=== PATIENT | female | born 1935 | race Caucasian/White ===

== ENCOUNTER 2017-02-17 06:25 | Inpatient (IN) | payer OTHER ==
[2017-01-17 11:38] VITALS: BMI 36.0
--- NOTE | 2017-01-17 12:15 | PAT Medication Instructions ---
Service Date Jan 17, 2017. Current Home Medication List Acetaminophen (Tylenol), 1,000 MG PO Q6 PRN for Pain Amlodipine (Norvasc), 20 MG PO QPM Calcium Carbonate-Vitamin D (Calcium + D), 1 TAB PO BID Citalopram (Citalopram Hydrobromide), 20 MG PO QAM Clonazepam (Klonopin), 1 MG PO HS PRN for Sleep Denosumab (Prolia), 1 DOSE INJ Q6MO Loperamide Hcl (Imodium), 2 MG PO UD PRN for Diarrhea Meclizine HCl (Meclizine HCl), 1 TAB PO TID PRN for DIZZINESS Ocuvite Preservision (Ocuvite Preservision), 1 TAB PO BID Omeprazole (Prilosec), 20 MG PO QAM Psyllium (Metamucil), 1 PO HS Triamterene/Hctz (Dyazide 37.5MG/25MG), 1 TAB PO QAM Medication Instructions For Your Scheduled Surgery Denosumab (Prolia), 1 DOSE INJ Q6MO (continue as directed) - Hold the following medications the morning of surgery: Calcium Carbonate-Vitamin D (Calcium + D), 1 TAB PO BID Loperamide Hcl (Imodium), 2 MG PO UD PRN for Diarrhea Ocuvite Preservision (Ocuvite Preservision), 1 TAB PO BID Triamterene/Hctz (Dyazide 37.5MG/25MG), 1 TAB PO QAM - Take the following medications the morning of surgery with a sip of water: Omeprazole (Prilosec), 20 MG PO QAM Meclizine HCl (Meclizine HCl), 1 TAB PO TID PRN for DIZZINESS (if needed) Citalopram (Citalopram Hydrobromide), 20 MG PO QAM Acetaminophen (Tylenol), 1,000 MG PO Q6 PRN for Pain (okay to take up to 4 hours prior to surgery if needed) - Take the following medications as scheduled the night before surgery: Psyllium (Metamucil), 1 PO HS Ocuvite Preservision (Ocuvite Preservision), 1 TAB PO BID Meclizine HCl (Meclizine HCl), 1 TAB PO TID PRN for DIZZINESS (if needed) Loperamide Hcl (Imodium), 2 MG PO UD PRN for Diarrhea (if needed) Clonazepam (Klonopin), 1 MG PO HS PRN for Sleep (if needed) Amlodipine (Norvasc), 20 MG PO QPM Calcium Carbonate-Vitamin D (Calcium + D), 1 TAB PO BID Acetaminophen (Tylenol), 1,000 MG PO Q6 PRN for Pain (if needed) If you have any questions please call us at [phone] or [phone] or [phone]
[2017-01-17 13:05] LABS: BASO % 0.4 %; BASO ABS # 0.04 K/uL (0-0.2); COMPLETE YES; EOS % 1.8 %; HEMATOCRIT 43.8 % (37-47); IG% 0.2 %; LYMPH % 18.5 %; LYMPH ABS # 1.67 K/uL (1.2-3.4); MEAN CELL VOLUME 94.6 fL (80-100); MEAN CORPUSCULAR HEMOGLOBIN 30.7 pg (25-34); MEAN CORPUSCULAR HGB CONC 32.4 g/dl (32-36); MEAN PLATELET VOLUME 12.5 fL (7.4-10.4); MONO % 8.7 %; NEUT % 70.4 %; PLATELET COUNT 170 K/uL (130-400); RED BLOOD COUNT 4.63 M/uL (4.2-5.4); WHITE BLOOD COUNT 9.03 K/uL (4.8-10.8)
[2017-01-17 13:15] LABS: INR 1.1 (0.9-1.1); PARTIAL THROMBOPLASTIN RATIO 1.2; PROTHROMBIN TIME (PATIENT) 11.3 SECONDS (9.0-12.0)
[2017-01-17 13:18] LABS: CREATININE 0.95 mg/dl (0.60-1.20); POTASSIUM 4.2 mmol/L (3.5-5.1)
--- NOTE | 2017-02-13 07:10 | HISTORY & PHYSICAL EXAMINATION ---
DATE OF ADMISSION: 02/17/2017 CHIEF COMPLAINT: Left knee pain. 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 She has got a long history of left knee pain and discomfort dating back to over 10 years ago. She was managed by Dr. White, a local orthopedist. She has been through injections, which provided some temporary relief, but became less successful over time. Pain is mostly on the medial side of her knee. It is increased with weightbearing. She has nighttime discomfort. She would like to have her left knee replaced. The patient also has an underlying history of some chronic kidney disease due to chemotherapy from breast cancer, cannot really take NSAIDs as a result. PAST MEDICAL HISTORY: 1. Hypertension. 2. History of breast cancer status post surgery and chemotherapy. 3. Chronic renal insufficiency. PREVIOUS SURGERIES: Include: 1. Meningioma resection at [facility]. 2. Mastectomy. 3. Cholecystectomy. 4. Hysterectomy. 5. Cataract surgery. ALLERGIES: DILANTIN, AUGMENTIN AND FLU SHOT. CURRENT MEDICATIONS: Include: 1. Citalopram 20 mg. 2. Triamterene/hydrochlorothiazide 5/25 once a day. 3. Omeprazole 20 mg. 4. Norvasc 20 mg. 5. Clonazepam 1 mg a day. 6. Meclizine p.r.n. 7. Metamucil. 8. PreserVision. 9. Calcium. 10. Tylenol. 11. Prolia injection. 12. Imodium. SOCIAL HISTORY: A 81-year-old female. She comes in with a friend and lives at [facility]. She is . She lives alone. She does not drink. FAMILY HISTORY: Significant for heart disease and breast cancer. REVIEW OF SYSTEMS: Significant for breast cancer and chronic renal insufficiency secondary to chemotherapy. She denies any chest pain. No shortness of breath. No history of DVT or PE. PHYSICAL EXAMINATION: GENERAL: Reveals a pleasant elderly female, who looks to be in pretty good health. HEENT: Benign. NECK: Supple. No lymphadenopathy. LUNGS: Clear to auscultation. HEART: Regular rate and rhythm. ABDOMEN: Soft, nontender and nondistended. EXTREMITIES: Grossly neurovascularly intact except as follows: Examination of the left knee reveals the patient ambulates with varus alignment to her knee. She does limp on the left side. She has got a little bit of a waddling gait. Range of motion is 5 degrees short of full extension and 120 degrees of flexion. No instability. No pain with hip motion. X-RAYS: X-rays of the left knee were reviewed which show advanced left knee DJD. She has got near complete loss of her medial joint space. A little bit of tibiofemoral subluxation. She has subchondral sclerosis. 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 Also, has a history of breast cancer and chronic renal insufficiency and cannot take NSAIDs as a result. PLAN: The patient wanted to proceed with knee replacement. We will plan on taking her to the operating room and do a left total knee arthroplasty. The risks and benefits of this procedure were explained to the patient including, but not limited to DVT, PE, , infection, neurological injury, vascular injury, bleeding problems, pain, limited range of motion, stiffness, failure to relieve symptoms, incomplete relief of symptoms, need for further surgery in the future, fracture, leg length inequality, nerve palsy, etc. The patient understands and desires to proceed. Informed consent was obtained. The patient is planning on going to [facility] afterwards, as she lives there. We will have to be careful with NSAIDs use after surgery. Her creatinine is fairly normal, so we may be able to give her some Toradol.
[2017-02-17] VITALS (10 sets, daily range): BP systolic 107–162; BP diastolic 66–99; PULSE 67–93; TEMP 36.3–37; O2SAT 93–99; Ht 160 cm; Wt 94.2 kg
[~2017-02-17] VITALS: Ht 160 cm; Wt 94.2 kg
[~2017-02-17 06:25] MED LIST: ACET-1256 PO; ACETAMINOPHEN 500 MG TAB PO SCH; AMLO-114 PO; BUPIVACAINE LIPOSOME 266 MG, BUPIVACAINE/EPINEPHRINE INJ 50 ML, SODIUM CHLORIDE 0.9% PF... INFIL SCH; CALC600T9 PO; CEFAZOLIN 2000MG IV PUSH 10 ML IV SCH; CLON1TAB3 PO; CLX20 PO; DNSIS60 INJ; FAMOTIDINE 20 MG TAB PO SCH; GABAPENTIN 300 MG CAP PO SCH; IMD/2 PO; LACTATED RINGER'S 1000ML 1,000 ML IV SCH; LACTATED RINGER'S 1000ML 500 ML IV ONE; LACTATED RINGER'S 1000ML IV SCH; MECL1TAB40 PO; METOCLOPRAMIDE HCL 10 MG TAB PO SCH; MULT-190 PO; PRLSR20 PO; PSYL1.7W PO; SCOPOLAMINE 1.5 MG TDSY TD SCH; TRANEXAMIC ACID INJ 1,000 MG in SYRINGE 0 ML IV SCH; TRIA37.5 PO
[2017-02-17] MEDS ORDERED: BUPIVACAINE 0.5 % 5 MG/1 ML PF 10ML VIAL ONE (06:32)
[2017-02-17] MEDS ORDERED: ROPIVACAINE 0.5% 5 MG/ML 30 ML VIAL ONE (06:32)
--- NOTE | 2017-02-17 06:55 | History & Physical Bridge Note ---
H&P Re-Evaluation Bridge Note: I have examined the patient, reviewed the History & Physical and in the interval since the performance of the History & Physical I have noted the following changes of clinical significance: No changes noted
[2017-02-17] MEDS ORDERED: MIDAZOLAM HCL 1 MG/ML 2ML VIAL ONE (08:01)
[2017-02-17] MEDS ORDERED: FENTANYL CITRATE INJ 50 MCG/1 ML 2 ML VIAL ONE (08:01)
[2017-02-17] MEDS ORDERED: HYDROmorphone INJ 2 MG/ML SYR/VIAL IV PRN (08:15)
[2017-02-17] MEDS ORDERED: EpHEDrine SULFATE INJ 50 MG/ML AMP IV PRN (08:15)
[2017-02-17] MEDS ORDERED: ATROPINE SULFATE 0.1 MG/ML 5ML SYR IV PRN (08:15)
[2017-02-17] MEDS ORDERED: PHENYLEPHRINE 100MCG/ML 5ML SYR IV PRN (08:15)
[2017-02-17] MEDS ORDERED: ONDANSETRON INJ 2 MG/ML 2 ML VIAL IV PRN ×2 (08:15→11:00)
[2017-02-17] MEDS ORDERED: BUPIVACAINE/EPINEPHRINE 0.25% 1:200,000 30 ML VIAL ONE (08:57)
[2017-02-17] MEDS ORDERED: SODIUM CHLORIDE 0.9% PF 50 ML VIAL ONE (08:58)
[2017-02-17] MEDS ORDERED: VANCOMYCIN HCL 1000MG/20ML VIAL ONE (08:58)
[2017-02-17] MEDS ORDERED: BACITRACIN 50000 UNIT VIAL ONE (08:58)
[2017-02-17] MEDS ORDERED: BUPIVACAINE LIPOSOME 1/3% 266 MG/20 ML VIAL INFIL ONE (08:58)
[2017-02-17] MEDS ORDERED: PROPOFOL IV EMULSION 10 MG/ML 20 ML VIAL IV ONE (09:42)
--- NOTE | 2017-02-17 10:56 | [facility] Post Operative Brief Note ---
Immediate Operative Summary Operative Date Feb 17, 2017. Pre-Operative Diagnosis Advanced Left Knee Degenerative Joint Disease Post-Operative Diagnosis Advanced Left Knee Degenerative Joint Disease Procedure(s) Performed Left Total Knee Arthroplasty Surgeon Dr. Best Midwife Surgeon(s) TONIE aHddad Estimated Blood Loss 50 ml Findings Left Knee DJD Fluids (cc crystalloids) 1600 cc Specimens A. Left Knee Bone and Tissue Drains None Anesthesia Spinal Complication(s) None Disposition Recovery Room / PACU
[2017-02-17] MEDS ORDERED: ZOLPIDEM TARTRATE 5 MG TAB PO PRN (11:00)
[2017-02-17] MEDS ORDERED: ALUMINUM/MAGNESIUM/SIMETH (MAALOX MAX) 30 ML UDC PO PRN (11:00)
[2017-02-17] MEDS ORDERED: LOPERAMIDE HCL 2 MG CAP PO PRN (11:00)
[2017-02-17] MEDS ORDERED: BISACODYL 10 MG SUPP PR PRN (11:00)
[2017-02-17] MEDS ORDERED: DENOSUMAB INJ SCH (11:00)
[2017-02-17] MEDS ORDERED: CLONAZEPAM 1 MG TAB PO PRN (11:00)
[2017-02-17] MEDS ORDERED: MECLIZINE HCL 12.5 MG TAB PO PRN (11:00)
[2017-02-17] MEDS ORDERED: MAGNESIUM HYDROXIDE SUSP 30 ML UDC PO PRN (11:00)
[2017-02-17] MEDS ORDERED: SILVER SULFADIAZINE 1% CR 50 GM JAR EXT PRN (11:00)
[2017-02-17] MEDS ORDERED: METOCLOPRAMIDE HCL INJ 5 MG/ML 2 ML VIAL IV PRN (11:00)
--- NOTE | 2017-02-17 11:31 | OPERATIVE REPORT ---
DATE OF OPERATION: 02/17/2017 SURGEON: Dr. Favio Best. BLISTER PACKAGING MACHINE OPERATOR: TONIE Amaya PREOPERATIVE DIAGNOSIS: Left knee degenerative joint disease. POSTOPERATIVE DIAGNOSIS: Same. PROCEDURE PERFORMED: Left cemented posterior stabilized total knee arthroplasty. COMPLICATIONS: None. ESTIMATED BLOOD LOSS: 50 mL. FLUID REPLACEMENT: 1600 mL crystalloid fluid replacement. ANESTHESIA: Spinal with adductor canal block. DRAINS: None. SPECIMENS: Left knee sent for pathology. TOURNIQUET TIME: 57 minutes at 300 mmHg. 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 She has been through extensive conservative treatment over the past 10 years. This has become less successful. She would now like to proceed with total knee arthroplasty. OPERATIVE FINDINGS: Operative findings revealed advanced left knee DJD. She had grade 4 [id number] disease of the medial compartment as well as the patellofemoral compartment. The lateral compartment was fairly spared. She had a varus deformity to her knee. She had a moderate sized knee effusion. OPERATIVE IMPLANTS: Operative implants consisted of: 1. Biomet Vanguard size 62.5 left posterior stabilized femoral component. 2. Biomet size 67 tibial tray. 3. A 10-mm posterior stabilized polyethylene insert. 4. A 31 x 8 all poly patella. OPERATIVE PROCEDURE: The patient was taken to the operating room, identified and placed on the operating table in the supine position. All contact areas were appropriately padded. IV antibiotics were provided by anesthesia team. A spinal anesthetic and adductor canal block had been provided in the holding area. Alegria catheter was placed in sterile fashion. The left thigh tourniquet was then placed and left lower extremity was then prepped and draped in the usual sterile fashion. The left leg was elevated and exsanguinated with Esmarch and tourniquet was placed at 300 mmHg. An anterior approach to the left knee was then performed through a longitudinal incision centered over the patella. Sharp dissection was carried through the subcutaneous tissues down to the level of the extensor mechanism. A medial parapatellar arthrotomy incision was made. Some subperiosteal dissection was carried out medially. The fat pad was resected from beneath the patellar tendon. The lateral patellofemoral ligament was released. The patella was everted and knee was flexed. The osteophytes were taken off the distal femur. The ACL and PCL were then released from the distal femur and the tibia subluxated anteriorly. The external tibial alignment jig was then placed in the anterior face of the tibia and adjusted 14 mm medially. Proximal tibial cut was made to remove about 2 mm of bone from the medial side. Her bone was pretty osteoporotic below this. The tibia was sized to a size 67. We tried to maximize coverage due to osteoporosis. Attention was then drawn to the femur. The distal femur was entered with a sharp drill. Intramedullary canal was suctioned. A left 5-degree valgus cutting guide was placed. The distal femoral cutting block was pinned in place. Distal femoral cut was made to take an additional 3 mm of bone off the distal femur. The femur was then sized to a size 62.5. We did downsize this almost the entire size due to the narrow medial/lateral dimensions of the femur. The AP cutting block was pinned parallel to the epicondylar axis, which was 4 degrees of external rotation. The anterior cut, anterior chamfer, posterior cut, and posterior chamfer cuts were made. Box cutting guide was placed and adjusted slightly lateral and the box cut was made. The knee was flexed. The remnants of the medial and lateral menisci were excised. The osteophytes were taken off the posterior aspect of the femur. Trial femoral component was placed. Tibial tray was pinned in maximum external rotation and drill and stem punch were used to create defect in the proximal tibia for the tibial tray. The knee was then trialed and a 10-mm insert fit most appropriately. It was a little bit lax, a little bit more in flexion and extension, but I elected to accept this as I did not want to make her too tight. Attention was then drawn to the patella. The patella was cleaned of all soft tissues. Patella thickness measured 19 mm in thickness and it was cut down to 12. It was sized to a size 31 patella. The lug holes were drilled for the 31 patella. Lateral osteophyte was removed. Patella button was placed. The knee was taken through range of motion and the patella tracked nicely with no thumbs test. Attention was then drawn toward placement of the permanent components. All trial components were removed. Bone plug was placed in the distal femur to limit blood loss. A double batch of Palacos G cement was mixed. A left size 62.5 posterior stabilized femoral component, size 67 tibial tray, a 10-mm posterior stabilized polyethylene insert, and a 31 x 8 all poly patella then cemented in place. Knee was brought out into full extension until cement hardened. A final cement check was then performed. Pericapsular tissues were injected with a total of 100 mL of a combination of 20 mL of Exparel, 30 mL of normal saline, and 50 mL of 0.25% Marcaine with epinephrine. The patient did receive 1 gram of tranexamic acid. The tourniquet was then let down for final tourniquet time of 57 minutes. Hemostasis was assured with use of electrocautery. The wound was once again irrigated. The extensor mechanism was then closed with a combination of #1 PDS suture and #1 Vicryl suture in a [id number] fashion. Extensor mechanism was checked and found to be intact. The subcutaneous tissues were then closed with 2-0 Dexon suture in a buried interrupted fashion. Skin was closed skin sarah. Leg was then cleaned and dried and a sterile dressing of Xeroform, 4 x 4, sterile cast padding and Aiden bandage were applied. The patient then transferred to the recovery room in stable condition. The patient tolerated the procedure well with no complications. All needle and sponge counts were correct at the end of the operation. I attest to the content of the Intraoperative Record and any orders documented therein. Any exception s are noted below.
--- NOTE | 2017-02-17 11:41 | DIAGNOSTIC IMAGING REPORT ---
L KNEE 1 OR 2 VIEWS ROUTINE HISTORY: 81 years-old Female AP/LATERAL IN PACU LEFT KNEE status post left knee total joint arthroplasty. Degenerative joint disease. COMPARISON: Left knee radiographs 12/15/2016 TECHNIQUE: 2 views of the left knee FINDINGS: Postoperative changes are present compatible with recent left knee total joint arthroplasty and patella resurfacing. Midline skin sarah are seen anteriorly. Surgical drain is in place. Expected soft tissue swelling and deep tissue air about the knee is noted. No periprosthetic fracture or retained foreign body. Alignment is satisfactory. IMPRESSION: Status post left knee total joint arthroplasty and patellar resurfacing without complication. The above report was generated using voice recognition software. It may contain grammatical, syntax or spelling errors. Electronically signed by: Efren Gómez M.D. 02/17/2017 11:40 AM Dictated Date/Time: 02/17/2017 11:39 AM
--- NOTE | 2017-02-17 12:15 | Anesthesiology Progress Note ---
Anesthesia Post Op Note Date & Time Feb 17, 2017 at 12:15 Vital Signs Pain Intensity: 0 Vital Signs Past 12 Hours Date Time Temp Pulse Resp B/P (MAP) Pulse Ox O2 Delivery O2 Flow Rate FiO2 02/17/17 11:40 36.6 71 16 108/57 98 Nasal Cannula 2 02/17/17 11:30 36.6 68 16 106/58 98 Nasal Cannula 2 02/17/17 11:20 68 16 114/42 98 Nasal Cannula 2 02/17/17 11:10 78 16 125/61 100 Nasal Cannula 2 02/17/17 11:02 36.9 81 16 130/60 99 Oxymask 10 02/17/17 07:01 95 Room Air 02/17/17 06:59 36.5 76 18 136/99 Notes Mental Status: alert / awake / arousable, participated in evaluation Pt Amnestic to Procedure: Yes Nausea / Vomiting: adequately controlled Pain: adequately controlled Airway Patency, RR, SpO2: stable & adequate BP & HR: stable & adequate Hydration State: stable & adequate Anesthetic Complications: no major complications apparent
[2017-02-17] MEDS: D5W AND 1/2NSS + 20MEQ KCL 1,000 ML IV SCH ×2 (13:01→22:57)
[2017-02-17] MEDS: TRAMADOL HCL 50 MG TAB PO PRN (13:07)
--- NOTE | 2017-02-17 15:46 | PROGRESS NOTE ---
DATE: 02/17/2017 SUBJECTIVE: A 81-year-old female postop from a left knee replacement. She is doing pretty well. Just starting to feel some pain in her leg. Denies any chest pain or shortness of breath. Not feeling dizzy or lightheaded. OBJECTIVE: VITAL SIGNS: Temperature 36.3. Vital signs stable. GENERAL: Physical examination reveals a pleasant elderly female. She is sitting up in bed and looks comfortable. She is talking to the family. LUNGS: Clear to auscultation. HEART: Regular rate and rhythm. ABDOMEN: Soft, nontender, and nondistended. EXTREMITIES: Grossly neurovascularly intact except as follows: Examination of the left lower extremity reveals the dressing to be clean, dry and intact. Leg is well aligned. She can dorsiflex and plantarflex her foot appropriately. She is neurologically intact. X-RAYS: X-rays of the left knee from recovery room were reviewed. It shows a left cemented posterior stabilized total knee arthroplasty. Components looked to be in good position. No signs of obvious problem. It is a fairly rotated film. ASSESSMENT: A 81-year-old female postop from a left knee replacement, doing pretty well. Pain is controlled. She is neurologically intact. PLAN: 1. DVT prophylaxis including thigh-high TEDs, SCDs, and aspirin twice a day. 2. PT/OT. Weightbear as tolerated. Left total knee protocol. 3. Pain control. Doing well with the current pain regimen. 4. IV antibiotics x24 hours. 5. Disposition: Plan to discharge to [facility]. She will either go back to her apartment or to the senior living facility depending on how she does with the therapy. Most likely, she will need a senior living visit.
[2017-02-17] MEDS: CHECK SCOPOLAMINE PATCH PLACEMENT SCH ×2 (15:49→23:39)
[2017-02-17] MEDS: HYDROmorphone INJ 0.5 MG/0.5 ML SYR IV PRN (15:53)
[2017-02-17] MEDS ORDERED: TRANEXAMIC ACID INJ 1,000 MG in SODIUM CHLORIDE 0.9% 100ML 100 ML IV SCH (16:00)
[2017-02-17] MEDS ORDERED: TRANEXAMIC ACID INJ 1,000 MG in SYRINGE 0 ML IV SCH (16:00)
[2017-02-17] MEDS: FERROUS GLUCONATE 324 MG TAB PO SCH ×2 (17:45→17:46)
[2017-02-17] MEDS: CEFAZOLIN IV 2,000 MG in SYRINGE 0 ML IV SCH (17:45)
[2017-02-17] MEDS: KETOROLAC TROMETHAMINE 15 MG/ML VIAL IV. SCH ×2 (17:45→23:39)
[2017-02-17] MEDS: PSYLLIUM 58.6% PWD PACK S\\F PO SCH (21:27)
[2017-02-17] MEDS: CEROVITE ADV FORMULA TAB PO SCH (21:28)
[2017-02-17] MEDS: SENNA 8.6 MG TAB PO SCH (21:28)
[2017-02-17] MEDS: CALCIUM 600MG + VIT D 400 IU TAB PO SCH (21:29)
[2017-02-17] MEDS: DOCUSATE SODIUM 100 MG CAP PO SCH (21:29)
[2017-02-17] MEDS: ASPIRIN 325 MG ECTAB PO SCH (21:29)
[2017-02-17] MEDS: ACETAMINOPHEN 500 MG TAB PO SCH (21:30)
[2017-02-18] MEDS: CEFAZOLIN IV 2,000 MG in SYRINGE 0 ML IV SCH (01:31)
[2017-02-18] MEDS: HYDROmorphone INJ 0.5 MG/0.5 ML SYR IV PRN (01:38)
[2017-02-18 03:51] VITALS: BP 129/70; PULSE 82; TEMP 36.9; O2SAT 97
[2017-02-18] MEDS: KETOROLAC TROMETHAMINE 15 MG/ML VIAL IV. SCH ×3 (06:03→18:25)
[2017-02-18] MEDS: ACETAMINOPHEN 500 MG TAB PO SCH ×3 (06:03→22:10)
[2017-02-18 07:33] VITALS: BP 107/62; PULSE 83; TEMP 36.4; O2SAT 92
[2017-02-18 08:16] LABS: HEMATOCRIT 36.8 % (37-47); MEAN CELL VOLUME 95.3 fL (80-100); MEAN CORPUSCULAR HEMOGLOBIN 31.1 pg (25-34); MEAN CORPUSCULAR HGB CONC 32.6 g/dl (32-36); MEAN PLATELET VOLUME 12.3 fL (7.4-10.4); RED BLOOD COUNT 3.86 M/uL (4.2-5.4); WHITE BLOOD COUNT 12.66 K/uL (4.8-10.8)
[2017-02-18] MEDS: D5W AND 1/2NSS + 20MEQ KCL 1,000 ML IV SCH (08:16)
[2017-02-18 08:17] LABS: BUN/CREATININE RATIO 17.7 (10-20); CALCIUM 7.9 mg/dl (8.5-10.1); CREATININE 1.15 mg/dl (0.60-1.20); POTASSIUM 4.7 mmol/L (3.5-5.1)
[2017-02-18 08:24] LABS: PLATELET COUNT 124 K/uL (130-400); PLT ESTIMATE DECREASED
[2017-02-18] MEDS: CALCIUM 600MG + VIT D 400 IU TAB PO SCH ×2 (08:28→20:33)
[2017-02-18] MEDS: CHECK SCOPOLAMINE PATCH PLACEMENT SCH ×2 (08:28→16:00)
[2017-02-18] MEDS: FERROUS GLUCONATE 324 MG TAB PO SCH ×3 (08:28→18:25)
[2017-02-18] MEDS: MULTIVITAMIN TAB PO SCH (08:29)
[2017-02-18] MEDS: DOCUSATE SODIUM 100 MG CAP PO SCH ×2 (08:29→20:34)
[2017-02-18] MEDS: ASPIRIN 325 MG ECTAB PO SCH ×2 (08:29→20:34)
[2017-02-18] MEDS: CEROVITE ADV FORMULA TAB PO SCH ×2 (08:30→20:35)
[2017-02-18] MEDS: CITALOPRAM 20 MG TAB PO SCH (08:30)
[2017-02-18] MEDS: TRIAMTERENE/HCTZ 37.5/25MG CAP PO SCH (08:30)
[2017-02-18] MEDS: PANTOprazole SOD 40 MG TAB PO SCH (08:30)
--- NOTE | 2017-02-18 08:41 | PROGRESS NOTE ---
DATE: 02/18/2017 SUBJECTIVE: A 81-year-old female postop day 1 from a left knee replacement. She is doing pretty well. Had a pretty good night. Pain is controlled. No chest pain or shortness of breath. Not feeling dizzy or lightheaded. OBJECTIVE: VITAL SIGNS: Temperature 36.4. Vital signs stable. PHYSICAL EXAMINATION: GENERAL: Reveals a healthy, pleasant elderly female. I had to wake her when I went into the room this morning. She is awake, alert and oriented. EXTREMITIES: Examination of the left leg reveals the leg to be well aligned. She can dorsiflex and plantarflex her foot appropriately. She is neurologically intact. LABORATORY DATA: Labs are pending. ASSESSMENT: A 81-year-old white female postop day 1 from a left knee replacement, doing pretty well. Pain is controlled. She is neurologically intact. PLAN: 1. DVT prophylaxis including thigh-high TEDs, SCDs, and aspirin twice a day. 2. PT/OT. Weight bear as tolerated. Left total knee protocol. 3. Pain control, doing well with current pain regimen. We will try and limit narcotics to avoid confusion issues. 4. Disposition: She is hoping to be discharged to [facility]. She will likely need a fpc facility stay at [facility]. This probably will not happen until Monday most likely.
[2017-02-18] MEDS ORDERED: ULT50X PO (08:42)
[2017-02-18] MEDS ORDERED: ACET-24 PO (08:42)
[2017-02-18] MEDS ORDERED: ASPEC325 PO (08:42)
--- NOTE | 2017-02-18 08:44 | Discharge Instructions ---
Discharge Instructions Date of Service Feb 18, 2017. Admission Reason for Admission: Left Knee Degenerative Joint Disease Discharge Discharge Diagnosis / Problem: Left Knee Replacement Discharge Goals Goal(s): Decrease discomfort, Improve function, Increase independence, Improve disease control, Therapeutic intervention Activity Recommendations Activity Level: Assistance Required Therapies: Physical Therapy, Occupational Therapy Weightbearing Status: Left weightbearing . Additional Information Patient informed of condition: Yes Advance Directives: Yes DNR: No Level of Care: Skilled Communicable Disease: No Prognosis: Improving Instructions / Follow-Up Instructions / Follow-Up ACTIVITY RECOMMENDATIONS: Physical Therapy: * You will go to physical therapy three times each week for four to six weeks after your surgery in order to regain your knee range of motion and to retrain your knee to work properly. * It is just as important to make sure you are getting your knee perfectly straight as it is to regain your knee bend. * Taking a pain pill an hour before therapy can help you have a more productive and comfortable therapy session. Home Exercise: * You were shown a series of exercises (heel props, heel slides, etc.) in the hospital. Do these exercises three to four times each day including the exercises you were shown in physical therapy. Walking: * Get up and walk several times each day. For the first four weeks, try not to stand or walk for more than one hour at a time. If you do stand or walk for more than one hour, you will not hurt anything, but your knee and leg will likely swell. * As you feel comfortable, you may change from the walker or crutches to a cane and then to independent walking. MEDICATIONS: New Medicine: * You will likely be taking one or more of these medications: 1. Tramadol - A quick and shorter-acting pain medication. Take one to two tablets every four to six hours to lessen your pain. 2. Aspirin - Thins your blood to lessen the chance of forming a blood clot. * The most common side effects of pain medicine and iron are nausea and constipation. If nausea or constipation is too much of a problem or if you have any questions about your new medicines or doses, call [facility] at . We will try to help you manage these issues. VERY IMPORTANT TO READ AND REVIEW" Pain: * The immediate post-operative period after knee replacement surgery is often quite painful. * You are given a prescription for pain medicine. You should take it, as directed, when you need it, especially before physical therapy and before going to bed. Pain that interferes with sleep is very common and can last several months. * You will likely need pain medicine for the first four to six weeks. It will not stop all of the pain. The pain will lessen and as you feel better, you may change to milder pain medicine such as Tylenol. * The most common side effects of pain medicine are nausea and constipation, so don't take more than you need. SPECIAL CARE INSTRUCTIONS: TEDs/Elastic Stockings: * The white elastic stockings help limit swelling and prevent blood clots from forming in your legs. The more you wear them, the more they work. * Wear them for six weeks after knee replacement surgery and four weeks after partial knee replacement. Prevention of Infection: * Take antibiotics one hour before any dental cleaning, dental work, urological procedure, gastrointestinal procedure or any invasive surgery in order to prevent your new joint from getting infected. * You may get the antibiotics from the doctor performing the procedure or you may call our office at before and we will call in a prescription to the pharmacy of your choice. Things to Watch For: * Drainage from the incision site that occurs more than one week after your surgery. * Severely increased knee/leg pain or swelling. * Increased redness at the incision site. * Fever above 102 degrees Fahrenheit. * Unusual chest pain or shortness of breath. * Unusual pain or burning with urination. Call [facility] at with any of the above problems or if you have any questions about your medicines or recovery. FOLLOW UP VISIT: Make an appointment to see your doctor for approximately two weeks after surgery for a progress check and staple removal by calling the office at . Current Hospital Diet Patient's current hospital diet: Regular Diet Discharge Diet Recommended Diet: Regular Diet Procedures Procedures Performed: Left Total Knee Arthroplasty Pending Studies Studies pending at discharge: no Medical Emergencies . Who to Call and When: Medical Emergencies: If at any time you feel your situation is an emergency, please call [phone] immediately. . Non-Emergent Contact Non-Emergency issues call your: Surgeon . . "Provider Documentation" section prepared by Favio Best. . Core Measure Problem Core Measures: None
[2017-02-18] MEDS ORDERED: PANTOprazole SOD 40 MG TAB PO SCH (09:00)
[2017-02-18 10:52] VITALS: BP 114/68; PULSE 72; O2SAT 93
[2017-02-18] MEDS: TRAMADOL HCL 50 MG TAB PO PRN ×2 (11:32→17:19)
[2017-02-18 14:50] VITALS: BP 103/65; PULSE 85; O2SAT 91
[2017-02-18 15:34] VITALS: BP 123/69; PULSE 79; TEMP 36.5; O2SAT 93
[2017-02-18] MEDS: PSYLLIUM 58.6% PWD PACK S\\F PO SCH (20:34)
[2017-02-18] MEDS: SENNA 8.6 MG TAB PO SCH (20:35)
[2017-02-18 23:32] VITALS: BP 118/69; PULSE 83; TEMP 36.9; O2SAT 91
[2017-02-19] MEDS: CHECK SCOPOLAMINE PATCH PLACEMENT SCH ×3 (00:03→16:00)
[2017-02-19] MEDS: KETOROLAC TROMETHAMINE 15 MG/ML VIAL IV. SCH ×3 (00:04→11:40)
[2017-02-19] MEDS: TRAMADOL HCL 50 MG TAB PO PRN (02:01)
[2017-02-19] MEDS: ACETAMINOPHEN 500 MG TAB PO SCH ×3 (06:11→21:31)
[2017-02-19 06:59] VITALS: BP 101/65; PULSE 79; TEMP 36.8; O2SAT 91
[2017-02-19] MEDS: FERROUS GLUCONATE 324 MG TAB PO SCH ×3 (07:49→17:58)
[2017-02-19] MEDS: CITALOPRAM 20 MG TAB PO SCH (07:49)
[2017-02-19] MEDS: CALCIUM 600MG + VIT D 400 IU TAB PO SCH ×2 (07:49→21:28)
[2017-02-19] MEDS: DOCUSATE SODIUM 100 MG CAP PO SCH ×2 (07:49→21:29)
[2017-02-19] MEDS: ASPIRIN 325 MG ECTAB PO SCH ×2 (07:50→21:28)
[2017-02-19] MEDS: MULTIVITAMIN TAB PO SCH (07:50)
[2017-02-19] MEDS: TRIAMTERENE/HCTZ 37.5/25MG CAP PO SCH (07:50)
[2017-02-19] MEDS: CEROVITE ADV FORMULA TAB PO SCH ×2 (07:50→21:28)
[2017-02-19] MEDS: PANTOprazole SOD 40 MG TAB PO SCH (07:51)
[2017-02-19 09:05] VITALS: BP 103/66; PULSE 81; O2SAT 92
--- NOTE | 2017-02-19 10:00 | PROGRESS NOTE ---
DATE: 02/19/2017 DATE: 02/19/2017 SUBJECTIVE: A 81-year-old white female postop day 2 from a left knee replacement. She is doing pretty well. No pain at all when she is resting in bed. Denies any chest pain or shortness of breath. Not feeling dizzy or lightheaded. OBJECTIVE: VITAL SIGNS: Temperature 36.8. Vital signs stable. GENERAL: Reveals a healthy pleasant elderly female. She is sitting up in bed eating breakfast when I visited her this morning. She looks pretty comfortable. EXTREMITIES: Examination of the left leg reveals it to be well aligned. Dressing is clean, dry and intact. She can dorsiflex and plantarflex her foot appropriately. She is neurologically intact. ASSESSMENT: A 81-year-old female postop day 2 from a left knee replacement, doing pretty well. Pain is controlled. She is neurologically intact. PLAN: 1. DVT prophylaxis including thigh high TEDs, SCDs, and aspirin twice a day. 2. PT, OT. Weight bear as tolerated. Left total knee protocol. 3. Pain control. Doing pretty well with current pain regimen. 4. Disposition. She is planning to be discharged back to [facility]. She will go into the halfway facility. They do not have a bed available. She will need insurance authorization and likely discharge on Monday.
[2017-02-19 15:20] VITALS: BP 95/56; PULSE 74; TEMP 36.4; O2SAT 93
[2017-02-19] MEDS: SENNA 8.6 MG TAB PO SCH (21:28)
[2017-02-19] MEDS: PSYLLIUM 58.6% PWD PACK S\\F PO SCH (21:29)
[2017-02-19 23:16] VITALS: BP 131/68; PULSE 87; TEMP 37.1; O2SAT 92
[2017-02-20] MEDS: ACETAMINOPHEN 500 MG TAB PO SCH (06:01)
--- NOTE | 2017-02-20 07:22 | PROGRESS NOTE ---
DATE: 02/20/2017 SUBJECTIVE: A 81-year-old female postop day #3 from a left knee replacement. She is doing pretty well. We are mostly just waiting for placement. She is complaining more of just bilateral foot pain than anything. No chest pain or shortness of breath. Not feeling dizzy or lightheaded. OBJECTIVE: VITAL SIGNS: Temperature 37.1. Vital signs stable. GENERAL: Physical examination reveals a pleasant elderly female. She is lying in bed and looks quite comfortable. EXTREMITIES: Examination of the left leg reveals the dressing to be clean, dry and intact. Some mild left leg swelling. There are no visible foot problems. Stockings are in place and likely causing some slight compression. She is neurologically intact. ASSESSMENT: A 81-year-old female postop day #3 from a left knee replacement doing pretty well. Pain is reasonably well controlled. We are just waiting for placement. PLAN: 1. DVT prophylaxis including thigh-high TEDs, SCDs, and aspirin twice a day. 2. PT and OT. Weightbear as tolerated. Left total knee protocol. 3. Pain control. Doing pretty well with current pain regimen. 4. Disposition: We are hoping to discharge her to [facility] nursing facility today. Awaiting approval and bed availability.
--- NOTE | 2017-02-20 08:01 | Anesthesiology Progress Note ---
Anesthesia Post Op Note Date & Time Feb 20, 2017 at 08:01 Vital Signs Vital Signs Past 12 Hours Date Time Temp Pulse Resp B/P (MAP) Pulse Ox O2 Delivery O2 Flow Rate FiO2 02/19/17 23:45 Room Air 02/19/17 23:16 37.1 87 18 131/68 (89) 92 Room Air Notes Mental Status: alert / awake / arousable, participated in evaluation Pt Amnestic to Procedure: Yes Nausea / Vomiting: adequately controlled Pain: adequately controlled Airway Patency, RR, SpO2: stable & adequate BP & HR: stable & adequate Hydration State: stable & adequate Neuraxial Anesthesia: was administered, sensory block resolved Anesthetic Complications: no major complications apparent
[2017-02-20 08:08] VITALS: BP 140/78; PULSE 70; TEMP 37; O2SAT 94
[2017-02-20] MEDS: FERROUS GLUCONATE 324 MG TAB PO SCH ×2 (08:13→12:10)
[2017-02-20] MEDS: PANTOprazole SOD 40 MG TAB PO SCH (08:13)
[2017-02-20] MEDS: TRAMADOL HCL 50 MG TAB PO PRN ×2 (08:13→12:59)
[2017-02-20] MEDS: CALCIUM 600MG + VIT D 400 IU TAB PO SCH (08:13)
[2017-02-20] MEDS: CEROVITE ADV FORMULA TAB PO SCH (08:14)
[2017-02-20] MEDS: MULTIVITAMIN TAB PO SCH (08:14)
[2017-02-20] MEDS: CITALOPRAM 20 MG TAB PO SCH (08:14)
[2017-02-20] MEDS: TRIAMTERENE/HCTZ 37.5/25MG CAP PO SCH (08:14)
[2017-02-20] MEDS: ASPIRIN 325 MG ECTAB PO SCH (08:15)
[2017-02-20] MEDS: DOCUSATE SODIUM 100 MG CAP PO SCH (08:15)
[2017-02-20 08:50] VITALS: O2SAT 94
[2017-02-20 11:42] VITALS: BP 124/68; PULSE 72; TEMP 36.8; O2SAT 93
[2017-02-20 12:54] VITALS: BP 124/68; PULSE 72; TEMP 36.8; O2SAT 93
== END 2017-02-20 13:53 | DRG 470 ==
LOC: C.ACU 06:25 → C.3E 06:40 → ENRESERV 11:26
PROVIDERS: ADMIT Orthopaedic Surgery Sports Medicine; ATTEND Orthopaedic Surgery Sports Medicine
PROC: 0SRD0J9 Replacement of Left Knee Joint with Synthetic Substitute, Cemented, Open Approach (ICD-10-PCS; principal; 2017-02-17 09:00)
DX: M17.12 Unilateral primary osteoarthritis, left knee (principal); I12.9 Hypertensive chronic kidney disease with stage 1 through stage 4 chronic kidney disease, or unspecified chronic kidney disease; N18.9 Chronic kidney disease, unspecified; Z79.899 Other long term (current) drug therapy; Z85.3 Personal history of malignant neoplasm of breast; T45.1X5A Adverse effect of antineoplastic and immunosuppressive drugs, initial encounter

== ENCOUNTER 2017-03-20 11:57 | Emergency (ER) | payer OTHER ==
[~2017-03-20] VITALS: Ht 160 cm; Wt 93.1 kg
[~2017-03-20 11:57] MED LIST changes: -ACET-1256 PO; +ACET-24 PO; -ACETAMINOPHEN 500 MG TAB PO SCH; -AMLO-114 PO; +ASPEC325 PO; -BUPIVACAINE LIPOSOME 266 MG, BUPIVACAINE/EPINEPHRINE INJ 50 ML, SODIUM CHLORIDE 0.9% PF... INFIL SCH; -CEFAZOLIN 2000MG IV PUSH 10 ML IV SCH; -FAMOTIDINE 20 MG TAB PO SCH; -GABAPENTIN 300 MG CAP PO SCH; -LACTATED RINGER'S 1000ML 1,000 ML IV SCH; -LACTATED RINGER'S 1000ML 500 ML IV ONE; -LACTATED RINGER'S 1000ML IV SCH; -METOCLOPRAMIDE HCL 10 MG TAB PO SCH; -SCOPOLAMINE 1.5 MG TDSY TD SCH; -TRANEXAMIC ACID INJ 1,000 MG in SYRINGE 0 ML IV SCH; +ULT50X PO
[2017-03-20 12:02] VITALS: TEMP 36.7; Ht 160 cm; Wt 93.1 kg
--- NOTE | 2017-03-20 12:22 | EMERGENCY ROOM VISIT NOTE ---
History Report prepared by Ayana: [place] Under the Supervision of: Dr. Maurice Root D.O. First contact with patient: 12:14 Chief Complaint: SHORTNESS OF BREATH Stated Complaint: SHORTNESS OF BREATH Nursing Triage Summary: left total knee [address] Best and has been fatigued and short of breath. saw PCP and had d- dimmer elevated so was sent in for evaluation after having a postive blood clot on ultrasound. needs evaluated for PE History of Present Illness The patient is a 81 year old female who presents to the Emergency Room after being referred here for a blood clot workup with complaints of worsening shortness of breath on exertion over the past 4 weeks. She states that she had a left total knee replacement 4 weeks ago, and ever since then, she has had a lot of weakness and shortness of breath on exertion. She notes that she was seen by a PA-C at her primary care office 3 days ago, and had lab tests. She was then called prior to arrival today by the office because her d-dimer was elevated, and she had an ultrasound done at [facility], and it was discovered that she had a blood clot. The patient denies any chest pain, nausea , vomiting, or new leg swelling. She notes no history of clots in her lungs or legs. Source of History: patient Onset: Past 4 weeks Position: other (global - shortness of breath) Symptom Intensity: on exertion Quality: other (ever since knee replacement surgery) Timing: worsening Associated Symptoms: + weakness, No chest pain, No nausea, No vomiting Note: Associated symptoms: Elevated d-dimer, clot found on US. Denies new leg swelling. Review of Systems See HPI for pertinent positives & negatives. A total of 10 systems reviewed and were otherwise negative. Past Medical & Surgical Medical Problems: (1) Hypertension (2) Kidney disease (3) Left Knee DJD (4) Pneumonia Family History Cancer Gallbladder disease Heart disease Hypertension Social History Smoking Status: Never Smoker Alcohol Use: none Drug Use: none Housing Status: lives alone Occupation Status: retired Current/Historical Medications Scheduled Aspirin (Aspirin), 325 MG PO BID Calcium Carbonate-Vitamin D (Calcium + D), 1 TAB PO BID Cephalexin Monohydrate (Keflex), 500 MG PO QID Citalopram (Citalopram Hydrobromide), 20 MG PO QAM Denosumab (Prolia), 1 DOSE INJ Q6MO Ocuvite Preservision (Ocuvite Preservision), 1 TAB PO BID Omeprazole (Prilosec), 20 MG PO QAM Psyllium (Metamucil), 1 PO HS Triamterene/Hctz (Dyazide 37.5MG/25MG), 1 TAB PO QAM Scheduled PRN Clonazepam (Klonopin), 1 MG PO HS PRN for Sleep Loperamide Hcl (Imodium), 2 MG PO UD PRN for Diarrhea Tramadol HCl (Tramadol HCl), 50-100 MG PO Q6 PRN for Pain Allergies Coded Allergies: Flu Virus Vaccine (Verified Allergy, Severe, RESPIRATORY DISTRESS, ) Phenytoin (Verified Allergy, Intermediate, RASH, 03/20/17) Amoxicillin (Verified Allergy, Unknown, RASH, 03/20/17) Clavulanic Acid (Verified Allergy, Unknown, RASH, 03/20/17) Dexamethasone (Verified Adverse Reaction, Intermediate, SEVERE ANXIETY ( TAKES PREDNISONE), 03/20/17) Physical Exam Vital Signs Date Time Temp Pulse Resp B/P (MAP) Pulse Ox O2 Delivery O2 Flow Rate FiO2 03/20/17 14:44 76 15 141/78 95 03/20/17 14:31 95 Room Air 03/20/17 14:31 95 Room Air 03/20/17 14:30 76 15 141/78 95 Room Air 03/20/17 13:31 80 20 142/72 98 Room Air 03/20/17 12:40 81 03/20/17 12:06 96 Room Air 03/20/17 12:02 36.7 85 22 135/76 96 Room Air Physical Exam GENERAL: Patient is awake, alert, and in no acute distress. Patient is resting comfortably and showing no signs of anxiety EYES: The conjunctivae are clear. The pupils are round and reactive. EARS, NOSE, MOUTH AND THROAT: The nose is without any evidence of any deformity. Mucous membranes are moist tongue is midline NECK: The neck is nontender and supple. RESPIRATORY: Lung sounds were diminished throughout. There were fine rales at both bases. No tachypnea or conversational dyspnea appreciated. CARDIOVASCULAR: Regular rate and rhythm noted there no murmurs rubs or gallops normal S1 normal S2 GASTROINTESTINAL: The abdomen is soft. Bowel sounds are present in all quadrants. Abdomen is nontender MUSCULOSKELETAL/EXTREMITIES: There is no evidence of gross deformity full range of motion is noted in the hips and shoulders SKIN: There is pedal edema bilaterally, left greater than right. Mild erythema of the left lower extremity is noted. He begins at the surgical site and goes distally. There is no induration or abscess noted. There is no wound dehiscence noted. NEUROLOGIC: Patient is awake alert and oriented x3. 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 Caesar Kenyon MD CT ANGIOGRAM OF THE CHEST CLINICAL HISTORY: Shortness of breath COMPARISON STUDY: June 02, 2014 TECHNIQUE: Following the IV administration of 75 mL of Optiray-320, CT angiogram of the thorax was performed from the thoracic inlet to the lung bases utilizing the pulmonary embolus protocol. Images are reviewed in the axial, sagittal, and coronal planes. IV contrast was administered without complication. MIP imaging was performed. A dose lowering technique was utilized adhering to the principles of ALARA. CT DOSE: 408.43 mGycm FINDINGS: There is a small hiatal hernia. The gallbladder is surgically absent. The right breast is surgically absent. No pathologically enlarged axillary mediastinal or hilar lymph nodes were visualized. There was no evidence of thoracic aortic dilatation. There were no pulmonary artery filling defects to indicate acute pulmonary embolism. No pleural effusions are visualized. There are mild dependent atelectatic changes. There is no focal pulmonary consolidation. There are mild chronic interstitial changes. There is an old thoracic compression deformity. IMPRESSION: 1. No CT evidence of acute pulmonary embolism 2. Mild emphysema. No evidence of focal pulmonary consolidation. Electronically signed by: Roverto Cornejo M.D. 03/20/2017 1:44 PM Dictated Date/Time: 03/20/2017 1:32 PM Laboratory Results 03/20/17 14:12 Red Blood Count 4.19, Mean Corpuscular Volume 95.9, Mean Corpuscular Hemoglobin 31.3, Mean Corpuscular Hemoglobin Concent 32.6, Mean Platelet Volume 11.9, Neutrophils (%) (Auto) 69.3, Lymphocytes (%) (Auto) 19.3, Monocytes (%) (Auto) 9.0, Eosinophils (%) (Auto) 1.7, Basophils (%) (Auto) 0.5, Neutrophils # (Auto) 5.76, Lymphocytes # (Auto) 1.60, Monocytes # (Auto) 0.75, Eosinophils # (Auto) 0.14, Basophils # (Auto) 0.04 03/20/17 12:35 Test 03/20/17 12:35 03/20/17 12:42 03/20/17 14:12 Est Creatinine Clear Calc Drug Dose 47.5 ml/min Estimated GFR () 59.2 Estimated GFR (Non- 51.1 BUN/Creatinine Ratio 21.1 (10-20) Calcium Level 9.6 mg/dl (8.5-10.1) Total Bilirubin 0.5 mg/dl (0.2-1) Aspartate Amino Transf (AST/SGOT) U/L (15-37) Alanine Aminotransferase (ALT/SGPT) 16 U/L (12-78) Alkaline Phosphatase 62 U/L (45-117) Troponin I < 0.015 ng/ml (0-0.045) Total Protein 7.4 gm/dl (6.4-8.2) Albumin 4.0 gm/dl (3.4-5.0) Globulin 3.4 gm/dl (2.5-4.0) Albumin/Globulin Ratio 1.2 (0.9-2) Bedside Hemoglobin 13.3 g/dl (12.0-16.0) Bedside Hematocrit 39 % (37-47) Bedside Sodium 140 mEq/L (135-144) Bedside Potassium 4.2 mEq/L (3.3-5.0) Bedside Chloride 104 mEq/L (101-112) Bedside Total CO2 28 mEq/l (24-31) Anion Gap 14.0 mmol/L (16-25) Bedside Blood Urea Nitrogen 23 mg/dl (7-18) Bedside Creatinine 1.1 mg/dl (0.6-1.3) Bedside Glucose (other) 98 mg/dl (70-99) Bedside Ionized Calcium (Ce) 1.19 mmol/l (1.12-1.32) White Blood Count 8.31 K/uL (4.8-10.8) Red Blood Count 4.19 M/uL (4.2-5.4) Hemoglobin 13.1 g/dL (12.0-16.0) Hematocrit 40.2 % (37-47) Mean Corpuscular Volume 95.9 fL (80-100) Mean Corpuscular Hemoglobin 31.3 pg (25-34) Mean Corpuscular Hemoglobin Concent 32.6 g/dl (32-36) Platelet Count 149 K/uL (130-400) Mean Platelet Volume 11.9 fL (7.4-10.4) Neutrophils (%) (Auto) 69.3 % Lymphocytes (%) (Auto) 19.3 % Monocytes (%) (Auto) 9.0 % Eosinophils (%) (Auto) 1.7 % Basophils (%) (Auto) 0.5 % Neutrophils # (Auto) 5.76 K/uL (1.4-6.5) Lymphocytes # (Auto) 1.60 K/uL (1.2-3.4) Monocytes # (Auto) 0.75 K/uL (0.11-0.59) Eosinophils # (Auto) 0.14 K/uL (0-0.5) Basophils # (Auto) 0.04 K/uL (0-0.2) RDW Standard Deviation 47.6 fL (36.4-46.3) RDW Coefficient of Variation 13.6 % (11.5-14.5) Immature Granulocyte % (Auto) 0.2 % Immature Granulocyte # (Auto) 0.02 K/uL (0.00-0.02) Prothrombin Time 11.2 SECONDS (9.0-12.0) Prothromb Time International Ratio 1.1 (0.9-1.1) Activated Partial Thromboplast Time 25.4 SECONDS (21.0-31.0) Partial Thromboplastin Ratio 1.0 Laboratory results per my review. Medications Administered Medications (Trade) Dose Ordered Sig/Adrianna Route Start Time Stop Time Status Last Admin Dose Admin Cephalexin Monohydrate (Keflex Cap) 500 mg NOW ONCE PO 03/20/17 14:15 03/20/17 14:16 DC 03/20/17 14:32 500 MG ECG Indication: SOB/dyspnea Rate (beats per minute): 76 Rhythm: normal sinus Findings: no ectopy, other (no acute ST segment abnormalities) Change: no significant change (from 01/17/17) ED Course 1217: The patient was evaluated in room A9B. A complete history and physical examination were performed. 1403: I discussed the patient with Dr. Nasir Best [facility] - he says to start the patient on antibiotics and have her have a repeat ultrasound in a week, and sooner if symptoms worsen. She will follow up with Dr. Best in the office. 1415: Ordered Keflex Cap 500 mg PO. 1430: Upon reevaluation, the patient is resting comfortably. I discussed the results and treatment plan with her. She verbalized agreement of the treatment plan. She was discharged home. Medical Decision Differential diagnosis: Etiologies such as infections, reactive airway disease, pneumonia, pneumothorax , COPD, CHF, cardiac ischemia, pulmonary embolism, musculoskeletal, gastrointestinal, as well as others were entertained. Nursing notes reviewed. The patient is a 81-year-old female who presented to the emergency department for an evaluation of lower extremity pain and difficulty breathing. The patient recently had a knee replacement. She does not have any pain with range of motion of the knee but does have some tenderness and erythema over the surgical site. The patient had an ultrasound done as an outpatient which showed a questionable area that could be consistent with a chronic DVT but there was also some question as to whether or not this could represent some acute DVT. The patient was sent to the emergency department by her primary care physician for a CT the chest. The patient does not appear to have cardiac ischemia on EKG and her cardiac biomarkers were negative. CT the chest did not show any signs of pulmonary embolism. I discussed this case with the patient's primary orthopedic physician. At this time he has recommended starting the patient on an antibiotic and a repeat ultrasound in one week. I agree with this plan. I discussed with the patient and she agreed with the plan as well. Certainly the patient does have erythema in her lower extremity but but there is no wound dehiscence or signs of abscess. The patient was encouraged to continue all medications as prescribed and follow-up with her primary orthopedic physician. I also recommended she return to the emergency department immediately if symptoms change worsen or the need arises. Medication Reconcilliation Current Medication List: was personally reviewed by me Blood Pressure Screening Patient's blood pressure: Elevated blood pressure Blood pressure disposition: Elevated BP felt to be situational Consults Time Called: 1400 Consulting Physician: Dr. Nasir [facility] Returned Call: 1403 I discussed the patient with Dr. [facility] - he says to start the patient on antibiotics and have her have a repeat ultrasound in a week, and sooner if symptoms worsen. She will follow up with Dr. Bset in the office. Impression Primary Impression: SOB (shortness of breath) Additional Impressions: Post op infection Edema of lower extremity Scribe Attestation The scribe's documentation has been prepared under my direction and personally reviewed by me in its entirety. I confirm that the note above accurately reflects all work, treatment, procedures, and medical decision making performed by me. Departure Information Dispostion Home / Self-Care Prescriptions Cephalexin Monohydrate (KEFLEX) 500 Mg Cap 500 MG PO QID, #40 CAP Prov: Maurice Root, DO 03/20/17 Referrals Luz Turk D.O. (PCP) Favio Best M.D. Patient Instructions ED Wound Infec After Surgery, My [facility] Additional Instructions Continue all medications as prescribed. Continue your compression stockings and keep your leg elevated as much as possible. I would recommend a repeat ultrasound in one week. I would recommend a repeat ultrasound sooner if symptoms change worsen or if the need arises. Rest and avoid any strenuous activity. Follow-up with your primary orthopedic doctor. Follow-up with your family doctor as well. Problem Qualifiers Additional Impressions: Post op infection Encounter type: initial encounter Qualified Codes: T81.4XXA - Infection following a procedure, initial encounter
[2017-03-20] MEDS ORDERED: OPTIRAY 320 IV PRN (12:30)
[2017-03-20 12:54] LABS: ISTAT CREATININE 1.1 mg/dl (0.6-1.3); ISTAT HEMOGLOBIN 13.3 g/dl (12.0-16.0); ISTAT IONIZED CALCIUM 1.19 mmol/l (1.12-1.32)
[2017-03-20 13:30] LABS: ALB/GLOB RATIO 1.2 (0.9-2); ALKALINE PHOSPHATASE 62 U/L (45-117); ALT/SGPT 16 U/L (12-78); BLOOD UREA NITROGEN 22 mg/dl (7-18); BUN/CREATININE RATIO 21.1 (10-20); CALCIUM 9.6 mg/dl (8.5-10.1); CARBON DIOXIDE 27 mmol/L (21-32); CHLORIDE 103 mmol/L (98-107); CREATININE 1.04 mg/dl (0.60-1.20); GLUCOSE 91 mg/dl (70-99); SODIUM 139 mmol/L (136-145)
--- NOTE | 2017-03-20 13:45 | DIAGNOSTIC IMAGING REPORT ---
CT ANGIOGRAM OF THE CHEST CLINICAL HISTORY: Shortness of breath COMPARISON STUDY: June 02, 2014 TECHNIQUE: Following the IV administration of 75 mL of Optiray-320, CT angiogram of the thorax was performed from the thoracic inlet to the lung bases utilizing the pulmonary embolus protocol. Images are reviewed in the axial, sagittal, and coronal planes. IV contrast was administered without complication. MIP imaging was performed. A dose lowering technique was utilized adhering to the principles of ALARA. CT DOSE: 408.43 mGycm FINDINGS: There is a small hiatal hernia. The gallbladder is surgically absent. The right breast is surgically absent. No pathologically enlarged axillary mediastinal or hilar lymph nodes were visualized. There was no evidence of thoracic aortic dilatation. There were no pulmonary artery filling defects to indicate acute pulmonary embolism. No pleural effusions are visualized. There are mild dependent atelectatic changes. There is no focal pulmonary consolidation. There are mild chronic interstitial changes. There is an old thoracic compression deformity. IMPRESSION: 1. No CT evidence of acute pulmonary embolism 2. Mild emphysema. No evidence of focal pulmonary consolidation. Electronically signed by: Roverto Cornejo M.D. 03/20/2017 1:44 PM Dictated Date/Time: 03/20/2017 1:32 PM
[2017-03-20] MEDS ORDERED: CEPHALEXIN MONOHYDRATE 250 MG CAP PO ONE (14:15)
[2017-03-20 14:19] LABS: BASO % 0.5 %; BASO ABS # 0.04 K/uL (0-0.2); COMPLETE YES; EOS % 1.7 %; HEMATOCRIT 40.2 % (37-47); IG% 0.2 %; LYMPH % 19.3 %; MEAN CELL VOLUME 95.9 fL (80-100); MEAN CORPUSCULAR HEMOGLOBIN 31.3 pg (25-34); MEAN CORPUSCULAR HGB CONC 32.6 g/dl (32-36); MEAN PLATELET VOLUME 11.9 fL (7.4-10.4); NEUT % 69.3 %; PLATELET COUNT 149 K/uL (130-400); RED BLOOD COUNT 4.19 M/uL (4.2-5.4); WHITE BLOOD COUNT 8.31 K/uL (4.8-10.8)
[2017-03-20 14:31] VITALS: O2SAT 95
[2017-03-20] MEDS ORDERED: CEPH500C2 PO (14:33)
[2017-03-20 14:38] LABS: INR 1.1 (0.9-1.1); PROTHROMBIN TIME (PATIENT) 11.2 SECONDS (9.0-12.0)
[2017-03-20 14:44] VITALS: BP 141/78; PULSE 76; O2SAT 95
== END 2017-03-20 14:44 | disposition home or self-care (01) ==
LOC: C.EDB 11:58 → C.EDA 14:44
DX: T81.4XXA Infection following a procedure, initial encounter (principal); X58.XXXA Exposure to other specified factors, initial encounter; R60.9 Edema, unspecified; R06.02 Shortness of breath; I12.9 Hypertensive chronic kidney disease with stage 1 through stage 4 chronic kidney disease, or unspecified chronic kidney disease; N18.9 Chronic kidney disease, unspecified; Z79.82 Long term (current) use of aspirin; Z79.899 Other long term (current) drug therapy; Z88.1 Allergy status to other antibiotic agents; Z88.8 Allergy status to other drugs, medicaments and biological substances; Z80.9 Family history of malignant neoplasm, unspecified; Z83.79 Family history of other diseases of the digestive system; Z82.49 Family history of ischemic heart disease and other diseases of the circulatory system

== ENCOUNTER 2017-06-26 13:45 | Observation (INO) | payer OTHER ==
[~2017-06-26] VITALS: Ht 160 cm; Wt 94.4 kg
[~2017-06-26 13:45] MED LIST changes: -ACET-24 PO; -CALC600T9 PO; +CEPH500C2 PO; -CLON1TAB3 PO; -MECL1TAB40 PO; -PRLSR20 PO; -PSYL1.7W PO; -TRIA37.5 PO
--- NOTE | 2017-06-26 14:09 | EMERGENCY ROOM VISIT NOTE ---
ED Visit Note First contact with patient: 13:52 CHIEF COMPLAINT: Chest pain and irregular heart beat HISTORY OF PRESENTING ILLNESS: This is an 82-year-old female who presents to the emergency department via EMS with complaint of chest pain. Patient states she woke up out of sleep around 2 AM with left-sided chest pressure and also felt that she had an irregular heartbeat at this time. She states that the chest pain was worsened with exertion and she also had some associated shortness of breath and dizziness. She states the pain did not radiate anywhere , she denies any associated symptoms of nausea or vomiting, syncope, diaphoresis. She did not take any medications for the pain, but was trying to rest this morning to see if the pain would go away on its own, and when it didn' t, she called the ambulance. En route, she was given 4 aspirin by EMS and was given 1 spray of nitroglycerin, which took her chest pain completely away at approximately 1:30 PM today. She currently denies any symptoms. She states that she had a similar episode of chest pain and irregular heartbeat approximately 8 years ago and states that she had a heart cath that was normal. She states that her most recent stress test was probably about 3 years ago and was also normal. She does note that she has been feeling more tired and weak over the past month, stating she is usually very active. She states that she did see her PCP regarding this and did not find any explanation for the fatigue. She denies any recent illnesses, fevers or chills, headaches, neck pain, back pain, abdominal pain, cough or hemoptysis, leg pain or swelling, vomiting or diarrhea, urinary symptoms, or unusual rash. Risk factors of hypertension, daily aspirin use, family history. She is not a smoker. She is not diabetic. REVIEW OF SYSTEMS: A complete 10 point review of systems was reviewed with the patient with pertinent positives and negatives as per history of present illness. All else were negative. PAST MEDICAL HISTORY: Reviewed in chart. SOCIAL HISTORY: Lives at home. Denies tobacco, alcohol, or recreational drug use. ALLERGIES: Reviewed in chart. PHYSICAL EXAM: CONSTITUTIONAL: Pleasant and cooperative. No acute distress. Well appearing and well nourished. HEENT: Normocephalic, atraumatic. Pupils equal, round and reactive to light, EOMI. TMs normal. Pharynx normal. NECK: Supple, full active range of motion without discomfort. RESPIRATORY: Clear to auscultation bilaterally with no wheezing, crackles, rhonchi or stridor. Equal expansion bilaterally. CARDIOVASCULAR: Regular rate and rhythm with 3/6 systolic murmur, no rubs or gallops. Normal peripheral perfusion. No edema. GASTROINTESTINAL: Soft, nontender, nondistended. No palpable masses or HSM. Bowel sounds present in all quadrants. MUSCULOSKELETAL: Full range of motion of all joints without discomfort. INTEGUMENTARY: No rash or other significant dermatologic conditions noted. NEUROLOGIC: Alert and oriented X 4 with normal affect. Cranial nerves II-XII grossly intact. No focal neurologic deficits noted. Normal strength and sensation in all four extremities. Normal speech. ED COURSE AND MEDICAL DECISION MAKING: CC: Patient presenting with complaint of chest pain and irregular heart beat DIFFERENTIAL DIAGNOSIS: Includes, but not limited to acute coronary syndrome, cardiac dysrhythmia, pulmonary embolism, aortic dissection, pneumothorax, pericarditis, anxiety, musculoskeletal pain, GERD, costochondritis, pneumonia, among others. INTERPRETATION OF LABS: No leukocytosis, no anemia, no significant electrolyte imbalance, normal renal function, normal liver enzymes and lipase. Coagulation factors within normal limits. Initial POC troponin is negative. Pro-BNP is negative. IMAGING: CHEST 2 VIEWS ROUTINE CLINICAL HISTORY: CHEST PAIN COMPARISON STUDY: Chest CT March 20, 2017. FINDINGS: There are cholecystectomy clips. No pneumothorax or pleural effusion is noted. There is no consolidation. Pulmonary vascularity is normal. Cardiomediastinal silhouette is stable. Appearance of the chest is unchanged. Lateral view demonstrates old wedge deformities of several thoracic vertebra. IMPRESSION: No acute cardiopulmonary findings. EKG: Shows normal sinus rhythm with a rate of 67 bpm, flattened T waves in anterior leads which appears new when compared to previous EKG from 03/20/2017 by my interpretation. MEDICATION RECONCILIATION: I attest that I have personally reviewed the patient 's current medication list. INITIAL VITAL SIGNS REVIEW: I reviewed the patient's initial vital signs and interpret them as follows: T: Afebrile; BP: Normotensive; HR: Within normal limits; RR: Within normal limits; Pulse Ox: Within normal limits on room air. Blood pressure screening: The patient was found to have normal blood pressure on screening and does not require follow-up for repeat blood pressure check. SUMMARY: Patient was evaluated at bedside, history and physical exam performed. Patient is alert and oriented, in no acute distress, resting, and stretcher. Patient currently denies any chest pain or other associated symptoms, stating he has been resolved since receiving nitroglycerin at 1:30 PM. 3/6 systolic murmur heard on exam, patient states she has a history of this. Otherwise heart rate and rhythm are regular. EKG reviewed at bedside, nonspecific T-wave abnormalities in the anterior leads. Orders were placed at bedside for labs, chest x-ray to evaluate for cardiopulmonary abnormalities. Patient discussed with Dr. Byrd, who agrees with my assessment and plan. Labs and imaging reviewed as above, initial troponin is negative. The patient's Heart Score is 6. Given her history and that chest pain was exertional and relieved by nitroglycerin, I believe the patient warrants admission for further evaluation of her chest pain. I spoke with Ni Best PA-C with the hospitalist service, who agrees to evaluate the patient for admission. Patient reassessed multiple times throughout ED stay, she remains well appearing , and denies any return of her chest pain or other symptoms. Patient was updated on all results and plan for admission, she verbalized understanding and was agreeable to this plan. Patient was stable at time of admission. Problem List Medical Problems: (1) Anxiety Status: Chronic (2) CKD (chronic kidney disease), stage III Status: Chronic (3) Depression Status: Chronic (4) Diastolic HF (heart failure) Status: Chronic (5) GERD (gastroesophageal reflux disease) Status: Chronic (6) Hypertension Status: Chronic (7) Lumbar degenerative disc disease Status: Chronic (8) Osteoarthritis Status: Chronic (9) Osteoporosis Status: Chronic Surgical Problems: (1) S/P right mastectomy Status: Chronic Current/Historical Medications Scheduled Aspirin (Aspirin Ec), 81 MG PO DAILY Atorvastatin (Lipitor), 20 MG PO HS Calcium Carbonate-Vitamin D (Calcium + D), 1 TAB PO BID Citalopram (Citalopram Hydrobromide), 20 MG PO QAM Denosumab (Prolia), 1 DOSE INJ Q6MO Ocuvite Preservision (Ocuvite Preservision), 1 TAB PO BID Omeprazole (Prilosec), 20 MG PO QAM Psyllium (Metamucil), 1 PO HS Triamterene/Hctz (Dyazide 37.5MG/25MG), 1 TAB PO QAM Scheduled PRN Acetaminophen (Acetaminophen), 1 TAB PO TID PRN for Pain Clonazepam (Klonopin), 1 MG PO HS PRN for Sleep Loperamide Hcl (Imodium), 0.5 MG PO DAILY PRN for Diarrhea Allergies Coded Allergies: Flu Virus Vaccine (Verified Allergy, Severe, RESPIRATORY DISTRESS, 06/26/17 ) Phenytoin (Verified Allergy, Intermediate, RASH, 06/26/17) Amoxicillin (Verified Allergy, Unknown, RASH, 06/26/17) Clavulanic Acid (Verified Allergy, Unknown, RASH, 06/26/17) Dexamethasone (Verified Adverse Reaction, Intermediate, SEVERE ANXIETY ( TAKES PREDNISONE), 06/26/17) Vital Signs Date Time Temp Pulse Resp B/P (MAP) Pulse Ox O2 Delivery O2 Flow Rate FiO2 06/26/17 14:09 96 Room Air 06/26/17 13:55 36.8 78 18 124/82 98 Room Air 06/26/17 13:55 68 Laboratory Results 06/26/17 14:18 Red Blood Count 4.49, Mean Corpuscular Volume 92.4, Mean Corpuscular Hemoglobin 30.1, Mean Corpuscular Hemoglobin Concent 32.5, Mean Platelet Volume 11.7, Neutrophils (%) (Auto) 58.4, Lymphocytes (%) (Auto) 29.2, Monocytes (%) (Auto) 10.9, Eosinophils (%) (Auto) 0.9, Basophils (%) (Auto) 0.2, Neutrophils # (Auto ) 4.99, Lymphocytes # (Auto) 2.50, Monocytes # (Auto) 0.93, Eosinophils # (Auto ) 0.08, Basophils # (Auto) 0.02 06/26/17 14:18 Test 06/26/17 14:18 06/26/17 14:26 White Blood Count 8.55 K/uL (4.8-10.8) Red Blood Count 4.49 M/uL (4.2-5.4) Hemoglobin 13.5 g/dL (12.0-16.0) Hematocrit 41.5 % (37-47) Mean Corpuscular Volume 92.4 fL (80-100) Mean Corpuscular Hemoglobin 30.1 pg (25-34) Mean Corpuscular Hemoglobin Concent 32.5 g/dl (32-36) Platelet Count 165 K/uL (130-400) Mean Platelet Volume 11.7 fL (7.4-10.4) Neutrophils (%) (Auto) 58.4 % Lymphocytes (%) (Auto) 29.2 % Monocytes (%) (Auto) 10.9 % Eosinophils (%) (Auto) 0.9 % Basophils (%) (Auto) 0.2 % Neutrophils # (Auto) 4.99 K/uL (1.4-6.5) Lymphocytes # (Auto) 2.50 K/uL (1.2-3.4) Monocytes # (Auto) 0.93 K/uL (0.11-0.59) Eosinophils # (Auto) 0.08 K/uL (0-0.5) Basophils # (Auto) 0.02 K/uL (0-0.2) RDW Standard Deviation 49.0 fL (36.4-46.3) RDW Coefficient of Variation 14.4 % (11.5-14.5) Immature Granulocyte % (Auto) 0.4 % Immature Granulocyte # (Auto) 0.03 K/uL (0.00-0.02) Prothrombin Time 10.7 SECONDS (9.0-12.0) Prothromb Time International Ratio 1.0 (0.9-1.1) Activated Partial Thromboplast Time 26.0 SECONDS (21.0-31.0) Partial Thromboplastin Ratio 1.0 Anion Gap 9.0 mmol/L (3-11) Est Creatinine Clear Calc Drug Dose 42.5 ml/min Estimated GFR () 52.0 Estimated GFR (Non- 44.9 BUN/Creatinine Ratio 22.0 (10-20) Calcium Level 9.0 mg/dl (8.5-10.1) Total Bilirubin 0.6 mg/dl (0.2-1) Direct Bilirubin < 0.1 mg/dl (0-0.2) Aspartate Amino Transf (AST/SGOT) 13 U/L (15-37) Alanine Aminotransferase (ALT/SGPT) 19 U/L (12-78) Alkaline Phosphatase 48 U/L (45-117) Pro-B-Type Natriuretic Peptide 370 pg/ml (0-1800) Total Protein 6.9 gm/dl (6.4-8.2) Albumin 3.5 gm/dl (3.4-5.0) Lipase 128 U/L (73-393) Bedside Troponin I < 0.030 ng/ml (0-0.045) Departure Information Impression Primary Impression: Chest pain Dispostion Admitted as an inpatient Condition FAIR Referrals Luz Turk D.O. (PCP) Patient Instructions [facility] Problem Qualifiers Primary Impression: Chest pain Chest pain type: unspecified Qualified Codes: R07.9 - Chest pain, unspecified
--- NOTE | 2017-06-26 14:31 | EMERGENCY ROOM VISIT NOTE ---
ED Visit Note First contact with patient: 13:52 I have seen and examined this patient with Yesenia Lange and generally agree with the treatment plan as discussed. Problem List Medical Problems: (1) Hypertension Status: Chronic (2) Kidney disease Status: Chronic (3) Pneumonia Status: Resolved Current/Historical Medications Scheduled Aspirin (Aspirin), 325 MG PO BID Calcium Carbonate-Vitamin D (Calcium + D), 1 TAB PO BID Cephalexin Monohydrate (Keflex), 500 MG PO QID Citalopram (Citalopram Hydrobromide), 20 MG PO QAM Denosumab (Prolia), 1 DOSE INJ Q6MO Ocuvite Preservision (Ocuvite Preservision), 1 TAB PO BID Omeprazole (Prilosec), 20 MG PO QAM Psyllium (Metamucil), 1 PO HS Triamterene/Hctz (Dyazide 37.5MG/25MG), 1 TAB PO QAM Scheduled PRN Clonazepam (Klonopin), 1 MG PO HS PRN for Sleep Loperamide Hcl (Imodium), 2 MG PO UD PRN for Diarrhea Tramadol HCl (Tramadol HCl), 50-100 MG PO Q6 PRN for Pain Allergies Coded Allergies: Flu Virus Vaccine (Verified Allergy, Severe, RESPIRATORY DISTRESS, ) Phenytoin (Verified Allergy, Intermediate, RASH, 03/20/17) Amoxicillin (Verified Allergy, Unknown, RASH, 03/20/17) Clavulanic Acid (Verified Allergy, Unknown, RASH, 03/20/17) Dexamethasone (Verified Adverse Reaction, Intermediate, SEVERE ANXIETY ( TAKES PREDNISONE), 03/20/17) Vital Signs Date Time Temp Pulse Resp B/P (MAP) Pulse Ox O2 Delivery O2 Flow Rate FiO2 06/26/17 14:09 96 Room Air 06/26/17 13:55 36.8 78 18 124/82 98 Room Air 06/26/17 13:55 68 Laboratory Results Test 06/26/17 14:18 Departure Information Referrals Luz Turk D.O. (PCP) Patient Instructions My [facility]
[2017-06-26 14:39] LABS: BASO % 0.2 %; BASO ABS # 0.02 K/uL (0-0.2); EOS % 0.9 %; EOS ABS # 0.08 K/uL (0-0.5); HEMATOCRIT 41.5 % (37-47); HEMOGLOBIN 13.5 g/dL (12.0-16.0); IG# 0.03 K/uL (0.00-0.02); LYMPH % 29.2 %; MEAN CELL VOLUME 92.4 fL (80-100); MEAN CORPUSCULAR HEMOGLOBIN 30.1 pg (25-34); MEAN CORPUSCULAR HGB CONC 32.5 g/dl (32-36); MEAN PLATELET VOLUME 11.7 fL (7.4-10.4); MONO % 10.9 %; MONO ABS # 0.93 K/uL (0.11-0.59); NEUT % 58.4 %; NEUT ABS # 4.99 K/uL (1.4-6.5); PLATELET COUNT 165 K/uL (130-400); RED CELL DISTRIBUTION WIDTH CV 14.4 % (11.5-14.5); WHITE BLOOD COUNT 8.55 K/uL (4.8-10.8)
--- NOTE | 2017-06-26 14:44 | DIAGNOSTIC IMAGING REPORT ---
CHEST 2 VIEWS ROUTINE CLINICAL HISTORY: CHEST PAIN COMPARISON STUDY: Chest CT March 20, 2017. FINDINGS: There are cholecystectomy clips. No pneumothorax or pleural effusion is noted. There is no consolidation. Pulmonary vascularity is normal. Cardiomediastinal silhouette is stable. Appearance of the chest is unchanged. Lateral view demonstrates old wedge deformities of several thoracic vertebra. IMPRESSION: No acute cardiopulmonary findings. Electronically signed by: Ken Ruiz M.D. 06/26/2017 2:42 PM Dictated Date/Time: 06/26/2017 2:41 PM
[2017-06-26] MEDS ORDERED: ASPI81TA28 PO (14:55)
[2017-06-26] MEDS ORDERED: ACET-1256 PO (14:56)
[2017-06-26] MEDS ORDERED: ATOR-22 PO (14:56)
[2017-06-26 14:58] LABS: ALBUMIN 3.5 gm/dl (3.4-5.0); ALT/SGPT 19 U/L (12-78); AST/SGOT 13 U/L (15-37); BLOOD UREA NITROGEN 25 mg/dl (7-18); CARBON DIOXIDE 26 mmol/L (21-32); CREATININE 1.15 mg/dl (0.60-1.20); GLUCOSE 124 mg/dl (70-99); LIPASE 128 U/L (73-393); POTASSIUM 3.6 mmol/L (3.5-5.1); SODIUM 139 mmol/L (136-145)
[2017-06-26 15:03] LABS: ALKALINE PHOSPHATASE 48 U/L (45-117); TOTAL PROTEIN 6.9 gm/dl (6.4-8.2)
[2017-06-26] MEDS ORDERED: PRLSR20 PO (15:33)
[2017-06-26] MEDS ORDERED: TRIA37.5 PO (15:34)
[2017-06-26] MEDS ORDERED: CLON1TAB3 PO (15:36)
[2017-06-26] MEDS ORDERED: CALC600T9 PO (15:41)
[2017-06-26] MEDS ORDERED: PSYL1.7W PO (15:43)
[2017-06-26] MEDS ORDERED: ACET500T58 PO (15:58)
[2017-06-26] MEDS ORDERED: NITROGLYCERIN 0.4 MG SL PER TAB CHARGE SL PRN (16:00)
[2017-06-26] MEDS ORDERED: ACETAMINOPHEN 500 MG TAB PO PRN (16:00)
[2017-06-26] MEDS ORDERED: CLONAZEPAM 1 MG TAB PO PRN (16:00)
[2017-06-26] MEDS ORDERED: ONDANSETRON INJ 2 MG/ML 2 ML VIAL IV PRN (16:00)
[2017-06-26] MEDS ORDERED: IMD/2 PO (16:03)
--- NOTE | 2017-06-26 16:03 | History and Physical ---
History & Physical Date & Time of Service: Jun 26, 2017 at 16:03 Chief Complaint: Chest Pain/Irregular Heat Rate Primary Care Physician: Peter Lu M.D. History of Present Illness Source: patient, clinic records, hospital records This is an 82-year-old female with past medical history of hypertension, HLD, diastolic CHF, GERD, CKD 3 and other medical problems listed below who presents with chest pain beginning early this morning. Patient was in normal state of health when she went to bed but woke up around 2 AM with left-sided chest pressure. Describes as a 7/10, non-radiating, heavy feeling on the left side of her chest with associated shortness of breath. Also endorses an irregular heartbeat as well as feelings of vertigo (chronic). No lightheadedness, diaphoresis, nausea or vomiting. Pain was worse with any type of exertion and did not resolve on its own. Patient felt fatigued all morning and continued to experience intermittent pain before calling for an ambulance around noon today. In route to ED, patient was given a full dose aspirin as well as nitro spray, which relieved her chest pain completely. Patient last experienced chest pain 1 :30 PM this afternoon. Last experienced chest pain similar to this around 8 years ago, when she reports being life-flighted from [facility] to [facility] where she underwent a cardiac cath. It was negative. Last had a dobutamine stress echo at [facility] in August of 2015, which was negative for inducible ischemia with an EF of 55-59% with grade 1 diastolic dysfunction, mildly concentric LV and mild aortic valve sclerosis. Has positive family history of heart disease. Denies personal history of diabetes. Is not a smoker. Currently denies fever, chills, lightheadedness, near-syncope, visual changes, shortness of breath, abdominal pain, nausea, vomiting, bowel or bladder changes or LE swelling. Past Medical/Surgical History Medical Problems: (1) Anxiety Status: Chronic (2) CKD (chronic kidney disease), stage III Status: Chronic (3) Depression Status: Chronic (4) Diastolic HF (heart failure) Status: Chronic (5) GERD (gastroesophageal reflux disease) Status: Chronic (6) HLD (hyperlipidemia) Status: Chronic (7) Hypertension Status: Chronic (8) Lumbar degenerative disc disease Status: Chronic (9) Osteoarthritis Status: Chronic (10) Osteoporosis Status: Chronic Surgical Problems: (1) S/P right mastectomy Status: Chronic Family History Cancer Gallbladder disease Heart disease Hypertension Social History Smoking Status: Never Smoker Alcohol Use: none Drug Use: none Housing status: lives alone ([facility] independent living ) Occupational Status: retired Allergies Coded Allergies: Flu Virus Vaccine (Verified Allergy, Severe, RESPIRATORY DISTRESS, 06/26/17 ) Phenytoin (Verified Allergy, Intermediate, RASH, 06/26/17) Amoxicillin (Verified Allergy, Unknown, RASH, 06/26/17) Clavulanic Acid (Verified Allergy, Unknown, RASH, 06/26/17) Dexamethasone (Verified Adverse Reaction, Intermediate, SEVERE ANXIETY ( TAKES PREDNISONE), 06/26/17) Home Medications Scheduled Aspirin (Aspirin Ec), 81 MG PO DAILY Atorvastatin (Lipitor), 20 MG PO HS Calcium Carbonate-Vitamin D (Calcium + D), 1 TAB PO BID Citalopram (Citalopram Hydrobromide), 20 MG PO QAM Denosumab (Prolia), 1 DOSE INJ Q6MO Meclizine HCl (Meclizine HCl), 1 TAB PO BID Ocuvite Preservision (Ocuvite Preservision), 1 TAB PO BID Omeprazole (Prilosec), 20 MG PO QAM Psyllium (Metamucil), 1 PO HS Triamterene/Hctz (Dyazide 37.5MG/25MG), 1 TAB PO QAM Scheduled PRN Acetaminophen (Acetaminophen), 1 TAB PO TID PRN for Pain Clonazepam (Klonopin), 1 MG PO HS PRN for Sleep Loperamide Hcl (Imodium), 0.5 MG PO DAILY PRN for Diarrhea Review of Systems Constitutional: + fatigue, No fever, No chills, No sweats, No weight loss, No weakness Eyes: No worsening of vision, No eye pain, No diplopia ENT: No hearing loss, No nasal symptoms, No sore throat Respiratory: No cough, No sputum, No wheezing, No shortness of breath, No dyspnea on exertion, No dyspnea at rest Cardiovascular: No chest pain, No orthopnea, No PND, No edema Abdomen: No pain, No nausea, No vomiting, No diarrhea, No constipation Genitourinary - Female: No dysuria, No urinary frequency Neurologic: No memory loss, No paralysis, No weakness, No numbness/tingling Psychiatric: No depression symptoms, No anhedonism, No anxiety Physical Exam Vital Signs Date Time Temp Pulse Resp B/P (MAP) Pulse Ox O2 Delivery O2 Flow Rate FiO2 06/26/17 14:09 96 Room Air 06/26/17 13:55 36.8 78 18 124/82 98 Room Air 06/26/17 13:55 68 General Appearance: WD/WN, no apparent distress, + pertinent finding (Sitting comfortably, reading ) Head: normocephalic, atraumatic Eyes: normal inspection, PERRL, sclerae normal ENT: normal ENT inspection, hearing grossly normal, pharynx normal (moist mucous membranes ) Neck: supple, thyroid normal, no JVD, trachea midline Respiratory/Chest: chest non-tender, lungs clear, normal breath sounds, no respiratory distress, no accessory muscle use Cardiovascular: regular rate, rhythm, normal peripheral pulses, + systolic murmur Abdomen/GI: non tender, soft, no organomegaly Back: normal inspection Extremities/Musculoskelatal: normal inspection, no calf tenderness, no pedal edema Neurologic/Psych: no motor/sensory deficits, alert, normal mood/affect, oriented x 3 Skin: normal color, warm/dry, no rash Diagnostics Laboratory Results Results Past 24 Hours Test 06/26/17 14:18 06/26/17 14:26 Range/Units White Blood Count 8.55 4.8-10.8 K/uL Red Blood Count 4.49 4.2-5.4 M/uL Hemoglobin 13.5 12.0-16.0 g/dL Hematocrit 41.5 37-47 % Mean Corpuscular Volume 92.4 80-100 fL Mean Corpuscular Hemoglobin 30.1 25-34 pg Mean Corpuscular Hemoglobin Concent 32.5 32-36 g/dl Platelet Count 165 130-400 K/uL Mean Platelet Volume 11.7 7.4-10.4 fL Neutrophils (%) (Auto) 58.4 % Lymphocytes (%) (Auto) 29.2 % Monocytes (%) (Auto) 10.9 % Eosinophils (%) (Auto) 0.9 % Basophils (%) (Auto) 0.2 % Neutrophils # (Auto) 4.99 1.4-6.5 K/uL Lymphocytes # (Auto) 2.50 1.2-3.4 K/uL Monocytes # (Auto) 0.93 0.11-0.59 K/uL Eosinophils # (Auto) 0.08 0-0.5 K/uL Basophils # (Auto) 0.02 0-0.2 K/uL RDW Standard Deviation 49.0 36.4-46.3 fL RDW Coefficient of Variation 14.4 11.5-14.5 % Immature Granulocyte % (Auto) 0.4 % Immature Granulocyte # (Auto) 0.03 0.00-0.02 K/uL Prothrombin Time 10.7 9.0-12.0 SECONDS Prothromb Time International Ratio 1.0 0.9-1.1 Activated Partial Thromboplast Time 26.0 21.0-31.0 SECONDS Partial Thromboplastin Ratio 1.0 Sodium Level 139 136-145 mmol/L Potassium Level 3.6 3.5-5.1 mmol/L Chloride Level 104 98-107 mmol/L Carbon Dioxide Level 26 21-32 mmol/L Anion Gap 9.0 3-11 mmol/L Blood Urea Nitrogen 25 7-18 mg/dl Creatinine 1.15 0.60-1.20 mg/dl Est Creatinine Clear Calc Drug Dose 42.5 ml/min Estimated GFR () 52.0 Estimated GFR (Non- 44.9 BUN/Creatinine Ratio 22.0 10-20 Random Glucose 124 70-99 mg/dl Calcium Level 9.0 8.5-10.1 mg/dl Total Bilirubin 0.6 0.2-1 mg/dl Direct Bilirubin < 0.1 0-0.2 mg/dl Aspartate Amino Transf (AST/SGOT) 13 15-37 U/L Alanine Aminotransferase (ALT/SGPT) 19 12-78 U/L Alkaline Phosphatase 48 45-117 U/L Pro-B-Type Natriuretic Peptide 370 0-1800 pg/ml Total Protein 6.9 6.4-8.2 gm/dl Albumin 3.5 3.4-5.0 gm/dl Lipase 128 73-393 U/L Bedside Troponin I < 0.030 0-0.045 ng/ml Diagnostic Radiology CXR: IMPRESSION: No acute cardiopulmonary findings. Impression Assessment and Plan This is an 82-year-old female with past medical history of hypertension, HLD, diastolic CHF, GERD CKD III and other medical problems listed below who presents with chest pain beginning early this morning. Chest pain: -R/o ACS; risk factors include HTN, DM II, family history -Full dose aspirin, nitro spray given by EMS -Initial troponin negative -EKG-normal sinus rhythm at 67 bpm. No acute ischemic changes -CXR-without acute cardiopulmonary changes -Trend serial cardiac enzymes -Check echo -Repeat EKG in am -Cont baby aspirin, statin, ntg PRN -Consult cardiology -NPO after midnight for possible dobutamine stress test HTN: -Normotensive -Cont home Triamterene/hctz Osteoporosis: -Cont calcium, vit D -Follows with rheum out-patient Mood disorder: -Cont SSRI, Klonopin HS PRN GERD: -Cont PPI DVT Ppx: SQ heparin Code status: DNR, per discussion with patient PCP: Tabitha Dispo: Observation telemetry. Discharge planning ordered for return to [facility] once medically appropriate. Patient seen in collaboration with Dr. Sandoval. Please see addendum. ADDENDUM: This is an 82 year old female with a PMH of HTN, HLD, prediabetes, anxiety - presents with chest pain that woke her up from sleep, substernal with no radiation. She waited and the chest pain subsided, so she went back to sleep. The pain worsened again in the afternoon prior to arrival and she called EMS. She was given SL nitro and she felt better. Currently, denies any symptoms. On exam: RRR, +S1, S2, no murmurs noted Plan: Chest Pain r/o ACS risk factors: hypertension, hyperlipidemia, prediabetes Has had stress test 3 years prior - negative EKG with no significant changes noted; with some nonspecific ST changes in the anterior leads will monitor in tele, trend cardiac enzymes, resting echo cardiology consulted for further input continue Aspirin and Lipitor for now Resuscitation Status VTE Prophylaxis Will order VTE Prophylaxis: Yes
[2017-06-26] MEDS ORDERED: ALUMINUM/MAGNESIUM/SIMETH (MAALOX MAX) 30 ML UDC PO PRN (16:15)
[2017-06-26] MEDS ORDERED: IV FLUIDS COMPLETED PRN (16:30)
[2017-06-26] MEDS ORDERED: MECL1TAB40 PO (18:22)
[2017-06-26 18:45] VITALS: BP 128/68; PULSE 68; TEMP 36.6; O2SAT 94
[2017-06-26 19:55] VITALS: BP 128/68; PULSE 68; TEMP 36.6; O2SAT 94; Ht 160 cm; Wt 94.4 kg
[2017-06-26] MEDS ORDERED: ATORVASTATIN 20 MG TAB PO SCH (21:00)
[2017-06-26] MEDS: CALCIUM 600MG + VIT D 400 IU TAB PO SCH (21:41)
[2017-06-26] MEDS: CEROVITE ADV FORMULA TAB PO SCH (21:42)
[2017-06-26] MEDS: HEPARIN SOD 5000 UNIT/0.5 ML CARP SQ SCH (21:42)
[2017-06-27] VITALS: BP 118/68; PULSE 59; TEMP 36.6; O2SAT 94
[2017-06-27 02:40] LABS: HEMATOCRIT 39.6 % (37-47); HEMOGLOBIN 13.1 g/dL (12.0-16.0); MEAN CELL VOLUME 92.1 fL (80-100); MEAN CORPUSCULAR HEMOGLOBIN 30.5 pg (25-34); MEAN CORPUSCULAR HGB CONC 33.1 g/dl (32-36); MEAN PLATELET VOLUME 11.2 fL (7.4-10.4); PLATELET COUNT 159 K/uL (130-400); RED CELL DISTRIBUTION WIDTH CV 14.7 % (11.5-14.5); RED CELL DISTRIBUTION WIDTH SD 49.7 fL (36.4-46.3)
[2017-06-27 02:48] LABS: PTT PATIENT 27.7 SECONDS (21.0-31.0)
[2017-06-27 02:58] LABS: BLOOD UREA NITROGEN 26 mg/dl (7-18); CALCIUM 8.8 mg/dl (8.5-10.1); CARBON DIOXIDE 25 mmol/L (21-32); CHOLESTEROL 134 mg/dl (0-200); CREATININE 1.15 mg/dl (0.60-1.20); GLUCOSE 85 mg/dl (70-99); POTASSIUM 4.1 mmol/L (3.5-5.1); SODIUM 139 mmol/L (136-145)
[2017-06-27 03:03] LABS: LDL CHOLESTEROL CALCULATED 35 mg/dl
[2017-06-27 04:00] VITALS: BP 153/71; PULSE 88; TEMP 36.6; O2SAT 91
[2017-06-27] MEDS: HEPARIN SOD 5000 UNIT/0.5 ML CARP SQ SCH (06:00)
[2017-06-27 07:38] VITALS: BP 149/78; PULSE 62; TEMP 36.5; O2SAT 95
[2017-06-27] MEDS: CALCIUM 600MG + VIT D 400 IU TAB PO SCH (07:51)
[2017-06-27] MEDS: CEROVITE ADV FORMULA TAB PO SCH (07:51)
[2017-06-27] MEDS ORDERED: DOBUTamine HCL 12.5 MG/ML 20 ML VIAL ONE (08:36)
[2017-06-27] MEDS ORDERED: METOPROLOL TARTRATE 1 MG/ML VIAL ONE ×2 (08:37)
[2017-06-27] MEDS ORDERED: ATROPINE SULFATE 0.1 MG/ML 5ML SYR ONE ×2 (08:37)
[2017-06-27] MEDS ORDERED: ASPIRIN 81 MG ECTAB PO SCH (09:00)
[2017-06-27] MEDS ORDERED: TRIAMTERENE/HCTZ 37.5/25MG CAP PO SCH (09:00)
[2017-06-27] MEDS ORDERED: CITALOPRAM 20 MG TAB PO SCH (09:00)
[2017-06-27] MEDS ORDERED: PANTOprazole SOD 40 MG TAB PO SCH (09:00)
--- NOTE | 2017-06-27 10:11 | DOBUTAMINE ECHO ---
*NOTICE TO RECEIVING [employer] This information is strictly Confidential and protected under [place] law. [place] law prohibits you from making any further disclosure of this information unless further disclosure is expressly permitted by the written consent of the person to whom it pertains or is authorized by law. A general authorization for the release of medical or other information is not sufficient for this purpose. Hospital accepts no responsibility if the information is made available to any other person, INCLUDING THE PATIENT. Interpretation Summary * Name: HOWARD GARZON Study Date: 06/27/2017 08:24 AM BP: 143/69 mmHg * Patient Location: [facility]\S\N276\S\2 HR: 67 * : 1935 (M/d/yyyy) Gender: Female Height: 63 in * Age: 82 yrs Ethnicity: [place] Weight: 208 lb * Ordering Physician: Edward Nicole * Referring Physician: Self, Referred * Performed By: Kelsea Pemberton RCS * * Reason For Study: CHEST PAIN * BSA: 2.0 m2 * -- Conclusions -- * Nonischemic dobutamine stress echocardiogram. * No arrhythmias. * Normal HR and BP response to dobutamine infusion. * At rest, normal LV chamber size with moderate concentric LVH. * Normal LV systolic function, EF 55-60%. * No segmental left ventricular wall motion abnormalities are noted. * Grade I diastolic dysfunction. * Aortic valve sclerosis mild, without significant aortic valvular stenosis. * Small, loculated anterior pericardial effusion with stranding to suggest chronicity. Procedure Details * DOBUTAMINE ECHO, CPT#[id number] * ECHO COLOR FLOW, CPT #[id number] * ECHO DOPPLER, CPT #[id number] Left Ventricle * The left ventricle is normal in size. * There is moderate concentric left ventricular hypertrophy. * Left ventricular systolic function is normal. * No segmental left ventricular wall motion abnormalities are noted. * Ejection Fraction = 55-60%. * Resting wall motion: Normal. Stress wall motion: Appropriate increase in Left ventricular systolic function and decrease in cavity size. No stress induced segmental wall motion abnormalities. Right Ventricle * The right ventricular cavity size is normal (basal dimension <4.2 cm in right ventricular apical 4-chamber view). * The right ventricular systolic function is normal as assessed by tricuspid annular plane systolic excursion (TAPSE) (normal >1.5 cm). Atria * The left atrial size is normal. * Right atrial size is normal. * No ASD detected; PFO is not assessed. Mitral Valve * The mitral valve is normal in structure and function. Tricuspid Valve * The tricuspid valve is normal in structure and function. Aortic Valve * The aortic valve is trileaflet. * Aortic valve sclerosis mild, without significant aortic valvular stenosis. * There is no significant aortic regurgitation. Pulmonic Valve * The pulmonary valve is not well seen, but the Doppler examination is normal without significant regurgitation or stenosis. Great Vessels * The aortic root is normal size. Pericardium * Small pericardial effusion. * A loculated pericardial effusion is noted. * Pericardial fibrinous strands are noted. Stress Parameters * Normal baseline electrocardiogram. * Stress ECG: No ST changes. No arrhythmias. * No arrhythmia were noted with stress. * The stress portion of this study was personally supervised by the undersigned interpreting physician. * Rest heart rate was '67' BPM. * Rest blood pressure was '143/69' * Maximum heart rate achieved was 134 bpm. * Maximum heart rate was 95 % of maximum age-predicted heart rate. * Maximum blood pressure was '169/55' * Maximum Dobutamine infusion rate was '30' mcg/kg/min. * A total of 0.25 mg of intravenous Atropine was used to supplement Dobutamine for heart rate response. * Dobutamine infusion was terminated due to achieving target heart rate * A total of 5.0 mg of IV Metoprolol was administered to reverse Dobutamine-induced tachycardia. Left Ventricular Diastolic Function * Grade I diastolic dysfunction, (abnormal relaxation pattern). MMode 2D Measurements and Calculations IVSd 1.6 cm IVSs 1.6 cm LVIDd 4.6 cm LVIDs 3.5 cm LVPWd 1.4 cm LVPWs 1.6 cm IVS/LVPW 1.1 FS 23.4 % EDV(Teich) 98.0 ml ESV(Teich) 52.0 ml EF(Teich) 46.9 % EDV(cubed) 98.1 ml ESV(cubed) 44.1 ml EF(cubed) 55.1 % % IVS thick 1.7 % % LVPW thick 15.8 % LV mass(C)d 285.1 grams LV mass(C)dI 145.0 grams/m\S\2 LV mass(C)s 222.6 grams LV mass(C)sI 113.2 grams/m\S\2 SV(Teich) 46.0 ml SI(Teich) 23.4 ml/m\S\2 SV(cubed) 54.1 ml SI(cubed) 27.5 ml/m\S\2 Ao root diam 3.0 cm Ao root area 7.1 cm\S\2 LA dimension 3.7 cm LA/Ao 1.2 LVOT diam 2.1 cm LVOT area 3.5 cm\S\2 LVAd ap4 28.7 cm\S\2 LVLd ap4 7.6 cm EDV(MOD-sp4) 87.3 ml EDV(sp4-el) 91.7 ml LVAs ap4 16.8 cm\S\2 LVLs ap4 6.6 cm ESV(MOD-sp4) 36.0 ml ESV(sp4-el) 36.5 ml EF(MOD-sp4) 58.7 % EF(sp4-el) 60.1 % LVAd ap2 20.9 cm\S\2 LVLd ap2 6.5 cm EDV(MOD-sp2) 55.7 ml EDV(sp2-el) 57.1 ml LVAs ap2 14.4 cm\S\2 LVLs ap2 5.7 cm ESV(MOD-sp2) 30.3 ml ESV(sp2-el) 31.0 ml EF(MOD-sp2) 45.6 % EF(sp2-el) 45.7 % LVLd %diff -17.78 % EDV(MOD-bp) 76.0 ml LVLs %diff -15.72 % ESV(MOD-bp) 35.2 ml EF(MOD-bp) 53.6 % SV(MOD-sp4) 51.3 ml SI(MOD-sp4) 26.1 ml/m\S\2 SV(MOD-sp2) 25.4 ml SI(MOD-sp2) 12.9 ml/m\S\2 SV(MOD-bp) 40.7 ml SI(MOD-bp) 20.7 ml/m\S\2 SV(sp4-el) 55.1 ml SI(sp4-el) 28.0 ml/m\S\2 SV(sp2-el) 26.1 ml SI(sp2-el) 13.3 ml/m\S\2 Doppler Measurements and Calculations MV E max barrie 79.3 cm/sec MV A max barrie 120.8 cm/sec MV E/A 0.66 MV P1/2t max barrie 76.8 cm/sec MV P1/2t 82.3 msec MVA(P1/2t) 2.7 cm\S\2 MV dec slope 273.3 cm/sec\S\2 MV dec time 0.20 sec Ao V2 max 147.5 cm/sec Ao max PG 8.7 mmHg PA V2 max 85.4 cm/sec PA max PG 2.9 mmHg
--- NOTE | 2017-06-27 10:21 | CARDIOLOGY CONSULTATION ---
DATE OF CONSULTATION: 06/27/2017 CONSULTATION REQUESTED BY: Saúl Best PA-C. REASON FOR CONSULTATION: Chest pain. HISTORY OF PRESENT ILLNESS: Ms. Montoya is a very pleasant 82-year-old woman who presented to [facility] via EMS on 06/26/2017 with a complaint of chest pain. The patient states that for the last 3 days or so, she has noticed that she is having chest discomfort. She described it as a rather dull substernal pressure sensation/heavy sensation that seemed to wax and wane over several days. She denied any associated symptoms with it. Initially denied any associated shortness of breath, radiation of the discomfort, palpitations, lightheadedness, dizziness or syncope. However, she went to bed in her normal state on the evening 06/25/2017 but then woke up at 2:00 a.m. with the pain more severe than previously. She described it as a 7/10, heaviness sensation and now was associated with shortness of breath. She also checked her pulse and thought it to be irregular, so she called EMS and was brought into the ER. Initial evaluation was unremarkable and she was admitted to telemetry where there were no ischemic EKG changes and negative troponins. She states that she currently has some slight achy sensation in her chest but nowhere near as severe as it was when she came in. Upon further questioning, the patient states that she did have some trauma recently. She states that several days ago she had a vertigo spell and fell over onto the floor. She states that she remembers trying to catch herself with her hands and she was on the floor for some time struggling to try and push herself back upright. Upon further questioning, she also states that the pain does seem to be worse with movement of her upper arms. PAST SURGICAL HISTORY: 1. Cardiac catheterization in 2009 showing nonobstructive coronary artery disease. 2. Mastectomy. 3. Brain tumor resection. 4. Hysterectomy. 5. Cholecystectomy. 6. Upper endoscopies. 7. Colonoscopies. 8. Left total knee replacement. 9. Appendectomy. MEDICAL ILLNESSES: 1. Nonobstructive coronary artery disease. 2. Anxiety. 3. Breast cancer. 4. Irritable bowel. 5. Compression fractures of her spine. 6. Hypertension. FAMILY HISTORY: Noncontributory. SOCIAL HISTORY: Denies any alcohol, tobacco or recreational drug use. She is , lives at [facility]. REVIEW OF SYSTEMS: As per HPI, all other review of systems reviewed and negative at this time. ALLERGIES: 1. FLU VACCINE. 2. PHENYTOIN. 3. AMOXICILLIN. 4. CLAVULANIC ACID. 5. DEXAMETHASONE. MEDICATIONS AN OUTPATIENT: 1. Aspirin 81 mg daily. 2. Atorvastatin 20 mg daily. 3. Maxzide 37.5/25 mg daily. 4. Prolia injections every 6 months. 5. Klonopin p.r.n. 6. Celexa daily. 7. Omeprazole daily. PHYSICAL EXAMINATION: VITAL SIGNS: Temperature 36.5, pulse 62, respiratory rate 12, blood pressure 149/78. GENERAL: Awake, alert, oriented x3, in no acute distress. HEENT: Normocephalic, atraumatic. Pupils equal, round and reactive to light and accommodation. Extraocular muscles intact. Anicteric sclerae. Moist mucous membranes. NECK: No JVD, no bruit. CARDIOVASCULAR: Regular. Positive S4. Normal S1 and S2. No S3. 2/6/ mid to late systolic ejection murmur, greatest at the right sternal border second intercostal space without radiation, no rubs. PULMONARY: Clear to auscultation bilaterally. No rales, rhonchi or wheezing. ABDOMEN: Bowel sounds x4. Soft. No rebound, guarding, tenderness. No organomegaly. EXTREMITIES: No clubbing, cyanosis or edema. +2 pedal pulses bilaterally. SKIN: Warm and dry. TEST RESULTS: A 12-lead EKG performed in the Emergency Department, independently reviewed at this time shows normal sinus rhythm at 67 beats per minute, nonspecific T-wave flattening in the anterior leads which is new compared to previous studies. Dobutamine stress echocardiogram was nonischemic, no arrhythmias, normal heart rate and blood pressure response to dobutamine infusion. At rest, normal LV chamber size and systolic function. No significant valvular pathology. Small loculated anterior pericardial effusion with stranding to suggest chronicity. IMPRESSION: 1. Noncardiac chest pain. 2. Hypertension, controlled. RECOMMENDATIONS: It is my pleasure to see Mrs. Montoya in consultation today. Given the results of the above testing, I do believe the patient is suffering from musculoskeletal chest pain most likely resulting from muscle soreness trying to pick herself up off the ground several days ago. So at this point, I would recommend analgesics with NSAIDs or Tylenol along with a heating pad as needed for discomfort. No further cardiac testing is necessary at this time, no medication changes will be made, and it is okay to discharge the patient to home from a cardiac standpoint. Thank you very much for allowing me to participate in the care of your patient.
[2017-06-27 11:31] VITALS: BP 117/73; PULSE 77; TEMP 36.6; O2SAT 94
--- NOTE | 2017-06-27 11:41 | Discharge Instructions ---
Discharge Instructions Date of Service Jun 27, 2017. Admission Reason for Admission: Chest Pain Discharge Discharge Diagnosis / Problem: CHEST PAIN Discharge Goals Goal(s): Decrease discomfort, Improve function Activity Recommendations Activity Limitations: resume your previous activity . Instructions / Follow-Up Instructions / Follow-Up FOLLOWUP WITH FAMILY DOCTOR ON July AT 2:45PM. Current Hospital Diet Patient's current hospital diet: AHA Diet (Heart Healthy) Discharge Diet Recommended Diet: AHA Diet (Heart Healthy) Pending Studies Studies pending at discharge: no Laboratory Results Lipid Panel Test 06/27/17 02:15 Range/Units Triglycerides Level 190 H 0-150 mg/dl Cholesterol Level 134 0-200 mg/dl HDL Cholesterol 61 mg/dl Cholesterol/HDL Ratio 2.2 LDL Cholesterol, Calculated 35 mg/dl Medical Emergencies . Who to Call and When: Medical Emergencies: If at any time you feel your situation is an emergency, please call 911 immediately. . Non-Emergent Contact Non-Emergency issues call your: Primary Care Provider . . "Provider Documentation" section prepared by Kevon Carbone. .
[2017-06-27 11:49] VITALS: BP 117/73; PULSE 77; TEMP 36.6; O2SAT 94
--- NOTE | 2017-06-27 18:34 | Progress Note ---
Internal Med Progress Note Date of Service: Jun 27, 2017. Provider Documentation: SUBJECTIVE: resting comfortably denies any chest pain or sob today s/p stress test and was unremarkable afebrile ok to go home OBJECTIVE: Vital Signs-as noted below Exam: General-alert and oriented. ENT-Normal hearing Neck-no neck masses Lungs-cta b/l no wheezing no crackles present Heart-S1 and S2 heard regular rate and rhythm no murmurs Abdomen-Soft bowel sounds present non tender no distension Extremities-no edema no erythema Neuro-alert and awake moves extremities Lab data as noted below. ASSESSMENT & PLAN: This is an 82-year-old female with past medical history of hypertension, HLD, diastolic CHF, GERD CKD III and other medical problems listed below who presents with chest pain beginning early this morning. Chest pain: rule out ACS risk factors include HTN, family history serial Ce and ekg unremarkable s/p dobutamine stress echo and was unremarkable cardiology ok for d/c HTN: stable on Triamterene/hctz Osteoporosis: On calcium, vit D Follows with rheum out-patient Mood disorder: stable on SSRI, Klonopin HS PRN Discharged home Vital Signs: Date Time Temp Pulse Resp B/P (MAP) Pulse Ox O2 Delivery O2 Flow Rate FiO2 06/27/17 11:49 36.6 77 18 94 Room Air 06/27/17 11:31 36.6 77 18 117/73 (88) 94 Room Air 06/27/17 08:00 Room Air 06/27/17 07:38 36.5 62 18 149/78 (101) 95 Room Air 06/27/17 04:00 Room Air 06/27/17 04:00 36.6 88 20 153/71 (98) 91 Room Air 06/27/17 00:00 Room Air 06/27/17 00:00 36.6 59 20 118/68 (85) 94 Room Air 06/26/17 20:00 Room Air 06/26/17 19:55 36.6 68 18 128/68 94 Room Air 06/26/17 18:45 36.6 68 18 128/68 (88) 94 Room Air Lab Results: Results Past 24 Hours Test 06/26/17 20:15 06/27/17 02:15 Range/Units Troponin I < 0.015 < 0.015 0-0.045 ng/ml White Blood Count 8.00 4.8-10.8 K/uL Red Blood Count 4.30 4.2-5.4 M/uL Hemoglobin 13.1 12.0-16.0 g/dL Hematocrit 39.6 37-47 % Mean Corpuscular Volume 92.1 80-100 fL Mean Corpuscular Hemoglobin 30.5 25-34 pg Mean Corpuscular Hemoglobin Concent 33.1 32-36 g/dl RDW Standard Deviation 49.7 36.4-46.3 fL RDW Coefficient of Variation 14.7 11.5-14.5 % Platelet Count 159 130-400 K/uL Mean Platelet Volume 11.2 7.4-10.4 fL Activated Partial Thromboplast Time 27.7 21.0-31.0 SECONDS Partial Thromboplastin Ratio 1.1 Sodium Level 139 136-145 mmol/L Potassium Level 4.1 3.5-5.1 mmol/L Chloride Level 104 98-107 mmol/L Carbon Dioxide Level 25 21-32 mmol/L Anion Gap 10.0 3-11 mmol/L Blood Urea Nitrogen 26 7-18 mg/dl Creatinine 1.15 0.60-1.20 mg/dl Est Creatinine Clear Calc Drug Dose 42.5 ml/min Estimated GFR () 52.0 Estimated GFR (Non- 44.9 BUN/Creatinine Ratio 22.9 10-20 Random Glucose 85 70-99 mg/dl Calcium Level 8.8 8.5-10.1 mg/dl Triglycerides Level 190 0-150 mg/dl Cholesterol Level 134 0-200 mg/dl HDL Cholesterol 61 mg/dl LDL Cholesterol, Calculated 35 mg/dl VLDL Cholesterol, Calculated 38 mg/dl Cholesterol/HDL Ratio 2.2
--- NOTE | 2017-06-27 18:36 | Discharge Summary ---
Discharge Summary Date of Service Jun 27, 2017. Discharge Summary Admission Date: Jun 26, 2017 at 15:48 Discharge Date: Jun 27, 2017 Discharge Disposition: Home Principal Diagnosis: CHEST PAIN Secondary Diagnoses/Problems: 1) Anxiety Status: Chronic (2) CKD (chronic kidney disease), stage III Status: Chronic (3) Depression Status: Chronic (4) Diastolic HF (heart failure) Status: Chronic (5) GERD (gastroesophageal reflux disease) Status: Chronic (6) HLD (hyperlipidemia) Status: Chronic (7) Hypertension Status: Chronic (8) Lumbar degenerative disc disease Status: Chronic (9) Osteoarthritis Status: Chronic (10) Osteoporosis Status: Chronic Procedures: CXR: No acute cardiopulmonary findings. STRESS ECHO: Nonischemic dobutamine stress echocardiogram. * No arrhythmias. * Normal HR and BP response to dobutamine infusion. * At rest, normal LV chamber size with moderate concentric LVH. * Normal LV systolic function, EF 55-60%. * No segmental left ventricular wall motion abnormalities are noted. * Grade I diastolic dysfunction. * Aortic valve sclerosis mild, without significant aortic valvular stenosis. * Small, loculated anterior pericardial effusion with stranding to suggest chronicity. Consultations: CARDIOLOGY Medication Reconciliation Continued Medications: Acetaminophen (Acetaminophen) 500 Mg Tab 1 TAB PO TID PRN for Pain for 30 Days, #90 TAB 1 Refill Aspirin (Aspirin Ec) 81 Mg Tab 81 MG PO DAILY Atorvastatin (Lipitor) 20 Mg Tab 20 MG PO HS, TAB Calcium Carbonate-Vitamin D (Calcium + D) 1 Tab Tab 1 TAB PO BID Citalopram (Citalopram Hydrobromide) 20 Mg Tab 20 MG PO QAM Clonazepam (Klonopin) 1 Mg Tab 1 MG PO HS PRN for Sleep, TAB Denosumab (Prolia) 60 Mg/1 Ml Inj 1 DOSE INJ Q6MO Loperamide Hcl (Imodium) 2 Mg Cap 0.5 MG PO DAILY PRN for Diarrhea, CAP Meclizine HCl (Meclizine HCl) 12.5 Mg Tab 1 TAB PO BID for 30 Days, #60 TAB Ocuvite Preservision (Ocuvite Preservision) 1 Tab Tab 1 TAB PO BID, TAB Omeprazole (Prilosec) 20 Mg Capcr 20 MG PO QAM, CAP TAKE 30 MINUTES BEFORE A MEAL. Psyllium (Metamucil) 1 Waf Waf 1 PO HS Triamterene/Hctz (Dyazide 37.5MG/25MG) Cap 1 TAB PO QAM, CAP Admission Information HPI (per Admitting provider): This is an 82-year-old female with past medical history of hypertension, HLD, diastolic CHF, GERD, CKD 3 and other medical problems listed below who presents with chest pain beginning early this morning. Patient was in normal state of health when she went to bed but woke up around 2 AM with left-sided chest pressure. Describes as a 7/10, non-radiating, heavy feeling on the left side of her chest with associated shortness of breath. Also endorses an irregular heartbeat as well as feelings of vertigo (chronic). No lightheadedness, diaphoresis, nausea or vomiting. Pain was worse with any type of exertion and did not resolve on its own. Patient felt fatigued all morning and continued to experience intermittent pain before calling for an ambulance around noon today. In route to ED, patient was given a full dose aspirin as well as nitro spray, which relieved her chest pain completely. Patient last experienced chest pain 1 :30 PM this afternoon. Last experienced chest pain similar to this around 8 years ago, when she reports being life-flighted from [facility] to [facility] where she underwent a cardiac cath. It was negative. Last had a dobutamine stress echo at [facility] in August of 2015, which was negative for inducible ischemia with an EF of 55-59% with grade 1 diastolic dysfunction, mildly concentric LV and mild aortic valve sclerosis. Has positive family history of heart disease. Denies personal history of diabetes. Is not a smoker. Currently denies fever, chills, lightheadedness, near-syncope, visual changes, shortness of breath, abdominal pain, nausea, vomiting, bowel or bladder changes or LE swelling. Physical Exam (per Admitting): General Appearance: WD/WN, no apparent distress, + pertinent finding ( Sitting comfortably, reading ) Head: normocephalic, atraumatic Eyes: normal inspection, PERRL, sclerae normal ENT: normal ENT inspection, hearing grossly normal, pharynx normal (moist mucous membranes ) Neck: supple, thyroid normal, no JVD, trachea midline Respiratory/Chest: chest non-tender, lungs clear, normal breath sounds, no respiratory distress, no accessory muscle use Cardiovascular: regular rate, rhythm, normal peripheral pulses, + systolic murmur Abdomen/GI: non tender, soft, no organomegaly Back: normal inspection Extremities/Musculoskelatal: normal inspection, no calf tenderness, no pedal edema Neurologic/Psych: no motor/sensory deficits, alert, normal mood/affect, oriented x 3 Skin: normal color, warm/dry, no rash Hospital Course This is an 82-year-old female with past medical history of hypertension, HLD, diastolic CHF, GERD CKD III and other medical problems listed below who presents with chest pain beginning early this morning. Chest pain: rule out ACS risk factors include HTN, family history serial Ce and ekg unremarkable s/p dobutamine stress echo and was unremarkable cardiology ok for d/c HTN: stable on Triamterene/hctz Osteoporosis: On calcium, vit D Follows with rheum out-patient Mood disorder: stable on SSRI, Klonopin HS PRN Discharged home Total time spent on discharge = 35MINUTES This includes examination of the patient, discharge planning, medication reconciliation, and communication with other providers. Discharge Instructions Discharge Instructions Date of Service Jun 27, 2017. Admission Reason for Admission: Chest Pain Discharge Discharge Diagnosis / Problem: CHEST PAIN Discharge Goals Goal(s): Decrease discomfort, Improve function Activity Recommendations Activity Limitations: resume your previous activity . Instructions / Follow-Up Instructions / Follow-Up FOLLOWUP WITH FAMILY DOCTOR ON July AT 2:45PM. Current Hospital Diet Patient's current hospital diet: AHA Diet (Heart Healthy) Discharge Diet Recommended Diet: AHA Diet (Heart Healthy) Pending Studies Studies pending at discharge: no Laboratory Results Lipid Panel Test 06/27/17 02:15 Range/Units Triglycerides Level 190 H 0-150 mg/dl Cholesterol Level 134 0-200 mg/dl HDL Cholesterol 61 mg/dl Cholesterol/HDL Ratio 2.2 LDL Cholesterol, Calculated 35 mg/dl Medical Emergencies . Who to Call and When: Medical Emergencies: If at any time you feel your situation is an emergency, please call 911 immediately. . Non-Emergent Contact Non-Emergency issues call your: Primary Care Provider . . "Provider Documentation" section prepared by Kevon Carbone.
== END 2017-06-27 12:26 | disposition home or self-care (01) ==
LOC: EDBD 13:45 → C.EDA 13:46 → C.MED 15:48 → ENRESERV 16:57
PROVIDERS: ADMIT Family Medicine; ATTEND Internal Medicine
DX: R07.9 Chest pain, unspecified (principal); N18.3 Chronic kidney disease, stage 3 (moderate); I13.0 Hypertensive heart and chronic kidney disease with heart failure and stage 1 through stage 4 chronic kidney disease, or unspecified chronic kidney disease; I50.30 Unspecified diastolic (congestive) heart failure; E78.5 Hyperlipidemia, unspecified; M19.90 Unspecified osteoarthritis, unspecified site; F32.9 Major depressive disorder, single episode, unspecified; Z79.82 Long term (current) use of aspirin; Z79.899 Other long term (current) drug therapy; Z90.11 Acquired absence of right breast and nipple; Z88.1 Allergy status to other antibiotic agents; Z88.7 Allergy status to serum and vaccine; Z88.8 Allergy status to other drugs, medicaments and biological substances; Z90.710 Acquired absence of both cervix and uterus; Z90.49 Acquired absence of other specified parts of digestive tract; Z96.652 Presence of left artificial knee joint

== ENCOUNTER 2018-12-14 11:30 | Observation (INO) ==
[2018-12-14] MEDS ORDERED: DIPHTHERIA/TETANUS TOX ADSORBED ULTRAFINED 0.5 ML SYR/VIAL IM ONE (12:32)
[2018-12-14] MEDS ORDERED: CEFAZOLIN 3000MG/72.5 ML BAG IV ONE (12:34)
[2018-12-14] MEDS: fentaNYL citrate 100 MCG/2 ML VIAL IV PRN ×4 (12:50→16:04)
--- NOTE | 2018-12-14 13:19 | XRay Report ---
XR wrist LT 2V CLINICAL HISTORY: Left wrist pain status post trauma COMPARISON: None. DISCUSSION: There are postsurgical changes involving the distal radius. There is a volar metallic kavita te. There is an acute fracture of the distal radius at the proximal aspect of the plate. The distal f ragment is dorsally displaced by slightly greater than one shaft width. There is foreshortening at th e fracture site. There is associated ulnar styloid fracture which is mildly comminuted. IMPRESSION: Acute displaced fractures of the distal radius and ulna. Electronically signed by: Roverto Cornejo M.D. 12/14/2018 1:18 PM
--- NOTE | 2018-12-14 14:32 | Emergency Department Note ---
Entered by Annmarie Christianson acting as a scribe for History of Present Illness General Chief complaint: Wrist Pain Source: patient History of Present Illness Provider complaint: left wrist pain Onset (ago): hour(s) less than 1 Location: upper extremity and left Radiation: non-radiation Pain Consistency: + other (episode) Maximum Pain Intensity: 7 Exacerbated By: + movement Associated symptoms: + denies other symptoms (back pain) and + other (fall); no fever/chills The patient is an 83 year old female who presents to the ED with complaints of an episode of left wrist pain that started less than 1 hour ago. The patient states that she was walking to the bathroom and slipped and fell. The patient states that she broke her fall with her left wrist. The patient describes the pain as non-radiating. The patient states that the pain is exacerbated by movement. The patient denies back pain and fevers. The patient states that she has broken her left wrist in the past and had to get surgery. Home Medications Home Medications Medication Instructions Recorded Confirmed Type albuterol sulfate 2.5 mg INHALATION Q4 PRN 10/24/18 12/14/18 History albuterol sulfate [ProAir HFA] 2 puff INHALATION Q4 PRN 10/24/18 12/14/18 History ascorbic acid (vitamin C) 12 g PO DAILY 10/24/18 12/14/18 History aspirin 81 mg PO DAILY 10/24/18 12/14/18 History atorvastatin 20 mg PO HS 10/24/18 12/14/18 History calcium carbonate-vitamin D3 1 tab PO BID 10/24/18 12/14/18 History [Calcium 500 + D] citalopram 20 mg PO QAM 10/24/18 12/14/18 History clonazepam 1 mg PO HS PRN 10/24/18 12/14/18 History fluticasone furoate [Arnuity 1 inh INHALATION DAILY 10/24/18 12/14/18 History Ellipta] fluticasone furoate-vilanterol 1 inh INHALATION DAILY 10/24/18 12/14/18 History [Breo Ellipta] furosemide 20 mg PO QAM 10/24/18 12/14/18 History ipratropium-albuterol 3 ml INHALATION Q6 PRN 10/24/18 12/14/18 History montelukast 10 mg PO PM 10/24/18 12/14/18 History omeprazole 20 mg PO QAM 10/24/18 12/14/18 History psyllium husk [Reguloid (psyllium 0.4 g PO HS 10/24/18 12/14/18 History husk)] tiotropium bromide [Spiriva 1 puff INHALATION DAILY 10/24/18 12/14/18 History Respimat] vitamins A,C,V-hyan-kcosyc 1 cap PO BID 10/24/18 12/14/18 History [PreserVision AREDS] Allergies Allergy/AdvReac Type Severity Reaction Status Date / Time phenytoin Allergy Intermediate RASH Verified 12/14/18 12:36 amoxicillin Allergy Unknown RASH Verified 12/14/18 12:36 clavulanic acid Allergy Unknown RASH Verified 12/14/18 12:36 dexamethasone AdvReac Intermediate SEVERE Verified 12/14/18 12:36 ANXIETY (TAKES PREDNISONE) Flu Virus Vaccine Allergy Severe RESPIRATORY Uncoded 12/14/18 12:36 DISTRESS Past Med/Surg History Social History Preferred Language: Greenlandic Feels Safe at Home: Yes Smoking Status: Never smoker Review of Systems See HPI for pertinent positives & negatives. and A total of 10 systems reviewed and were otherwise negative Physical Exam Vital Signs Vital Signs - 24 hr 12/14/18 11:36 12/14/18 13:45 Temperature 36.6 C Temperature Source Oral Sepsis Recent Fever Within 48 Hours No Sepsis New/Unexplained Change in Mental Status No Sepsis Action Taken by Nursing No Action Required Pulse Rate 69 Pulse Rate [Radial] 66 Pulse Rhythm Regular Pulse Rhythm [Radial] Regular Pulse Strength Normal Respiratory Rate 18 20 Respiratory Effort / Characteristics Non-Labored Spontaneous Non-Labored Respiratory Depth Normal Normal Respiratory Pattern Regular Regular Blood Pressure [Right Arm] 156/77 H Blood Pressure Mean [Right Arm] 103 Pulse Oximetry 97 94 Oxygen Delivery Method Room Air Room Air CONSTITUTIONAL/VITAL SIGNS: Reviewed / noted above. GENERAL: Non-toxic in appearance. INTEGUMENTARY: Warm, dry, and [place]. HEAD: Normocephalic. EYES: without scleral icterus or trauma. ENT/OROPHARYNX: clear and moist. LYMPHADENOPATHY/NECK: Is supple without lymphadenopathy or meningismus. RESPIRATORY: Lungs clear and equal. CARDIOVASCULAR: Regular rate and rhythm. GI/ABDOMEN: Soft and nontender. No organomegaly or pulsatile mass. No rebound or guarding. Normal bowel sounds. EXTREMITIES: Warm and well perfused. BACK: No CVA tenderness. NEUROLOGICAL: Intact without focal deficits. PSYCHIATRIC: normal affect. MUSCULOSKELETAL: Deformity on left wrist with open wound on fernández aspect of wrist with minimal bleeding. Course 1228: Past medical records reviewed. The patient was evaluated in room B4. A complete history and physical exam was performed. 1428: I discussed the patient's case with Dr. Best- Orthopedic Surgeon. He will evaluate the patient for further management. Consultations Consultation #1: I discussed the patient's case with Dr. Best- Orthopedic Surgeon. He will evaluate the patient for further management. Time: 14:28 Administered Medications Fentanyl Citrate (Fentanyl Citrate) 50 mcg IV Q15M PRN PRN Reason: Pain Stop: 12/28/18 12:32 Last Admin: 12/14/18 14:38 Dose: 50 mcg Documented by: [id number] Admin: 12/14/18 13:40 Dose: 50 mcg Documented by: [id number] Admin: 12/14/18 12:50 Dose: 50 mcg Documented by: [id number] Discontinued Medications Cefazolin Sodium (Ancef 3000mg) 3,000 mg IV ONE ONE Stop: 12/14/18 12:35 Last Admin: 12/14/18 13:40 Dose: 3,000 mg Documented by: [id number] Tetanus/Diphtheria Toxoids Adsorbed (Tenivac) 0.5 ml IM .ONCE ONE Stop: 12/14/18 12:33 Last Admin: 12/14/18 13:35 Dose: 0.5 ml Documented by: [id number] Medical Decision Making Differential Diagnosis Differential diagnoses include but are not limited to: fracture, dislocation, contusion, strain, ligamentous injury, tendon rupture, and septic joint. Medical Records Attestation: I reviewed the patient's medical records. Home Medications Current Medication List: was personally reviewed by me Imaging Data Radiologist's Impression: Radiology results as stated below per my review and the radiologist's interpretation: XR wrist LT 2V CLINICAL HISTORY: Left wrist pain status post trauma COMPARISON: None. DISCUSSION: There are postsurgical changes involving the distal radius. There is a volar metallic plate. There is an acute fracture of the distal radius at the proximal aspect of the plate. The distal fragment is dorsally displaced by sligh tly greater than one shaft width. There is foreshortening at the fracture site. There is associated ulnar styloid fracture which is mildly comminuted. IMPRESSION: Acute displaced fractures of the distal radius and ulna. Electronically signed by: Roverto Cornejo M.D. 12/14/2018 1:18 PM Blood Pressure Blood Pressure Findings: Elevated blood pressure Blood Pressure Disposition: further management by hospitalist ELIZABETH Narrative This is an 83-year-old female who presents to the ED with a chief complaint of left wrist pain after a fall. The patient states that she tripped causing her fall. She denies loss of consciousness or striking her head. She presents with a deformity to the left wrist. There is some wounds to the palmar aspect of the wrist suggestive of an open fracture. X-ray reveals findings consistent with a radius/ulna fracture proximal to the hardware that was in place. I spoke with Dr. Best about the patient. The orthopedic service will see the patient for further evaluation and care. She was given a tetanus shot as well as IV Ancef. She was given IV fentanyl for pain. Impression & Plan Fracture of wrist Discharge Plan Visit Data Chief Complaint: Wrist Pain ED Provider: Steven Calero Discharge Problem: Fracture of wrist Patient Disposition: Being Evaluated by Surgeon Forms Stand Alone Forms: My [facility] Prescriptions Prescriptions: No Action atorvastatin 20 mg tablet 20 mg PO HS RF: 0 citalopram 20 mg tablet 20 mg PO QAM RF: 0 omeprazole 20 mg capsule,delayed release(DR/EC) 20 mg PO QAM RF: 0 furosemide 20 mg Tablet 20 mg PO QAM RF: 0 ascorbic acid (vitamin C) 1,000 mg Tablet 12 g PO DAILY RF: 0 aspirin 81 mg Tablet,Delayed Release (Dr/Ec) 81 mg PO DAILY RF: 0 montelukast 10 mg Tablet 10 mg PO PM RF: 0 PreserVision AREDS [id number] Capsule 1 cap PO BID RF: 0 Spiriva Respimat 2.5 mcg/actuation Mist 1 puff INHALATION DAILY RF: 0 Breo Ellipta 200-25 mcg/dose blister with device 1 inh inhalation DAILY RF: 0 psyllium husk [Reguloid (psyllium husk)] 0.4 gram Capsule 0.4 g PO HS RF: 0 ipratropium-albuterol 0.5 mg-3 mg(2.5 mg base)/3 mL Solution For Nebulization 3 ml INHALATION Q6 PRN (Reason: Shortness Of Breath Or Wheezing) RF: 0 albuterol sulfate 2.5 mg /3 mL (0.083 %) Solution For Nebulization 2.5 mg INHALATION Q4 PRN (Reason: Shortness Of Breath Or Wheezing) RF: 0 clonazepam 1 mg Tablet 1 mg PO HS PRN (Reason: Insomnia) RF: 0 albuterol sulfate [ProAir HFA] 90 mcg/actuation HFA aerosol inhaler 2 puff inhalation Q4 PRN (Reason: Shortness Of Breath Or Wheezing) RF: 0 calcium carbonate-vitamin D3 [Calcium 500 + D] 500 mg(1,250mg) -200 unit Tablet 1 tab PO BID RF: 0 Arnuity Ellipta 100 mcg/actuation Blister With Device 1 inh INHALATION DAILY RF: 0 Referrals Referrals: Kerri Grier [Primary Care Provider] - Discharge Problem: Fracture of wrist Qualifiers: Encounter type: initial encounter Fracture type: open Laterality: left Qualified Code(s): S62.102B - Fracture of unspecified carpal bone, left wrist, initial encounter for open fracture The scribe's documentation has been prepared under my direction and personally reviewed by me in its entirety. I confirm that the note above accurately reflects all work, treatment, procedures, and medical decision making performed by me.
[2018-12-14] MEDS ORDERED: clonazePAM 1 MG TAB PO PRN (15:58)
[2018-12-14] MEDS ORDERED: ALBUTEROL HFA 8 GM INHALER INH PRN (15:58)
[2018-12-14] MEDS ORDERED: ALBUT/IPRATROP 3MG/0.5MG NEB 3 ML VIAL INH PRN (15:58)
[2018-12-14] MEDS ORDERED: ALBUTEROL 0.083% NEBU SOLN 3 ML VIAL INH PRN (15:58)
[2018-12-14] MEDS ORDERED: WATER, STERILE FOR INJ 10 ML VIAL ONE (16:17)
[2018-12-14] MEDS ORDERED: fentaNYL citrate 100 MCG/2 ML VIAL ONE ×2 (16:17→19:22)
[2018-12-14] MEDS ORDERED: MIDAZOLAM HCL 1 MG/ML 2ML VIAL ONE ×2 (16:18→16:55)
--- NOTE | 2018-12-14 16:20 | History & Physical Report ---
Date of Service December 14, 2018 Assessment & Plan (1) Open fracture of left distal radius and ulna: She has no open fractures require surgical debridement, reduction and fixation. This should be done under anesthesia with or without a regional block. Options may include spanning external fixation if we can obtain a stable reduction. More likely, this will require an open reduction internal fixation with removal of previous hardware. We have contacted the OR in vendors to ensure we have adequate equipment. She is n.p.o. since last evening's dinner. We will proceed with surgical's treatment as soon as safely possible. Contact anesthesia for complete evaluation to ensure that she is is ready as possible for this urgent procedure. Appreciate ED care and the initiation of antibiotics and updating of tetanus. 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 The risks to this surgery include but not limited to infection, neurovascular injury, need for repeat or revision procedures, malunion, nonunion, symptomatic hardware, blood clots and complications related to anesthesia. She asked appropriate questions, demonstrated good understanding, elected to proceed with this urgent open reduction and internal fixation versus spanning external fixation with I&D. History of Present Illness Chief Complaint: Left open distal radius and ulna fracture Primary Care Provider: [facility] 83-year-old female with a history of pulmonary fibrosis, congestive heart failure, and breast cancer sustained a fall at her assisted living facility resulting in immediate pain and obvious deformity to her left wrist. She has a history of a previous distal radius fracture requiring open reduction internal fixation in [place] 10 years ago. She has had no issues with that wrist since her uncomplicated healing. She denies any recent injuries. She did note bleeding and a wound on her wrist at home and was transferred to the emergency room here at [facility] [place] by EMS. In the emergency room she was treated appropriately with updated tetanus and IV gram-positive antibiotic coverage. She denies any numbness or tingling. She denies any other sources of pain. She recalls the fall and describes it as mechanical. She denies any recent syncope, shortness of breath, or other constitutional symptoms. She has well-managed chronic medical problems. Allergies Allergy/AdvReac Type Severity Reaction Status Date / Time phenytoin Allergy Intermediate RASH Verified 12/14/18 12:36 amoxicillin Allergy Unknown RASH Verified 12/14/18 12:36 clavulanic acid Allergy Unknown RASH Verified 12/14/18 12:36 dexamethasone AdvReac Intermediate SEVERE Verified 12/14/18 12:36 ANXIETY (TAKES PREDNISONE) Flu Virus Vaccine Allergy Severe RESPIRATORY Uncoded 12/14/18 12:36 DISTRESS Home Medications Home Medications Medication Instructions Recorded Confirmed Type albuterol sulfate 2.5 mg INHALATION Q4 PRN 10/24/18 12/14/18 History albuterol sulfate [ProAir HFA] 2 puff INHALATION Q4 PRN 10/24/18 12/14/18 History ascorbic acid (vitamin C) 12 g PO DAILY 10/24/18 12/14/18 History aspirin 81 mg PO DAILY 10/24/18 12/14/18 History atorvastatin 20 mg PO HS 10/24/18 12/14/18 History calcium carbonate-vitamin D3 1 tab PO BID 10/24/18 12/14/18 History [Calcium 500 + D] citalopram 20 mg PO QAM 10/24/18 12/14/18 History clonazepam 1 mg PO HS PRN 10/24/18 12/14/18 History fluticasone furoate [Arnuity 1 inh INHALATION DAILY 10/24/18 12/14/18 History Ellipta] fluticasone furoate-vilanterol 1 inh INHALATION DAILY 10/24/18 12/14/18 History [Breo Ellipta] furosemide 20 mg PO QAM 10/24/18 12/14/18 History ipratropium-albuterol 3 ml INHALATION Q6 PRN 10/24/18 12/14/18 History montelukast 10 mg PO PM 10/24/18 12/14/18 History omeprazole 20 mg PO QAM 10/24/18 12/14/18 History psyllium husk [Reguloid (psyllium 0.4 g PO HS 10/24/18 12/14/18 History husk)] tiotropium bromide [Spiriva 1 puff INHALATION DAILY 10/24/18 12/14/18 History Respimat] vitamins A,C,R-cfdc-qfaugd 1 cap PO BID 10/24/18 12/14/18 History [PreserVision AREDS] Past Med/Surg History Medical History Open fracture of left distal radius and ulna Hypertension (Chronic) CKD (chronic kidney disease), stage III (Chronic) Lumbar degenerative disc disease (Chronic) Chest pain (Acute) Diastolic HF (heart failure) (Chronic) GERD (gastroesophageal reflux disease) (Chronic) Depression (Chronic) Anxiety (Chronic) Osteoporosis (Chronic) HLD (hyperlipidemia) (Chronic) Vertigo (Chronic) Osteoarthritis (Chronic) Surgical History History of total knee arthroplasty (Chronic) 2017 Dr. Dav Best S/P right mastectomy (Chronic) Family History Other Family history non-contributory Social History Preferred Language: Bengali Current Living Situation: Jail Feels Safe at Home: Yes Smoking Status: Never smoker Review of Systems All systems reviewed & are unremarkable except as noted in HPI & below Physical Exam Physical Exam: She is awake alert and conversant. She is oriented to place and time. She is in no acute distress. She is lying supine in the gurney with arm wrapped with a sling and swath. Eyes: PERRL, conjunctivae normal, anicteric sclerae ENMT: external ear and nose normal, oropharynx normal Neck: normal visual inspection Respiratory: normal respiratory effort; no retractions, no cough and not tachypneic Cardiovascular: Rate/Rhythm: regular rate Vessels: radial pulses present Chest (Breasts): Chest: normal inspection of chest Musculoskeletal: Examination of her left upper extremity demonstrates intact skin with the exception of a 1/2 to 2 cm laceration that is transferred of her distal ulna. There is dark hematoma like blood oozing slowly. There is focal tenderness to palpation at the distal radius and ulna. She is able to actively range her distal and proximal interphalangeal joints of her fingers and thumb. She has sensation intact to light touch in all distal distributions of the hand. She has no tenderness about the elbow arm and proximal humerus. Her clavicle is intact and nontender. The remainder of her secondary survey for muscular skeletal injury is negative Skin: no rashes, warm and dry Wrist demonstrates open wound as per muscular skeletal exam Results & Data Vital Signs (Past 12 Hours) Vital Signs Temp Pulse Pulse Resp BP Pulse Ox 12/14/18 15:30 74 18 174/83 H 94 12/14/18 13:45 66 20 156/77 H 94 09/13/19 11:36 36.6 C 69 18 97 Radiographs of the left distal radius and forearm demonstrates transversely oriented fractures at the proximal aspect of a short distal radius plate and at nearly the same level of the ulna. The fracture is complete and she has bayonet opposition and complete displacement with shortening. There is significant comminution of the ulna and radius.
[2018-12-14] MEDS ORDERED: BUPIVACAINE 0.25% 30 ML VIAL ONE (16:28)
--- NOTE | 2018-12-14 16:49 | Anesthesiology Consultation ---
Date of Service December 14, 2018 Assessment & Plan (1) Encounter for pre-operative examination: Chart Review Chart Review: Acceptable Risk for Surgery and Patient NOT seen in Pre Admission Testing Consults Requested none ASA ASA4 Proposed Anesthesia Anesthesia Type: MAC Regional Regional Laterality: Left Site: Axillary Risk / Benefits Reviewed With: PT / POA / Parent / Guardian, Accepts Plan and Informed Consent Obtained History Surgery Operation Date: 12/14/18 13:50 Proposed Procedures p Left Forearm Fracture Open Reduction Internal Fixation, - Steven Hansen s Hardware Removal - Steven Hansen Height/Weight Height: 5 ft 2 in Weight: 104.4 kg Allergies Allergy/AdvReac Type Severity Reaction Status Date / Time phenytoin Allergy Intermediate RASH Verified 12/14/18 12:36 amoxicillin Allergy Unknown RASH Verified 12/14/18 12:36 clavulanic acid Allergy Unknown RASH Verified 12/14/18 12:36 dexamethasone AdvReac Intermediate SEVERE Verified 12/14/18 12:36 ANXIETY (TAKES PREDNISONE) Flu Virus Vaccine Allergy Severe RESPIRATORY Uncoded 12/14/18 12:36 DISTRESS Medications Home Medications Medication Instructions Recorded Confirmed Last Taken albuterol sulfate 2.5 mg INHALATION Q4 PRN 10/24/18 12/14/18 Unknown albuterol sulfate [ProAir HFA] 2 puff INHALATION Q4 PRN 10/24/18 12/14/18 Unknown ascorbic acid (vitamin C) 12 g PO DAILY 10/24/18 12/14/18 Unknown aspirin 81 mg PO DAILY 10/24/18 12/14/18 Unknown atorvastatin 20 mg PO HS 10/24/18 12/14/18 Unknown calcium carbonate-vitamin D3 1 tab PO BID 10/24/18 12/14/18 Unknown [Calcium 500 + D] citalopram 20 mg PO QAM 10/24/18 12/14/18 Unknown clonazepam 1 mg PO HS PRN 10/24/18 12/14/18 Unknown fluticasone furoate [Arnuity 1 inh INHALATION DAILY 10/24/18 12/14/18 Unknown Ellipta] fluticasone furoate-vilanterol 1 inh INHALATION DAILY 10/24/18 12/14/18 Unknown [Breo Ellipta] furosemide 20 mg PO QAM 10/24/18 12/14/18 Unknown ipratropium-albuterol 3 ml INHALATION Q6 PRN 10/24/18 12/14/18 Unknown montelukast 10 mg PO PM 10/24/18 12/14/18 Unknown omeprazole 20 mg PO QAM 10/24/18 12/14/18 Unknown psyllium husk [Reguloid (psyllium 0.4 g PO HS 10/24/18 12/14/18 Unknown husk)] tiotropium bromide [Spiriva 1 puff INHALATION DAILY 10/24/18 12/14/18 Unknown Respimat] vitamins A,C,D-nfav-qrtcri 1 cap PO BID 10/24/18 12/14/18 Unknown [PreserVision AREDS] Active Medications Generic Name Dose Route Start Last Admin Trade Name Freq PRN Reason Stop Dose Admin Fentanyl Citrate 50 mcg 12/14/18 12:33 12/14/18 16:04 Fentanyl Citrate IV 12/28/18 12:32 50 mcg Q15M PRN Administration Pain NPO Date Last Intake of Fluids: 12/14/18 Time Last Intake of Fluids: 07:00 Date Last Intake of Solids: 12/13/18 Time Last Intake of Solids: 19:00 Past Medical History Medical History Open fracture of left distal radius and ulna Hypertension (Chronic) CKD (chronic kidney disease), stage III (Chronic) Lumbar degenerative disc disease (Chronic) Chest pain (Acute) Diastolic HF (heart failure) (Chronic) GERD (gastroesophageal reflux disease) (Chronic) Depression (Chronic) Anxiety (Chronic) Osteoporosis (Chronic) HLD (hyperlipidemia) (Chronic) Vertigo (Chronic) Osteoarthritis (Chronic) Exercise / Class Metabolic Activity II 4-5 Yardwork/Stairs/Walk up hill Past Family History Family History Other Family history non-contributory Past Surgical History Surgical History History of total knee arthroplasty (Chronic) 2017 Dr. Dav Best S/P right mastectomy (Chronic) Past Anesthesia History No Hx of Anesthesia Complications and No Family Hx of Anesthesia Complications History of PONV No Hx of PONV and No Hx of Motion Sickness Social History Smoking Status: Never smoker Physical Exam Vital Signs Last Vital Signs Temp 37 C 12/14/18 16:23 Pulse 75 09/13/19 16:23 Resp 16 12/14/18 16:23 BP 187/92 H 12/14/18 16:23 Pulse Ox 96 12/14/18 16:23 Constitutional + morbidly obese ENMT Mouth: + dental restorations (permanent upper bridge) Thyromental Distance: > or= 3.5 Finger Breadths Mallampati Class: II Neck normal visual inspection and + thick neck Respiratory normal respiratory effort Auscultation: + diminished lung sounds (bilateral) Cardiovascular Rate/Rhythm: regular rate and regular rhythm Musculoskeletal 2+ peripheral edema Psychiatric Orientation: alert
[2018-12-14] MEDS ORDERED: ONDANSETRON INJ 2 MG/ML 2 ML VIAL IV PRN ×2 (16:59→22:30)
[2018-12-14] MEDS ORDERED: ePHEDrine sulfate 50 MG/ML AMP IV PRN (16:59)
[2018-12-14] MEDS ORDERED: ATROPINE SULFATE 0.1 MG/ML 10ML SYR IV PRN (16:59)
[2018-12-14] MEDS ORDERED: fentaNYL citrate 100 MCG/2 ML VIAL IV PRN (16:59)
[2018-12-14] MEDS ORDERED: CEFAZOLIN 250 MG/ML 1 GM VIAL ONE (17:09)
[2018-12-14] MEDS ORDERED: CEFAZOLIN 2000MG 2,000 MG/15 ML SYR IV ONE (17:21)
[2018-12-14] MEDS ORDERED: KETAMINE HCL INJ 50 MG/ML 10 ML VIAL ONE (17:28)
[2018-12-14] MEDS ORDERED: PROPOFOL IV EMULSION 10 MG/ML 20 ML VIAL IV ONE ×3 (18:11)
[2018-12-14] MEDS ORDERED: ONDANSETRON INJ 2 MG/ML 2 ML VIAL ONE (18:59)
--- NOTE | 2018-12-14 21:00 | Fluoroscopy Report ---
FL forearm LT 2V CLINICAL HISTORY: LT FOREARM COMPARISON STUDY: Left wrist radiographs performed earlier today. FLUOROSCOPY TIME: 63.2 seconds. FLUOROSCOPIC IMAGES: 4. FINDINGS: These images demonstrate plate and screw fixation of the left radial and ulnar fractures. H ardware is intact. There are no unexpected radiopaque foreign bodies. Fracture alignment has markedly improved and appears near anatomic. IMPRESSION: Expected findings following internal fixation of the left radial and ulnar fractures. Electronically signed by: Ken Ruiz M.D. 12/14/2018 8:59 PM
--- NOTE | 2018-12-14 21:32 | Post Operative Brief Note ---
Immediate Post Op Note v1 Date of Surgery December 14, 2018 Pre & Post Diagnosis Operation Date: 12/14/18 13:50 Pre-Op Diagnosis: Open fracture of left distal radius and ulna Post-Op Diagnosis: Open fracture of left distal radius and ulna Procedure Operation Date: 12/14/18 13:50 Actual Procedures p Left Distal Radius and Ulna Fracture Irrigation and Debridement, Open Reduction, Internal Fixation Left Distal/Ulna Fracture, left forearm hardware removal(Left) - Steven Hansen s Hardware Removal - Steven Hansen Surgeon Steven Hansen Incoming Inspector none Estimated Blood Loss 50 Findings See Below (Significant comminution of both bones, particularly of the ulna leading to segmental loss. )
--- NOTE | 2018-12-14 22:07 | Anesthesiology Progress Note ---
Date of Service December 14, 2018 Anesthesia Post Procedure Vital Signs Vital Signs: Temp Pulse Pulse Pulse Pulse Resp BP 12/14/18 22:05 36.2 C L 64 18 12/14/18 21:55 36.2 C L 64 18 12/14/18 21:45 65 18 12/14/18 21:35 65 18 12/14/18 21:27 36.1 C L 66 18 12/14/18 16:23 37 C 75 16 12/14/18 16:11 87 18 174/92 H 12/14/18 15:30 74 18 12/14/18 13:45 66 20 12/14/18 11:36 36.6 C 69 18 BP Pulse Ox 12/14/18 22:05 119/74 97 12/14/18 21:55 119/74 97 12/14/18 21:45 123/69 95 12/14/18 21:35 138/63 100 12/14/18 21:27 129/63 100 12/14/18 16:23 187/92 H 96 12/14/18 16:11 94 12/14/18 15:30 174/83 H 94 12/14/18 13:45 156/77 H 94 12/14/18 11:36 97 Pain Intensity Left Wrist: Pain Intensity: 3 Transfer of Care Handoff Completed per policy Notes Mental Status: alert / awake / arousable Patient Amnestic to Procedure: Yes Nausea / Vomiting: adequately controlled Pain: adequately controlled Airway Patency, RR, SpO2: stable & adequate BP & HR: stable & adequate Hydration State: stable & adequate Anesthetic Complications: no major complications apparent Notes: Block working well in pacu
--- NOTE | 2018-12-14 22:29 | XRay Report ---
XR forearm LT 2V CLINICAL HISTORY: Postoperative evaluation. COMPARISON: Left wrist radiographs performed earlier today. FINDINGS: Overlying cast is noted. Alignment of the left elbow is anatomic. Plate and screw fixation of the distal left radial and ulnar fractures is noted. Fracture alignment is near anatomic. The barbie dware is intact and there are no unexpected radiopaque foreign bodies. IMPRESSION: Expected findings following internal fixation of the distal left radial and ulnar fractur es. Electronically signed by: Ken Ruiz M.D. 12/14/2018 10:28 PM
[2018-12-14] MEDS ORDERED: MAGNESIUM HYDROXIDE SUSP 30 ML UDC PO PRN (22:30)
[2018-12-14] MEDS ORDERED: NALOXONE HCL 0.4 MG/1 ML VIAL/CARP IV PRN ×2 (22:30)
[2018-12-14] MEDS ORDERED: MoRPHine SULFATE 2 MG/ML CARP IV PRN (22:30)
[2018-12-14] MEDS ORDERED: ACETAMINOPHEN 325 MG TAB PO PRN (22:30)
[2018-12-14] MEDS ORDERED: bisacodyL 10 MG SUPP PR PRN (22:30)
[2018-12-14] MEDS ORDERED: OXYCODONE HCL IR 5 MG TAB (IMMEDIATE RELEASE) PO PRN (22:30)
[2018-12-14 23:40] LABS: Basophils # (auto) 0.03 K/uL (0-0.2); Basophils % (auto) 0.2 %; Eosinophils # (auto) 0.06 K/uL (0-0.5); Eosinophils % (auto) 0.4 %; Hematocrit (blood only) 35.1 % (37-47); Hemoglobin 11.3 g/dL (12.0-16.0); Immature Granulocytes # (auto) 0.06 K/uL (0.00-0.02); Immature Granulocytes % (auto) 0.4 %; Lymphocytes # (auto) 1.21 K/uL (1.2-3.4); Lymphocytes % (auto) 8.3 %; Mean Corpuscular Hemoglobin 31.7 pg (25-34); Mean Corpuscular Hgb Conc 32.2 g/dL (32-36); Mean Corpuscular Volume 98.3 fL (80-100); Mean Platelet Volume 11.8 fL (7.4-10.4); Monocytes # (auto) 1.43 K/uL (0.11-0.59); Monocytes % (auto) 9.8 %; Neutrophils # (auto) 11.73 K/uL (1.4-6.5); Neutrophils % (auto) 80.9 %; Platelet Count 156 K/uL (130-400); RDW Coefficient of Variation 14.6 % (11.5-14.5); Red Blood Count 3.57 M/uL (4.2-5.4); White Blood Count 14.52 K/uL (4.8-10.8)
[2018-12-14 23:52] LABS: INR 1.1 (0.9-1.1); Partial Thromboplastin Ratio 0.9; Partial Thromboplastin Time 24.9 Seconds (21.0-31.0); Prothrombin Time 11.6 Seconds (9.0-12.0)
[2018-12-14 23:56] LABS: Albumin Level 3.4 gm/dl (3.4-5.0); BUN Creatinine Ratio 15.7 (10-20); Calcium 8.7 mg/dl (8.5-10.1); Est GFR (African American) 57.7; Est GFR (Non-African American) 49.8
[2018-12-14 23:59] LABS: Albumin Globulin Ratio 1.1 (0.9-2); Bilirubin,Total 0.4 mg/dl (0.2-1); Total Protein 6.4 gm/dl (6.4-8.2)
[2018-12-15] MEDS: OXYCODONE HCL IR 5 MG TAB (IMMEDIATE RELEASE) PO PRN ×2 (00:01→13:41)
--- NOTE | 2018-12-15 00:18 | Operative Report ---
DATE OF OPERATION: 12/14/2018 PREOPERATIVE DIAGNOSIS: Left open distal radius and ulna fractures. POSTOPERATIVE DIAGNOSIS: Left open distal radius and ulna fractures. PROCEDURE: Left distal radius and ulna open fracture irrigation and debridement, removal of hardware, and open reduction and internal fixation of radius and ulna fractures. SURGEON: Steven Hansen M.D. ETHNIC ORIGINS TEACHER: None. SURGICAL FINDINGS: There was a 2-cm laceration on the ulnar side of the wrist, at the level of the fracture with communication down to fractured bone. There was significant comminution on an otherwise transversely oriented radius fracture that was reapproximated under direct visualization and stabilized with a 7-hole 2.4/2.7 VA-LCP distal radius locking plate by [employer]. The ulna had significant comminution, which led to a segmental defect and minimal cortical approximation limited to the most ulnar side of the fracture. Therefore, demineralized bone matrix was placed into the radial sided ulnar defect after stabilization with a 2.7 mm 8-hole plate. ANESTHESIA: Sedation with regional anesthetic block. ESTIMATED BLOOD LOSS: 50 mL. COMPLICATIONS: There were no complications. TOURNIQUET TIME: 2 hours at 250 mmHg. ANTIBIOTICS: 3 g of Ancef infused at the time of her ER evaluation and 2 g of Ancef infused 4 hours after that intraoperatively. SPECIMENS: None. IMPLANTS: Include [employer] 2.4/2.7 VA-LCP 2-C DRP STD distal radius 7-hole plate. Next, 2.4 mm variable angle locking screws of length 14 mm x3 and 20 mm x1. Next, 2.4 mm cortical screws 20 mm length x1, 2.7 mm cortical screws 14 mm x3. The ulnar fixation, we had an 8-hole 2.7 mm thickness plate filled with 2.7 cortical screws measuring 14 mm x5 and 12 mm x 1. All [employer] hardware. INDICATIONS: Fernanda is an 83-year-old female who sustained a fall at [facility], her [facility] resulting in immediate pain and deformity with bleeding in her left wrist. She had a history of a previous distal radius fracture treated with surgery by volar distal radius plate 10 years ago in [place]. She was taken to the ED given the pain and deformity and had both bone distal radius and ulna fracture that was open on the ulnar side, was diagnosed. We were consulted for treatment. On inspection, she had a grade 1 laceration over ulna and therefore required urgent surgical care of this displaced fracture. We discussed the risks and benefits of surgery in detail. We discussed the purpose of the surgery is to debride the open fracture, then stabilize with plates and screws as needed, in order to reduce risk of fracture and improve healing. We also discussed the possibility of external fixation. She asked appropriate questions and demonstrated good understanding and elected to proceed. We discussed the risks including but not limited to infection, neurovascular injury, arthrofibrosis of the wrist, symptomatic hardware, nonunion, malunion, need for repeat procedures, possible need for hardware removal and complications related to blood clots and anesthesia. Informed consent was obtained in the preoperative holding area. She was admitted to us for presurgical care. BRIEF DESCRIPTION: On the evening of admission, she was greeted in the preoperative holding area where the informed consent was reviewed and confirmed by the patient. The surgical site was identified by the patient and signed by myself. She was turned over the anesthesia team who performed a regional anesthetic block consisting of an axillary nerve block with excellent effect. She was taken to the operating room and placed supine on the OR table and sedation was induced. She was then positioned for surgery using a hand table. A nonsterile tourniquet was placed with padding high on the arm and the left upper extremity was then prepped and draped in the usual sterile fashion for open fracture treatment. Surgical time-out was called by the circulating nurse, verified by all present. Antibiotics were infused. The equipment was available and functional. We proceeded by extending the traumatic ulnar-sided wound several centimeters on both sides. Devitalized soft tissue which was minimal was debrided. A thorough irrigation was carried out all the way down to bone. Both fracture bone ends were exposed through the ulnar-sided wound and the fracture was thoroughly debrided and we then irrigated with 1 liter of normal saline. We then attempted a closed reduction using fluoroscopy. However, the fracture was significantly stable due to the level of the fracture in its transverse orientation with significant comminution. We then decided to proceed with open reduction and internal fixation. For this, we used the same volar incision from her previous surgery. Sharp dissection was carried out using blade with Bovie electrocautery for hemostasis. There was significant scar as expected. The flexor tendon sheath was then identified and opened. The radial artery was palpated and preserved radially. We exposed down to the distal radius. There was significant scar from the quadratus from the previous surgery. This was lifted off and swept ulnarly to expose the plate. We then used a screw removal set and determined the appropriate screw head size and then began to remove the hardware. We did have to call for several sets, which led to some delay. However, we were able to get all the screws and plate removed without incident. There was significant bony ongrowth of the titanium distal radius plate, but we caused no additional fracture by removal of this hardware. We then had exposed the bone at the fracture site distally. We exposed the proximal shaft more thoroughly by extending the incision and careful soft tissue dissection. We then used Lobster claw style clamps to perform a direct reduction under direct observation. It was then pinned on the radial side to the ulnar side of the radius for provisional fixation. Positioning of her arm was difficult because she continued to have some tone in her arm. We had to continually reposition. We then placed the plate provisionally on the radius and evaluated under fluoroscopy, which showed appropriate position and length. We chose a 7-hole distal radius plate. We achieved locking and cortical screw fixation on both sides with an adequate pattern. We fixed the plate first to the distal fragment to ensure appropriate position distally on the metaphyseal flare. We then used 1 nonlocking screw distally to suck the plate down to bone and then used 3 other additional locking screws in the distal fragment to secure the plate. We then used a clamp to position the plate to the proximal fragment and fixed the proximal side of the plate using a nonlocking screw. We used 2 additional nonlocking screws followed by a locking screw in the most proximal hole, used the full working length of the plate with abundant fixation in the proximal and distal fragments. We then thoroughly irrigated this wound. We had previously irrigated with at least 1 liter of normal saline after debridement of the fracture site in case the radial side did penetrate the skin on the ulnar side. Once the radius was stabilized, we directed our attention to the ulna. On fluoroscopic exam, there was an obvious segmental defect left from the comminution that previously debrided from the open fracture site. We extended our traumatic wound once again further to expose particularly distally to allow control of this small distal fragment of the ulnar head. We then positioned several plates to optimize a fixation. There was no locking fixation of the appropriate size for this bone available to us and our instruments, but we did proceed to find a 2.4 plate that contoured well and appeared to be rigid enough to provide the stability. We chose an 8-hole plate and we fixed it to the proximal bone first because it was easier to do. We clamped the bone to the plate and then fixed it with single screw, then repositioned and achieved more fixation in the proximal bone. We then reduced the distal fragment to the bone and plate construct, clamped and then fixed with another nonlocking screw this time in the distal fragment, placed additional 2 screws, directed to achieve most purchase with these nonlocking screws in the distal fragment. We then completed our fixation proximally and this achieved stable fixation through wrist flexion and extension in pronation and supination. There was a palpable defect on the radial side of the ulna that was palpable through the working wound. Therefore, we placed demineralized bone matrix in this area consisting of 1 mL of material to augment the healing process and compensate for the bony loss. Prior to the DBX, we did thoroughly irrigate with 1 liter of additional saline. We then irrigated once again the soft tissues to ensure no loose DBX in the soft tissues. We obtained our final visualization using fluoroscopy and then began our closure. We used deep Vicryl to approximate the deep fascial layers over the plate, particularly on the ulnar wound. We then used 3-0 Vicryl in the deep subcutaneous layer followed by interrupted 3-0 nylon sutures to close both the ulnar traumatic wound and the surgical volar radial wound. The skin closed with minimal tension. We then dressed the wound with sterile Xeroform, sterile gauze, sterile ABDs followed by Webril wrap. A standard plaster sugar tong splint was then placed over this abundant padding. The patient tolerated the procedure well. The tourniquet had been deflated at 2 hours and the ulnar open reduction and internal fixation was carried out without tourniquet. Therefore, we did have some blood loss. Extended time for the fixation was expected given the difficulty with positioning, which was necessary given that her lung disease. The block was our best and anesthetic option and it did work well. She was then awoken from sedation in the operating room without complication and was transferred to the PACU for postoperative recovery. Final x-rays will be obtained postoperatively in plaster. DISPOSITION: She will remain on observation tonight for pain control given the degree of surgery, her comorbidities, and blood loss. We expect some pain when the block wears off and we rather take care of that here in-house. If she is comfortable tomorrow, we will be able to discharge her chcf on oral pain medications. She stated that she has a 'do not resuscitate order' in place in her nursing shelter and the paperwork was established. We will carry that on here. We discussed the surgical findings with her family member, who is her son-in-law, by phone. I attest to the content of the Intraoperative Record and any orders documented therein. Any exceptions are noted below. LOKESH
[2018-12-15] MEDS: MONTELUKAST SODIUM 10 MG TABLET PO SCH ×2 (00:27→21:23)
[2018-12-15] MEDS: CALCIUM 600MG + VIT D 400 IU TAB PO SCH ×3 (00:27→21:22)
[2018-12-15] MEDS: ATORVASTATIN 20 MG TAB PO SCH ×2 (00:27→21:23)
[2018-12-15] MEDS: DOCUSATE SODIUM/SENNA 50/8.6MG TAB PO SCH ×2 (00:27→21:23)
[2018-12-15] MEDS ORDERED: CEFAZOLIN 2000MG 2,000 MG/15 ML SYR IV ONE (00:30)
[2018-12-15 06:54] LABS: Basophils # (auto) 0.02 K/uL (0-0.2); Basophils % (auto) 0.2 %; Eosinophils # (auto) 0.05 K/uL (0-0.5); Eosinophils % (auto) 0.4 %; Hematocrit (blood only) 34.4 % (37-47); Hemoglobin 10.9 g/dL (12.0-16.0); Immature Granulocytes # (auto) 0.04 K/uL (0.00-0.02); Immature Granulocytes % (auto) 0.4 %; Lymphocytes # (auto) 0.99 K/uL (1.2-3.4); Lymphocytes % (auto) 8.7 %; Mean Corpuscular Hemoglobin 31.4 pg (25-34); Mean Corpuscular Hgb Conc 31.7 g/dL (32-36); Mean Corpuscular Volume 99.1 fL (80-100); Mean Platelet Volume 11.8 fL (7.4-10.4); Monocytes % (auto) 13.2 %; Neutrophils # (auto) 8.77 K/uL (1.4-6.5); Neutrophils % (auto) 77.1 %; Platelet Count 159 K/uL (130-400); RDW Coefficient of Variation 14.9 % (11.5-14.5); RDW Standard Deviation 53.6 fL (36.4-46.3); Red Blood Count 3.47 M/uL (4.2-5.4); White Blood Count 11.37 K/uL (4.8-10.8)
[2018-12-15] MEDS: TIOTROPIUM BROMIDE 5 PUFF/90 MCG INH INH SCH (08:03)
[2018-12-15] MEDS: CITALOPRAM 20 MG TAB PO SCH (08:04)
[2018-12-15] MEDS: FUROSEMIDE 20 MG TAB PO SCH (08:04)
[2018-12-15] MEDS: PANTOprazole 40 MG TAB PO SCH (08:04)
[2018-12-15] MEDS: ASPIRIN 325 MG ECTAB PO SCH ×2 (08:06→21:23)
[2018-12-15] MEDS ORDERED: ASPIRIN 81 MG ECTAB PO SCH (09:00)
--- NOTE | 2018-12-15 09:24 | Orthopedic Progress Note ---
Date of Service December 15, 2018 Assessment & Plan (1) Fracture of wrist: (2) Open fracture of left distal radius and ulna: Making uncomplicated progress. Minimal pain is encouraging but block may be lingering. Plan to make contact with snf to arrange for transfer to home w oral pain control. Continue splint until followup at 10-14 days. NWBing. Subjective No issues over night with the exception of the advance diet order not being seen in the new system. She did tolerate water overnight and she is ready to eat this morning. Pain well controlled. Reported that she was able to move fingers and some tingling has subsided as the block wears off. OK to go home from her perspective. son-in-law aware. Review of Systems Review of Systems: All systems reviewed & are unremarkable except as noted in HPI & below Constitutional: no fever, no chills, no sweats and no malaise Gastrointestinal: no abdominal pain, no nausea and no vomiting Physical Exam Physical Exam: Appears well, pleasant and conversant. Oriented x3. NAD Respiratory: normal respiratory effort Musculoskeletal: LUE: splint/dressing undisturbed. Repositioned hand for better elevation. +active finger and thumb flex/ex. SILT in all distrib. Well- perfused digits Results & Data Vital Signs (Past 12 Hours) Vital Signs Temp Pulse Pulse Resp BP Pulse Ox 12/15/18 07:12 37.2 C 85 16 114/60 92 12/15/18 04:26 36.8 C 80 18 127/70 95 12/15/18 01:47 36.9 C 85 18 123/68 94 12/15/18 00:50 36.8 C 82 18 138/76 96 12/14/18 23:39 36.9 C 67 18 138/73 96 12/14/18 23:22 36.9 C 72 18 147/83 H 93 12/14/18 22:44 37.0 C 57 L 16 122/72 98 12/14/18 22:15 36.2 C L 67 18 124/62 97 12/14/18 22:05 36.2 C L 64 18 119/74 97 12/14/18 21:55 36.2 C L 64 18 119/74 97 12/14/18 21:45 65 18 123/69 95 12/14/18 21:35 65 18 138/63 100 12/14/18 21:27 36.1 C L 66 18 129/63 100 PG Care Time/CCT Total # of Minutes Spent Total Time Spent with Patient: Total time spent is greater than 50% in coordination of care (as documented) at patient's floor/unit and/or counseling patient: (1) Fracture of wrist Encounter type: initial encounter Fracture type: open Laterality: left Qualified Code(s): S62.102B - Fracture of unspecified carpal bone, left wrist, initial encounter for open fracture
[2018-12-15] MEDS: SENNA 8.6 MG TAB PO SCH (21:23)
[2018-12-16] MEDS ORDERED: MICONAZOLE NITRATE POWDER 43 GM EXT PRN (04:35)
[2018-12-16] MEDS: OXYCODONE HCL IR 5 MG TAB (IMMEDIATE RELEASE) PO PRN (07:31)
[2018-12-16] MEDS: FUROSEMIDE 20 MG TAB PO SCH (07:35)
[2018-12-16] MEDS: TIOTROPIUM BROMIDE 5 PUFF/90 MCG INH INH SCH (07:35)
[2018-12-16] MEDS: ASPIRIN 325 MG ECTAB PO SCH ×2 (07:36→21:09)
[2018-12-16] MEDS: CITALOPRAM 20 MG TAB PO SCH (07:36)
[2018-12-16] MEDS: CALCIUM 600MG + VIT D 400 IU TAB PO SCH ×2 (07:36→20:43)
[2018-12-16] MEDS: PANTOprazole 40 MG TAB PO SCH (07:36)
[2018-12-16] MEDS: MONTELUKAST SODIUM 10 MG TABLET PO SCH (20:43)
[2018-12-16] MEDS: SENNA 8.6 MG TAB PO SCH (20:43)
[2018-12-16] MEDS: ATORVASTATIN 20 MG TAB PO SCH (20:43)
[2018-12-16] MEDS: DOCUSATE SODIUM/SENNA 50/8.6MG TAB PO SCH (20:45)
--- NOTE | 2018-12-16 20:46 | Orthopedic Progress Note ---
Date of Service December 16, 2018 Assessment & Plan (1) Fracture of wrist: (2) Open fracture of left distal radius and ulna: Making uncomplicated progress. Continued as inpatient because she is upgraded in level of care at her longterm. Will eval basic labs because of intermitted confusion reported. Seemed wnl upon my eval this evening. Continue splint until followup at 10-14 days. NWBing. Subjective Seen before nursing report - no complaints. Reports that she has minimal pain. Eating well. Nursing reported that she was often confused after sunset, but oriented subsequently. Patient reports that she has been confused in hospital with prior admissions. Was out of bed and walked in room. Sat up and ate dinner. Sometimes sleepy during the day. Physical Exam Physical Exam: Sleeping upon my arrival but easily arousable to reposition arm to more elevated position. LUE: splint c/d/i. +AROM of all digits and thumb. Well perfused hand. SILT throughout Constitutional: + well hydrated; no acute distress and not ill appearing Results & Data Vital Signs (Past 12 Hours) Vital Signs Temp Pulse Resp BP Pulse Ox Pulse Ox 12/16/18 14:56 37.0 C 81 19 159/88 H 96 12/16/18 10:14 94 PG Care Time/CCT Total # of Minutes Spent Total Time Spent with Patient: Total time spent is greater than 50% in coordination of care (as documented) at patient's floor/unit and/or counseling patient: (1) Fracture of wrist Encounter type: initial encounter Fracture type: open Laterality: left Qualified Code(s): S62.102B - Fracture of unspecified carpal bone, left wrist, initial encounter for open fracture
[2018-12-16 21:47] LABS: Basophils # (auto) 0.02 K/uL (0-0.2); Basophils % (auto) 0.2 %; Eosinophils # (auto) 0.05 K/uL (0-0.5); Eosinophils % (auto) 0.4 %; Hematocrit (blood only) 32.7 % (37-47); Hemoglobin 10.4 g/dL (12.0-16.0); Immature Granulocytes # (auto) 0.05 K/uL (0.00-0.02); Immature Granulocytes % (auto) 0.4 %; Lymphocytes # (auto) 0.92 K/uL (1.2-3.4); Lymphocytes % (auto) 7.3 %; Mean Corpuscular Hemoglobin 31.2 pg (25-34); Mean Corpuscular Hgb Conc 31.8 g/dL (32-36); Mean Corpuscular Volume 98.2 fL (80-100); Mean Platelet Volume 11.4 fL (7.4-10.4); Monocytes # (auto) 1.54 K/uL (0.11-0.59); Monocytes % (auto) 12.3 %; Neutrophils # (auto) 9.96 K/uL (1.4-6.5); Neutrophils % (auto) 79.4 %; Platelet Count 142 K/uL (130-400); RDW Coefficient of Variation 14.5 % (11.5-14.5); RDW Standard Deviation 51.8 fL (36.4-46.3); Red Blood Count 3.33 M/uL (4.2-5.4); White Blood Count 12.54 K/uL (4.8-10.8)
[2018-12-16 22:17] LABS: BUN Creatinine Ratio 17.7 (10-20); Calcium 8.7 mg/dl (8.5-10.1); Creatinine Clr Calc Pharmacy 40.9 ml/min; Est GFR (African American) 46.3; Est GFR (Non-African American) 39.9; Potassium 3.7 mmol/L (3.5-5.1)
[2018-12-17] MEDS: CALCIUM 600MG + VIT D 400 IU TAB PO SCH ×2 (08:31→20:04)
[2018-12-17] MEDS: ASPIRIN 325 MG ECTAB PO SCH ×2 (08:31→20:04)
[2018-12-17] MEDS: PANTOprazole 40 MG TAB PO SCH (08:31)
[2018-12-17] MEDS: FUROSEMIDE 20 MG TAB PO SCH (08:31)
[2018-12-17] MEDS: CITALOPRAM 20 MG TAB PO SCH (08:31)
[2018-12-17] MEDS: TIOTROPIUM BROMIDE 5 PUFF/90 MCG INH INH SCH (08:32)
--- NOTE | 2018-12-17 09:59 | Anesthesiology Progress Note ---
Date of Service December 17, 2018 Anesthesia Post Procedure Vital Signs Vital Signs: Temp Pulse Resp BP BP Pulse Ox Pulse Ox 12/17/18 08:03 36.9 C 125/48 L 12/17/18 07:48 37.7 C H 88 18 92 12/16/18 23:27 36.8 C 80 17 142/70 H 95 12/16/18 14:56 37.0 C 81 19 159/88 H 96 12/16/18 10:14 94 Pain Intensity Left Wrist: Pain Intensity: 0 Notes Mental Status: alert / awake / arousable and participated in evaluation Patient Amnestic to Procedure: Yes Nausea / Vomiting: adequately controlled Pain: adequately controlled Airway Patency, RR, SpO2: stable & adequate BP & HR: stable & adequate Hydration State: stable & adequate Anesthetic Complications: no major complications apparent
--- NOTE | 2018-12-17 10:09 | Orthopedic Progress Note ---
Date of Service December 17, 2018 Assessment & Plan (1) Fracture of wrist: (2) Open fracture of left distal radius and ulna: Continues to make progress and continues inpatient awaiting appropriate disposition. She had a mild elevation of white count however this is down from her admission value. She appears well and feels well today. She requested evaluation of her right foot pain with an x-ray. I think this is reasonable to do. She did not previously complain of foot pain after fall. Continue the plan for discharge when possible. Again she should continue the splint until followup at 10-14 days. NWBing. Subjective Fernanda reports that she had a good night, but she developed right foot pain when she awoke this morning. She was out of bed but had pain with weightbearing. I asked her about her nighttime confusion, and she reported this is happening on previous admissions. She even said that after last admission lingered for 2 days. Today she reports that she feels clear minded and wants to go home when possible In regards to her left wrist she reports minimal discomfort. She does think her fingers are swollen and tight but she understands this part of the process. Review of Systems Constitutional: no fever, no chills and no malaise Physical Exam Physical Exam: She appears well, she is no acute distress. She is pleasant, oriented and conversant today LUE: splint c/d/i. +AROM of all digits and thumb. Moderate edema to digits as expected. Well perfused hand. SILT throughout Results & Data Vital Signs (Past 12 Hours) Vital Signs Temp Pulse Resp BP BP Pulse Ox 12/17/18 08:03 36.9 C 125/48 L 12/17/18 07:48 37.7 C H 88 18 92 12/16/18 23:27 36.8 C 80 17 142/70 H 95 PG Care Time/CCT Total # of Minutes Spent Total Time Spent with Patient: Total time spent is greater than 50% in coordination of care (as documented) at patient's floor/unit and/or counseling patient: (1) Fracture of wrist Encounter type: initial encounter Fracture type: open Laterality: left Qualified Code(s): S62.102B - Fracture of unspecified carpal bone, left wrist, initial encounter for open fracture
--- NOTE | 2018-12-17 10:49 | XRay Report ---
RIGHT FOOT 3 VIEWS HISTORY: new foot and calcaneus pain, fall several days ago COMPARISON: None. FINDINGS: No acute fracture or dislocation. Plantar heel spur is noted. Dorsal soft tissue swelling w ithin the foot. Advanced degenerative changes within the tarsometatarsal joint. No radiopaque foreign bodies. The bones are osteopenic. IMPRESSION: No fracture or dislocation within the right foot. Electronically signed by: Mulugeta Mejia M.D. 12/17/2018 10:48 AM
[2018-12-17] MEDS: ATORVASTATIN 20 MG TAB PO SCH (20:04)
[2018-12-17] MEDS: SENNA 8.6 MG TAB PO SCH (20:04)
[2018-12-17] MEDS: DOCUSATE SODIUM/SENNA 50/8.6MG TAB PO SCH (20:05)
[2018-12-17] MEDS: MONTELUKAST SODIUM 10 MG TABLET PO SCH (20:05)
[2018-12-18] MEDS: ASPIRIN 325 MG ECTAB PO SCH (09:03)
[2018-12-18] MEDS: FUROSEMIDE 20 MG TAB PO SCH (09:03)
[2018-12-18] MEDS: CITALOPRAM 20 MG TAB PO SCH (09:04)
[2018-12-18] MEDS: CALCIUM 600MG + VIT D 400 IU TAB PO SCH (09:04)
[2018-12-18] MEDS: PANTOprazole 40 MG TAB PO SCH (09:04)
[2018-12-18] MEDS: TIOTROPIUM BROMIDE 5 PUFF/90 MCG INH INH SCH (09:04)
--- NOTE | 2018-12-18 10:58 | Orthopedic Progress Note ---
Date of Service December 18, 2018 Assessment & Plan (1) Open fracture of left distal radius and ulna: Continues to make unconjugated progress. Splint is been well maintained. Her pain is under control. Reports of confusion seem to fall out of the recent history. She wants to go home and we are awaiting authorizations for higher level care when deal. She is set for discharge when her placement is available Subjective She reports no significant changes in her pain or how she feels. She denies any recent confusion. She wants to go home. Review of Systems Constitutional: no fever, no chills and no malaise Physical Exam Physical Exam: She appears well. She is pleasant, oriented and conversant again today LUE: splint c/d/i. +AROM of all digits and thumb. Moderate edema to digits as expected. Well perfused hand. SILT throughout Results & Data Vital Signs (Past 12 Hours) Vital Signs Temp Pulse Resp BP Pulse Ox 12/18/18 08:00 36.7 C 76 18 133/83 90 PG Care Time/CCT Total # of Minutes Spent Total Time Spent with Patient: Total time spent is greater than 50% in coordination of care (as documented) at patient's floor/unit and/or counseling patient:
--- NOTE | 2018-12-21 10:56 | Discharge Summary ---
Date of Service December 21, 2018 Admission HPI Per Admitting Provider 83-year-old female with a history of pulmonary fibrosis, congestive heart failure, and breast cancer sustained a fall at her assisted living facility resulting in immediate pain and obvious deformity to her left wrist. She has a history of a previous distal radius fracture requiring open reduction internal fixation in [place] 10 years ago. She has had no issues with that wrist since her uncomplicated healing. She denies any recent injuries. She did note bleeding and a wound on her wrist at home and was transferred to the emergency room here at [facility] by EMS. In the emergency room she was treated appropriately with updated tetanus and IV gram-positive antibiotic coverage. She denies any numbness or tingling. She denies any other sources of pain. She recalls the fall and describes it as mechanical. She denies any recent syncope, shortness of breath, or other constitutional symptoms. She has well-managed chronic medical problems. Admission Exam (Per Admitting) Constitutional Physical Exam: She is awake alert and conversant. She is oriented to place and time. She is in no acute distress. She is lying supine in the gurney with arm wrapped with a sling and swath. Eyes: PERRL, conjunctivae normal, anicteric sclerae ENMT: external ear and nose normal, oropharynx normal Neck: normal visual inspection Respiratory: normal respiratory effort; no retractions, no cough and not tachypneic Cardiovascular: Rate/Rhythm: regular rate Vessels: radial pulses present Chest (Breasts): Chest: normal inspection of chest Musculoskeletal: Examination of her left upper extremity demonstrates intact skin with the exception of a 1/2 to 2 cm laceration that is transferred of her distal ulna. There is dark hematoma like blood oozing slowly. There is focal tenderness to palpation at the distal radius and ulna. She is able to actively range her distal and proximal interphalangeal joints of her fingers and thumb. She has sensation intact to light touch in all distal distributions of the hand. She has no tenderness about the elbow arm and proximal humerus. Her clavicle is intact and nontender. The remainder of her secondary survey for muscular skeletal injury is negative Skin: no rashes, warm and dry Wrist demonstrates open wound as per muscular skeletal exam Discharge Data Consultations 12/14/18 14:34 ED Decision to Admit Stat 12/14/18 15:51 ED Decision to Admit Stat 12/14/18 22:30 Consult Case Management - Discharge Planning Routine Consult Case Management - Discharge Planning Routine Procedures Performed Operation Date: 12/14/18 13:50 Actual Procedures p Left Distal Radius and Ulna Fracture Irrigation and Debridement, Open Reduction, Internal Fixation Left Distal/Ulna Fracture(Left) - Steven Tyrone s left forearm hardware removal - [facility] Course (1) Open fracture of left distal radius and ulna: She underwent open reduction internal fixation after debridement of her left distal radius and ulna fractures. She was admitted postoperatively for pain control and antibiotic prophylaxis due to her open fracture. She made uncomplicated progress. Her pain was well controlled throughout. There was some issues with confusion during her stay however it was discovered this is part of her past medical history. She remained inpatient, awaiting a discharge disposition. Placement in her previous assisted living center had to be upgraded to more fpc, due to her nonweightbearing status to her left upper extremity need for the sling. Once disposition was clarified and acceptance was gained, she was transferred to [facility] without complication. Discharge Instructions Use tylenol for pain regularly at 1000mg every 8 hours, as needed. If tylenol does not solve pain, we have prescribed oxycodone. Use 5mg for pain up to 6/10 and 10mg for greater than 6/10. Keep the splint clean and dry. We will remove the splint when you come into clinic. Flex and extend your left fingers and thumb frequently to mobilize the tissues and reduce swelling. You can material loader lightly with the left hand in the splint. Do not use for transfers or lifting. Follow up at [facility] in 10-14 days. We will call you Monday to arrange with [facility] Call [facility] at [phone] Hansen is directing the care of your left arm. Resume all previous medications per your primary care physician.
== END 2018-12-18 17:21 ==
LOC: ED 11:30 → 3N 16:21 → OR 16:21

== ENCOUNTER 2020-02-07 12:20 | Inpatient (IN) ==
[2020-02-07] MEDS ORDERED: MoRPHine SULFATE 2 MG/ML CARP IV PRN (12:40)
[2020-02-07] MEDS ORDERED: MoRPHine SULFATE 4 MG/ML 1 ML CARP\\VIAL IV PRN (12:40)
[2020-02-07] MEDS ORDERED: ACETAMINOPHEN 1,000 MG/100 ML VIAL IV STA (12:42)
[2020-02-07 14:17] LABS: Basophils # (auto) 0.02 K/uL (0-0.2); Basophils % (auto) 0.2 %; Eosinophils # (auto) 0.12 K/uL (0-0.5); Hematocrit (blood only) 37.5 % (37-47); Hemoglobin 11.5 g/dL (12.0-16.0); Immature Granulocytes # (auto) 0.05 K/uL (0.00-0.02); Immature Granulocytes % (auto) 0.4 %; Lymphocytes # (auto) 1.12 K/uL (1.2-3.4); Lymphocytes % (auto) 9.7 %; Mean Corpuscular Hemoglobin 29.7 pg (25-34); Mean Corpuscular Hgb Conc 30.7 g/dL (32-36); Mean Corpuscular Volume 96.9 fL (80-100); Mean Platelet Volume 11.9 fL (7.4-10.4); Monocytes # (auto) 0.83 K/uL (0.11-0.59); Monocytes % (auto) 7.2 %; Neutrophils # (auto) 9.44 K/uL (1.4-6.5); Neutrophils % (auto) 81.5 %; Platelet Count 178 K/uL (130-400); RDW Coefficient of Variation 14.2 % (11.5-14.5); Red Blood Count 3.87 M/uL (4.2-5.4); White Blood Count 11.58 K/uL (4.8-10.8)
--- NOTE | 2020-02-07 14:21 | XRay Report ---
XR wrist LT min 3V routine CLINICAL HISTORY: pain fall COMPARISON STUDY: Left forearm 12/14/2018. FINDINGS: Soft tissue swelling within the left wrist. Slightly distracted scaphoid waist fracture. Th is demonstrates up to 2 mm of distraction. Remaining carpal bones are intact. Old, healed distal radi us and ulnar fractures. The cortical plate at the distal radius is fractured. However, no underlying bony fracture identified. The radial cortical plate and screws appear intact. IMPRESSION: 1. Acute scaphoid waist fracture. 2. The distal ulnar cortical plate is fractured. However, no underlying acute bony abnormality. 3. Old, healed distal radius and ulnar fractures. ACT 112: Negative or not required by law. Electronically signed by: Mulugeta Mejia M.D. 02/07/2020 2:20 PM
--- NOTE | 2020-02-07 14:26 | XRay Report ---
XR chest 1V portable CLINICAL HISTORY: Trauma COMPARISON STUDY: 02/05/2019 FINDINGS: The heart is borderline enlarged. There is mild chronic interstitial thickening. There is n o intraparenchymal consolidation. No pneumothorax is visualized. There are no significant pleural eff usions. Arthritic changes are present within the right shoulder. There is narrowing of the humeral ac romial distance consistent with chronic rotator cuff tear/degeneration[ IMPRESSION: No active disease in the chest. ACT 112: Negative or not required by law. Electronically signed by: Roverto Cornejo M.D. 02/07/2020 2:24 PM
--- NOTE | 2020-02-07 14:26 | XRay Report ---
XR hip LT 2V w pelvis CLINICAL HISTORY: Left hip pain. Fall. COMPARISON STUDY: None. FINDINGS: Lucency through the greater trochanter which favors overlying soft tissue artifact. A nondi splaced fracture cannot be excluded. No fracture or dislocation within the pelvis or right hip. Soft tissues are unremarkable. IMPRESSION: Lucency within the greater trochanter of the left proximal femur which favors overlying soft tissue artifact. However, follow-up left hip CT recommended to exclude the possibility of a nond isplaced fracture. ACT 112: Negative or not required by law. Electronically signed by: Mulugeta Mejia M.D. 02/07/2020 2:24 PM
[2020-02-07 14:31] LABS: INR 1.1 (0.9-1.1); Partial Thromboplastin Ratio 0.8; Prothrombin Time 11.4 Seconds (9.0-12.0)
[2020-02-07 14:35] LABS: BUN Creatinine Ratio 14.4 (10-20); Creatinine Clr Calc Pharmacy 39.2 ml/min; Est GFR (African American) 47.8; Est GFR (Non-African American) 41.2; Potassium 3.7 mmol/L (3.5-5.1)
[2020-02-07 14:52] LABS: Appearance Urine Clear (Clear); Bilirubin Urine Negative (Negative); Blood Urine Negative (Negative); Color Urine Yellow; Glucose Urine UA Negative (Negative); Ketones Urine Negative (Negative); Leukocyte Esterase Urine Negative (Negative); Nitrite Urine Negative (Negative); Protein Urine Negative (Negative); Specific Gravity Urine 1.013 (1.000-1.030); Urobilinogen Urine Negative (Negative)
[2020-02-07] MEDS ORDERED: ACETAMINOPHEN 1000 MG/100 ML IV IV ONE (15:15)
[2020-02-07] MEDS: SODIUM CHLORIDE 0.9% 500 ML IV SCH ×2 (15:20→23:51)
--- NOTE | 2020-02-07 15:56 | CT Scan Report ---
CT SCAN OF THE BONY PELVIS WITHOUT IV CONTRAST CLINICAL HISTORY: Fall. Left hip pain. COMPARISON STUDY: Pelvic CT dated 10/24/2018. Left hip and pelvic radiographs performed 02/07/2020. TECHNIQUE: CT scan of the bony pelvis is performed from the pelvic inlet to the proximal femora. Afua ges are reviewed in the axial, sagittal, and coronal planes. IV contrast was not administered for thi s examination. A dose lowering technique was utilized adhering to the principles of ALARA. FINDINGS: The skeletal structures are osteopenic. There is a nondisplaced fracture through the greate r trochanter of the left femur, best seen on axial image #165. This corresponds to abnormality seen o n today's radiographs. This does not extend in the femoral neck. No additional fracture is seen invol ving the hips or bony pelvis. There is no evidence of avascular necrosis of the femoral heads. Mild d egenerative joint space narrowing is seen in both hips. The sacroiliac joints are normal. Lumbosacral spondylosis is partially imaged. No lytic or blastic lesion is seen. There is mild hemorrhage identi fied around the fracture. No large hematoma is seen. There is generalized and atrophy symmetric atrop hy of the regional musculature. The bladder is partially decompressed around a Alegria catheter. The ut erus is surgically absent. No adnexal lesion is seen. There are numerous pelvic phleboliths. No intra peritoneal free there are free fluid is seen in the pelvis. There is no pelvic sidewall or inguinal a denopathy. The visualized loops of small bowel and colon are normal in caliber. There is moderate div erticulosis of the sigmoid colon without CT evidence of acute diverticulitis. A fat-containing umbili duane hernia is incidentally noted. IMPRESSION: 1. There is a nondisplaced fracture through the greater trochanter of the left femur as above. 2. No additional fracture is seen. 3. Additional findings as above. ACT 112: Negative or not required by law. Electronically signed by: Yoan Buckley M.D. 02/07/2020 3:55 PM
[2020-02-07] MEDS ORDERED: NORCO 5/325MG HOMEPACK PO ONE (17:49)
--- NOTE | 2020-02-07 18:21 | Electrocardiogram Report ---
Test Reason : Blood Pressure : / mmHG Vent. Rate : 077 BPM Atrial Rate : 077 BPM P-R Int : 154 ms QRS Dur : 086 ms QT Int : 374 ms P-R-T Axes : 063 008 134 degrees QTc Int : 423 ms Normal sinus rhythm Nonspecific ST and T wave abnormality Abnormal ECG When compared with ECG of 05-FEB-2019 10:56, Nonspecific T wave abnormality, worse in Lateral leads QT has shortened Confirmed by Abisai Prajapati ([id number]) on 02/07/2020 6:20:48 PM Referred By: Confirmed By:Carlos Prajapati
--- NOTE | 2020-02-07 19:15 | Emergency Department Note ---
Impression & Plan Greater trochanter fracture, Fracture of scaphoid, CKD (chronic kidney disease), stage III ED Provider Note NAME: HOWARD GARZON AGE: 84 SEX: F ARRIVES VIA: Ambulance INFORMANT: Patient, ED PROVIDER(S): John Ochoa MD CHIEF COMPLAINT: Left hip and wrist pain PLAN: Disposition: Admit MEDICAL DECISION MAKING: The patient is a pleasant 84-year-old woman with a past medical history of hypertension, hyperlipidemia, GERD, diastolic heart failure who presents emerged department after having a fall where she briefly lost her balance falling onto her left side with her left arm outstretched. She complains of left hip pain and left wrist pain. She denies any head strike or loss of consciousness. Prior to today she has been feeling healthy denies fevers, chills, cough, congestion, nausea, vomiting, diarrhea, urinary symptoms. On arrival patient is no acute distress, afebrile stable vital signs. She has mild tenderness along the left lateral aspect of her hip. She is able to range her hip fully but reports significant discomfort on the lateral aspect. There is no overt shortening. Distal PMS intact. Her left wrist does exhibit mild tenderness over the base of the thumb/distal radius. She has range of motion fully intact. Distal PMS intact. EKG without evidence of acute ischemia. CXR negative for acute process. WBC 11.5, nonspecific. H/H 11.5/37.5. Platelets wnl. Chemistry without acidosis. Cr 1.2 approximate to prior. UA without infection. Covid19 negative, perform given patient lives at assisted living facility. Plain films of the left hip are suspicious for greater trochanter fracture which were further clarified on CT of the bony pelvis. Plain films of the left wrist demonstrate a scaphoid fracture as well as fracture of her previously placed ulnar plate but no underlying fracture. I did review the patient's case and imaging with Dr. Robert Burgess who is on-call for Dr. Hansen of [facility] orthopedics (the patient had previous surgery with Dr. Hansen). Dr. Robert Burgess reviewed the images and recommends that her left hip can be weightbearing as tolerated with platform walker for her left arm as her scaphoid fracture makes her left upper extremity to be nonweightbearing. Otherwise can follow-up outpatient in the office for reevaluation but unlikely to require surgery for her left hip. I reviewed the recommendations with the patient and she felt confident that she should be able to manage at [facility] where they are able to provide physical therapy. Our case preparer and liner did contact them and they reported that they do have platform walkers that they will be able to provide to the patient. Arrangements were made to discharge the patient back to her assisted living where she preferred to go, however, upon dressing and preparing to leave the patient attempted to stand and felt immediate pain and fell backwards onto her buttocks despite having assistance from RN. The patient denies any additional injury or pain but now is worried about her ability to function in her assisted living [place] the [place]. Unfortunately we are unable to place the patient in acute rehab at this time and will need to admit the patient for pain control, PT/OT and possible placement into skilled care at [facility] which the patient prefers. Triage Nursing notes reviewed and agree them. Prior medical records reviewed Vital Signs: reviewed and remarkable for no significant abnormalities Differential diagnosis: Fracture, subluxation, dislocation, contusion, ligamentous injury, neurovascular, compartment syndrome, rhabdomyolysis, as well as other pathologies. ER treatment provided: See below. Diagnostics interpreted by me: ECG: NSR, 77 bpm, no ectopy, nonspecific ST and TWA. No overt ST elevation or depression. Cardiac Monitoring: An order for continuous cardiac monitoring was placed and demonstrated NSR, 77 bpm, no ectopy Laboratory studies: See below Imaging studies: XR chest 1V portable CLINICAL HISTORY: Trauma COMPARISON STUDY: 02/05/2019 FINDINGS: The heart is borderline enlarged. There is mild chronic interstitial thickening. There is no intraparenchymal consolidation. No pneumothorax is visualized. There are no significant pleural effusions. Arthritic changes are present within the right shoulder. There is narrowing of the humeral acromial distance consistent with chronic rotator cuff tear/degeneration[ IMPRESSION: No active disease in the chest. XR hip LT 2V w pelvis CLINICAL HISTORY: Left hip pain. Fall. COMPARISON STUDY: None. FINDINGS: Lucency through the greater trochanter which favors overlying soft tissue artifact. A nondisplaced fracture cannot be excluded. No fracture or dislocation within the pelvis or right hip. Soft tissues are unremarkable. IMPRESSION: Lucency within the greater trochanter of the left proximal femur which favors overlying soft tissue artifact. However, follow-up left hip CT recommended to exclude the possibility of a nondisplaced fracture. XR wrist LT min 3V routine CLINICAL HISTORY: pain fall COMPARISON STUDY: Left forearm 12/14/2018. FINDINGS: Soft tissue swelling within the left wrist. Slightly distracted scaphoid waist fracture. This demonstrates up to 2 mm of distraction. Remaining carpal bones are intact. Old, healed distal radius and ulnar fractures. The cortical plate at the distal radius is fractured. However, no underlying bony fracture identified. The radial cortical plate and screws appear intact. IMPRESSION: 1. Acute scaphoid waist fracture. 2. The distal ulnar cortical plate is fractured. However, no underlying acute bony abnormality. 3. Old, healed distal radius and ulnar fractures. CT SCAN OF THE BONY PELVIS WITHOUT IV CONTRAST CLINICAL HISTORY: Fall. Left hip pain. COMPARISON STUDY: Pelvic CT dated 10/24/2018. Left hip and pelvic radiographs pe rformed 02/07/2020. TECHNIQUE: CT scan of the bony pelvis is performed from the pelvic inlet to the proximal femora. Images are reviewed in the axial, sagittal, and coronal planes. IV contrast was not administered for this examination. A dose lowering technique was utilized adhering to the principles of ALARA. FINDINGS: The skeletal structures are osteopenic. There is a nondisplaced fracture through the greater trochanter of the left femur, best seen on axial image #165. This corresponds to abnormality seen on today's radiographs. This does not extend in the femoral neck. No additional fracture is seen involving the hips or bony pelvis. There is no evidence of avascular necrosis of the fe moral heads. Mild degenerative joint space narrowing is seen in both hips. The sacroiliac joints are normal. Lumbosacral spondylosis is partially imaged. No lytic or blastic lesion is seen. There is mild hemorrhage identified around the fracture. No large hematoma is seen. There is generalized and atrophy symmetric atrophy of the regional musculature. The bladder is partially decompressed around a Alegria catheter. The uterus is surgically absent. No adnexal lesion is seen. There are numerous pelvic phleboliths. No intraperitoneal free there are free fluid is seen in the pelvis. There is no pelvic sidewall or inguinal adenopathy. The visualized loops of small bowel and colon are normal in caliber. There is moderate diverticulosis of the sigmoid colon without CT evidence of acute diverticulitis. A fat-containing umbilical hernia is incidentally noted. IMPRESSION: 1. There is a nondisplaced fracture through the greater trochanter of the left femur as above. 2. No additional fracture is seen. 3. Additional findings as above. Repeat Pelvis with L hip XR after fall: No significant change. Consultation(s): Dr. Lacey, Orthopedic surgery, on-call. HPI: The patient is a pleasant 84-year-old woman with a past medical history of hypertension, hyperlipidemia, GERD, diastolic heart failure who presents emerged department after having a fall where she briefly lost her balance falling onto her left side with her left arm outstretched. She complains of left hip pain and left wrist pain. She denies any head strike or loss of consciousness. Prior to today she has been feeling healthy denies fevers, chills, cough, congestion, nausea, vomiting, diarrhea, urinary symptoms. ROS: See above HPI for pertinent positives & negatives. A total of 10 systems reviewed and were otherwise negative. PAST MEDICAL HISTORY:See Below PAST SURGICAL HISTORY:See Below FAMILY HISTORY:See Below SOCIAL HISTORY:See Below HOME MEDICATIONS:See Below ALLERGIES:See Below VITALS:See Below PHYSICAL EXAMINATION: GENERAL: Awake, alert, well-appearing, in no distress HENT: Normocephalic, atraumatic. Oropharynx unremarkable. EYES: Normal conjunctiva. Sclera non-icteric. NECK: Supple. No nuchal rigidity. FROM. No JVD. RESPIRATORY: Clear to auscultation. CARDIAC: Regular rate, normal rhythm. Extremities warm and well perfused. Pulses equal. ABDOMEN: Soft, non-distended. No tenderness to palpation. No rebound or guarding. No masses. RECTAL: Deferred. MUSCULOSKELETAL: Chest examination reveals no tenderness. The back is symmetrical on inspection without obvious abnormality. There is no CVA tenderness to palpation. Pelvis stable. Mild tenderness along the left lateral aspect of her hip. FROM intact but with significant discomfort on the lateral aspect. No overt shortening. Distal PMS intact. Left wrist with mild tenderness over the base of the thumb/distal radius/snuff box. FROM intact. Distal PMS intact. LOWER EXTREMITIES: Calves are equal size bilaterally and non-tender. No edema. No discoloration. NEURO: Normal sensorium. No sensory or motor deficits noted. SKIN: No rash or jaundice noted. ED COURSE: PDMP: Reviewed and no issues John Ochoa MD Past Med/Surg History Medical History Anxiety Bronchiectasis CKD (chronic kidney disease), stage III Depression Diastolic HF (heart failure) GERD (gastroesophageal reflux disease) HLD (hyperlipidemia) Hypertension Lumbar degenerative disc disease Meningioma non cancerous, surgically removed Osteoarthritis Osteoporosis Scarring of lung following radiation Vertigo Surgical History H/O left wrist surgery History of appendectomy History of total knee arthroplasty 2016 Dr. Dav Best S/P right mastectomy S/P LUDA-BSO Family History Other Family history non-contributory Social History Smoking Status: Never smoker Second Hand Exposure: No; Do You Dip or Chew Tobacco: No; Hx Alcohol Use: No Hx Substance Use: No Preferred Language: Estonian Communication Ability: Effective Library Services Coordinator Required: No Beliefs That Will Affect Care: None Current Living Situation: Personal Care Facility Current Living Situation Comment: [facility] Other Information That Helps Us Care for You: No Feels Safe at Home: Yes Safety Concerns: Feels Safe At This Time Assistive Devices: Glasses Allergies Allergies Allergy/AdvReac Type Severity Reaction Status Date / Time phenytoin Allergy Intermediate RASH Verified 02/05/19 12:14 amoxicillin Allergy Unknown RASH Verified 02/05/19 12:14 clavulanic acid Allergy Unknown RASH Verified 02/05/19 12:14 dexamethasone AdvReac Intermediate SEVERE Verified 02/05/19 12:14 ANXIETY (TAKES PREDNISONE) Flu Virus Vaccine Allergy Severe RESPIRATORY Uncoded 02/05/19 12:14 DISTRESS Home Meds Home Medications Medication Instructions Recorded Confirmed Arnuity Ellipta 1 inh INHALATION DAILY 10/24/18 02/07/20 PreserVision AREDS 1 cap PO BID 10/24/18 02/07/20 aspirin 81 mg PO QAM 10/24/18 02/07/20 atorvastatin 20 mg PO HS 10/24/18 02/07/20 citalopram 30 mg PO QAM 10/24/18 02/07/20 clonazepam 1 mg PO HS PRN 10/24/18 02/07/20 montelukast 10 mg PO HS 10/24/18 02/07/20 omeprazole 20 mg PO QAM 10/24/18 02/07/20 psyllium husk [Reguloid (psyllium 0.4 g PO HS 10/24/18 02/07/20 husk)] carboxymethylcellulose sodium 1 drp OPB QID 02/05/19 02/07/20 [Refresh Tears] furosemide 40 mg PO DAILY 02/05/19 02/07/20 tramadol 50 mg PO Q6H PRN 02/05/19 02/07/20 amlodipine 2.5 mg PO DAILY 02/07/20 02/07/20 bisacodyl [Dulcolax (bisacodyl)] 10 mg NE DAILY PRN 02/07/20 02/07/20 calcium carbonate-vitamin D3 1 ea PO DAILY 02/07/20 02/07/20 [Oyster Shell Calcium-Vit D3] docusate sodium 100 mg PO BID 02/07/20 02/07/20 fluticasone furoate-vilanterol 1 inh INHALATION DAILY 02/07/20 02/07/20 [Breo Ellipta] furosemide 40 mg PO DAILY PRN 02/07/20 02/07/20 gabapentin 100 mg PO BID 02/07/20 02/07/20 magnesium hydroxide [Milk of 30 ml PO DAILY PRN 02/07/20 02/07/20 Magnesia] meclizine 25 mg PO Q8H PRN 02/07/20 02/07/20 ondansetron HCl 4 mg PO Q6H PRN 02/07/20 02/07/20 tiotropium bromide [Spiriva 2 puff INHALATION DAILY 02/07/20 02/07/20 Respimat] trazodone 100 mg PO HS 02/07/20 02/07/20 Previous Rx's Medication Instructions Recorded acetaminophen [Mapap 650 mg PO QID PRN #90 tab 12/15/18 (acetaminophen)] hydrocodone-acetaminophen [Amorita] 1 tab PO Q6H PRN #14 tab 02/07/20 Results & Data (ED) Vital Signs Vital Signs - 24 hr 02/07/20 12:31 02/07/20 14:31 02/07/20 14:33 Temperature 36.8 C Temperature Source Oral Pulse Rate 84 Pulse Rate [Right Finger] 80 Respiratory Rate 20 20 Respiratory Effort / Characteristics Non-Labored Respiratory Depth Normal Respiratory Pattern Blood Pressure 152/72 H Blood Pressure [Left Arm] 105/55 L Blood Pressure Mean 98 Blood Pressure Mean [Left Arm] 71 Blood Pressure Position Sitting Blood Pressure Position [Left Arm] Pulse Oximetry 90 90 95 Oxygen Delivery Method Room Air Room Air Nasal Cannula Oxygen Flow Rate 3 Sepsis Recent Fever Within 48 Hours No Sepsis New/Unexplained Change in Mental Status No Sepsis Action Taken by Nursing No Action Required 02/07/20 17:48 02/07/20 19:30 Temperature Temperature Source Pulse Rate Pulse Rate [Right Finger] 73 72 Respiratory Rate 20 20 Respiratory Effort / Characteristics Non-Labored Spontaneous Non-Labored Respiratory Depth Normal Normal Respiratory Pattern Regular Blood Pressure Blood Pressure [Left Arm] 118/52 L 130/72 Blood Pressure Mean Blood Pressure Mean [Left Arm] 74 91 Blood Pressure Position Blood Pressure Position [Left Arm] Lying Pulse Oximetry 97 91 Oxygen Delivery Method Nasal Cannula Room Air Oxygen Flow Rate 2 Sepsis Recent Fever Within 48 Hours Sepsis New/Unexplained Change in Mental Status Sepsis Action Taken by Nursing Laboratory Data Attestation: I reviewed the patient's lab results. Result diagrams: 02/07/20 14:06 02/07/20 14:06 Lab Results 02/07/20 02/07/20 02/07/20 Range/Units 14:06 14:06 14:06 WBC 11.58 H (4.8-10.8) K/uL RBC 3.87 L (4.2-5.4) M/uL Hgb 11.5 L (12.0-16.0) g/dL Hct 37.5 (37-47) % MCV 96.9 (80-100) fL MCH 29.7 (25-34) pg MCHC 30.7 L (32-36) g/dL RDW Std Deviation 50.0 H (36.4-46.3) fL RDW Coeff of Carol 14.2 (11.5-14.5) % Plt Count 178 (130-400) K/uL MPV 11.9 H (7.4-10.4) fL Immature Gran % (Auto) 0.4 % Neut % (Auto) 81.5 % Lymph % (Auto) 9.7 % [place] % (Auto) 7.2 % Eos % (Auto) 1.0 % Baso % (Auto) 0.2 % Neut # (Auto) 9.44 H (1.4-6.5) K/uL Lymph # (Auto) 1.12 L (1.2-3.4) K/uL [place] # (Auto) 0.83 H (0.11-0.59) K/uL Eos # (Auto) 0.12 (0-0.5) K/uL Baso # (Auto) 0.02 (0-0.2) K/uL Immature Gran # (Auto) 0.05 H (0.00-0.02) K/uL PT 11.4 (9.0-12.0) Seconds INR 1.1 (0.9-1.1) APTT 23.0 (21.0-31.0) Seconds PTT Ratio 0.8 Sodium 142 (136-145) mmol/L Potassium 3.7 (3.5-5.1) mmol/L Chloride 103 (98-107) mmol/L Carbon Dioxide 35 H (21-32) mmol/L Anion Gap 4.0 (3-11) BUN 18 (7-18) mg/dl Creatinine 1.22 H (0.6-1.2) mg/dl Est Cr Clr Drug Dosing 39.2 ml/min Est GFR ( Amer) 47.8 Est GFR (Non-Af Amer) 41.2 BUN/Creatinine Ratio 14.4 (10-20) Glucose 141 H (70-99) mg/dl Calcium 9.0 (8.5-10.1) mg/dl 25-OH Vitamin D Total (30-100) ng/ml Urine Color Urine Appearance (Clear) Urine pH (4.5-7.5) Ur Specific [place] (1.000-1.030) Urine Protein (Negative) Urine Glucose (UA) (Negative) Urine Ketones (Negative) Urine Blood (Negative) Urine Nitrite (Negative) Urine Bilirubin (Negative) Urine Urobilinogen (Negative) Ur Leukocyte Esterase (Negative) COVID-19 Eval Order SARS-CoV-2, RNA, NAAT (NEGATIVE) 02/07/20 02/07/20 02/07/20 Range/Units 14:09 14:24 19:44 WBC (4.8-10.8) K/uL RBC (4.2-5.4) M/uL Hgb (12.0-16.0) g/dL Hct (37-47) % MCV (80-100) fL MCH (25-34) pg MCHC (32-36) g/dL RDW Std Deviation (36.4-46.3) fL RDW Coeff of Carol (11.5-14.5) % Plt Count (130-400) K/uL MPV (7.4-10.4) fL Immature Gran % (Auto) % Neut % (Auto) % Lymph % (Auto) % [place] % (Auto) % Eos % (Auto) % Baso % (Auto) % Neut # (Auto) (1.4-6.5) K/uL Lymph # (Auto) (1.2-3.4) K/uL [place] # (Auto) (0.11-0.59) K/uL Eos # (Auto) (0-0.5) K/uL Baso # (Auto) (0-0.2) K/uL Immature Gran # (Auto) (0.00-0.02) K/uL PT (9.0-12.0) Seconds INR (0.9-1.1) APTT (21.0-31.0) Seconds PTT Ratio Sodium (136-145) mmol/L Potassium (3.5-5.1) mmol/L Chloride (98-107) mmol/L Carbon Dioxide (21-32) mmol/L Anion Gap (3-11) BUN (7-18) mg/dl Creatinine (0.6-1.2) mg/dl Est Cr Clr Drug Dosing ml/min Est GFR ( Amer) Est GFR (Non-Af Amer) BUN/Creatinine Ratio (10-20) Glucose (70-99) mg/dl Calcium (8.5-10.1) mg/dl 25-OH Vitamin D Total 18.1 L (30-100) ng/ml Urine Color Yellow Urine Appearance Clear (Clear) Urine pH 5.0 (4.5-7.5) Ur Specific [place] 1.013 (1.000-1.030) Urine Protein Negative (Negative) Urine Glucose (UA) Negative (Negative) Urine Ketones Negative (Negative) Urine Blood Negative (Negative) Urine Nitrite Negative (Negative) Urine Bilirubin Negative (Negative) Urine Urobilinogen Negative (Negative) Ur Leukocyte Esterase Negative (Negative) COVID-19 Eval Order Covid19 IDNow atMVTC SARS-CoV-2, RNA, NAAT (NEGATIVE) 02/07/20 Range/Units 19:44 WBC (4.8-10.8) K/uL RBC (4.2-5.4) M/uL Hgb (12.0-16.0) g/dL Hct (37-47) % MCV (80-100) fL MCH (25-34) pg MCHC (32-36) g/dL RDW Std Deviation (36.4-46.3) fL RDW Coeff of Carol (11.5-14.5) % Plt Count (130-400) K/uL MPV (7.4-10.4) fL Immature Gran % (Auto) % Neut % (Auto) % Lymph % (Auto) % [place] % (Auto) % Eos % (Auto) % Baso % (Auto) % Neut # (Auto) (1.4-6.5) K/uL Lymph # (Auto) (1.2-3.4) K/uL [place] # (Auto) (0.11-0.59) K/uL Eos # (Auto) (0-0.5) K/uL Baso # (Auto) (0-0.2) K/uL Immature Gran # (Auto) (0.00-0.02) K/uL PT (9.0-12.0) Seconds INR (0.9-1.1) APTT (21.0-31.0) Seconds PTT Ratio Sodium (136-145) mmol/L Potassium (3.5-5.1) mmol/L Chloride (98-107) mmol/L Carbon Dioxide (21-32) mmol/L Anion Gap (3-11) BUN (7-18) mg/dl Creatinine (0.6-1.2) mg/dl Est Cr Clr Drug Dosing ml/min Est GFR ( Amer) Est GFR (Non-Af Amer) BUN/Creatinine Ratio (10-20) Glucose (70-99) mg/dl Calcium (8.5-10.1) mg/dl 25-OH Vitamin D Total (30-100) ng/ml Urine Color Urine Appearance (Clear) Urine pH (4.5-7.5) Ur Specific [place] (1.000-1.030) Urine Protein (Negative) Urine Glucose (UA) (Negative) Urine Ketones (Negative) Urine Blood (Negative) Urine Nitrite (Negative) Urine Bilirubin (Negative) Urine Urobilinogen (Negative) Ur Leukocyte Esterase (Negative) COVID-19 Eval Order SARS-CoV-2, RNA, NAAT NEGATIVE (NEGATIVE) Administered Medications Acetaminophen (Acetaminophen 325 Mg Tab) 650 mg PO Q6 DOUGLAS Stop: 03/09/20 00:00 Last Admin: 02/08/20 00:10 Dose: 650 mg Documented by: [id number] Atorvastatin Calcium (Atorvastatin 20 Mg Tab) 20 mg [address] [facility] Stop: 03/08/20 22:28 Last Admin: 02/07/20 23:27 Dose: 20 mg Documented by: [id number] Docusate Sodium (Docusate Sodium 100 Mg Cap) 100 mg PO BID DOUGLAS Stop: 03/08/20 22:28 Last Admin: 02/07/20 23:27 Dose: 100 mg Documented by: [id number] Gabapentin (Gabapentin 100 Mg Cap) 100 mg PO BID DOUGLAS Stop: 03/08/20 22:28 Last Admin: 02/07/20 23:27 Dose: 100 mg Documented by: [id number] Heparin Sodium (Porcine) (Heparin Sod 5,000 Unit/0.5 Ml Vial) 5,000 units SQ Q8 DOUGLAS Stop: 03/08/20 22:28 Last Admin: 02/07/20 23:28 Dose: 5,000 units Documented by: [id number] Montelukast Sodium (Montelukast Sodium 10 Mg Tablet) 10 mg PO HS [facility] Stop: 03/08/20 22:28 Last Admin: 02/07/20 23:29 Dose: 10 mg Documented by: [id number] Oxycodone HCl (Oxycodone Hcl Ir 5 Mg Tab (Immediate Release)) 5 mg PO Q6H PRN PRN Reason: Pain Stop: 02/21/20 22:33 Last Admin: 02/07/20 22:41 Dose: 5 mg Documented by: [id number] Trazodone HCl (Trazodone Hcl 100 Mg Tab) [address] [facility] Stop: 03/08/20 22:28 Last Admin: 02/07/20 23:27 Dose: 100 mg Documented by: [id number] Discontinued Medications Acetaminophen (Acetaminophen 1000 Mg/100 Ml Iv) Confirm Administered Dose 1,000 mg IV .STK-MED ONE Stop: 02/07/20 15:16 Last Admin: 02/07/20 15:21 Dose: Not Given Documented by: [id number] Hydrocodone Bitart/Acetaminophen (Amorita 5/325mg Homepack) 1 homepack PO UD ONE Stop: 02/07/20 17:50 Last Admin: 02/07/20 19:00 Dose: Not Given Documented by: [id number] Sodium Chloride (Nss) 500 mls @ 125 mls/hr IV .Q4H DOUGLAS Stop: 03/08/20 12:44 Last Admin: 02/07/20 23:51 Dose: Not Given Documented by: [id number] Admin: 02/07/20 23:51 Dose: Not Given Documented by: [id number] Infusion: 02/07/20 19:52 Dose: 0 mls/hr Documented by: [id number] Admin: 02/07/20 15:20 Dose: 125 mls/hr Documented by: [id number] Acetaminophen (Ofirmev) 1,000 mg in 100 mls @ 400 mls/hr IV NOW STA Stop: 02/07/20 12:56 Last Infusion: 02/07/20 15:33 Dose: 0 mls/hr Documented by: [id number] Admin: 02/07/20 15:16 Dose: 400 mls/hr Documented by: [id number] Discharge Plan Visit Data Chief Complaint: Fall ED Provider: John Ochoa Discharge Problem: Greater trochanter fracture, Fracture of scaphoid, CKD (chronic kidney disease), stage III Patient Disposition: Admitted As Inpatient Condition: Good Discharge Instructions Interventions: ED Discharge Assessment Last Done: 02/07/20 21:52 Discharge Problem: Greater trochanter fracture Qualifiers: Encounter type: initial encounter Fracture type: closed Fracture alignment: nondisplaced Laterality: left Qualified Code(s): S72.115A - Nondisplaced fracture of greater trochanter of left femur, initial encounter for closed fracture Fracture of scaphoid Qualifiers: Encounter type: initial encounter Scaphoid bone location: unspecified portion of scaphoid Fracture type: closed Fracture alignment: displaced Laterality: left Qualified Code(s): S62.002A - Unspecified fracture of navicular [scaphoid] bone of left wrist, initial encounter for closed fracture
[2020-02-07] MEDS ORDERED: oxyCODONE HCL SOLN 5 MG/5 ML UDC PO PRN (20:18)
--- NOTE | 2020-02-07 21:09 | History & Physical Report ---
Date of Service February 07, 2020 Assessment & Plan (1) Greater trochanter fracture: (2) Fracture of scaphoid: -Admit to MedSurg -Patient presenting from the [facility] at [facility] for evaluation of left hip pain after a mechanical fall -In the ED, found to have nondisplaced left greater trochanter fracture and left scaphoid fracture -Left wrist has been placed in splint -ED spoke with Dr. Lacey who advised that non operative management would be recommended, however patient was unable to stand or ambulate in the ED. -Formal Ortho consult for further recommendations -Pain control with scheduled Tylenol and as needed oxycodone (3) Hypertension: -BP controlled, continue amlodipine (4) Diastolic HF (heart failure): -Appears euvolemic -Continue home dose of diuretics (5) Bronchiectasis: -No signs of acute exacerbation, continue home inhalers (6) DVT prophylaxis: -SQ heparin History of Present Illness Chief Complaint: Fall, left hip and wrist pain Primary Care Provider: Peter Lu MD 84-year-old female with PMH chronic diastolic CHF, CKD stage III, HTN, and other problems listed below who presents to the ED for evaluation of fall and left hip and wrist pain. Patient reports that she was sitting on the patio at the [facility] and she had gotten up to walk inside and lost her balance and fell. Patient reports that she was ambulating without her walker. Denies striking her head. No associated chest pain, lightheadedness, dizziness, syncopal event. Patient reports she otherwise been feeling well recently. Reports that she had routine testing for COVID-19 yesterday and was negative. She denies shortness of breath, lower extremity edema, orthopnea. No abdominal pain, nausea, vomiting, diarrhea. Denies any recent illnesses, fevers, chills. No urinary symptoms. In the ED, patient is found to have nondisplaced left greater trochanter fracture and left scaphoid fracture. ED discussed the case with orthopedics, Dr. Lacey, who advised that this will be nonsurgical treatment and the patient could be discharged home. Patient was unable to stand or ambulate in the ED, therefore she will be admitted for formal orthopedics evaluation and possible snf placement for rehab. Allergies Allergy/AdvReac Type Severity Reaction Status Date / Time phenytoin Allergy Intermediate RASH Verified 02/05/19 12:14 amoxicillin Allergy Unknown RASH Verified 02/05/19 12:14 clavulanic acid Allergy Unknown RASH Verified 02/05/19 12:14 dexamethasone AdvReac Intermediate SEVERE Verified 02/05/19 12:14 ANXIETY (TAKES PREDNISONE) Flu Virus Vaccine Allergy Severe RESPIRATORY Uncoded 02/05/19 12:14 DISTRESS Home Medications Home Medications Medication Instructions Recorded Confirmed Type Arnuity Ellipta 1 inh INHALATION DAILY 10/24/18 02/07/20 History PreserVision AREDS 1 cap PO BID 10/24/18 02/07/20 History aspirin 81 mg PO QAM 10/24/18 02/07/20 History atorvastatin 20 mg PO HS 10/24/18 02/07/20 History citalopram 30 mg PO QAM 10/24/18 02/07/20 History clonazepam 1 mg PO HS PRN 10/24/18 02/07/20 History montelukast 10 mg PO HS 10/24/18 02/07/20 History omeprazole 20 mg PO QAM 10/24/18 02/07/20 History psyllium husk [Reguloid (psyllium 0.4 g PO HS 10/24/18 02/07/20 History husk)] acetaminophen [Mapap 650 mg PO QID PRN #90 tab 12/15/18 02/07/20 Rx (acetaminophen)] carboxymethylcellulose sodium 1 drp OPB QID 02/05/19 02/07/20 History [Refresh Tears] furosemide 40 mg PO DAILY 02/05/19 02/07/20 History tramadol 50 mg PO Q6H PRN 02/05/19 02/07/20 History amlodipine 2.5 mg PO DAILY 02/07/20 02/07/20 History bisacodyl [Dulcolax (bisacodyl)] 10 mg WA DAILY PRN 02/07/20 02/07/20 History calcium carbonate-vitamin D3 1 ea PO DAILY 02/07/20 02/07/20 History [Oyster Shell Calcium-Vit D3] docusate sodium 100 mg PO BID 02/07/20 02/07/20 History fluticasone furoate-vilanterol 1 inh INHALATION DAILY 02/07/20 02/07/20 History [Breo Ellipta] furosemide 40 mg PO DAILY PRN 02/07/20 02/07/20 History gabapentin 100 mg PO BID 02/07/20 02/07/20 History hydrocodone-acetaminophen [Nickerson] 1 tab PO Q6H PRN #14 tab 02/07/20 02/07/20 Rx magnesium hydroxide [Milk of 30 ml PO DAILY PRN 02/07/20 02/07/20 History Magnesia] meclizine 25 mg PO Q8H PRN 02/07/20 02/07/20 History ondansetron HCl 4 mg PO Q6H PRN 02/07/20 02/07/20 History tiotropium bromide [Spiriva 2 puff INHALATION DAILY 02/07/20 02/07/20 History Respimat] trazodone 100 mg PO HS 02/07/20 02/07/20 History Past Med/Surg History Medical History Anxiety Bronchiectasis CKD (chronic kidney disease), stage III Depression Diastolic HF (heart failure) GERD (gastroesophageal reflux disease) HLD (hyperlipidemia) Hypertension Lumbar degenerative disc disease Meningioma non cancerous, surgically removed Osteoarthritis Osteoporosis Scarring of lung following radiation Vertigo Surgical History H/O left wrist surgery History of appendectomy History of total knee arthroplasty 2017 Dr. Dav Best S/P right mastectomy S/P LUDA-BSO Family History Other Family history non-contributory Social History Smoking Status: Never smoker Second Hand Exposure: No; Do You Dip or Chew Tobacco: No; Hx Alcohol Use: No Hx Substance Use: No Preferred Language: Panamanian Communication Ability: Effective Product Craftsman Required: No Beliefs That Will Affect Care: None marital status: / Current Living Situation: Personal Care Facility Current Living Situation Comment: [facility] Other Information That Helps Us Care for You: No Feels Safe at Home: Yes Safety Concerns: Feels Safe At This Time Assistive Devices: Glasses Review of Systems Review of Systems: ROS per HPI, all other systems reviewed and negative Physical Exam Constitutional: WD/WN, vitals as above Eyes: PERRL, conjunctivae normal, anicteric sclerae ENMT: external ear and nose normal, oropharynx normal Respiratory: normal respiratory effort, lungs clear to auscultation Cardiovascular: Rate/Rhythm: regular rate and regular rhythm Vessels: normal peripheral pulses Extremities: + edema (Trace edema BLE) Gastrointestinal (Abdomen): normal bowel sounds, soft, nontender, no hepatosplenomegaly Musculoskeletal: Extremities: no cyanosis and no clubbing Left hip pain with minimal movement of the LLE, left wrist in splint Skin: no rashes, warm and dry Neurologic: PERRL, EOMI, accommodation nl, no face palsy, no dysarthria Psychiatric: A+Ox3, euthymic affect Results & Data Results & Data ([facility]) Vital Signs (Past 12 Hours) Vital Signs Temp Pulse Pulse Resp BP BP Pulse Ox 02/07/20 17:48 73 20 118/52 L 97 02/07/20 14:33 95 02/07/20 14:31 80 20 105/55 L 90 02/07/20 12:31 36.8 C 84 20 152/72 H 90 Laboratory Results Short CBC 02/07/20 Range/Units 14:06 WBC 11.58 H (4.8-10.8) K/uL Hgb 11.5 L (12.0-16.0) g/dL Hct 37.5 (37-47) % Plt Count 178 (130-400) K/uL BMP 02/07/20 14:06 Sodium 142 Potassium 3.7 Chloride 103 Carbon Dioxide 35 H BUN 18 Creatinine 1.22 H Glucose 141 H Calcium 9.0 Urine 02/07/20 Range/Units 14:24 Urine Color Yellow Urine Appearance Clear (Clear) Urine pH 5.0 (4.5-7.5) Ur Specific Bonita 1.013 (1.000-1.030) Urine Protein Negative (Negative) Urine Glucose (UA) Negative (Negative) Diagnostic Findings CXR IMPRESSION: No active disease in the chest. Left Hip/Pelvis XR IMPRESSION: Lucency within the greater trochanter of the left proximal femur which favors overlying soft tissue artifact. However, follow-up left hip CT recommended to exclude the possibility of a nondisplaced fracture. Left wrist XR IMPRESSION: 1. Acute scaphoid waist fracture. 2. The distal ulnar cortical plate is fractured. However, no underlying acute bony abnormality. 3. Old, healed distal radius and ulnar fractures. Pelvis CT IMPRESSION: 1. There is a nondisplaced fracture through the greater trochanter of the left femur as above. 2. No additional fracture is seen. 3. Additional findings as above. Code Status & VTE Plan Code Status Patient is a DNR as per my discussion with her. VTE Prophylaxis Plan VTE Prophylaxis will be ordered: Yes Supervising Physician Co-Signing Physician Notes Pt was seen and examined. Agreed with Estelle TELLEZ exam, assessment and plan. 84-year-old female with PMH chronic diastolic CHF, CKD stage III, HTN, present to the due to fall. Pt said that she tried to walk without her walker and lost her balance and fell. She said that she did not lost consciousness or hit her head. She said that developed pain in her left hip and left wrist. She said that pain in the left hip worsening with walking and movement. Denies any chest pain, palpitation, dizziness and SOB. CT abd/pelvis showed nondisplaced fracture through the greater trochanter of the left femur. Left wrist Xray showed acute scaphoid waist fracture. and distal ulnar cortical plate is fractured. Received morphine in the ER that helps the pain. ER physician discussed the case with orthopedics, Dr. Lacey, who recommended conservative management. Patient was unable to stand or ambulate in the ED, therefore she will be admitted for formal orthopedics evaluation and possible snf. Will consult Ortho. Will continue pain control, PT/OT eval fall precaution. MD Barbara (1) Greater trochanter fracture Encounter type: initial encounter Fracture alignment: nondisplaced Fracture type: closed Laterality: left Qualified Code(s): S72.115A - Nondisplaced fracture of greater trochanter of left femur, initial encounter for closed fracture (2) Fracture of scaphoid Encounter type: initial encounter
[2020-02-07] MEDS: oxyCODONE HCL IR 5 MG TAB (IMMEDIATE RELEASE) PO PRN (22:41)
[2020-02-07] MEDS: GABAPENTIN 100 MG CAP PO SCH (23:27)
[2020-02-07] MEDS: ATORVASTATIN 20 MG TAB PO SCH (23:27)
[2020-02-07] MEDS: traZODone HCL 100 MG TAB PO SCH (23:27)
[2020-02-07] MEDS: DOCUSATE SODIUM 100 MG CAP PO SCH (23:27)
[2020-02-07] MEDS: HEPARIN SOD 5,000 UNIT/0.5 ML VIAL SQ SCH (23:28)
[2020-02-07] MEDS: MONTELUKAST SODIUM 10 MG TABLET PO SCH (23:29)
[2020-02-08] MEDS: ACETAMINOPHEN 325 MG TAB PO SCH ×4 (00:10→17:51)
[2020-02-08] MEDS: HEPARIN SOD 5,000 UNIT/0.5 ML VIAL SQ SCH ×3 (05:52→21:23)
[2020-02-08 06:35] LABS: Hematocrit (blood only) 35.5 % (37-47); Hemoglobin 11.1 g/dL (12.0-16.0); Mean Corpuscular Hemoglobin 30.2 pg (25-34); Mean Corpuscular Hgb Conc 31.3 g/dL (32-36); Mean Corpuscular Volume 96.7 fL (80-100); Mean Platelet Volume 12.2 fL (7.4-10.4); Platelet Count 154 K/uL (130-400); RDW Standard Deviation 49.7 fL (36.4-46.3); Red Blood Count 3.67 M/uL (4.2-5.4); White Blood Count 8.94 K/uL (4.8-10.8)
[2020-02-08 07:09] LABS: BUN Creatinine Ratio 14.7 (10-20); Calcium 8.9 mg/dl (8.5-10.1); Creatinine Clr Calc Pharmacy 44.3 ml/min; Est GFR (African American) 55.4; Est GFR (Non-African American) 47.8; Potassium 3.9 mmol/L (3.5-5.1)
[2020-02-08] MEDS ORDERED: ERGOCALCIFEROL 50,000 UNITS 1250 MCG CAP PO ONE (08:15)
--- NOTE | 2020-02-08 08:33 | XRay Report ---
XR hip LT 2V w pelvis CLINICAL HISTORY: Left hip pain COMPARISON: Earlier in the day DISCUSSION: There is a persistent lucency through the greater trochanter, suspicious for a nondisplac ed fracture. There is no dislocation. Degenerative changes are present within the lower lumbar spine. IMPRESSION: Lucency involving the greater trochanter, suspicious for a nondisplaced fracture. ACT 112: Negative or not required by law. Electronically signed by: Roverto Cornejo M.D. 02/08/2020 8:32 AM
[2020-02-08] MEDS: amLODIPine BESYLATE 5 MG TAB PO SCH (09:52)
[2020-02-08] MEDS: PANTOprazole 40 MG TAB PO SCH (09:52)
[2020-02-08] MEDS: FUROSEMIDE 40 MG TAB PO SCH (09:53)
[2020-02-08] MEDS: GABAPENTIN 100 MG CAP PO SCH ×2 (09:53→20:22)
[2020-02-08] MEDS: DOCUSATE SODIUM 100 MG CAP PO SCH ×2 (09:54→20:20)
[2020-02-08] MEDS: CITALOPRAM 20 MG TAB PO SCH (09:54)
[2020-02-08] MEDS: ASPIRIN 81 MG ECTAB PO SCH (09:54)
[2020-02-08] MEDS: UMECLIDINIUM BROMIDE 62.5MCG/BLISTER 7 PUFFS/INHALER INH SCH (09:56)
[2020-02-08] MEDS: FLUTICASONE/VILANTEROL 100/25MCG 14 PUFFS/INHALER INH SCH (09:56)
[2020-02-08] MEDS: FLUTICASONE FUROATE 100MCG 14 PUFFS/INHALER INH SCH (09:56)
--- NOTE | 2020-02-08 13:34 | Consultation Report ---
DATE OF CONSULTATION: 02/08/2020 ORTHOPEDIC CONSULTATION HISTORY OF PRESENT ILLNESS: Fernanda fell yesterday injuring left wrist and left hip. She was seen in the Emergency Room where she was found to have a left scaphoid fracture and a nondisplaced comminuted fracture of the left greater trochanter. She was admitted to the hospital. She offers no other complaint of pain in other areas. Her pain is well controlled, and she does not have any numbness or tingling. She is afebrile. Her vital signs are stable. PAST MEDICAL HISTORY: Includes bronchiectasis, total knee replacement, hypertension, chronic kidney disease, back arthritis, heart failure, GERD, depression, anxiety, osteoporosis, hyperlipidemia, vertigo, arthritis. PAST SURGICAL HISTORY: She has had a mastectomy done. MEDICATIONS: Reviewed and noted. ALLERGIES: SHE IS ALLERGIC TO PHENYTOIN, AMOXICILLIN, CLAVULANIC ACID, DEXAMETHASONE. PHYSICAL EXAMINATION: On exam, she is arousable and responds appropriately to questions. She has a thumb spica splint on the left, which is removed. She has good movement of the elbow and fingers and can actually move her wrist. There is a well-healed volar scar. There is a minor bruising on the forearm. There is tenderness in the anatomic snuffbox, otherwise the arm is nontender. Median, radial and ulnar motor and sensory functions are intact, and she has a capillary refill less than 2 seconds with a palpable radial pulse. She can move the right arm and right leg without difficulty. She can actually bend the left knee about 60 degrees. There is tenderness to palpation over the lateral side of the left hip. No bruising or swelling is noted. Incision for left total knee. Ankle and toe plantarflexion, dorsiflexion, eversion 5/5. Dorsalis pedis is trace. Sensation intact. There is no swelling or other tenderness in the left leg. Left wrist x-rays demonstrate internal fixation done previously of the distal radius, which is well healed. There is a fracture of the distal ulna with a broken plate. The ulna fracture appears to be healed. There is an acute-appearing minimally displaced left scaphoid fracture. Report noted. X-rays of the left hip suggest a greater trochanter fracture, which is nondisplaced. A CT scan shows that there is no femoral head or neck fracture and no intertrochanteric fracture. There is a nondisplaced comminuted fracture of the greater trochanter. IMPRESSION: 1. Status post open reduction and internal fixation of left distal radius fracture with new acute-appearing left scaphoid fracture. 2. Left hip nondisplaced comminuted greater trochanter fracture without displacement. PLAN: She is educated about what is going on. At this time, I recommend that she continue into the thumb spica wrist splint. Do not bear weight on the left arm. She does not need surgery on the wrist at this point, although surgery could be considered. It is also an option to consider nonsurgical management with casting of her scaphoid fracture. In regards to her left hip, she may partial weightbear about 50%. This is the left leg. She will need a platform walker because of her left arm injury. If she can, she can return to a higher level of care at [facility]. Otherwise, she will need to go to another facility temporarily. DVT prophylaxis with subQ heparin has been ordered by medicine. She has pain medicine available. Her pain is well controlled. She does have low vitamin D and I ordered 50,000 units. She could be discharged on 50,000 units once weekly for 6 weeks. I would recommend she please follow up with Dr. Hansen who has been her orthopedic doctor as an outpatient within the next week. She does not need to be n.p.o.
--- NOTE | 2020-02-08 17:48 | Hospitalist Progress Note ---
Date of Service February 08, 2020 Assessment & Plan (1) Greater trochanter fracture: 50% partial NWB per Ortho for an indefinite amount of time with transition to SNF. PT/OT to assess. Platform walker as NWB on the LUE. Followup with her Orthopedic surgeon outpatient. (2) Fracture of scaphoid: Both ortho fractures with conservative measures recommended. L wrist in a splint with pain controlled. Cont scheduled Tylenol and PRN narcotics for breakthrough pain. Follow-up with her outpatient orthopedist. (3) Hypertension: At goal. Cont Lasix, Norvasc per home regimen. (4) Diastolic HF (heart failure): euvolemic/compensated. Cont daily Lasix per home regimen. (5) Bronchiectasis: -No signs of acute exacerbation, continue home inhalers. Pt reports that initial SOB this admission is now resolved. (6) DVT prophylaxis: -SQ heparin Full Code Dispo-cont hospital stay. PT/OT to assess needs along with nursing staff. She is at [facility] and will likely need to go to SNF on the way back home. This would also be advantageous as she will have already quaratined for the 14 days at [facility] prior to returning home and won't need a longer quarantine which will be required if she goes to another facility. CM for authorization for [facility]. Likely dc Monday or Monday. [facility] Admission and Anticipated Discharge Date Admission Date: February 07, 2020 Subjective feeling fine pain appears controlled wrist splinted POA and friend is present at bedside patient states she can partial weight bear states she tripped and fell overnight resulting in her wrist and L hip fractures she has no other symptoms at this time. Review of Systems Review of Systems: All systems reviewed & are unremarkable except as noted in Subjective Physical Exam Physical Exam: CONSTITUTIONAL: obese, vitals as above, generally well- appearing EYES: normal conjunctivae, no scleral icterus ENT: external ear and nose normal, oropharynx clear, MMM RESPIRATORY: clear to auscultation bilaterally, no crackles, rales or wheezes, normal respiratory effort CARDIOVASCULAR: regular rate and rhythm, 3/6 KAREN, no gallops or rubs, no JVD, no peripheral edema GASTROINTESTINAL: soft, nontender, nondistended, no guarding. MUSCULOSKELETAL: L wrist in splint, limited exam 2/2 pain and immobility in her chair. SKIN: warm and dry NEUROLOGIC: CN 2-12 grossly intact, normal cognition, normal speech, no tremor PSYCHIATRIC: alert, cooperative and answers questions appropriately. Occasional memory issues, for example, she couldn't remember if she was seen by the orthopedic surgeon today. Results & Data Results & Data ([facility]) Vital Signs (Past 12 Hours) Vital Signs Temp Pulse Resp BP Pulse Ox 02/08/20 16:06 37.2 C 90 16 110/70 93 02/08/20 07:15 36.8 C 82 16 110/67 96 Laboratory Results Short CBC 02/08/20 Range/Units 06:08 WBC 8.94 (4.8-10.8) K/uL Hgb 11.1 L (12.0-16.0) g/dL Hct 35.5 L (37-47) % Plt Count 154 (130-400) K/uL BMP 02/08/20 06:08 Sodium 141 Potassium 3.9 Chloride 104 Carbon Dioxide 34 H BUN 16 Creatinine 1.08 Glucose [address]cium 8[address] SCAN OF THE BONY PELVIS WITHOUT IV CONTRAST CLINICAL HISTORY: Fall. Left hip pain. COMPARISON STUDY: Pelvic CT dated 10/24/2018. Left hip and pelvic radiographs performed 02/07/2020. TECHNIQUE: CT scan of the bony pelvis is performed from the pelvic inlet to the proximal femora. Images are reviewed in the axial, sagittal, and coronal planes. IV contrast was not administered for this examination. A dose lowering technique was utilized adhering to the principles of ALARA. FINDINGS: The skeletal structures are osteopenic. There is a nondisplaced fracture through the greater trochanter of the left femur, best seen on axial image #165. This corresponds to abnormality seen on today's radiographs. This does not extend in the femoral neck. No additional fracture is seen involving the hips or bony pelvis. There is no evidence of avascular necrosis of the femoral heads. Mild degenerative joint space narrowing is seen in both hips. The sacroiliac joints are normal. Lumbosacral spondylosis is partially imaged. No lytic or blastic lesion is seen. There is mild hemorrhage identified around the fracture. No large hematoma is seen. There is generalized and atrophy symmetric atrophy of the regional musculature. The bladder is partially decompressed around a Alegria catheter. The uterus is surgically absent. No adnexal lesion is seen. There are numerous pelvic phleboliths. No intraperitoneal free there are free fluid is seen in the pelvis. There is no pelvic sidewall or inguinal adenopathy. The visualized loops of small bowel and colon are normal in caliber. There is moderate diverticulosis of the sigmoid colon without CT evidence of acute diverticulitis. A fat-containing umbilical hernia is incidentally noted. IMPRESSION: 1. There is a nondisplaced fracture through the greater trochanter of the left femur as above. 2. No additional fracture is seen. 3. Additional findings as above. XR wrist LT min 3V routine CLINICAL HISTORY: pain fall COMPARISON STUDY: Left forearm 12/14/2018. FINDINGS: Soft tissue swelling within the left wrist. Slightly distracted scaphoid waist fracture. This demonstrates up to 2 mm of distraction. Remaining carpal bones are intact. Old, healed distal radius and ulnar fractures. The cortical plate at the distal radius is fractured. However, no underlying bony fracture identified. The radial cortical plate and screws appear intact. IMPRESSION: 1. Acute scaphoid waist fracture. 2. The distal ulnar cortical plate is fractured. However, no underlying acute bony abnormality. 3. Old, healed distal radius and ulnar fractures. Medications Administered Current Inpatient Medications Acetaminophen (Acetaminophen 325 Mg Tab) 650 mg PO Q6 DOUGLAS Stop: 03/09/20 00:00 Last Admin: 02/08/20 13:56 Dose: 650 mg Documented by: Amlodipine Besylate (Amlodipine Besylate 5 Mg Tab) 2.5 mg PO DAILY DOUGLAS Stop: 03/09/20 08:59 Last Admin: 02/08/20 09:52 Dose: 2.5 mg Documented by: Aspirin (Aspirin 81 Mg Ectab) 81 mg PO QAM DOUGLAS Stop: 03/09/20 08:59 Last Admin: 02/08/20 09:54 Dose: 81 mg Documented by: Atorvastatin Calcium (Atorvastatin 20 Mg Tab) 20 mg PO HS DOUGLAS Stop: 03/08/20 22:28 Last Admin: 02/07/20 23:27 Dose: 20 mg Documented by: Citalopram Hydrobromide (Citalopram 20 Mg Tab) 30 mg PO QAM DOUGLAS Stop: 03/09/20 08:59 Last Admin: 02/08/20 09:54 Dose: 30 mg Documented by: Docusate Sodium (Docusate Sodium 100 Mg Cap) 100 mg PO BID DOUGLAS Stop: 03/08/20 22:28 Last Admin: 02/08/20 09:54 Dose: 100 mg Documented by: Fluticasone Furoate (Fluticasone Furoate 100mcg 14 Puffs/Inhaler) 1 puffs INH DAILY DOUGLAS Stop: 03/09/20 08:59 Last Admin: 02/08/20 09:56 Dose: 1 puffs Documented by: Fluticasone/Vilanterol (Fluticasone/Vilanterol 100/25mcg 14 Puffs/Inhaler) 1 puffs INH DAILY DOUGLAS Stop: 03/09/20 08:59 Last Admin: 02/08/20 09:56 Dose: 1 puffs Documented by: Furosemide (Furosemide 40 Mg Tab) 40 mg PO DAILY DOUGLAS Stop: 03/09/20 08:59 Last Admin: 02/08/20 09:53 Dose: 40 mg Documented by: Gabapentin (Gabapentin 100 Mg Cap) 100 mg PO BID DOUGLAS Stop: 03/08/20 22:28 Last Admin: 02/08/20 09:53 Dose: 100 mg Documented by: Heparin Sodium (Porcine) (Heparin Sod 5,000 Unit/0.5 Ml Vial) 5,000 units SQ Q8 DOUGLAS Stop: 03/08/20 22:28 Last Admin: 02/08/20 13:56 Dose: 5,000 units Documented by: Montelukast Sodium (Montelukast Sodium 10 Mg Tablet) 10 mg PO HS DOUGLAS Stop: 03/08/20 22:28 Last Admin: 02/07/20 23:29 Dose: 10 mg Documented by: Oxycodone HCl (Oxycodone Hcl Ir 5 Mg Tab (Immediate Release)) 5 mg PO Q6H PRN PRN Reason: Pain Stop: 02/21/20 22:33 Last Admin: 02/07/20 22:41 Dose: 5 mg Documented by: Pantoprazole Sodium (Pantoprazole 40 Mg Tab) 40 mg PO QAM DOUGLAS Stop: 03/09/20 08:59 Last Admin: 02/08/20 09:52 Dose: 40 mg Documented by: Trazodone HCl (Trazodone Hcl 100 Mg Tab) 100 mg PO HS DOUGLAS Stop: 03/08/20 22:28 Last Admin: 02/07/20 23:27 Dose: 100 mg Documented by: Umeclidinium Whitethorn (Umeclidinium Whitethorn 62.5mcg/Blister 7 Puffs/Inhaler) 1 puffs INH DAILY DOUGLAS Stop: 03/09/20 08:59 Last Admin: 02/08/20 09:56 Dose: 1 puffs Documented by: (1) Greater trochanter fracture Encounter type: initial encounter Fracture alignment: nondisplaced Fracture type: closed Laterality: left Qualified Code(s): S72.115A - Nondisplaced fracture of greater trochanter of left femur, initial encounter for closed fra cture (2) Fracture of scaphoid Encounter type: initial encounter Fracture alignment: displaced Fracture type: closed Laterality: left Scaphoid bone location: unspecified portion of scaphoid Qualified Code(s): S62.002A - Unspecified fracture of navicular [scaphoid] bone of left wrist, initial encounter for closed fracture
[2020-02-08] MEDS: traZODone HCL 100 MG TAB PO SCH (20:21)
[2020-02-08] MEDS: ATORVASTATIN 20 MG TAB PO SCH (20:21)
[2020-02-08] MEDS: oxyCODONE HCL IR 5 MG TAB (IMMEDIATE RELEASE) PO PRN (20:22)
[2020-02-08] MEDS: MONTELUKAST SODIUM 10 MG TABLET PO SCH (20:22)
[2020-02-09] MEDS: HEPARIN SOD 5,000 UNIT/0.5 ML VIAL SQ SCH ×3 (05:45→21:04)
[2020-02-09] MEDS: ACETAMINOPHEN 325 MG TAB PO SCH ×2 (05:45)
[2020-02-09] MEDS: UMECLIDINIUM BROMIDE 62.5MCG/BLISTER 7 PUFFS/INHALER INH SCH (09:12)
[2020-02-09] MEDS: FUROSEMIDE 40 MG TAB PO SCH (09:13)
[2020-02-09] MEDS: FLUTICASONE FUROATE 100MCG 14 PUFFS/INHALER INH SCH (09:13)
[2020-02-09] MEDS: FLUTICASONE/VILANTEROL 100/25MCG 14 PUFFS/INHALER INH SCH (09:13)
[2020-02-09] MEDS: PANTOprazole 40 MG TAB PO SCH (09:13)
[2020-02-09] MEDS: CITALOPRAM 20 MG TAB PO SCH (09:13)
[2020-02-09] MEDS: amLODIPine BESYLATE 5 MG TAB PO SCH (09:14)
[2020-02-09] MEDS: ASPIRIN 81 MG ECTAB PO SCH (09:14)
[2020-02-09] MEDS: GABAPENTIN 100 MG CAP PO SCH ×2 (09:15→21:04)
[2020-02-09] MEDS: DOCUSATE SODIUM 100 MG CAP PO SCH ×2 (09:15→21:03)
--- NOTE | 2020-02-09 09:27 | XRay Report ---
XR chest 1V portable CLINICAL HISTORY: new onset fever COMPARISON STUDY: Chest radiograph February 07, 2020. FINDINGS: Lung volumes are at the lower limits of normal. There is cardiomegaly. Is no evidence for p ulmonary edema. Apparent hazy left basilar opacity is similar to prior exams. This is likely related to overlying soft tissues. Mild elevation/eventration of the right hemidiaphragm is unchanged. IMPRESSION: Definite acute cardiopulmonary findings. Apparent hazy left basilar opacity which is sim ilar to prior exams and likely related to overlying soft tissues. ACT 112: Negative or not required by law. Electronically signed by: Ken Ruiz M.D. 02/09/2020 9:26 AM
[2020-02-09 10:13] LABS: BUN Creatinine Ratio 14.1 (10-20); Creatinine Clr Calc Pharmacy 40.5 ml/min; Est GFR (African American) 49.7; Est GFR (Non-African American) 42.9; Potassium 3.7 mmol/L (3.5-5.1)
[2020-02-09 10:26] LABS: Hematocrit (blood only) 34.9 % (37-47); Hemoglobin 11.2 g/dL (12.0-16.0); Mean Corpuscular Hemoglobin 30.5 pg (25-34); Mean Corpuscular Hgb Conc 32.1 g/dL (32-36); Mean Corpuscular Volume 95.1 fL (80-100); Mean Platelet Volume 12.4 fL (7.4-10.4); Platelet Count 96 K/uL (130-400); RDW Standard Deviation 48.4 fL (36.4-46.3); Red Blood Count 3.67 M/uL (4.2-5.4); White Blood Count 12.07 K/uL (4.8-10.8)
[2020-02-09 10:27] LABS: Basophils # (auto) 0.02 K/uL (0-0.2); Basophils % (auto) 0.2 %; Eosinophils # (auto) 0.08 K/uL (0-0.5); Eosinophils % (auto) 0.7 %; Immature Granulocytes # (auto) 0.03 K/uL (0.00-0.02); Immature Granulocytes % (auto) 0.2 %; Lymphocytes % (auto) 9.1 %; Monocytes # (auto) 1.21 K/uL (0.11-0.59); Neutrophils # (auto) 9.63 K/uL (1.4-6.5); Neutrophils % (auto) 79.8 %; Platelet Estimate Decreased (Normal)
[2020-02-09 11:53] LABS: Influenza A virus by PCR Negative (Negative)
[2020-02-09 11:54] LABS: Influenza B virus by PCR Negative (Negative)
[2020-02-09 12:30] LABS: Appearance Urine Clear (Clear); Bacteria Urine Automated Negative (Negative); Bilirubin Urine Negative (Negative); Blood Urine Negative (Negative); Color Urine Yellow; Epithelial Cell Urine Auto 20-30 /lpf (0-5); Glucose Urine UA Negative (Negative); Ketones Urine Negative (Negative); Leukocyte Esterase Urine 2+ (Negative); Nitrite Urine Negative (Negative); Protein Urine Negative (Negative); RBC Urine Automated 0-4 /hpf (0-4); Specific Gravity Urine 1.016 (1.000-1.030); Urobilinogen Urine Negative (Negative)
--- NOTE | 2020-02-09 13:02 | Hospitalist Progress Note ---
Date of Service February 09, 2020 Assessment & Plan (1) Acute UTI: Fever this am along with urinary incontinence that is new and urgency. UA samples not showing +bacteria but there is +LE today. Will treat empirically as this may have contributed to her fall and fracture. (2) Greater trochanter fracture: 50% partial NWB per Ortho for an indefinite amount of time with transition to SNF. PT/OT to assess. Platform walker as NWB on the LUE. Followup with her Orthopedic surgeon outpatient. Pain control with Acetaminophen and Tramadol as needed. (3) Fracture of scaphoid: Both ortho fractures with conservative measures recommended. L wrist in a splint with pain controlled. Cont scheduled Tylenol and PRN narcotics for breakthrough pain. Follow-up with her outpatient orthopedist. (4) Hypertension: At goal. Cont Lasix, Norvasc per home regimen. (5) Diastolic HF (heart failure): euvolemic/compensated. Cont daily Lasix per home regimen. (6) Bronchiectasis: -No signs of acute exacerbation, continue home inhalers. Pt reports that initial SOB this admission is now resolved. (7) DVT prophylaxis: -SQ heparin Full Code Dispo-cont hospital stay. PT/OT to assess needs along with nursing staff. She is at [facility] and will likely need to go to SNF on the way back home. This would also be advantageous as she will have already quaratined for the 14 days at [facility] prior to returning home and won't need a longer quarantine which will be required if she goes to another facility. CM for authorization for [facility]. Likely dc Monday or Monday. Jaimee Tyson [facility] and Anticipated Discharge Date Admission Date: February 07, 2020 Subjective fever this am, workup unremarkable however, patient did report some acute incontrinence and some persistent urinary urgency this morning. Fever didn't recur Decided to treat for UTI despite no bacteria on UA Otherwise feeling well and tolerating PO Pain in L hip and thigh still present. We discussed Tylenol and Tramadol as a combination to try as needed Wrist feels well She worked with Therapy today and used the platform walker. Review of Systems Review of Systems: All systems reviewed & are unremarkable except as noted in Subjective Physical Exam Physical Exam: CONSTITUTIONAL: obese, vitals as above, generally well- appearing EYES: normal conjunctivae, no scleral icterus ENT: external ear and nose normal, oropharynx clear, MMM RESPIRATORY: clear to auscultation bilaterally, no crackles, rales or wheezes, normal respiratory effort CARDIOVASCULAR: regular rate and rhythm, 3/6 KAREN, no gallops or rubs, no JVD, no peripheral edema GASTROINTESTINAL: soft, nontender, nondistended, no guarding. MUSCULOSKELETAL: L wrist in splint, limited exam 2/2 pain and immobility in her chair. SKIN: warm and dry NEUROLOGIC: CN 2-12 grossly intact, normal cognition, normal speech, no tremor PSYCHIATRIC: alert, cooperative and answers questions appropriately. Results & Data Results & Data ([facility]) Vital Signs (Past 12 Hours) Vital Signs Temp Pulse Resp BP Pulse Ox 02/09/20 10:44 37.0 C 02/09/20 09:05 38.3 C H 02/09/20 07:35 38.1 C H 65 16 118/66 92 Laboratory Results Short CBC 02/09/20 Range/Units 09:39 WBC 12.07 H (4.8-10.8) K/uL Hgb 11.2 L (12.0-16.0) g/dL Hct 34.9 L (37-47) % Plt Count 96 L (130-400) K/uL BMP 02/09/20 09:24 Sodium 138 Potassium 3.7 Chloride 100 Carbon Dioxide 32 BUN 17 Creatinine 1.18 Glucose 144 H Calcium 9.0 Urine 02/09/20 Range/Units 12:15 Urine Color Yellow Urine Appearance Clear (Clear) Urine pH 7.0 (4.5-7.5) Ur Specific [place] 1.016 (1.000-1.030) Urine Protein Negative (Negative) Urine Glucose (UA) Negative (Negative) Diagnostic Findings XR chest 1V portable CLINICAL HISTORY: new onset fever COMPARISON STUDY: Chest radiograph February 07, 2020. FINDINGS: Lung volumes are at the lower limits of normal. There is cardiomegaly. Is no evidence for pulmonary edema. Apparent hazy left basilar opacity is similar to prior exams. This is likely related to overlying soft tissues. Mild elevation/eventration of the right hemidiaphragm is unchanged. IMPRESSION: Definite acute cardiopulmonary findings. Apparent hazy left basilar opacity which is similar to prior exams and likely related to overlying soft tissues. ACT 112: Negative or not required by law. Electronically signed by: Ken Ruiz M.D. 02/09/2020 9:26 AM Dictated: 02/09/20923Transcribed: 02/09/20923 Medications Administered Current Inpatient Medications Acetaminophen (Acetaminophen 325 Mg Tab) 650 mg PO Q6 PRN PRN Reason: fever or pain Stop: 03/09/20 00:00 Amlodipine Besylate (Amlodipine Besylate 5 Mg Tab) 2.5 mg PO DAILY [facility] Stop: 03/09/20 08:59 Last Admin: 02/09/20 09:14 Dose: 2.5 mg Documented by: Aspirin (Aspirin 81 Mg Ectab) 81 mg PO QAM [facility] Stop: 03/09/20 08:59 Last Admin: 02/09/20 09:14 Dose: 81 mg Documented by: Atorvastatin Calcium (Atorvastatin 20 Mg Tab) 20 mg PO HS [facility] Stop: 03/08/20 22:28 Last Admin: 02/08/20 20:21 Dose: 20 mg Documented by: Citalopram Hydrobromide (Citalopram 20 Mg Tab) 30 mg PO QAM [facility] Stop: 03/09/20 08:59 Last Admin: 02/09/20 09:13 Dose: 30 mg Documented by: Docusate Sodium (Docusate Sodium 100 Mg Cap) 100 mg PO BID [facility] Stop: 03/08/20 22:28 Last Admin: 02/09/20 09:15 Dose: 100 mg Documented by: Fluticasone Furoate (Fluticasone Furoate 100mcg 14 Puffs/Inhaler) 1 puffs INH DAILY [facility] Stop: 03/09/20 08:59 Last Admin: 02/09/20 09:13 Dose: 1 puffs Documented by: Fluticasone/Vilanterol (Fluticasone/Vilanterol 100/25mcg 14 Puffs/Inhaler) 1 puffs INH DAILY [facility] Stop: 03/09/20 08:59 Last Admin: 02/09/20 09:13 Dose: 1 puffs Documented by: Furosemide (Furosemide 40 Mg Tab) 40 mg PO DAILY [facility] Stop: 03/09/20 08:59 Last Admin: 02/09/20 09:13 Dose: 40 mg Documented by: Gabapentin (Gabapentin 100 Mg Cap) 100 mg PO BID [facility] Stop: 03/08/20 22:28 Last Admin: 02/09/20 09:15 Dose: 100 mg Documented by: Heparin Sodium (Porcine) (Heparin Sod 5,000 Unit/0.5 Ml Vial) 5,000 units SQ Q8 [facility] Stop: 03/08/20 22:28 Last Admin: 02/09/20 05:45 Dose: 5,000 units Documented by: Montelukast Sodium (Montelukast Sodium 10 Mg Tablet) 10 mg PO HS [facility] Stop: 03/08/20 22:28 Last Admin: 02/08/20 20:22 Dose: 10 mg Documented by: Oxycodone HCl (Oxycodone Hcl Ir 5 Mg Tab (Immediate Release)) 5 mg PO Q6H PRN PRN Reason: Pain Stop: 02/21/20 22:33 Last Admin: 02/08/20 20:22 Dose: 5 mg Documented by: Pantoprazole Sodium (Pantoprazole 40 Mg Tab) 40 mg PO QAM [facility] Stop: 03/09/20 08:59 Last Admin: 02/09/20 09:13 Dose: 40 mg Documented by: Polyethylene Glycol (Polyethylene (Miralax) 17 Gm Pack) 17 gm PO DAILY PRN PRN Reason: Constipation Stop: 03/10/20 12:13 Trazodone HCl (Trazodone Hcl 100 Mg Tab) 100 mg PO HS [facility] Stop: 03/08/20 22:28 Last Admin: 02/08/20 20:21 Dose: 100 mg Documented by: Umeclidinium [place] (Umeclidinium [place] 62.5mcg/Blister 7 Puffs/Inhaler) 1 puffs INH DAILY [facility] Stop: 03/09/20 08:59 Last Admin: 02/09/20 09:12 Dose: 1 puffs Documented by: (1) Greater trochanter fracture Encounter type: initial encounter Fracture alignment: nondisplaced Fracture type: closed Laterality: left Qualified Code(s): S72.115A - Nondisplaced fracture of greater trochanter of left femur, initial encounter for closed fracture (2) Fracture of scaphoid Encounter type: initial encounter Fracture alignment: displaced Fracture type: closed Laterality: left Scaphoid bone location: unspecified portion of scaphoid Qualified Code(s): S62.002A - Unspecified fracture of navicular [scaphoid] bone of left wrist, initial encounter for closed fracture
[2020-02-09] MEDS: ACETAMINOPHEN 325 MG TAB PO PRN ×2 (13:44→21:55)
[2020-02-09] MEDS: cefTRIAXone SODIUM 2,000 MG in DEXTROSE 5% 50 ML IV SCH (18:20)
[2020-02-09] MEDS: traMADol HCL 50 MG TABLET PO PRN ×2 (19:32→23:55)
[2020-02-09] MEDS: traZODone HCL 100 MG TAB PO SCH (21:03)
[2020-02-09] MEDS: ATORVASTATIN 20 MG TAB PO SCH (21:03)
[2020-02-09] MEDS: MONTELUKAST SODIUM 10 MG TABLET PO SCH (21:04)
--- NOTE | 2020-02-10 04:08 | Communication Note ---
Date of Service: February 10, 2020 Notified by RN of one bottle gram-positive cocci in clusters on blood cultures. AP Gram-positive bacteremia Daptomycin for now until final CS back given fever as per a.m. documentation. Will relay to AM provider.
[2020-02-10] MEDS: DAPTOmycin 425 MG in SYRINGE 0 ML IV SCH (05:01)
[2020-02-10] MEDS: HEPARIN SOD 5,000 UNIT/0.5 ML VIAL SQ SCH ×3 (05:02→21:16)
[2020-02-10 08:42] LABS: Hematocrit (blood only) 33.6 % (37-47); Hemoglobin 10.5 g/dL (12.0-16.0); Mean Corpuscular Hemoglobin 29.7 pg (25-34); Mean Corpuscular Hgb Conc 31.3 g/dL (32-36); Mean Corpuscular Volume 94.9 fL (80-100); Mean Platelet Volume 12.5 fL (7.4-10.4); Platelet Count 146 K/uL (130-400); RDW Coefficient of Variation 14.2 % (11.5-14.5); Red Blood Count 3.54 M/uL (4.2-5.4); White Blood Count 12.21 K/uL (4.8-10.8)
[2020-02-10] MEDS: FLUTICASONE FUROATE 100MCG 14 PUFFS/INHALER INH SCH (09:16)
[2020-02-10] MEDS: FLUTICASONE/VILANTEROL 100/25MCG 14 PUFFS/INHALER INH SCH (09:16)
[2020-02-10] MEDS: POLYETHYLENE (MIRALAX) 17 GM PACK PO PRN (09:16)
[2020-02-10] MEDS: UMECLIDINIUM BROMIDE 62.5MCG/BLISTER 7 PUFFS/INHALER INH SCH (09:16)
[2020-02-10] MEDS: DOCUSATE SODIUM 100 MG CAP PO SCH ×2 (09:17→20:03)
[2020-02-10] MEDS: GABAPENTIN 100 MG CAP PO SCH ×2 (09:17→20:04)
[2020-02-10] MEDS: ASPIRIN 81 MG ECTAB PO SCH (09:18)
[2020-02-10] MEDS: CITALOPRAM 20 MG TAB PO SCH (09:18)
[2020-02-10] MEDS: PANTOprazole 40 MG TAB PO SCH (09:18)
[2020-02-10] MEDS: FUROSEMIDE 40 MG TAB PO SCH (09:18)
[2020-02-10] MEDS: amLODIPine BESYLATE 5 MG TAB PO SCH (09:18)
[2020-02-10] MEDS: traMADol HCL 50 MG TABLET PO PRN ×2 (12:35→20:05)
--- NOTE | 2020-02-10 13:15 | Progress Notes ---
DATE: 02/10/2020 CHIEF COMPLAINT: 1. Status post open reduction internal fixation of left distal radius fracture with new acute appearing left scaphoid fracture. 2. Left hip nondisplaced comminuted greater trochanteric fracture without displacement. HISTORY OF PRESENT ILLNESS: An 84-year-old female seen today by the orthopedic service for her above orthopedic issues. The patient is resting in her bedside chair. She states at rest, her pain is controlled to her left wrist and left hip; however, she does have pain with mobility and transfers. She states that she has been using the platform walker. She also has a bedside commode. She states she has been taking pain medication that has helped alleviate her pain. She states that she occasionally does remove her left wrist, thumb spica splint to give her wrist "some rest." She does have a noted IV on the hand. She denies any numbness or tingling into her arms or legs. PHYSICAL EXAMINATION: GENERAL: The patient is sitting in her bedside chair. She was resting her eyes when I entered the room. She is easily arousable. She is alert and oriented. EXTREMITIES: Her left upper extremity has an IV line placed. The thumb spica splint was removed. She has no significant redness. She has moderate amount of swelling to the hand/wrist. She has a healed scar to the volar aspect of her wrist. She has continued tenderness over the top of the anatomical snuff box. She has good movement of her elbow and fingers, limited to the wrist with discomfort. . She is neurovascularly intact to the left upper extremity with palpable radial pulse. Sensation is intact to light touch. Motor was intact to medial, radial and ulnar, AIN and AIN. Brisk capillary refill. Left lower extremity reveals neurovascularly intact bilaterally, with soft calves. Negative Nyla. She has a trace pitting edema to the bilateral lower extremities. Sensation grossly intact to bilateral lower extremities with palpable dorsalis pedis, posterior tibial pulses, 5/5 bilateral EHL, tibialis anterior and gastroc strength. She had painless log rolling to the left hip. Tenderness noted to palpation to the left hip laterally. Skin intact. Pain with active assisted left hip motion. She was able to perform gentle range of motion of her left knee without hip pain. IMPRESSION: 1. Status post open reduction internal fixation of left distal radius fracture performed by Dr. Hansen with no acute appearing left scaphoid fracture. 2. Left hip nondisplaced comminuted greater trochanteric fracture without displacement. PLAN: The patient is under the medicine service. From an orthopedic standpoint, we recommend continued conservative treatment and follow up with Dr. Hansen upon discharge. In regards to her left wrist, continue wearing the thumb spica wrist splint, nonweightbearing, elevation, ice. Per Dr. Lacey, there is an option to consider surgical intervention versus nonsurgical management with casting of her scaphoid fracture to be again discussed with Dr. Hansen upon discharge. In regards to her left hip, she will be partial weightbearing approximately 50% with the platform walker because of her left arm. Ice prn. Continue PT, OT. DVT prophylaxis should be continued per medicine. Continue pain management with Tylenol and p.r.n. narcotic. Dr. Lacey also is recommending, patient to be discharged on 50,000 units of vitamin D once weekly for 6 weeks. MTDD
[2020-02-10] MEDS: ACETAMINOPHEN 325 MG TAB PO PRN (14:05)
--- NOTE | 2020-02-10 16:16 | Hospitalist Progress Note ---
Date of Service February 10, 2020 Assessment & Plan (1) Bacteremia: GPC in 1 of 2 bottles blood-awaiting speciation and sensitivity. Will recollect BCx in am. Dapto was started overnight. No murmur heard on exam. No fever overnight or today. (2) Acute UTI: Fever this am along with urinary incontinence that is new and urgency. Continue empiric treatment of UTI with Rocephin for now. (3) Greater trochanter fracture: 50% partial NWB per Ortho for an indefinite amount of time with transition to SNF. PT/OT to assess. Platform walker as NWB on the LUE. Followup with her Orthopedic surgeon outpatient. Pain control with Acetaminophen and Tramadol as needed. (4) Fracture of scaphoid: Both ortho fractures with conservative measures recommended. L wrist in a splint with pain controlled. Cont scheduled Tylenol and PRN narcotics for breakthrough pain. Follow-up with her outpatient orthopedist. (5) Hypertension: At goal. Cont Lasix, Norvasc per home regimen. (6) Diastolic HF (heart failure): euvolemic/compensated. Cont daily Lasix per home regimen. (7) Bronchiectasis: -No signs of acute exacerbation, continue home inhalers. Denies SOB. (8) DVT prophylaxis: SQ heparin Full Code Dispo-cont hospital stay. PT/OT to assess needs along with nursing staff. She is at [facility] and will likely need to go to SNF on the way back home. This would also be advantageous as she will have already quaratined for the 14 days at [facility] prior to returning home and won't need a longer quarantine which will be required if she goes to another facility. CM for authorization for [facility]. Currently awaiting blood cultures prior to placing this. Jaimee Tyson DO [facility] Admission and Anticipated Discharge Date Admission Date: February 07, 2020 Subjective Pt somnolent No issues other than some persistent L thigh pain Denies fevers or chills No UTI symptoms today. Overnight GPC in blood and Dapto started in addition to Rocephin Review of Systems Review of Systems: All systems reviewed & are unremarkable except as noted in Subjective Physical Exam Physical Exam: CONSTITUTIONAL: obese, vitals as above, generally well- appearing EYES: normal conjunctivae, no scleral icterus ENT: external ear and nose normal, oropharynx clear, MMM RESPIRATORY: clear to auscultation bilaterally, no crackles, rales or wheezes, normal respiratory effort CARDIOVASCULAR: regular rate and rhythm, S1/2 heard no murmurs, gallops or rubs, no JVD, no peripheral edema GASTROINTESTINAL: soft, nontender, nondistended, no guarding. MUSCULOSKELETAL: L wrist in splint, limited exam 2/2 pain and immobility in her chair. SKIN: warm and dry NEUROLOGIC: CN 2-12 grossly intact, normal cognition, normal speech, no tremor PSYCHIATRIC: alert, cooperative and answers questions appropriately. Results & Data Results & Data ([facility]) Vital Signs (Past 12 Hours) Vital Signs Temp Pulse Resp BP Pulse Ox 02/10/20 15:35 37.2 C 86 20 123/78 92 02/10/20 07:25 36.7 C 80 21 111/66 93 Laboratory Results Short CBC 02/10/20 Range/Units 07:34 WBC 12.21 H (4.8-10.8) K/uL Hgb 10.5 L (12.0-16.0) g/dL Hct 33.6 L (37-47) % Plt Count 146 D (130-400) K/uL Medications Administered Current Inpatient Medications Acetaminophen (Acetaminophen 325 Mg Tab) 650 mg PO Q6 PRN PRN Reason: fever or pain Stop: 03/09/20 00:00 Last Admin: 02/10/20 14:05 Dose: 650 mg Documented by: Amlodipine Besylate (Amlodipine Besylate 5 Mg Tab) 2.5 mg PO DAILY [facility] Stop: 03/09/20 08:59 Last Admin: 02/10/20 09:18 Dose: 2.5 mg Documented by: Aspirin (Aspirin 81 Mg Ectab) 81 mg PO QAM [facility] Stop: 03/09/20 08:59 Last Admin: 02/10/20 09:18 Dose: 81 mg Documented by: Atorvastatin Calcium (Atorvastatin 20 Mg Tab) 20 mg PO [facility] Stop: 03/08/20 22:28 Last Admin: 02/09/20 21:03 Dose: 20 mg Documented by: Citalopram Hydrobromide (Citalopram 20 Mg Tab) [facility] [place] [place] Stop: 03/09/20 08:59 Last Admin: 02/10/20 09:18 Dose: 30 mg Documented by: Docusate Sodium (Docusate Sodium 100 Mg Cap) 100 mg PO BID [facility] Stop: 03/08/20 22:28 Last Admin: 02/10/20 09:17 Dose: 100 mg Documented by: Fluticasone Furoate (Fluticasone Furoate 100mcg 14 Puffs/Inhaler) 1 puffs INH DAILY [facility] Stop: 03/09/20 08:59 Last Admin: 02/10/20 09:16 Dose: 1 puffs Documented by: Fluticasone/Vilanterol (Fluticasone/Vilanterol 100/25mcg 14 Puffs/Inhaler) 1 puffs INH DAILY [facility] Stop: 03/09/20 08:59 Last Admin: 02/10/20 09:16 Dose: 1 puffs Documented by: Furosemide (Furosemide 40 Mg Tab) 40 mg PO DAILY [facility] Stop: 03/09/20 08:59 Last Admin: 02/10/20 09:18 Dose: 40 mg Documented by: Gabapentin (Gabapentin 100 Mg Cap) 100 mg PO BID [facility] Stop: 03/08/20 22:28 Last Admin: 02/10/20 09:17 Dose: 100 mg Documented by: Heparin Sodium (Porcine) (Heparin Sod 5,000 Unit/0.5 Ml Vial) 5,000 units SQ Q8 [facility] Stop: 03/08/20 22:28 Last Admin: 02/10/20 13:30 Dose: 5,000 units Documented by: Ceftriaxone Sodium 2,000 mg/ (Dextrose) 70 mls @ 140 mls/hr IV Q24H [facility]; Protocol Stop: 02/14/20 16:59 Last Admin: 02/10/20 17:43 Dose: 140 mls/hr Documented by: Daptomycin 425 mg/ Syringe 8.5 mls @ 4.25 mls/min IV Q24H [facility]; Protocol Stop: 02/24/20 04:59 Last Admin: 02/10/20 05:01 Dose: 4.25 mls/min Documented by: Miscellaneous Information (Daptomycin Consult Active) 1 ea N/A UD PRN PRN Reason: Consult Stop: 03/11/20 04:37 Montelukast Sodium (Montelukast Sodium 10 Mg Tablet) 10 mg PO HS [facility] Stop: 03/08/20 22:28 Last Admin: 02/09/20 21:04 Dose: 10 mg Documented by: Pantoprazole Sodium (Pantoprazole 40 Mg Tab) 40 mg PO QAM [facility] Stop: 03/09/20 08:59 Last Admin: 02/10/20 09:18 Dose: 40 mg Documented by: Polyethylene Glycol (Polyethylene (Miralax) 17 Gm Pack) 17 gm PO DAILY PRN PRN Reason: Constipation Stop: 03/10/20 12:13 Last Admin: 02/10/20 09:16 Dose: 17 gm Documented by: Tramadol HCl (Tramadol Hcl 50 Mg Tablet) 50 mg PO Q4H PRN PRN Reason: Pain Stop: 03/10/20 16:26 Last Admin: 02/10/20 12:35 Dose: 50 mg Documented by: Trazodone HCl (Trazodone Hcl 100 Mg Tab) 100 mg PO HS [facility] Stop: 03/08/20 22:28 Last Admin: 02/09/20 21:03 Dose: 100 mg Documented by: Umeclidinium [place] (Umeclidinium [place] 62.5mcg/Blister 7 Puffs/Inhaler) 1 p uffs INH DAILY [facility] Stop: 03/09/20 08:59 Last Admin: 02/10/20 09:16 Dose: 1 puffs Documented by: (1) Greater trochanter fracture Encounter type: initial encounter Fracture alignment: nondisplaced Fracture type: closed Laterality: left Qualified Code(s): S72.115A - Nondisplaced fracture of greater trochanter of left femur, initial encounter for closed fracture (2) Fracture of scaphoid Encounter type: initial encounter Fracture alignment: displaced Fracture type: closed Laterality: left Scaphoid bone location: unspecified portion of scaphoid Qualified Code(s): S62.002A - Unspecified fracture of navicular [scaphoid] bone of left wrist, initial encounter for closed fracture
[2020-02-10] MEDS: cefTRIAXone SODIUM 2,000 MG in DEXTROSE 5% 50 ML IV SCH (17:43)
[2020-02-10] MEDS: ATORVASTATIN 20 MG TAB PO SCH (20:04)
[2020-02-10] MEDS: traZODone HCL 100 MG TAB PO SCH (20:04)
[2020-02-10] MEDS: MONTELUKAST SODIUM 10 MG TABLET PO SCH (20:05)
[2020-02-11] MEDS: traMADol HCL 50 MG TABLET PO PRN ×2 (05:53→19:18)
[2020-02-11] MEDS: DAPTOmycin 425 MG in SYRINGE 0 ML IV SCH (05:54)
[2020-02-11] MEDS: HEPARIN SOD 5,000 UNIT/0.5 ML VIAL SQ SCH ×3 (05:54→22:53)
[2020-02-11 06:14] LABS: Hematocrit (blood only) 32.3 % (37-47); Hemoglobin 10.3 g/dL (12.0-16.0); Mean Corpuscular Hemoglobin 29.9 pg (25-34); Mean Corpuscular Hgb Conc 31.9 g/dL (32-36); Mean Corpuscular Volume 93.9 fL (80-100); Mean Platelet Volume 12.2 fL (7.4-10.4); Platelet Count 153 K/uL (130-400); RDW Coefficient of Variation 14.2 % (11.5-14.5); RDW Standard Deviation 48.8 fL (36.4-46.3); Red Blood Count 3.44 M/uL (4.2-5.4); White Blood Count 10.45 K/uL (4.8-10.8)
[2020-02-11 06:43] LABS: BUN Creatinine Ratio 15.6 (10-20); Calcium 8.6 mg/dl (8.5-10.1); Creatinine Clr Calc Pharmacy 39.2 ml/min; Est GFR (African American) 47.8; Est GFR (Non-African American) 41.2; Potassium 3.5 mmol/L (3.5-5.1)
[2020-02-11] MEDS: DOCUSATE SODIUM 100 MG CAP PO SCH ×2 (08:54→20:22)
[2020-02-11] MEDS: GABAPENTIN 100 MG CAP PO SCH ×2 (08:54→20:23)
[2020-02-11] MEDS: ASPIRIN 81 MG ECTAB PO SCH (08:56)
[2020-02-11] MEDS: FLUTICASONE FUROATE 100MCG 14 PUFFS/INHALER INH SCH (08:56)
[2020-02-11] MEDS: PANTOprazole 40 MG TAB PO SCH (08:56)
[2020-02-11] MEDS: FUROSEMIDE 40 MG TAB PO SCH (08:56)
[2020-02-11] MEDS: CITALOPRAM 20 MG TAB PO SCH (08:56)
[2020-02-11] MEDS: amLODIPine BESYLATE 5 MG TAB PO SCH (08:56)
[2020-02-11] MEDS: UMECLIDINIUM BROMIDE 62.5MCG/BLISTER 7 PUFFS/INHALER INH SCH (08:57)
[2020-02-11] MEDS: FLUTICASONE/VILANTEROL 100/25MCG 14 PUFFS/INHALER INH SCH (08:57)
--- NOTE | 2020-02-11 09:34 | Hospitalist Progress Note ---
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 Pt had one episode of fever prior to this but this has not persisted and she has remained feeling clinically well overall. A repeat blood culture was drawn this morning. Will consult ID to ensure not further workup or abx will be needed if repeat culture is negative. Suspect initial TECHNICAL SUPERVISOR was a contaminant but want to make sure of this with a specialist. (2) Acute UTI: Had initial urinary incontinence, urinary urgency, and increased frequency or urination. When she had a slight fever, she was placed on Rocephin emp irically to treat UTI despite unrevealing urine culture results. Continue empiric treatment of UTI with Rocephin for now. (3) Greater trochanter fracture: 50% partial NWB per Ortho for an indefinite amount of time with transition to SNF. PT/OT to assess. Platform walker as NWB on the LUE. Followup with her Orthopedic surgeon outpatient. Pain control with Acetaminophen and Tramadol as needed. (4) Fracture of scaphoid: Both ortho fractures with conservative measures recommended. L wrist in a splint with pain controlled. Cont scheduled Tylenol and PRN narcotics for breakthrough pain. Follow-up with her outpatient orthopedist. (5) Hypertension: At goal. Cont Lasix, Norvasc per home regimen. (6) Diastolic HF (heart failure): euvolemic/compensated. Minor bump in creatinine this morning on labwork so held Lasix. (7) Bronchiectasis: -No signs of acute exacerbation, continue home inhalers. Denies SOB. (8) DVT prophylaxis: SQ heparin Full Code Dispo-cont hospital stay. PT/OT to assess needs along with nursing staff. She is at [facility] and will likely need to go to SNF on the way back home. This would also be advantageous as she will have already quaratined for the 14 days at [facility] prior to returning home and won't need a longer quarantine which will be required if she goes to another facility. CM for authorization for [facility]. Currently awaiting ID recommendations. [facility]ist Admission and Anticipated Discharge Date Admission Date: February 07, 2020 Subjective feels well today denies symptoms afebrile tolerating PO fatigued Review of Systems Review of Systems: All systems reviewed & are unremarkable except as noted in Subjective Physical Exam Physical Exam: CONSTITUTIONAL: obese, vitals as above, generally well- appearing EYES: normal conjunctivae, no scleral icterus ENT: external ear and nose normal, oropharynx clear, MMM RESPIRATORY: clear to auscultation bilaterally, no crackles, rales or wheezes, normal respiratory effort CARDIOVASCULAR: regular rate and rhythm, S1/2 heard no murmurs, gallops or rubs, no JVD, no peripheral edema GASTROINTESTINAL: soft, nontender, nondistended, no guarding. MUSCULOSKELETAL: L wrist without splint-not examined in order to maintain alignment and limit pain, 5/5 throughout. Gait not assessed as she is partial weight bearing on the L hip. SKIN: warm and dry NEUROLOGIC: CN 2-12 grossly intact, normal cognition, normal speech, no tremor PSYCHIATRIC: alert, cooperative and answers questions appropriately. Results & Data Results & [facility] ([facility]) Vital Signs (Past 12 Hours) Vital Signs Temp Pulse Resp BP Pulse Ox 02/11/20 07:24 36.8 C 83 18 118/61 93 02/10/20 23:00 36.9 C 77 20 115/67 96 Laboratory Results Short CBC 02/11/20 Range/Units 05:46 WBC 10.45 (4.8-10.8) K/uL Hgb 10.3 L (12.0-16.0) g/dL Hct 32.3 L (37-47) % Plt Count 153 (130-400) K/uL BMP 02/11/20 05:46 Sodium 137 Potassium 3.5 Chloride 99 Carbon Dioxide 34 H BUN 19 H Creatinine 1.22 H Glucose 115 H Calcium 8.6 Medications Administered Current Inpatient Medications Acetaminophen (Acetaminophen 325 Mg Tab) 650 mg PO Q6 PRN PRN Reason: fever or pain Stop: 03/09/20 00:00 Last Admin: 02/10/20 14:05 Dose: 650 mg Documented by: Amlodipine Besylate (Amlodipine Besylate 5 Mg Tab) 2.5 mg PO DAILY DOUGLAS Stop: 03/09/20 08:59 Last Admin: 02/11/20 08:56 Dose: 2.5 mg Documented by: Aspirin (Aspirin 81 Mg Ectab) 81 mg PO QAM DOUGLAS Stop: 03/09/20 08:59 Last Admin: 02/11/20 08:56 Dose: 81 mg Documented by: Atorvastatin Calcium (Atorvastatin 20 Mg Tab) 20 mg PO HS DOUGLAS Stop: 03/08/20 22:28 Last Admin: 02/10/20 20:04 Dose: 20 mg Documented by: Citalopram Hydrobromide (Citalopram 20 Mg Tab) 30 mg PO QAM DOUGLAS Stop: 03/09/20 08:59 Last Admin: 02/11/20 08:56 Dose: 30 mg Documented by: Docusate Sodium (Docusate Sodium 100 Mg Cap) 100 mg PO BID DOUGLAS Stop: 03/08/20 22:28 Last Admin: 02/11/20 08:54 Dose: 100 mg Documented by: Fluticasone Furoate (Fluticasone Furoate 100mcg 14 Puffs/Inhaler) 1 puffs INH DAILY DOUGLAS Stop: 03/09/20 08:59 Last Admin: 02/11/20 08:56 Dose: 1 puffs Documented by: Fluticasone/Vilanterol (Fluticasone/Vilanterol 100/25mcg 14 Puffs/Inhaler) 1 puffs INH DAILY DOUGLAS Stop: 03/09/20 08:59 Last Admin: 02/11/20 08:57 Dose: 1 puffs Documented by: Furosemide (Furosemide 40 Mg Tab) 40 mg PO DAILY DOUGLAS Stop: 03/09/20 08:59 Last Admin: 02/11/20 08:56 Dose: 40 mg Documented by: Gabapentin (Gabapentin 100 Mg Cap) 100 mg PO BID DOUGLAS Stop: 03/08/20 22:28 Last Admin: 02/11/20 08:54 Dose: 100 mg Documented by: Heparin Sodium (Porcine) (Heparin Sod 5,000 Unit/0.5 Ml Vial) 5,000 units SQ Q8 DOUGLAS Stop: 03/08/20 22:28 Last Admin: 02/11/20 05:54 Dose: 5,000 units Documented by: Ceftriaxone Sodium 2,000 mg/ (Dextrose) 70 mls @ 140 mls/hr IV Q24H DOUGLAS; Protocol Stop: 02/14/20 16:59 Last Infusion: 02/10/20 18:34 Dose: Infused Documented by: Daptomycin 425 mg/ Syringe 8.5 mls @ 4.25 mls/min IV Q24H [facility]; Protocol Stop: 02/24/20 04:59 Last Admin: 02/11/20 05:54 Dose: 4.25 mls/min Documented by: Miscellaneous Information (Daptomycin Consult Active) 1 ea N/A UD PRN PRN Reason: Consult Stop: 03/11/20 04:37 Montelukast Sodium (Montelukast Sodium 10 Mg Tablet) 10 mg PO HS [facility] Stop: 03/08/20 22:28 Last Admin: 02/10/20 20:05 Dose: 10 mg Documented by: Pantoprazole Sodium (Pantoprazole 40 Mg Tab) 40 mg PO QAM [facility] Stop: 03/09/20 08:59 Last Admin: 02/11/20 08:56 Dose: 40 mg Documented by: Polyethylene Glycol (Polyethylene (Miralax) 17 Gm Pack) 17 gm PO DAILY PRN PRN Reason: Constipation Stop: 03/10/20 12:13 Last Admin: 02/10/20 09:16 Dose: 17 gm Documented by: Tramadol HCl (Tramadol Hcl 50 Mg Tablet) 50 mg PO Q4H PRN PRN Reason: Pain Stop: 03/10/20 16:26 Last Admin: 02/11/20 05:53 Dose: 50 mg Documented by: Trazodone HCl (Trazodone Hcl 100 Mg Tab) 100 mg PO HS [facility] Stop: 03/08/20 22:28 Last Admin: 02/10/20 20:04 Dose: 100 mg Documented by: Umeclidinium [place] (Umeclidinium [place] 62.5mcg/Blister 7 Puffs/Inhaler) 1 puffs INH DAILY [facility] Stop: 03/09/20 08:59 Last Admin: 02/11/20 08:57 Dose: 1 puffs Documented by: (1) Greater trochanter fracture Encounter type: initial encounter Fracture alignment: nondisplaced Fracture type: closed Laterality: left Qualified Code(s): S72.115A - Nondisplaced fracture of greater trochanter of left femur, initial encounter for closed f racture (2) Fracture of scaphoid Encounter type: initial encounter Fracture alignment: displaced Fracture type: closed Laterality: left Scaphoid bone location: unspecified portion of scaphoid Qualified Code(s): S62.002A - Unspecified fracture of navicular [scaphoid] bone of left wrist, initial encounter for closed fracture
[2020-02-11] MEDS ORDERED: clonazePAM 1 MG TAB PO PRN (15:10)
[2020-02-11] MEDS: cefTRIAXone SODIUM 2,000 MG in DEXTROSE 5% 50 ML IV SCH (17:43)
[2020-02-11] MEDS: POLYETHYLENE (MIRALAX) 17 GM PACK PO PRN (20:20)
[2020-02-11] MEDS: ATORVASTATIN 20 MG TAB PO SCH (20:22)
[2020-02-11] MEDS: traZODone HCL 100 MG TAB PO SCH (20:22)
[2020-02-11] MEDS: MONTELUKAST SODIUM 10 MG TABLET PO SCH (20:23)
[2020-02-12] MEDS: DAPTOmycin 425 MG in SYRINGE 0 ML IV SCH (05:27)
[2020-02-12] MEDS: HEPARIN SOD 5,000 UNIT/0.5 ML VIAL SQ SCH ×3 (05:28→21:24)
[2020-02-12] MEDS: FLUTICASONE FUROATE 100MCG 14 PUFFS/INHALER INH SCH (08:09)
[2020-02-12] MEDS: FLUTICASONE/VILANTEROL 100/25MCG 14 PUFFS/INHALER INH SCH (08:09)
[2020-02-12] MEDS: amLODIPine BESYLATE 5 MG TAB PO SCH (08:10)
[2020-02-12] MEDS: GABAPENTIN 100 MG CAP PO SCH ×2 (08:10→20:24)
[2020-02-12] MEDS: UMECLIDINIUM BROMIDE 62.5MCG/BLISTER 7 PUFFS/INHALER INH SCH (08:10)
[2020-02-12] MEDS: CITALOPRAM 20 MG TAB PO SCH (08:11)
[2020-02-12] MEDS: ASPIRIN 81 MG ECTAB PO SCH (08:11)
[2020-02-12] MEDS: PANTOprazole 40 MG TAB PO SCH (08:12)
[2020-02-12 08:35] LABS: Calcium 9.3 mg/dl (8.5-10.1); Creatinine Clr Calc Pharmacy 43.9 ml/min; Est GFR (African American) 54.7; Est GFR (Non-African American) 47.2; Potassium 3.4 mmol/L (3.5-5.1)
[2020-02-12] MEDS ORDERED: POTASSIUM CHLORIDE CRTAB 20 MEQ TABCR PO STA (09:41)
[2020-02-12] MEDS: ERGOCALCIFEROL 50,000 UNITS 1250 MCG CAP PO SCH (11:11)
[2020-02-12] MEDS: DOCUSATE SODIUM 100 MG CAP PO SCH ×2 (11:11→20:26)
--- NOTE | 2020-02-12 12:44 | Orthopedic Progress Note ---
Date of Service February 12, 2020 Assessment & Plan (1) Greater trochanter fracture: Agree with the treatment plan set forth by Dr. Lacey. I can continue to follow the trochanteric fracture in clinic in 2 to 3 weeks with repeat x- rays. Thanks for the care and thanks to Dr. Lacey for the initial consult. (2) Fracture of scaphoid: She was without her removable brace at the time. I encouraged her to use a thumb spica brace full-time with the exception of hygiene, and in particular when she is trying to ambulate with a walker. The risk of the fracture will be nonunion if she is not appropriately immobilized. If it would displace she may need surgical intervention to prevent rapid onset arthritis. I think all of these potentials are low risk. I think she should remain in the brace as much she tolerates. We did discuss a cast but she would prefer the brace. I think we can work with her on that regard. I would like to see her back in clinic in 2 to 3 weeks for repeat x-rays. Recommend full brace except for hygiene until t hat time. Admission and Anticipated Discharge Date Admission Date: February 07, 2020 Subjective Patient seen and evaluated for following care. Agree with Dr. Lacey's assessment and plan. Fernanda was known to me for previous left wrist surgery for fracture. She had done well and was on as needed follow-up. She reports that she fell at [facility] on accident. She had some mild wrist pain and left hip pain. She thinks she is getting better here during her stay. She expects to go home shortly. She is concerned about the isolation that be required because of Covid restrictions at [facility]. Review of Systems Review of Systems: All systems reviewed & are unremarkable except as noted in HPI & below Physical Exam Physical Exam: Left wrist: The left wrist has a IV site overlying the area of injury. She has some tenderness over the snuffbox as well as dorsal aspect of the scaphoid. She demonstrates near full active range of motion with minimal discomfort. She can make a composite fist. She has mild swelling and ecchymosis in these areas. Left hip: She is mildly tender over the greater trochanter, as expected. There is minimal edema and ecchymosis. Constitutional: well developed and well nourished; no acute distress and not intoxicated appearing ENMT: external ear and nose normal, oropharynx normal Respiratory: normal respiratory effort; no respiratory distress Cardiovascular: Extremities: normal capillary refill; no edema Skin: no rashes, warm and dry Psychiatric: A+Ox3, euthymic affect Results & Data ([facility]) Vital Signs (Past 12 Hours) Vital Signs Temp Pulse Resp BP Pulse Ox 02/12/20 07:34 36.8 C 73 17 138/62 95 Radiographs are reviewed. Agree with Dr. Lacey's assessment. She has a nondisplaced scaphoid waist fracture. Also, there is a minimally displaced greater to trochanter fracture. PG Care Time/CCT Total # of Minutes Spent Total Time Spent with Patient: Total time spent is greater than 50% in coordination of care (as documented) at patient's floor/unit and/or counseling patient: Coding Level of Care Code None Diagnoses Greater trochanter fracture S72.115A Encounter type: initial encounter Fracture alignment: nondisplaced Fracture type: closed Laterality: left Fracture of scaphoid S62.002A Encounter type: initial encounter Fracture alignment: displaced Fracture type: closed Laterality: left Scaphoid bone location: unspecified portion of scaphoid (1) Greater trochanter fracture Encounter type: initial encounter Fracture alignment: nondisplaced Fracture type: closed Laterality: left Qualified Code(s): S72.115A - Nondisplaced f racture of greater trochanter of left femur, initial encounter for closed fracture (2) Fracture of scaphoid Encounter type: initial encounter Fracture alignment: displaced Fracture type: closed Laterality: left Scaphoid bone location: unspecified portion of scaphoid Qualified Code(s): S62.002A - Unspecified fracture of navicular [scaphoid] bone of left wrist, initial encounter for closed fracture
[2020-02-12] MEDS ORDERED: FUROSEMIDE 40 MG TAB PO ONE (15:02)
--- NOTE | 2020-02-12 15:02 | Hospitalist Progress Note ---
Date of Service February 12, 2020 Assessment & Plan (1) Bacteremia: -as per 02/07/2020 adission notes "84-year-old female with PMH chronic diastolic CHF, CKD stage III, HTN, and other problems listed below who presents to the ED for evaluation of fall and left hip and wrist pain. Patient reports that she was sitting on the patio at [place] [facility] and she had gotten up to walk inside and lost her balance and fell. Patient reports that she was ambulating without her walker. Denies striking her head. No associated chest pain, lightheadedness, dizziness, syncopal event. Patient reports she otherwise been feeling well recently. Reports that she had routine testing for COVID-19 yesterday and was negative. She denies shortness of breath, lower extremity edema, orthopnea. No abdominal pain, nausea, vomiting, diarrhea. Denies any recent illnesses, fevers, chills. No urinary symptoms. In the ED, patient is found to have nondisplaced left greater trochanter fracture and left scaphoid fracture. ED discussed the case with orthopedics, Dr. Lacey, who advised that this will be nonsurgical treatment and the patient could be discharged home. Patient was unable to stand or ambulate in the ED, therefore she will be admitted for formal orthopedics evaluation and possible longterm placement for rehab" -patient was started on empiric ceftriaxone on 02/09/2020 and also on 02/10/2020 of empiric daptomycin because elevated body temperature on 02/09/2020 of 37.9 Celsius and 02/09/2020 admission blood cultures concerning for bacteremia (Coag neg staph not lugdunensis) in 2 of 4 bottles -02/12/2020: repeat blood cultures sent on 02/21/2020 so far no growth to date. stop the daptomycin. can continue the ceftriaxone for now (2) Acute UTI: -Had initial urinary incontinence, urinary urgency, and increased frequency or urination. When she had a slight fever of 37.9 Celsius on 02/09/2020 she was placed on Rocephin empirically to treat UTI despite unremarkable urine culture results (3) Greater trochanter fracture: -50% partial NWB per Ortho for an indefinite amount of time with transition to SNF. Platform walker as NWB on the LUE. -follow the trochanteric fracture in clinic in 2 to 3 weeks with repeat x-rays. (4) Fracture of scaphoid: -as per 02/12/2020 orthopedics note " She was without her removable brace at the time. I encouraged her to use a thumb spica brace full-time with the exception of hygiene, and in particular when she is trying to ambulate with a walker. The risk of the fracture will be nonunion if she is not appropriately immobilized. If it would displace she may need surgical intervention to prevent rapid onset arthritis. I think all of these potentials are low risk. I think she should remain in the brace as much she tolerates. We did discuss a cast but she would prefer the brace. I think we can work with her on that regard. I would like to see her back in clinic in 2 to 3 weeks for repeat x-rays. Recommend full brace except for hygiene until that time." Age-related osteoporosis with current path fracture, Left greater trochanter and Left scaphoid -vitamin D 50,000 units q weekly for 8 weeks as per orthopedics (5) Hypertension: -on Lasix, Norvasc per home regimen. (6) Diastolic HF (heart failure): -resume home dose Lasix as 40 mg daily for now (7) Bronchiectasis: -No signs of acute exacerbation, continue home inhalers. Denies SOB. (8) DVT prophylaxis: -SQ heparin Disposition: awaiting gearcase assembler to successfully find physical therapy facility for patient to go to after the hospital stay Full Code Admission and Anticipated Discharge Date Admission Date: February 07, 2020 Subjective Patient seen and examined while sitting on the chair. No acute distress. breathing on room air. no shortness of breath. she denies any acute symptoms Review of Systems Review of Systems: All systems reviewed & are unremarkable except as noted in Subjective Physical Exam Constitutional: cooperative and comfortable Eyes: PERRL, conjunctivae normal, anicteric sclerae EOM intact bilaterally ENMT: external ear and nose normal, oropharynx normal Neck: normal visual inspection Respiratory: normal respiratory effort, lungs clear to auscultation Cardiovascular: Rate/Rhythm: regular rate Gastrointestinal (Abdomen): normal bowel sounds, soft, nontender, no hepatosplenomegaly Musculoskeletal: Head/Neck/Chest: normocephalic Neurologic: PERRL, EOMI, accommodation nl, no face palsy, no dysarthria moves all extremities Psychiatric: A+Ox3, euthymic affect Results & Data Results & Data ([facility]) Vital Signs (Past 12 Hours) Vital Signs Temp Pulse Resp BP Pulse Ox 02/12/20 07:34 36.8 C 73 17 138/62 95 (1) Greater trochanter fracture Encounter type: initial encounter Fracture alignment: nondisplaced Fracture type: closed Laterality: left Qualified Code(s): S72.115A - Nondisplaced fracture of greater trochanter of left femur, initial encounter for closed fracture (2) Fracture of scaphoid Encounter type: initial encounter Fracture alignment: displaced Fracture type: closed Laterality: left Scaphoid bone location: unspecified portion of scaphoid Qualified Code(s): S62.002A - Unspecified fracture of navicular [scaphoid] bone of left wrist, initial encounter for closed fracture
[2020-02-12] MEDS: cefTRIAXone SODIUM 2,000 MG in DEXTROSE 5% 50 ML IV SCH (17:38)
[2020-02-12] MEDS: traZODone HCL 100 MG TAB PO SCH (20:24)
[2020-02-12] MEDS: ATORVASTATIN 20 MG TAB PO SCH (20:25)
[2020-02-12] MEDS: MONTELUKAST SODIUM 10 MG TABLET PO SCH (20:25)
[2020-02-12] MEDS: traMADol HCL 50 MG TABLET PO PRN (21:37)
[2020-02-13] MEDS: ACETAMINOPHEN 325 MG TAB PO PRN ×2 (01:44→07:48)
[2020-02-13] MEDS: traMADol HCL 50 MG TABLET PO PRN ×2 (01:46→18:59)
[2020-02-13] MEDS: HEPARIN SOD 5,000 UNIT/0.5 ML VIAL SQ SCH ×3 (06:08→21:19)
[2020-02-13] MEDS: FLUTICASONE/VILANTEROL 100/25MCG 14 PUFFS/INHALER INH SCH (07:49)
[2020-02-13] MEDS: UMECLIDINIUM BROMIDE 62.5MCG/BLISTER 7 PUFFS/INHALER INH SCH (07:49)
[2020-02-13] MEDS: FLUTICASONE FUROATE 100MCG 14 PUFFS/INHALER INH SCH (07:49)
[2020-02-13] MEDS: ASPIRIN 81 MG ECTAB PO SCH (07:50)
[2020-02-13] MEDS: FUROSEMIDE 40 MG TAB PO SCH (07:51)
[2020-02-13] MEDS: PANTOprazole 40 MG TAB PO SCH (07:51)
[2020-02-13] MEDS: amLODIPine BESYLATE 5 MG TAB PO SCH (07:52)
[2020-02-13] MEDS: CITALOPRAM 20 MG TAB PO SCH (07:53)
[2020-02-13] MEDS: GABAPENTIN 100 MG CAP PO SCH ×2 (07:54→21:17)
[2020-02-13] MEDS: DOCUSATE SODIUM 100 MG CAP PO SCH ×2 (07:54→21:17)
[2020-02-13 09:10] LABS: Hematocrit (blood only) 34.8 % (37-47); Mean Corpuscular Hemoglobin 29.2 pg (25-34); Mean Corpuscular Hgb Conc 31.6 g/dL (32-36); Mean Corpuscular Volume 92.3 fL (80-100); Platelet Count 170 K/uL (130-400); Red Blood Count 3.77 M/uL (4.2-5.4)
[2020-02-13 09:27] LABS: Creatinine Clr Calc Pharmacy 42.7 ml/min; Est GFR (Non-African American) 45.7
--- NOTE | 2020-02-13 10:42 | Hospitalist Progress Note ---
Date of Service February 13, 2020 Assessment & Plan (1) Bacteremia: -as per 02/07/2020 adission notes "84-year-old female with PMH chronic diastolic CHF, CKD stage III, HTN, and other problems listed below who presents to the ED for evaluation of fall and left hip and wrist pain. Patient reports that she was sitting on the patio at [place] [facility] and she had gotten up to walk inside and lost her balance and fell. Patient reports that she was ambulating without her walker. Denies striking her head. No associated chest pain, lightheadedness, dizziness, syncopal event. Patient reports she otherwise been feeling well recently. Reports that she had routine testing for COVID-19 yesterday and was negative. She denies shortness of breath, lower extremity edema, orthopnea. No abdominal pain, nausea, vomiting, diarrhea. Denies any recent illnesses, fevers, chills. No urinary symptoms. In the ED, patient is found to have nondisplaced left greater trochanter fracture and left scaphoid fracture. ED discussed the case with orthopedics, Dr. Lacey, who advised that this will be nonsurgical treatment and the patient could be discharged home. Patient was unable to stand or ambulate in the ED, therefore she will be admitted for formal orthopedics evaluation and possible [facility] placement for rehab" -patient was started on empiric ceftriaxone on 02/09/2020 and also on 02/10/2020 of empiric daptomycin because elevated body temperature on 02/09/2020 of 37.9 Celsius and 02/09/2020 admission blood cultures concerning for bacteremia (Coag neg staph not lugdunensis) in 2 of 4 bottles -02/12/2020: repeat blood cultures sent on 02/21/2020 so far no growth to date. stop the daptomycin. can continue the ceftriaxone for now for urinary tract since the results from blood cultures are more likely to be skin contaminant (2) Acute UTI: -Had initial urinary incontinence, urinary urgency, and increased frequency or urination. When she had a slight fever of 37.9 Celsius on 02/09/2020 she was placed on Rocephin empirically to treat UTI despite unremarkable urine culture results -continue ceftriaxone IV for now (3) Greater trochanter fracture: -50% partial NWB per Ortho for an indefinite amount of time with transition to SNF. Platform walker as NWB on the LUE. -follow the trochanteric fracture in clinic in 2 to 3 weeks with repeat x-rays. (4) Fracture of scaphoid: -as per 02/12/2020 orthopedics note " She was without her removable brace at the time. I encouraged her to use a thumb spica brace full-time with the exception of hygiene, and in particular when she is trying to ambulate with a walker. The risk of the fracture will be nonunion if she is not appropriately immobilized. If it would displace she may need surgical intervention to prevent rapid onset arthritis. I think all of these potentials are low risk. I think she should remain in the brace as much she tolerates. We did discuss a cast but she would prefer the brace. I think we can work with her on that regard. I would like to see her back in clinic in 2 to 3 weeks for repeat x-rays. Recommend full brace except for hygiene until that time." Age-related osteoporosis with current path fracture, Left greater trochanter and Left scaphoid -vitamin D 50,000 units q weekly for 8 weeks as per orthopedics (5) Hypertension: -on Norvasc per home regimen -on Lasix (6) Diastolic HF (heart failure): -home dose Lasix as 40 mg PO daily (additional IV Lasix 20 mg x 1 to be given on 02/13/2020 because of mildly increased edema of lower extremities) (7) Bronchiectasis: -No signs of acute exacerbation, continue home inhalers. Denies SOB. (8) DVT prophylaxis: -SQ heparin Disposition: awaiting case sealer to successfully find physical therapy facili ty for patient to go to after the hospital stay Full Code Admission and Anticipated Discharge Date Admission Date: February 07, 2020 Subjective additional IV Lasix 20 mg x 1 to be given on 02/13/2020 because of mildly increased edema of lower extremities in addition to the scheduled oral Lasix daily. patient breathing on room air. no respiratory distress. patient denies chest pain. her left wrist with the peripheral IV so patient not wearing the brace. patient denies any acute pain of the hips or legs. no chest pain. no abdomen pain. no nausea. no vomiting. no other symptoms reported Review of Systems Review of Systems: All systems reviewed & are unremarkable except as noted in Subjective Physical Exam Constitutional: cooperative and comfortable Eyes: PERRL, conjunctivae normal, anicteric sclerae EOM intact bilaterally ENMT: external ear and nose normal, oropharynx normal Neck: normal visual inspection Respiratory: normal respiratory effort, lungs clear to auscultation Cardiovascular: Rate/Rhythm: regular rate Gastrointestinal (Abdomen): normal bowel sounds, soft, nontender, no hepatosplenomegaly Musculoskeletal: Head/Neck/Chest: normocephalic mild edema of lower extremities Neurologic: PERRL, EOMI, accommodation nl, no face palsy, no dysarthria moves all extremities Psychiatric: A+Ox3, euthymic affect Results & Data Results & Data ([facility]) Vital Signs (Past 12 Hours) Vital Signs Temp Pulse Resp BP BP Pulse Ox 02/13/20 07:29 36.7 C 74 18 144/73 H 92 02/12/20 23:41 36.8 C 77 19 127/70 93 (1) Greater trochanter fracture Encounter type: initial encounter Fracture alignment: nondisplaced Fracture type: closed Laterality: left Qualified Code(s): S72.115A - Nondisplaced fracture of greater trochanter of left femur, initial encounter for closed fracture (2) Fracture of scaphoid Encounter type: initial encounter Fracture alignment: displaced Fracture type: closed Laterality: left Scaphoid bone location: unspecified portion of scaphoid Qualified Code(s): S62.002A - Unspecified fracture of navicular [scaphoid] bone of left wrist, initial encounter for closed fracture
[2020-02-13] MEDS ORDERED: FUROSEMIDE 20 MG in SYRINGE 0 ML IV ONE (11:00)
[2020-02-13] MEDS: cefTRIAXone SODIUM 2,000 MG in DEXTROSE 5% 50 ML IV SCH (17:22)
[2020-02-13] MEDS: ATORVASTATIN 20 MG TAB PO SCH (21:17)
[2020-02-13] MEDS: traZODone HCL 100 MG TAB PO SCH (21:17)
[2020-02-13] MEDS: MONTELUKAST SODIUM 10 MG TABLET PO SCH (21:17)
[2020-02-14] MEDS: traMADol HCL 50 MG TABLET PO PRN ×4 (01:00→23:19)
[2020-02-14] MEDS: HEPARIN SOD 5,000 UNIT/0.5 ML VIAL SQ SCH ×3 (06:12→21:10)
[2020-02-14 07:59] LABS: BUN Creatinine Ratio 19.4 (10-20); Calcium 9.6 mg/dl (8.5-10.1); Creatinine Clr Calc Pharmacy 37.9 ml/min; Est GFR (African American) 45.9; Est GFR (Non-African American) 39.6; Potassium 3.3 mmol/L (3.5-5.1)
[2020-02-14] MEDS: UMECLIDINIUM BROMIDE 62.5MCG/BLISTER 7 PUFFS/INHALER INH SCH (09:07)
[2020-02-14] MEDS: FLUTICASONE FUROATE 100MCG 14 PUFFS/INHALER INH SCH (09:07)
[2020-02-14] MEDS: FLUTICASONE/VILANTEROL 100/25MCG 14 PUFFS/INHALER INH SCH (09:07)
[2020-02-14] MEDS: DOCUSATE SODIUM 100 MG CAP PO SCH ×2 (09:08→21:09)
[2020-02-14] MEDS: ASPIRIN 81 MG ECTAB PO SCH (09:08)
[2020-02-14] MEDS: CITALOPRAM 20 MG TAB PO SCH (09:08)
[2020-02-14] MEDS: FUROSEMIDE 40 MG TAB PO SCH (09:09)
[2020-02-14] MEDS: GABAPENTIN 100 MG CAP PO SCH ×2 (09:10→21:09)
[2020-02-14] MEDS: PANTOprazole 40 MG TAB PO SCH (09:10)
[2020-02-14] MEDS: amLODIPine BESYLATE 5 MG TAB PO SCH (09:12)
[2020-02-14] MEDS ORDERED: cefTRIAXone SODIUM 2,000 MG in DEXTROSE 5% 50 ML IV STA (09:32)
[2020-02-14] MEDS ORDERED: POTASSIUM CHLORIDE CRTAB 20 MEQ TABCR PO STA (09:57)
--- NOTE | 2020-02-14 09:58 | Hospitalist Progress Note ---
Date of Service February 14, 2020 Assessment & Plan (1) Bacteremia: suspected bacteremia initially (02/09/2020 admission blood cultures concerning for bacteremia (Coag neg staph not lugdunensis) in 2 of 4 bottles; 02/12/2020: repeat blood cultures sent on 02/21/2020 so far no growth to date so the results from blood cultures are more likely to be skin contaminant) -as per 02/07/2020 admission notes "84-year-old female with PMH chronic diastolic CHF, CKD stage III, HTN, and other problems listed below who presents to the ED for evaluation of fall and left hip and wrist pain. Patient reports that she was sitting on the patio at the [place] [facility] and she had gotten up to walk inside and lost her balance and fell. Patient reports that she was ambulating without her walker. Denies striking her head. No associated chest pain, lightheadedness, dizziness, syncopal event. Patient reports she otherwise been feeling well recently. Reports that she had routine testing for COVID-19 yesterday and was negative. She denies shortness of breath, lower extremity edema, orthopnea. No abdominal pain, nausea, vomiting, diarrhea. Denies any recent illnesses, fevers, chills. No urinary symptoms. In the ED, patient is found to have nondisplaced left greater trochanter fracture and left scaphoid fracture. ED discussed the case with orthopedics, Dr. Lacey, who advised that this will be nonsurgical treatment and the patient could be discharged home. Patient was unable to stand or ambulate in the ED, therefore she will be admitted for formal orthopedics evaluation and possible assisted placement for rehab" -patient was started on empiric ceftriaxone on 02/09/2020 and also on 02/10/2020 of empiric daptomycin because elevated body temperature on 02/09/2020 of 37.9 Celsius and 02/09/2020 admission blood cultures concerning for bacteremia (Coag neg staph not lugdunensis) in 2 of 4 bottles -02/12/2020: repeat blood cultures sent on 02/21/2020 so far no growth to date. stop the daptomycin. can continue the ceftriaxone for now for urinary tract since the results from blood cultures are more likely to be skin contaminant (2) Acute UTI: -Had initial urinary incontinence, urinary urgency, and increased frequency or urination. When she had a slight fever of 37.9 Celsius on 02/09/2020 she was placed on Rocephin empirically to treat UTI despite unremarkable urine culture results -last dose of IV ceftriaxone to be completed on 02/14/2020 (3) Greater trochanter fracture: -50% partial NWB per Ortho for an indefinite amount of time with transition to SNF. *Continue left upper extremity thumb spica splint *Avoid weightbearing to left upper extremity *50% weightbearing left lower extremity with platform walker to protect left upper extremity (4) Fracture of scaphoid: -as per 02/12/2020 orthopedics note " She was without her removable brace at the time. I encouraged her to use a thumb spica brace full-time with the exception of hygiene, and in particular when she is trying to ambulate with a walker. The risk of the fracture will be nonunion if she is not appropriately immobilized. If it would displace she may need surgical intervention to prevent rapid onset arthritis. I think all of these potentials are low risk. I think she should remain in the brace as much she tolerates. We did discuss a cast but she would prefer the brace. I think we can work with her on that regard. I would like to see her back in clinic in 2 to 3 weeks for repeat x-rays. Recommend full brace except for hygiene until that time." -management as above Age-related osteoporosis with current pathological fracture, Left greater trochanter and Left scaphoid -vitamin D 50,000 units q weekly for 8 weeks as per orthopedics (5) Hypertension: -on Norvasc per home regimen -on Lasix (6) Diastolic HF (heart failure): -home dose Lasix as 40 mg PO daily (additional IV Lasix 20 mg x 1 to be given on 02/13/2020 because of mildly increased edema of lower extremities) -continue home dose Lasix 40 mg, (additional potassium supplements given on 02/14/2020 when serum potassium 3.3 on 02/14/2020). trial of outpatient scheduled potassium of 20 meq daily (7) Bronchiectasis: -No signs of acute exacerbation, continue home inhalers. Denies SOB. (8) DVT prophylaxis: -SQ heparin while in the hospital only -02/14/2020 discharge to [facility] for physical rehabilitation Primary care doctor appointment 02/18/2020 12:00 PM Provider Peter Lu MD Department Internal Medicine [facility] Patient will need to have orthopedic clinic follow up with Dr. Hansen or his colleagues within 2 weeks of discharge [facility] (Orthopedics) [address], [address] [place] [address] Admission and Anticipated Discharge Date Admission Date: February 07, 2020 Subjective Patient seen and examined at bedside. No acute distress. Breathing on room air. she reports being on minimal pain medications. patient denies other symptoms. discharge to [facility] for physical rehab as per case advocate. Patient agrees to the plans. No other complaints or symptoms on review of systems Review of Systems Review of Systems: All systems reviewed & are unremarkable except as noted in Subjective Physical Exam Constitutional: cooperative and comfortable Eyes: PERRL, conjunctivae normal, anicteric sclerae EOM intact bilaterally ENMT: external ear and nose normal, oropharynx normal Neck: normal visual inspection Respiratory: normal respiratory effort, lungs clear to auscultation Cardiovascular: Rate/Rhythm: regular rate Gastrointestinal (Abdomen): normal bowel sounds, soft, nontender, no hepatosplenomegaly Musculoskeletal: Head/Neck/Chest: normocephalic Neurologic: PERRL, EOMI, accommodation nl, no face palsy, no dysarthria moves all extremities Psychiatric: A+Ox3, euthymic affect Results & Data Results & Data ([facility]) Vital Signs (Past 12 Hours) Vital Signs Temp Pulse Resp BP Pulse Ox 02/14/20 09:12 120/71 02/14/20 07:26 36.5 C 69 18 124/70 92 02/13/20 23:11 37.5 C 83 14 142/69 H 95 (1) Greater trochanter fracture Encounter type: initial encounter Fracture alignment: nondisplaced Fracture type: closed Laterality: left Qualified Code(s): S72.115A - Nondisplaced fracture of greater trochanter of left femur, initial encounter for closed fracture (2) Fracture of scaphoid Encounter type: initial encounter Fracture alignment: displaced Fracture type: closed Laterality: left Scaphoid bone location: unspecified portion of scaphoid Qualified Code(s): S62.002A - Unspecified fracture of navicular [scaphoid] bone of left wrist, initial encounter for closed fracture
--- NOTE | 2020-02-14 10:24 | Discharge Summary ---
Date of Service February 14, 2020 Admission HPI Per Admitting Provider 84-year-old female with PMH chronic diastolic CHF, CKD stage III, HTN, and other problems listed below who presents to the ED for evaluation of fall and left hip and wrist pain. Patient reports that she was sitting on the patio at the [place] at [facility] and she had gotten up to walk inside and lost her balance and fell. Patient reports that she was ambulating without her walker. Denies striking her head. No associated chest pain, lightheadedness, dizziness, syncopal event. Patient reports she otherwise been feeling well recently. Reports that she had routine testing for COVID-19 yesterday and was negative. She denies shortness of breath, lower extremity edema, orthopnea. No abdominal pain, nausea, vomiting, diarrhea. Denies any recent illnesses, fevers, chills. No urinary symptoms. In the ED, patient is found to have nondisplaced left greater trochanter fracture and left scaphoid fracture. ED discussed the case with orthopedics, Dr. Lacey, who advised that this will be nonsurgical t reatment and the patient could be discharged home. Patient was unable to stand or ambulate in the ED, therefore she will be admitted for formal orthopedics evaluation and possible senior living placement for rehab. Principal Diagnosis suspected bacteremia initially (02/09/2020 admission blood cultures concerning for bacteremia (Coag neg staph not lugdunensis) in 2 of 4 bottles; 02/12/2020: repeat blood cultures sent on 02/21/2020 so far no growth to date so the results from blood cultures are more likely to be skin contaminant) Age-related osteoporosis with current pathological fracture, Left greater trochanter and Left scaphoid Acute UTI (urinary tract infection) Hypertension Bronchiectasis Discharge Exam Constitutional cooperative and comfortable Eyes PERRL, conjunctivae normal, anicteric sclerae EOM intact bilaterally ENMT external ear and nose normal, oropharynx normal Neck normal visual inspection Respiratory normal respiratory effort, lungs clear to auscultation Cardiovascular Rate/Rhythm: regular rate Gastrointestinal (Abdomen) normal bowel sounds, soft, nontender, no hepatosplenomegaly Musculoskeletal Head/Neck/Chest: normocephalic Neurologic PERRL, EOMI, accommodation nl, no face palsy, no dysarthria moves all extremities Psychiatric A+Ox3, euthymic affect Discharge Data Allergies Allergy/AdvReac Type Severity Reaction Status Date / Time phenytoin Allergy Intermediate RASH Verified 02/05/19 12:14 amoxicillin Allergy Unknown RASH Verified 02/05/19 12:14 clavulanic acid Allergy Unknown RASH Verified 02/05/19 12:14 dexamethasone AdvReac Intermediate SEVERE Verified 02/05/19 12:14 ANXIETY (TAKES PREDNISONE) Flu Virus Vaccine Allergy Severe RESPIRATORY Uncoded 02/05/19 12:14 DISTRESS Consultations 02/07/20 19:22 ED Decision to Admit Stat 02/07/20 22:29 Consult Orthopedic Surgery Routine 02/11/20 09:37 Consult Infectious Diseases Routine 02/12/20 06:48 Consult Orthopedic Surgery Routine Ordered Studies 02/07/20 14:50 CT bony pelvis wo con Stat Hospital Course (1) Bacteremia: suspected bacteremia initially (02/09/2020 admission blood cultures concerning for bacteremia (Coag neg staph not lugdunensis) in 2 of 4 bottles; 02/12/2020: repeat blood cultures sent on 02/21/2020 so far no growth to date so the results from blood cultures are more likely to be skin contaminant) -as per 02/07/2020 admission notes "84-year-old female with PMH chronic diastolic CHF, CKD stage III, HTN, and other problems listed below who presents to the ED for evaluation of fall and left hip and wrist pain. Patient reports that she was sitting on the patio at [place] at [facility] and she had gotten up to walk inside and lost her balance and fell. Patient reports that she was ambulating without her walker. Denies striking her head. No associated chest pain, lightheadedness, dizziness, syncopal event. Patient reports she otherwise been feeling well recently. Reports that she had routine testing for COVID-19 yesterday and was negative. She denies shortness of breath, lower extremity edema, orthopnea. No abdominal pain, nausea, vomiting, diarrhea. Denies any recent illnesses, fevers, chills. No urinary symptoms. In the ED, patient is found to have nondisplaced left greater trochanter fracture and left scaphoid fracture. ED discussed the case with orthopedics, Dr. Lacey, who advised that this will be nonsurgical treatment and the patient could be discharged home. Patient was unable to stand or ambulate in the ED, therefore she will be admitted for formal orthopedics evaluation and possible senior living placement for rehab" -patient was started on empiric ceftriaxone on 02/09/2020 and also on 02/10/2020 of empiric daptomycin because elevated body temperature on 02/09/2020 of 37.9 Celsius and 02/09/2020 admission blood cultures concerning for bacteremia (Coag neg staph not lugdunensis) in 2 of 4 bottles -02/12/2020: repeat blood cultures sent on 02/21/2020 so far no growth to date. stop the daptomycin. can continue the ceftriaxone for now for urinary tract since the results from blood cultures are more likely to be skin contaminant (2) Acute UTI: -Had initial urinary incontinence, urinary urgency, and increased frequency or urination. When she had a slight fever of 37.9 Celsius on 02/09/2020 she was placed on Rocephin empirically to treat UTI despite unremarkable urine culture results -last dose of IV ceftriaxone to be completed on 02/14/2020 (3) Greater trochanter fracture: -50% partial NWB per Ortho for an indefinite amount of time with transition to SNF. *Continue left upper extremity thumb spica splint *Avoid weightbearing to left upper extremity *50% weightbearing left lower extremity with platform walker to protect left upper extremity (4) Fracture of scaphoid: -as per 02/12/2020 orthopedics note " She was without her removable brace at the time. I encouraged her to use a thumb spica brace full-time with the exception of hygiene, and in particular when she is trying to ambulate with a walker. The risk of the fracture will be nonunion if she is not appropriately immobilized. If it would displace she may need surgical intervention to prevent rapid onset arthritis. I think all of these potentials are low risk. I think she should remain in the brace as much she tolerates. We did discuss a cast but she would prefer the brace. I think we can work with her on that regard. I would like to see her back in clinic in 2 to 3 weeks for repeat x-rays. Recommend full brace except for hygiene until that time." -management as above Age-related osteoporosis with current pathological fracture, Left greater trochanter and Left scaphoid -vitamin D 50,000 units q weekly for 8 weeks as per orthopedics (5) Hypertension: -on Norvasc per home regimen -on Lasix (6) Diastolic HF (heart failure): -home dose Lasix as 40 mg PO daily (additional IV Lasix 20 mg x 1 to be given on 02/13/2020 because of mildly increased edema of lower extremities) -continue home dose Lasix 40 mg, (additional potassium supplements given on 02/14/2020 when serum potassium 3.3 on 02/14/2020). trial of outpatient scheduled potassium of 20 meq daily (7) Bronchiectasis: -No signs of acute exacerbation, continue home inhalers. Denies SOB. (8) DVT prophylaxis: -SQ heparin while in the hospital only -02/14/2020 discharge to [facility] for physical rehabilitation Primary care doctor appointment 02/18/2020 12:00 PM Provider Peter Lu MD Department Internal Medicine [facility] Patient will need to have orthopedic clinic follow up with Dr. Hansen or his colleagues within 2 weeks of discharge [facility] (Orthopedics) [address], [address] [place] [address] Total Time Total Time Spent Total Time Spent (In Minutes): 40 minutes Total Time Includes: Examination of the Patient, Discharge Planning, Medication Reconciliation and Communication With Other Providers Discharge Plan Discharge Items Patient Disposition: Transfer Inpatient Rehab Fac Reason For Visit: LEFT HIP FRACTURE Discharge Diagnosis: suspected bacteremia initially (02/09/2020 admission blood cultures concerning for bacteremia (Coag neg staph not lugdunensis) in 2 of 4 bottles; 02/12/2020: repeat blood cultures sent on 02/21/2020 so far no growth to date so the results from blood cultures are more likely to be skin contaminant) Age-related osteoporosis with current pathological fracture, Left greater trochanter and Left scaphoid Acute UTI (urinary tract infection) Hypertension Bronchiectasis Condition on Discharge: Good Activity: Per Instructions section Weightbearing: Left partial Weightbearing Comment: Nonweightbearing to the left wrist, 50% weight on left leg with walker Non-emergency contact: Primary Care Provider and Surgeon Call non-emergency contact if: your symptoms worsen Follow-up/Referrals: Steven Hansen MD [Surgeon] - (Follow-up in approximately 2 weeks for repeat x-rays of the left wrist and left hip.) Peter uL MD [Primary Care Provider] - Diet: Regular and Heart Healthy Addtl Attending Provider Instructions: discharge to [facility] for physical rehabilitation Primary care doctor appointment 02/18/2020 12:00 PM Provider Peter Lu MD Department Internal Medicine [facility] Patient will need to have orthopedic clinic follow up with Dr. Hansen or his colleagues within 2 weeks of discharge [facility] (Orthopedics) [address], [address] [place] [address] acetaminophen 325 mg every 6 hours as needed for pain potassium 20 mew daily for 10 days vitamin D 50,000 units q weekly for 8 weeks as per orthopedics Addtl Setter Automatic Spinning Lathe Provider Instructions: ORTHOPEDICS: 1. Status post open reduction and internal fixation of left distal radius fracture with new acute-appearing left scaphoid fracture. 2. Left hip nondisplaced comminuted greater trochanter fracture without displacement. *Continue left upper extremity thumb spica splint *Avoid weightbearing to left upper extremity *50% weightbearing left lower extremity with platform walker to protect left upper extremity Pending Studies at Discharge: No Stand-Alone Forms: My [facility] Skilled Items Patient informed of condition?: Yes DNR: Yes Discharge Level of Care: Acute rehab Communicable Disease: No Discharge Prognosis: Stable Lines: None Urinary Catheter: No Medications and DC Order Prescriptions: New acetaminophen 325 mg Tablet 325 mg PO Q6H PRN (Reason: pain) 10 Days Qty: 40 RF: 0 potassium chloride [Klor-Con M20] 20 mEq Tablet,Er Particles/Crystals 20 meq PO QAM 10 Days Qty: 10 RF: 0 ergocalciferol (vitamin D2) 1,250 mcg (50,000 unit) Capsule 50,000 unit PO Luevano@0900 8 Days Qty: 8 RF: 0 Continued atorvastatin 20 mg tablet 20 mg PO HS RF: 0 citalopram 20 mg tablet 30 mg PO QAM RF: 0 omeprazole 20 mg capsule,delayed release(DR/EC) 20 mg PO QAM RF: 0 aspirin 81 mg Tablet,Delayed Release (Dr/Ec) 81 mg PO QAM RF: 0 montelukast 10 mg Tablet 10 mg PO HS RF: 0 PreserVision AREDS [id number] Capsule 1 cap PO BID RF: 0 psyllium husk [Reguloid (psyllium husk)] 0.4 gram Capsule 0.4 g PO HS RF: 0 clonazepam 1 mg Tablet 1 mg PO HS PRN (Reason: Insomnia) RF: 0 Arnuity Ellipta 100 mcg/actuation Blister With Device 1 inh INHALATION DAILY RF: 0 furosemide 40 mg Tablet 40 mg PO DAILY RF: 0 tramadol 50 mg Tablet 50 mg PO Q6H PRN (Reason: Pain) RF: 0 Refresh Tears 0.5 % Drops 1 drp OPB QID RF: 0 ondansetron HCl 4 mg Tablet 4 mg PO Q6H PRN (Reason: Nausea) RF: 0 amlodipine 2.5 mg Tablet 2.5 mg PO DAILY RF: 0 magnesium hydroxide [Milk of Magnesia] 400 mg/5 mL Suspension 30 ml PO DAILY PRN (Reason: Constipation) RF: 0 trazodone 100 mg Tablet 100 mg PO HS RF: 0 meclizine 25 mg Tablet 25 mg PO Q8H PRN (Reason: Dizziness) RF: 0 bisacodyl [Dulcolax (bisacodyl)] 10 mg Suppository 10 mg HI DAILY PRN (Reason: Constipation) RF: 0 docusate sodium 100 mg Capsule 100 mg PO BID RF: 0 Breo Ellipta 100-25 mcg/dose Blister With Device 1 inh INHALATION DAILY RF: 0 Spiriva Respimat 1.25 mcg/actuation Mist 2 puff INHALATION DAILY RF: 0 furosemide 40 mg Tablet 40 mg PO DAILY PRN (Reason: Weight Gain) RF: 0 gabapentin 100 mg Capsule 100 mg PO BID RF: 0 Oyster Shell Calcium-Vit D3 500 mg(1,250mg) -200 unit Powder In Packet 1 ea PO DAILY RF: 0 Discontinued acetaminophen [Mapap (acetaminophen)] 325 mg Tablet 650 mg PO QID PRN (Reason: pain) Qty: 90 RF: 0 Admission Data Admit Date/Time: 02/07/20 20:10 Attending Provider: Chris Garcia Admit Provider: Jose Carlos Jimenez Primary Care Provider: Peter Lu Other Providers: Serafin Topete ; Eugene Lacey ; Kerri Grier ; John Farias ; Alicia Whitney ; Kristopher Best I. ; Soren Oreilly II ; Ashley Montero ; Esvin Danielle ; Steven Hansen. ; [facility]
[2020-02-14] MEDS: ACETAMINOPHEN 325 MG TAB PO PRN (12:24)
[2020-02-14] MEDS: traZODone HCL 100 MG TAB PO SCH (21:09)
[2020-02-14] MEDS: ATORVASTATIN 20 MG TAB PO SCH (21:09)
[2020-02-14] MEDS: MONTELUKAST SODIUM 10 MG TABLET PO SCH (21:09)
[2020-02-15] MEDS: traMADol HCL 50 MG TABLET PO PRN ×3 (05:29→20:00)
[2020-02-15] MEDS: HEPARIN SOD 5,000 UNIT/0.5 ML VIAL SQ SCH ×3 (05:29→20:23)
[2020-02-15] MEDS ORDERED: POTASSIUM CHLORIDE CRTAB 20 MEQ TABCR PO SCH (09:00)
[2020-02-15] MEDS: FLUTICASONE FUROATE 100MCG 14 PUFFS/INHALER INH SCH (09:30)
[2020-02-15] MEDS: UMECLIDINIUM BROMIDE 62.5MCG/BLISTER 7 PUFFS/INHALER INH SCH (09:30)
[2020-02-15] MEDS: FLUTICASONE/VILANTEROL 100/25MCG 14 PUFFS/INHALER INH SCH (09:31)
[2020-02-15] MEDS: ASPIRIN 81 MG ECTAB PO SCH (09:32)
[2020-02-15] MEDS: FUROSEMIDE 40 MG TAB PO SCH (09:32)
[2020-02-15] MEDS: amLODIPine BESYLATE 5 MG TAB PO SCH (09:33)
[2020-02-15] MEDS: CITALOPRAM 20 MG TAB PO SCH (09:33)
[2020-02-15] MEDS: DOCUSATE SODIUM 100 MG CAP PO SCH ×2 (09:33→20:02)
[2020-02-15] MEDS: GABAPENTIN 100 MG CAP PO SCH ×2 (09:33→20:01)
[2020-02-15] MEDS: PANTOprazole 40 MG TAB PO SCH (09:33)
[2020-02-15] MEDS: ACETAMINOPHEN 325 MG TAB PO PRN (09:38)
--- NOTE | 2020-02-15 10:55 | Hospitalist Progress Note ---
Date of Service February 15, 2020 Assessment & Plan (1) Bacteremia: suspected bacteremia initially (02/09/2020 admission blood cultures concerning for bacteremia (Coag neg staph not lugdunensis) in 2 of 4 bottles; 02/12/2020: repeat blood cultures sent on 02/21/2020 so far no growth to date so the results from blood cultures are more likely to be skin contaminant) -as per 02/07/2020 admission notes "84-year-old female with PMH chronic diastolic CHF, CKD stage III, HTN, and other problems listed below who presents to the ED for evaluation of fall and left hip and wrist pain. Patient reports that she was sitting on the patio at [facility] and she had gotten up to walk inside and lost her balance and fell. Patient reports that she was ambulating without her walker. Denies striking her head. No associated chest pain, lightheadedness, dizziness, syncopal event. Patient reports she otherwise been feeling well recently. Reports that she had routine testing for COVID-19 yesterday and was negative. She denies shortness of breath, lower extremity edema, orthopnea. No abdominal pain, nausea, vomiting, diarrhea. Denies any recent illnesses, fevers, chills. No urinary symptoms. In the ED, patient is found to have nondisplaced left greater trochanter fracture and left scaphoid fracture. ED discussed the case with orthopedics, Dr. Lacey, who advised that this will be nonsurgical treatment and the patient could be discharged home. Patient was unable to stand or ambulate in the ED, therefore she will be admitted for formal orthopedics evaluation and possible longterm placement for rehab" -patient was started on empiric ceftriaxone on 02/09/2020 and also on 02/10/2020 of empiric daptomycin because elevated body temperature on 02/09/2020 of 37.9 Celsius and 02/09/2020 admission blood cultures concerning for bacteremia (Coag neg staph not lugdunensis) in 2 of 4 bottles -02/12/2020: repeat blood cultures sent on 02/21/2020 so far no growth to date. stop the daptomycin. was continued the ceftriaxone for now for urinary tract since the results from blood cultures are more likely to be skin contaminant (2) Acute UTI: -Had initial urinary incontinence, urinary urgency, and increased frequency or urination. When she had a slight fever of 37.9 Celsius on 02/09/2020 she was placed on Rocephin empirically to treat UTI despite unremarkable urine culture results -last dose of IV ceftriaxone to be completed on 02/14/2020 (3) Greater trochanter fracture: -50% partial NWB per Ortho for an indefinite amount of time with transition to SNF. *Continue left upper extremity thumb spica splint *Avoid weightbearing to left upper extremity *50% weightbearing left lower extremity with platform walker to protect left upper extremity (4) Fracture of scaphoid: -as per 02/12/2020 orthopedics note " She was without her removable brace at the time. I encouraged her to use a thumb spica brace full-time with the exception of hygiene, and in particular when she is trying to ambulate with a walker. The risk of the fracture will be nonunion if she is not appropriately immobilized. If it would displace she may need surgical intervention to prevent rapid onset arthritis. I think all of these potentials are low risk. I think she should remain in the brace as much she tolerates. We did discuss a cast but she would prefer the brace. I think we can work with her on that regard. I would like to see her back in clinic in 2 to 3 weeks for repeat x-rays. Recommend full brace except for hygiene until that time." -management as above Age-related osteoporosis with current pathological fracture, Left greater trochanter and Left scaphoid -vitamin D 50,000 units q weekly for 8 weeks as per orthopedics (5) Hypertension: -on Norvasc per home regimen -on Lasix (6) Diastolic HF (heart failure): -home dose Lasix as 40 mg PO daily (additional IV Lasix 20 mg x 1 to be given on 02/13/2020 because of mildly increased edema of lower extremities) -continue home dose Lasix 40 mg, (additional potassium supplements given on 02/14/2020 when serum potassium 3.3 on 02/14/2020). trial of scheduled potassium of 20 meq daily (7) Bronchiectasis: -No signs of acute exacerbation, continue home inhalers. Denies SOB. (8) DVT prophylaxis: -SQ heparin while in the hospital only -initial plans to discharge to [facility] for physical rehabilitation on 02/14/2020 had to be cancelled as per discussion with patient and major case detective. The current plans is for disposition for [place] for physical rehabilitation but case management now expected discharge date to be pushed back to Monday02/17/2020 need to reschedule Primary care doctor appointment on 02/18/2020 12:00 PM Provider Peter Lu MD Department Internal Medicine [facility] Patient will need to have orthopedic clinic follow up with Dr. Hansen or his colleagues within 2 weeks of discharge [facility] (Orthopedics) [address], [address] [place] [address] Admission and Anticipated Discharge Date Admission Date: February 07, 2020 Subjective -initial plans to discharge to [facility] for physical rehabilitation on 02/14/2020 had to be cancelled as per discussion with patient and major case detective. The current plans is for disposition for [facility] for physical rehabilitation but case management now expected discharge date to be pushed back to Monday02/17/2020 Patient with no acute distress. breathing on room air. no acute pain. no problems with eating or bathroom needed. no new symptoms on review of systems Review of Systems Review of Systems: All systems reviewed & are unremarkable except as noted in Subjective Physical Exam Constitutional: cooperative and comfortable Eyes: PERRL, conjunctivae normal, anicteric sclerae EOM intact bilaterally ENMT: external ear and nose normal, oropharynx normal Neck: normal visual inspection Respiratory: normal respiratory effort, lungs clear to auscultation Cardiovascular: Rate/Rhythm: regular rate Gastrointestinal (Abdomen): normal bowel sounds, soft, nontender, no hepatosplenomegaly Musculoskeletal: Head/Neck/Chest: normocephalic Neurologic: PERRL, EOMI, accommodation nl, no face palsy, no dysarthria moves all extremities Psychiatric: A+Ox3, euthymic affect Results & Data Results & Data ([facility]) Vital Signs (Past 12 Hours) Vital Signs Temp Pulse Resp BP BP Pulse Ox 02/15/20 07:20 36.7 C 79 18 108/61 95 02/14/20 23:20 36.8 C 78 20 114/70 90 (1) Greater trochanter fracture Encounter type: initial encounter Fracture alignment: nondisplaced Fracture type: closed Laterality: left Qualified Code(s): S72.115A - Nondisplaced fracture of greater trochanter of left femur, initial encounter for closed fracture (2) Fracture of scaphoid Encounter type: initial encounter Fracture alignment: displaced Fracture type: closed Laterality: left Scaphoid bone location: unspecified portion of scaphoid Qualified Code(s): S62.002A - Unspecified fracture of navicular [scaphoid] bone of left wrist, initial encounter for closed fracture
[2020-02-15] MEDS: MONTELUKAST SODIUM 10 MG TABLET PO SCH (20:01)
[2020-02-15] MEDS: traZODone HCL 100 MG TAB PO SCH (20:01)
[2020-02-15] MEDS: ATORVASTATIN 20 MG TAB PO SCH (20:01)
[2020-02-16] MEDS: traMADol HCL 50 MG TABLET PO PRN ×2 (00:18→23:27)
[2020-02-16] MEDS: HEPARIN SOD 5,000 UNIT/0.5 ML VIAL SQ SCH ×3 (06:28→21:35)
[2020-02-16 07:06] LABS: BUN Creatinine Ratio 19.3 (10-20); Calcium 9.1 mg/dl (8.5-10.1); Creatinine Clr Calc Pharmacy 39.2 ml/min; Est GFR (African American) 47.8; Est GFR (Non-African American) 41.2; Potassium 4.3 mmol/L (3.5-5.1)
--- NOTE | 2020-02-16 08:36 | Hospitalist Progress Note ---
Date of Service February 16, 2020 Assessment & Plan (1) Bacteremia: suspected bacteremia initially (02/09/2020 admission blood cultures concerning for bacteremia (Coag neg staph not lugdunensis) in 2 of 4 bottles; 02/12/2020: repeat blood cultures sent on 02/21/2020 so far no growth to date so the results from blood cultures are more likely to be skin contaminant) -as per 02/07/2020 admission notes "84-year-old female with PMH chronic diastolic CHF, CKD stage III, HTN, and other problems listed below who presents to the ED for evaluation of fall and left hip and wrist pain. Patient reports that she was sitting on the patio at [facility] [place] [facility] and she had gotten up to walk inside and lost her balance and fell. Patient reports that she was ambulating without her walker. Denies striking her head. No associated chest pain, lightheadedness, dizziness, syncopal event. Patient reports she otherwise been feeling well recently. Reports that she had routine testing for COVID-19 yesterday and was negative. She denies shortness of breath, lower extremity edema, orthopnea. No abdominal pain, nausea, vomiting, diarrhea. Denies any recent illnesses, fevers, chills. No urinary symptoms. In the ED, patient is found to have nondisplaced left greater trochanter fracture and left scaphoid fracture. ED discussed the case with orthopedics, Dr. Lacey, who advised that this will be nonsurgical treatment and the patient could be discharged home. Patient was unable to stand or ambulate in the ED, therefore she will be admitted for formal orthopedics evaluation and possible longterm placement for rehab" -patient was started on empiric ceftriaxone on 02/09/2020 and also on 02/10/2020 of empiric daptomycin because elevated body temperature on 02/09/2020 of 37.9 Celsius and 02/09/2020 admission blood cultures concerning for bacteremia (Coag neg staph not lugdunensis) in 2 of 4 bottles -02/12/2020: repeat blood cultures sent on 02/21/2020 so far no growth to date. stop the daptomycin. was continued the ceftriaxone for now for urinary tract since the results from blood cultures are more likely to be skin contaminant (2) Acute UTI: -Had initial urinary incontinence, urinary urgency, and increased frequency or urination. When she had a slight fever of 37.9 Celsius on 02/09/2020 she was placed on Rocephin empirically to treat UTI despite unremarkable urine culture results -last dose of IV ceftriaxone to be completed on 02/14/2020 (3) Greater trochanter fracture: -50% partial NWB per Ortho for an indefinite amount of time with transition to SNF. *Continue left upper extremity thumb spica splint *Avoid weightbearing to left upper extremity *50% weightbearing left lower extremity with platform walker to protect left upper extremity (4) Fracture of scaphoid: -as per 02/12/2020 orthopedics note " She was without her removable brace at the time. I encouraged her to use a thumb spica brace full-time with the exception of hygiene, and in particular when she is trying to ambulate with a walker. The risk of the fracture will be nonunion if she is not appropriately immobilized. If it would displace she may need surgical intervention to prevent rapid onset arthritis. I think all of these potentials are low risk. I think she should remain in the brace as much she tolerates. We did discuss a cast but she would prefer the brace. I think we can work with her on that regard. I would like to see her back in clinic in 2 to 3 weeks for repeat x-rays. Recommend full brace except for hygiene until that time." -management as above Age-related osteoporosis with current pathological fracture, Left greater trochanter and Left scaphoid -vitamin D 50,000 units q weekly for 8 weeks as per orthopedics (5) Hypertension: -on Norvasc per home regimen -on Lasix (6) Diastolic HF (heart failure): -home dose Lasix as 40 mg PO daily (additional IV Lasix 20 mg x 1 to be given on 02/13/2020 because of mildly increased edema of lower extremities) -continue home dose Lasix 40 mg, (additional potassium supplements given on 02/14/2020 when serum potassium 3.3 on 02/14/2020). patient serum potassium 4.3 on 02/16/2020 while on trial of scheduled potassium of 20 meq daily (hold the scheduled potassium for now) (7) Bronchiectasis: -No signs of acute exacerbation, continue home inhalers. Denies SOB. (8) DVT prophylaxis: -SQ heparin while in the hospital only -initial plans to discharge to [facility] for physical rehabilitation on 02/14/2020 had to be cancelled as per discussion with patient and case manager specialist. The current plans is for disposition for [facility] for physical rehabilitation but case management now expected discharge date to be pushed back to Monday02/17/2020 need to reschedule Primary care doctor appointment on 02/18/2020 12:00 PM Provider Peter Lu MD Department Internal Medicine [facility] Patient will need to have orthopedic clinic follow up with Dr. Hansen or his colleagues within 2 weeks of discharge [facility] (Orthopedics) [address], [address] [place] [address] Admission and Anticipated Discharge Date Admission Date: February 07, 2020 Subjective Patient denies acute symptoms. no shortness of breath. no acute pain. no dizziness. no nausea. no vomiting. no other symptoms on review of systems. Patient requests shower, hospitalist discussed with nurse and that shower/wash hair may be done with supervision. Patient is awaiting for possible discharges to [facility] for further physical rehabilitation on Monday02/17/2020 as per the case manager specialist notes Review of Systems Review of Systems: All systems reviewed & are unremarkable except as noted in Subjective Physical Exam Constitutional: cooperative and comfortable Eyes: PERRL, conjunctivae normal, anicteric sclerae EOM intact bilaterally ENMT: external ear and nose normal, oropharynx normal Neck: normal visual inspection Respiratory: normal respiratory effort, lungs clear to auscultation Cardiovascular: Rate/Rhythm: regular rate Gastrointestinal (Abdomen): normal bowel sounds, soft, nontender, no hepatosplenomegaly Musculoskeletal: Head/Neck/Chest: normocephalic Neurologic: PERRL, EOMI, accommodation nl, no face palsy, no dysarthria moves all extremities Psychiatric: A+Ox3, euthymic affect Results & Data Results & Data ([facility]) Vital Signs (Past 12 Hours) Vital Signs Temp Pulse Resp BP Pulse Ox 02/16/20 07:27 36.6 C 67 16 115/65 91 02/15/20 23:05 36.6 C 79 18 132/54 L 91 (1) Greater trochanter fracture Encounter type: initial encounter Fracture alignment: nondisplaced Fracture type: closed Laterality: left Qualified Code(s): S72.115A - Nondisplaced fracture of greater trochanter of left femur, initial encounter for closed fracture (2) Fracture of scaphoid Encounter type: initial encounter Fracture alignment: displaced Fracture type: closed Laterality: left Scaphoid bone location: unspecified portion of scaphoid Qualified Code(s): S62.002A - Unspecified fracture of navicular [scaphoid] bone of left wrist, initial encounter for closed fracture
[2020-02-16] MEDS: FLUTICASONE/VILANTEROL 100/25MCG 14 PUFFS/INHALER INH SCH (08:38)
[2020-02-16] MEDS: UMECLIDINIUM BROMIDE 62.5MCG/BLISTER 7 PUFFS/INHALER INH SCH (08:38)
[2020-02-16] MEDS: FLUTICASONE FUROATE 100MCG 14 PUFFS/INHALER INH SCH (08:38)
[2020-02-16] MEDS: CITALOPRAM 20 MG TAB PO SCH (08:39)
[2020-02-16] MEDS: DOCUSATE SODIUM 100 MG CAP PO SCH ×2 (08:40→20:34)
[2020-02-16] MEDS: ASPIRIN 81 MG ECTAB PO SCH (08:40)
[2020-02-16] MEDS: GABAPENTIN 100 MG CAP PO SCH ×2 (08:41→20:33)
[2020-02-16] MEDS: FUROSEMIDE 40 MG TAB PO SCH (08:41)
[2020-02-16] MEDS: amLODIPine BESYLATE 5 MG TAB PO SCH (08:41)
[2020-02-16] MEDS: PANTOprazole 40 MG TAB PO SCH (08:42)
[2020-02-16] MEDS: ERGOCALCIFEROL 50,000 UNITS 1250 MCG CAP PO SCH (08:42)
[2020-02-16] MEDS: ACETAMINOPHEN 325 MG TAB PO PRN (12:21)
[2020-02-16] MEDS ORDERED: traMADol HCL 50 MG TABLET PO STA (15:53)
[2020-02-16] MEDS: MONTELUKAST SODIUM 10 MG TABLET PO SCH (20:33)
[2020-02-16] MEDS: traZODone HCL 100 MG TAB PO SCH (20:33)
[2020-02-16] MEDS: ATORVASTATIN 20 MG TAB PO SCH (20:33)
[2020-02-17] MEDS: HEPARIN SOD 5,000 UNIT/0.5 ML VIAL SQ SCH (05:41)
[2020-02-17] MEDS: ACETAMINOPHEN 325 MG TAB PO PRN (07:40)
[2020-02-17] MEDS: amLODIPine BESYLATE 5 MG TAB PO SCH (07:41)
[2020-02-17] MEDS: PANTOprazole 40 MG TAB PO SCH (07:42)
[2020-02-17] MEDS: GABAPENTIN 100 MG CAP PO SCH (07:42)
[2020-02-17] MEDS: ASPIRIN 81 MG ECTAB PO SCH (07:42)
[2020-02-17] MEDS: FUROSEMIDE 40 MG TAB PO SCH (07:42)
[2020-02-17] MEDS: CITALOPRAM 20 MG TAB PO SCH (07:43)
[2020-02-17] MEDS: FLUTICASONE FUROATE 100MCG 14 PUFFS/INHALER INH SCH (07:44)
[2020-02-17] MEDS: FLUTICASONE/VILANTEROL 100/25MCG 14 PUFFS/INHALER INH SCH (07:44)
[2020-02-17] MEDS: UMECLIDINIUM BROMIDE 62.5MCG/BLISTER 7 PUFFS/INHALER INH SCH (07:44)
[2020-02-17] MEDS: DOCUSATE SODIUM 100 MG CAP PO SCH (07:45)
--- NOTE | 2020-02-17 11:15 | Hospitalist Progress Note ---
Date of Service February 17, 2020 Assessment & Plan (1) Bacteremia: suspected bacteremia initially (02/09/2020 admission blood cultures concerning for bacteremia (Coag neg staph not lugdunensis) in 2 of 4 bottles; 02/12/2020: repeat blood cultures sent on 02/21/2020 so far no growth to date so the results from blood cultures are more likely to be skin contaminant) -as per 02/07/2020 admission notes "84-year-old female with PMH chronic diastolic CHF, CKD stage III, HTN, and other problems listed below who presents to the ED for evaluation of fall and left hip and wrist pain. Patient reports that she was sitting on the patio [place] [facility] and she had gotten up to walk inside and lost her balance and fell. Patient reports that she was ambulating without her walker. Denies striking her head. No associated chest pain, lightheadedness, dizziness, syncopal event. Patient reports she otherwise been feeling well recently. Reports that she had routine testing for COVID-19 yesterday and was negative. She denies shortness of breath, lower extremity edema, orthopnea. No abdominal pain, nausea, vomiting, diarrhea. Denies any recent illnesses, fevers, chills. No urinary symptoms. In the ED, patient is found to have nondisplaced left greater trochanter fracture and left scaphoid fracture. ED discussed the case with orthopedics, Dr. Lacey, who advised that this will be nonsurgical treatment and the patient could be discharged home. Patient was unable to stand or ambulate in the ED, therefore she will be admitted for formal orthopedics evaluation and possible [facility] placement for rehab" -patient was started on empiric ceftriaxone on 02/09/2020 and also on 02/10/2020 of empiric daptomycin because elevated body temperature on 02/09/2020 of 37.9 Celsius and 02/09/2020 admission blood cultures concerning for bacteremia (Coag neg staph not lugdunensis) in 2 of 4 bottles -02/12/2020: repeat blood cultures sent on 02/21/2020 no growth to date. stopped the daptomycin. was continued the ceftriaxone for now for urinary tract since the results from blood cultures are more likely to be skin contaminant (2) Acute UTI: -Had initial urinary incontinence, urinary urgency, and increased frequency or urination. When she had a slight fever of 37.9 Celsius on 02/09/2020 she was placed on Rocephin empirically to treat UTI despite unremarkable urine culture results -last dose of IV ceftriaxone completed on 02/14/2020 (3) Greater trochanter fracture: -50% partial NWB per Ortho for an indefinite amount of time with transition to SNF. *Continue left upper extremity thumb spica splint *Avoid weightbearing to left upper extremity *50% weightbearing left lower extremity with platform walker to protect left upper extremity (4) Fracture of scaphoid: -as per 02/12/2020 orthopedics note " She was without her removable brace at the time. I encouraged her to use a thumb spica brace full-time with the exception of hygiene, and in particular when she is trying to ambulate with a walker. The risk of the fracture will be nonunion if she is not appropriately immobilized. If it would displace she may need surgical intervention to prevent rapid onset arthritis. I think all of these potentials are low risk. I think she should remain in the brace as much she tolerates. We did discuss a cast but she would prefer the brace. I think we can work with her on that regard. I would like to see her back in clinic in 2 to 3 weeks for repeat x-rays. Recommend full brace except for hygiene until that time." -management as above Age-related osteoporosis with current pathological fracture, Left greater trochanter and Left scaphoid -vitamin D 50,000 units q weekly for 8 weeks as per orthopedics (5) Hypertension: -on Norvasc per home regimen -on Lasix (6) Diastolic HF (heart failure): -home dose Lasix as 40 mg PO daily (additional IV Lasix 20 mg x 1 to be given on 02/13/2020 because of mildly increased edema of lower extremities) -continue home dose Lasix 40 mg, (additional potassium supplements given on 02/14/2020 when serum potassium 3.3 on 02/14/2020). patient serum potassium 4.3 on 02/16/2020 while on trial of scheduled potassium of 20 meq daily (hold the scheduled potassium for now) (7) Bronchiectasis: -No signs of acute exacerbation, continue home inhalers. Denies SOB. (8) DVT prophylaxis: -SQ heparin while in the hospital only -initial plans to discharge to [facility] for physical rehabilitation on 02/14/2020 had to be cancelled as per discussion with patient and correctional case records supervisor. The current plans is for disposition for [facility] for physical rehabilitation but case management now expected discharge date to be pushed back to Monday02/17/2020 -02/17/2020: case angelica reports that [facility] may be able to accept patient for physical rehabilitation but requires negative COVID-19 screening test. COVID-19 screening test to be sent to lab on 02/17/2020 as discussed with patient's nurse. Patient will need to have orthopedic clinic follow up with Dr. Hansen or his colleagues within 2 weeks of discharge [facility] (Orthopedics) [address], [address] [place] [address] Admission and Anticipated Discharge Date Admission Date: February 07, 2020 Subjective case mangterrie reports that [facility] may be able to accept patient for physical rehabilitation but requires negative COVID-19 screening test. COVID-19 screening test to be sent to lab on 02/17/2020 as discussed with patient's nurse. patient otherwise denies acute pain. she is breathing on room air. denies shortness of breath. denies other symptoms on review of systems. she is wearing her left wrist brace. . Review of Systems Review of Systems: All systems reviewed & are unremarkable except as noted in Subjective Physical Exam Constitutional: cooperative and comfortable Eyes: PERRL, conjunctivae normal, anicteric sclerae EOM intact bilaterally ENMT: external ear and nose normal, oropharynx normal Neck: normal visual inspection Respiratory: normal respiratory effort, lungs clear to auscultation Cardiovascular: Rate/Rhythm: regular rate Gastrointestinal (Abdomen): normal bowel sounds, soft, nontender, no hepatosplenomegaly Musculoskeletal: Head/Neck/Chest: normocephalic Extremities: + wrist abnormality (left wrist brace) Neurologic: PERRL, EOMI, accommodation nl, no face palsy, no dysarthria moves all extremities Psychiatric: A+Ox3, euthymic affect Results & Data Results & Data ([facility]) Vital Signs (Past 12 Hours) Vital Signs Temp Pulse Resp BP Pulse Ox 02/17/20 07:15 36.5 C 79 18 109/73 93 (1) Greater trochanter fracture Encounter type: initial encounter Fracture alignment: nondisplaced Fracture type: closed Laterality: left Qualified Code(s): S72.115A - Nondisplaced fracture of greater trochanter of left femur, initial encounter for closed fracture (2) Fracture of scaphoid Encounter type: initial encounter Fracture alignment: displaced Fracture type: closed Laterality: left Scaphoid bone location: unspecified portion of scaphoid Qualified Code(s): S62.002A - Unspecified fracture of navicular [scaphoid] bone of left wrist, initial encounter for closed fracture
--- NOTE | 2020-02-17 12:16 | Discharge Summary ---
Date of Service February 17, 2020 Admission HPI Per Admitting Provider 84-year-old female with PMH chronic diastolic CHF, CKD stage III, HTN, and other problems listed below who presents to the ED for evaluation of fall and left hip and wrist pain. Patient reports that she was sitting on the patio [place] [facility] and she had gotten up to walk inside and lost her balance and fell. Patient reports that she was ambulating without her walker. Denies striking her head. No associated chest pain, lightheadedness, dizziness, syncopal event. Patient reports she otherwise been feeling well recently. Reports that she had routine testing for COVID-19 yesterday and was negative. She denies shortness of breath, lower extremity edema, orthopnea. No abdominal pain, nausea, vomiting, diarrhea. Denies any recent illnesses, fevers, chills. No urinary symptoms. In the ED, patient is found to have nondisplaced left greater trochanter fracture and left scaphoid fracture. ED discussed the case with orthopedics, Dr. Lacey, who advised that this will be nonsurgical t reatment and the patient could be discharged home. Patient was unable to stand or ambulate in the ED, therefore she will be admitted for formal orthopedics evaluation and possible senior living placement for rehab. Admission Exam (Per Admitting) Constitutional cooperative and comfortable Eyes PERRL, conjunctivae normal, anicteric sclerae EOM intact bilaterally ENMT external ear and nose normal, oropharynx normal Neck normal visual inspection Respiratory normal respiratory effort, lungs clear to auscultation Cardiovascular Rate/Rhythm: regular rate Gastrointestinal (Abdomen) normal bowel sounds, soft, nontender, no hepatosplenomegaly Musculoskeletal Head/Neck/Chest: normocephalic Extremities: + wrist abnormality (left wrist brace) Neurologic PERRL, EOMI, accommodation nl, no face palsy, no dysarthria moves all extremities Psychiatric A+Ox3, euthymic affect Discharge Data Consultations 02/07/20 19:22 ED Decision to Admit Stat 02/07/20 22:29 Consult Orthopedic Surgery Routine 02/11/20 09:37 Consult Infectious Diseases Routine 02/12/20 06:48 Consult Orthopedic Surgery Routine Hospital Course (1) Bacteremia: suspected bacteremia initially (02/09/2020 admission blood cultures concerning for bacteremia (Coag neg staph not lugdunensis) in 2 of 4 bottles; 02/12/2020: repeat blood cultures sent on 02/21/2020 so far no growth to date so the results from blood cultures are more likely to be skin contaminant) -as per 02/07/2020 admission notes "84-year-old female with PMH chronic diastolic CHF, CKD stage III, HTN, and other problems listed below who presents to the ED for evaluation of fall and left hip and wrist pain. Patient reports that she was sitting on the patio [place] [facility] and she had gotten up to walk inside and lost her balance and fell. Patient reports that she was ambulating without her walker. Denies striking her head. No associated chest pain, lightheadedness, dizziness, syncopal event. Patient reports she otherwise been feeling well recently. Reports that she had routine testing for COVID-19 yesterday and was negative. She denies shortness of breath, lower extremity edema, orthopnea. No abdominal pain, nausea, vomiting, diarrhea. Denies any recent illnesses, fevers, chills. No urinary symptoms. In the ED, patient is found to have nondisplaced left greater trochanter fracture and left scaphoid fracture. ED discussed the case with orthopedics, Dr. Lacey, who advised that this will be nonsurgical treatment and the patient could be discharged home. Patient was unable to stand or ambulate in the ED, therefore she will be admitted for formal orthopedics evaluation and possible senior living placement for rehab" -patient was started on empiric ceftriaxone on 02/09/2020 and also on 02/10/2020 of empiric daptomycin because elevated body temperature on 02/09/2020 of 37.9 Celsius and 02/09/2020 admission blood cultures concerning for bacteremia (Coag neg staph not lugdunensis) in 2 of 4 bottles -02/12/2020: repeat blood cultures sent on 02/21/2020 no growth to date. stopped the daptomycin. was continued the ceftriaxone for now for urinary tract since the results from blood cultures are more likely to be skin contaminant (2) Acute UTI: -Had initial urinary incontinence, urinary urgency, and increased frequency or urination. When she had a slight fever of 37.9 Celsius on 02/09/2020 she was placed on Rocephin empirically to treat UTI despite unremarkable urine culture results -last dose of IV ceftriaxone completed on 02/14/2020 (3) Greater trochanter fracture: -50% partial NWB per Ortho for an indefinite amount of time with transition to SNF. *Continue left upper extremity thumb spica splint *Avoid weightbearing to left upper extremity *50% weightbearing left lower extremity with platform walker to protect left upper extremity (4) Fracture of scaphoid: -as per 02/12/2020 orthopedics note " She was without her removable brace at the time. I encouraged her to use a thumb spica brace full-time with the exception of hygiene, and in particular when she is trying to ambulate with a walker. The risk of the fracture will be nonunion if she is not appropriately immobilized. If it would displace she may need surgical intervention to prevent rapid onset arthritis. I think all of these potentials are low risk. I think she should remain in the brace as much she tolerates. We did discuss a cast but she would prefer the brace. I think we can work with her on that regard. I would like to see her back in clinic in 2 to 3 weeks for repeat x-rays. Recommend full brace except for hygiene until that time." -management as above Age-related osteoporosis with current pathological fracture, Left greater trochanter and Left scaphoid -vitamin D 50,000 units q weekly for 8 weeks as per orthopedics (5) Hypertension: -on Norvasc per home regimen -on Lasix (6) Diastolic HF (heart failure): -home dose Lasix as 40 mg PO daily (additional IV Lasix 20 mg x 1 to be given on 02/13/2020 because of mildly increased edema of lower extremities) -continue home dose Lasix 40 mg, (additional potassium supplements given on 02/14/2020 when serum potassium 3.3 on 02/14/2020). patient serum potassium 4.3 on 02/16/2020 while on trial of scheduled potassium of 20 meq daily (hold the scheduled potassium for now) (7) Bronchiectasis: -No signs of acute exacerbation, continue home inhalers. Denies SOB. (8) DVT prophylaxis: -SQ heparin while in the hospital only -initial plans to discharge to [facility] for physical rehabilitation on 02/14/2020 had to be cancelled as per discussion with patient and telephonic case manager. The current plans is for disposition for [facility] for physical rehabilitation but case management now expected discharge date to be pushed back to Monday02/17/2020 -02/17/2020: case manger reports that [facility] may be able to accept patient for physical rehabilitation but requires negative COVID-19 screening test. COVID-19 screening test to be sent to lab on 02/17/2020 as discussed with patient's nurse and is negative. discharge to [facility] for physical rehabilitation Patient will need to have orthopedic clinic follow up with Dr. Hansen or his colleagues within 2 weeks of discharge [facility] (Orthopedics) [address], [address] [place] [address] time spent on discharge 40 minutes DISCHARGE DIAGNOSIS suspected bacteremia initially (02/09/2020 admission blood cultures concerning for bacteremia (Coag neg staph not lugdunensis) in 2 of 4 bottles; 02/12/2020: repeat blood cultures sent on 02/21/2020 so far no growth to date so the results from blood cultures are more likely to be skin contaminant) Age-related osteoporosis with current pathological fracture, Left greater trochanter and Left scaphoid Acute UTI (urinary tract infection) Hypertension Bronchiectasis
[2020-02-17] MEDS: traMADol HCL 50 MG TABLET PO PRN (12:55)
== END 2020-02-17 14:46 | DRG 543 ==
LOC: ED 12:20 → 3N 20:10 → SUATTDRO 20:10 → 3N 21:52

== ENCOUNTER 2023-02-19 04:58 | Observation (INO) ==
--- NOTE | 2023-02-19 06:42 | Emergency Department Note ---
History of Present Illness General Chief complaint: Fall Stated complaint: Fell out of bed, Swelling above L Eye Time Seen by Provider: 02/19/23 05:20 Source: patient, RN notes reviewed and old records reviewed (I have reviewed the records from the [facility] that were sent over with the patient) Mode of arrival: ambulatory Limitations: no limitations History of Present Illness Maximum Pain Intensity: 5 This patient is an 87-year-old female who suffered from a fall. She lives at [facility]. She does have history of CHF and chronic renal disease apparently as well as history of breast cancer. She says she fell out of a chair she thinks she fell asleep she did hit her head and has swelling around her eye but besides the swelling around her eyes she denies that she has any significant pain. She does not think she passed out. She has no change in vision. No neck pain. No dental pain or jaw pain. No chest pain or shortness of breath she does wear oxygen at night. No abdominal pain. No extremity pain or swelling or weight gain recently. She could not get him up and was on the floor for about 2 hours. She said her call button did not work. She is on no blood thinners. Home Medications Medication Instructions Recorded Confirmed Type aspirin 81 mg tablet,delayed 81 mg PO QAM 10/24/18 10/16/21 History release atorvastatin 20 mg tablet 20 mg PO HS 10/24/18 10/16/21 History citalopram 20 mg tablet 20 mg PO QAM 10/24/18 10/16/21 History clonazepam 1 mg tablet 1 mg PO HS 10/24/18 10/16/21 History fluticasone furoate 100 1 inh inhalation DAILY 10/24/18 10/16/21 History mcg/actuation blister powder for inhalation (Arnuity Ellipta) montelukast 10 mg tablet 10 mg PO HS 10/24/18 10/16/21 History vitamins A,C,[id number]-[id number]-cciixo 4,296 1 cap PO BID 10/24/18 10/16/21 History mcg-226 mg-90 mg capsule (PreserVision AREDS) carboxymethylcellulose sodium 0.5 1 drp OPB QID 02/05/19 10/16/21 History % eye drops (Refresh Tears) furosemide 40 mg tablet 40 mg PO DAILY 02/05/19 10/16/21 History tramadol 50 mg tablet 50 mg PO Q6H PRN Pain 02/05/19 10/16/21 History amlodipine 2.5 mg tablet 2.5 mg PO DAILY 02/07/20 10/16/21 History bisacodyl 10 mg rectal suppository 10 mg ND DAILY PRN Constipation 02/07/20 10/16/21 History (Dulcolax (bisacodyl)) calcium carbonate 500 mg-vitamin 1 ea PO DAILY 02/07/20 10/16/21 History D3 5 mcg (200 unit) oral powder pack (Oyster Shell Calcium) docusate sodium 100 mg capsule 100 mg PO BID 02/07/20 10/16/21 History fluticasone furoate 100 1 inh inhalation DAILY 02/07/20 10/16/21 History mcg-vilanterol 25 mcg/dose inhalation powder (Breo Ellipta) gabapentin 100 mg capsule 100 mg PO BID 02/07/20 10/16/21 History magnesium hydroxide 400 mg/5 mL 30 ml PO DAILY PRN Constipation 02/07/20 10/16/21 History oral suspension (Milk of Magnesia) ondansetron HCl 4 mg tablet 4 mg PO Q6H PRN Nausea 02/07/20 10/16/21 History tiotropium bromide 1.25 2 puff inhalation DAILY 02/07/20 10/16/21 History mcg/actuation mist for inhalation (Spiriva Respimat) trazodone 100 mg tablet 100 mg PO HS 02/07/20 10/16/21 History bisacodyl 5 mg tablet 10 mg PO DAILY PRN Constipation 08/22/20 10/16/21 History famotidine 20 mg tablet 20 mg PO DAILY 08/22/20 10/16/21 History sennosides 8.6 mg-docusate sodium 2 tab-cap PO BID 08/22/20 10/16/21 History 50 mg capsule (Senna Plus) acetaminophen 500 mg tablet 1,000 mg PO Q8H PRN Pain 10/16/21 10/16/21 History (Tylenol Extra Strength) acetaminophen 650 mg 650 mg PO QAM 3 GRAMS/24 HOURS 10/16/21 10/16/21 History tablet,extended release cholecalciferol (vitamin D3) 125 125 mcg PO DAILY 10/16/21 10/16/21 History mcg (5,000 unit) tablet (Vitamin D3) diclofenac sodium 1 % topical gel 4 g topical QID PRN Pain 10/16/21 10/16/21 History Allergies Allergy/AdvReac Type Severity Reaction Status Date / Time phenytoin Allergy Intermediate RASH Verified 10/16/21 02:27 amoxicillin Allergy Mild RASH Verified 10/16/21 02:27 clavulanic acid Allergy Mild RASH Verified 10/16/21 02:27 dexamethasone AdvReac Intermediate SEVERE Verified 10/16/21 02:27 ANXIETY (TAKES PREDNISONE) Flu Virus Vaccine Allergy Severe RESPIRATORY Uncoded 10/16/21 02:27 DISTRESS Past Med/Surg History Medical History Bacteremia Acute UTI Bronchiectasis DVT prophylaxis Scarring of lung following radiation Meningioma non cancerous, surgically removed Osteoarthritis Vertigo HLD (hyperlipidemia) Osteoporosis Anxiety Depression GERD (gastroesophageal reflux disease) Diastolic HF (heart failure) Lumbar degenerative disc disease CKD (chronic kidney disease), stage III Hypertension Surgical History H/O left wrist surgery S/P LUDA-BSO History of appendectomy History of total knee arthroplasty 2016 Dr. Dav Best S/P right mastectomy Family History Other Family history non-contributory Social History Smoking Status: Never smoker Second Hand Exposure: No; Do You Dip or Chew Tobacco: No; Hx Alcohol Use: No Hx Substance Use: No Preferred Language: Belarusian Communication Ability: Effective Visual Impairment: No Limitations [place] Controlled Atmospheric Furnace Required: No Beliefs That Will Affect Care: None marital status: / Current Living Situation: Personal Care Facility Current Living Situation Comment: [facility] Feels Safe at Home: Yes Assistive Devices: Glasses, Oxygen - at Night and Walker Review of Systems A total of 10 systems reviewed and were otherwise negative Physical Exam Vital Signs Vital Signs - 24 hr 02/19/23 05:00 02/19/23 06:38 02/19/23 06:44 Temperature 36.5 C Temperature Source Oral Pulse Rate 66 71 Pulse Rate [Left] Pulse Rhythm Regular Pulse Rhythm [Left] Pulse Strength Normal Pulse Strength [Left] Respiratory Rate 18 Respiratory Effort / Characteristics Non-Labored Spontaneous Respiratory Depth Normal Respiratory Pattern Regular Blood Pressure 151/107 H Blood Pressure [Left Arm] Blood Pressure Mean 121 Blood Pressure Mean [Left Arm] Blood Pressure Position Lying Blood Pressure Position [Left Arm] Pulse Oximetry 99 97 Oxygen Delivery Method Nasal Cannula Room Air Oxygen Flow Rate 2 Sepsis Recent Fever Within 48 Hours No Sepsis New/Unexplained Change in Mental Status N/A Sepsis Action Taken by Nursing No Action Required 02/19/23 07:33 Temperature Temperature Source Pulse Rate Pulse Rate [Left] 69 Pulse Rhythm Pulse Rhythm [Left] Regular Pulse Strength Pulse Strength [Left] Normal Respiratory Rate 17 Respiratory Effort / Characteristics Non-Labored Respiratory Depth Normal Respiratory Pattern Regular Blood Pressure Blood Pressure [Left Arm] 144/105 H Blood Pressure Mean Blood Pressure Mean [Left Arm] 118 Blood Pressure Position Blood Pressure Position [Left Arm] Lying Pulse Oximetry 99 Oxygen Delivery Method Nasal Cannula Oxygen Flow Rate 3 Sepsis Recent Fever Within 48 Hours Sepsis New/Unexplained Change in Mental Status Sepsis Action Taken by Nursing General: Well developed well nourished older female who is wearing supplemental oxygen and appears in no acute distress, breathing comfortably on room air. Normal speech HEENT: Normal cephalic atraumatic with exception of a large amount of bruising around the left eye. Is. Involve the eye itself but along the orbital rim both above and below the eye is black and blue. The eye itself is equal pupils and pupils are equal round and reactive to light. Extraocular movements are intact. Oropharynx is pink with moist mucous membranes. No swelling of the mouth lips or tongue. Neck: Supple with a midline trachea. No meningeal signs or stiffness, no JVD or bruits. No Stridor. Chest: Clear to auscultation bilaterally. No wheezes or rhonchi. No increased work of breathing. Heart: Regular rate and rhythm without murmurs or gallops. Abdomen: Soft nontender, nondistended without rebound guarding or rigidity. Extremities: No cyanosis clubbing or edema. No calf tenderness or assymetry Spine/Back. Non tender to palpation. No CVA tenderness Skin: Good turgor without rashes. Neurologic exam: Cranial nerves two through 12 are intact. Motor and sensation are intact and symmetrical throughout. Medical Decision Making Differential Diagnosis Traumatic injuries, head injury, facial injury/fractures, intracranial hemorrhage, arrhythmia, syncope, rhabdomyolysis, electrolyte or metabolic abnormality Medical Records Attestation: I reviewed the patient's medical records. Home Medications Current Medication List: was personally reviewed by me Laboratory Data Attestation: I reviewed the patient's lab results. 02/19/23 06:40 02/19/23 06:40 Lab Results 02/19/23 Range/Units 06:40 WBC 11.04 H (4.8-10.8) K/ul RBC 4.02 L (4.20-5.40) M/uL Hgb 13.0 (12.0-16.0) g/dl Hct 39.0 (37.0-47.0) % MCV 97.0 (80.0-100.0) fL MCH 32.3 (25.0-34.0) pg MCHC 33.3 (32.0-36.0) g/dL RDW Std Deviation 45.7 (36.4-46.3) fL RDW Coeff of Carol 12.8 (11.5-14.5) % Plt Count 165 (130-400) K/uL MPV 12.0 (9.4-12.4) fL Immature Gran % (Auto) 0.6 % Neut % (Auto) 72.0 % Lymph % (Auto) 14.7 % [place] % (Auto) 11.9 % Eos % (Auto) 0.6 % Baso % (Auto) 0.2 % Neut # (Auto) 7.95 H (1.40-6.50) K/uL Lymph # (Auto) 1.62 (1.20-3.40) K/uL [place] # (Auto) 1.31 H (0.11-0.59) K/uL Eos # (Auto) 0.07 (0.00-0.50) K/uL Baso # (Auto) 0.02 (0.00-0.20) K/uL Immature Gran # (Auto) 0.07 (0.01-0.20) K/uL Sodium 141 (136-145) mmol/L Potassium 3.5 (3.5-5.1) mmol/L Chloride 102 (98-107) mmol/L Carbon Dioxide 31 (21-32) mmol/L Anion Gap 8 (3-11) BUN 29 H (6-23) mg/dl Creatinine 1.07 (0.6-1.2) mg/dl Est Cr Clr Drug Dosing 40.5 ml/min Est GFR ( Amer) 54.8 ml/min Est GFR (Non-Af Amer) 47.3 ml/min BUN/Creatinine Ratio 27.1 H (10-20) Glucose 105 H (70-99(Fasting)) mg/dl Calcium 9.3 (8.6-10.3) mg/dl Total Bilirubin 0.4 (0.2-1.0) mg/dl AST 18 (13-39) U/L ALT 16 (7-52) U/L Alkaline Phosphatase 52 (34-104) U/L Total Creatine Kinase 19 L (26-192) U/L Troponin I High Sens 6.1 (0-14) pg/ml Total Protein 6.6 (6.0-8.3) gm/dl Albumin 3.8 (3.4-5.0) gm/dl Globulin 2.8 (2.5-4.0) gm/dl Albumin/Globulin Ratio 1.4 (0.9-2) TSH 1.426 (0.300-4.500) uIu/ml Imaging Data Attestation: I personally reviewed and interpreted this imaging study as follows: My Impression: CT of the headno hemorrhage or mass effect seen Chest x-rayupon my independent interpretation, cardiomegaly with some vascular crowding. Poor inspiratory effort. No definite CHF. Radiologist's Impression: Cervical Spine CT 02/19/23 06:[address] DOSE: 1249.68 mGy.cm HISTORY: fall TECHNIQUE: Multiaxial CT images of the cervical spine were performed and reformatted in the sagittal and coronal plane without the use of contrast. A dose lowering technique was utilized adhering to the principles of ALARA. COMPARISON: Cervical spine CT 03/12/2021. FINDINGS: No fractures. 2 mm of anterolisthesis of C4 on C5 with mild disc space narrowing. This is likely due to the long-standing degenerative change. Straightening of the cervical spine. Prevertebral soft tissues and the C1-C2 interval are intact. No pneumothorax. IMPRESSION: No fractures within the cervical spine. ACT 112: Negative or not required by law. Electronically signed by: Mulugeta Mejia M.D. 02/19/2023 8:[address] 02/19/23 06:[address] DOSE: HISTORY: fall TECHNIQUE: Multiaxial CT images of the maxillofacial region were performed and reformatted in the coronal plane without the use of contrast. A dose lowering technique was utilized adhering to the principles of ALARA. COMPARISON: None. FINDINGS: The visualized cervical spine, skull base, pterygoid plates, nasal bones, lamina papyracea, orbital floors, mandible, and zygomatic arches are intact. No fractures. Mild mucosal thickening within the maxillary sinuses. There is left periorbital soft tissue swelling. The globes and retrobulbar fat are intact. Prior bilateral lens replacement is noted. IMPRESSION: No fractures within the maxillofacial region. Left periorbital soft tissue swelling. ACT 112: Negative or not required by law. Electronically signed by: Mulugeta Mejia M.D. 02/19/2023 8:[address] 02/19/23 06:[address] DOSE: HISTORY: fall TECHNIQUE: Multiaxial CT images of the head were performed without the use of intravenous contrast. Automated exposure control was utilized for this study. A dose lowering technique was utilized adhering to the principles of ALARA. Comparison: None. Findings: Mild mucosal thickening within the paranasal sinuses. The mastoid air cells are clear. Mild motion artifact. Left periorbital soft tissue swelling. The calvarium and skull base are intact. There is no mass, hematoma, midline shift, acute infarct. White matter hypodensity is nonspecific but suggestive of microvascular ischemic change. The ventricles and sulci demonstrate mild age- related involutional changes. Right posterior craniotomy and right occipital lobe encephalomalacia is again noted. This is similar to the prior study. Impression: 1. No acute infarct or intracranial hemorrhage. 2. Left periorbital soft tissue swelling. 3. Chronic and postoperative changes as described above. ACT 112: Negative or not required by law. Electronically signed by: Mulugeta Mejia M.D. 02/19/2023 8:13 AM Chest X-Ray 02/19/23 06:37 XR chest 1V portable HISTORY: weakness COMPARISON: None. FINDINGS: No pneumothorax. No pleural effusions. The heart is normal degenerative changes within the shoulders. No acute fractures. In size. There are low lung volumes. There are patchy left basilar densities. No evidence for pulmonary edema. IMPRESSION: Low lung volumes with patchy left basilar densities. This favor subsegmental atelectasis. A pneumonia could also have a similar appearance. ACT 112: Negative or not required by law. Electronically signed by: Mulugeta Mejia M.D. 02/19/2023 7:37 AM ECG Data Attestation: I personally reviewed and interpreted this ECG as follows: Indication: + weakness Rate (beats per minute): 71 Rhythm: + normal sinus ECG Intervals/blocks: + Normal QRS, + Normal QT and + Normal ND ECG [place]: + Normal ECG ST segments: + Normal ST segments ECG Findings: + LVH; no PACs or no PVCs Comparison ECG Date: from (02/07/2020) Change: no significant change MDM Narrative This patient comes in after falling she thinks she fell asleep. She did hit her head. She does have multiple medical problems she did denies that she is on any blood thinners. I have reviewed the records that they sent over from [facility] of her current medications and history. CAT scans were ordered of the head neck and face. I also ordered EKG , chest x-ray, and multiple blood testing. She was reassessed frequently. EKG does not suggest ischemic changes or ectopy. Troponin was negative. Her labs were reassuring. White count is just minimally elevated but she has no evidence to suggest fever. she has no significant anemia. She has no acute electrolyte or metabolic abnormalities. CAT scans did not show any acute traumatic injuries to the head, face, and neck. I have reviewed your chart and she does have a history of aortic stenosis she is not quite sure what happened and why she fell she think she just fell asleep but cannot rule out she did not pass out. In light of this and her medical history I do think she should be admitted/observed for further observation/cardiac work-up. I have discussed case at length and consultation with Dr. Simon and the [facility] team will be seeing her in the ER for these measures. Continuous cardiac monitoring: Orders placed in EMR for continuous cart monitor. Upon my evaluation patient was noted to be in normal sinus rhythm with a rate of 70 Impression & Plan Syncope, S/P right mastectomy, Aortic stenosis, Contusion of face, Fall Discharge Plan Visit Data Chief Complaint: Fall Stated Complaint: Fell out of bed, Swelling above L Eye ED Provider: Babak Arnett Discharge Problem: Syncope, S/P right mastectomy, Aortic stenosis, Contusion of face, Fall Forms Stand Alone Forms: My [facility] Prescriptions Prescriptions: No Action atorvastatin 20 mg tablet 20 mg PO HS citalopram 20 mg tablet 20 mg PO QAM aspirin 81 mg Tablet,Delayed Release (Dr/Ec) 81 mg PO QAM Rx Instructions: take with food montelukast 10 mg Tablet 10 mg PO HS PreserVision AREDS [id number] Capsule 1 cap PO BID clonazepam 1 mg Tablet 1 mg PO HS Arnuity Ellipta 100 mcg/actuation Blister With Device 1 inh INHALATION DAILY furosemide 40 mg Tablet 40 mg PO DAILY tramadol 50 mg Tablet 50 mg PO Q6H PRN (Reason: Pain) carboxymethylcellulose sodium [Refresh Tears] 0.5 % Drops 1 drp OPB QID ondansetron HCl 4 mg Tablet 4 mg PO Q6H PRN (Reason: Nausea) amlodipine 2.5 mg Tablet 2.5 mg PO DAILY magnesium hydroxide [Milk of Magnesia] 400 mg/5 mL Suspension 30 ml PO DAILY PRN (Reason: Constipation) trazodone 100 mg Tablet 100 mg PO HS bisacodyl [Dulcolax (bisacodyl)] 10 mg Suppository 10 mg ND DAILY PRN (Reason: Constipation) docusate sodium 100 mg Capsule 100 mg PO BID fluticasone furoate-vilanterol [Breo Ellipta] 100-25 mcg/dose Blister With Device 1 inh INHALATION DAILY Spiriva Respimat 1.25 mcg/actuation Mist 2 puff INHALATION DAILY gabapentin 100 mg Capsule 100 mg PO BID Oyster Shell Calcium-Vit D3 500 mg(1,250mg) -200 unit Powder In Packet 1 ea PO DAILY acetaminophen [Tylenol Extra Strength] 500 mg Tablet 1,000 mg PO Q8H MDD 3 GRAMS/24 HOURS PRN (Reason: Pain) acetaminophen [Tylenol Arthritis] 650 mg Tablet Extended Release 650 mg PO QAM diclofenac sodium [Voltaren] 1 % Gel 4 g TOPICAL QID PRN (Reason: Pain) Rx Instructions: apply to single knee, ankle, foot; for foot includes sole/toes/top of foot cholecalciferol (vitamin D3) [Vitamin D3] 125 mcg (5,000 unit) Tablet 125 mcg PO DAILY famotidine 20 mg Tablet 20 mg PO DAILY bisacodyl 5 mg Tablet 10 mg PO DAILY PRN (Reason: Constipation) Senna Plus 8.6-50 mg Capsule 2 tab-cap PO BID Referrals Referrals: Peter Lu MD [Primary Care Provider] - Discharge Problem: Syncope Qualifiers: Syncope type: unspecified Qualified Code(s): R55 - Syncope and collapse Aortic stenosis Qualifiers: Cardiac valve disease etiology: etiology unspecified Qualified Code(s): I35.0 - Nonrheumatic aortic (valve) stenosis Contusion of face Qualifiers: Encounter type: initial encounter Qualified Code(s): S00.83XA - Contusion of other part of head, initial encounter Fall Qualifiers: Encounter type: initial encounter Qualified Code(s): W19.XXXA - Unspecified fall, initial encounter
[2023-02-19 07:24] LABS: Basophils # (auto) 0.02 K/uL (0.00-0.20); Basophils % (auto) 0.2 %; Eosinophils # (auto) 0.07 K/uL (0.00-0.50); Eosinophils % (auto) 0.6 %; Immature Granulocytes # (auto) 0.07 K/uL (0.01-0.20); Immature Granulocytes % (auto) 0.6 %; Lymphocytes # (auto) 1.62 K/uL (1.20-3.40); Lymphocytes % (auto) 14.7 %; Mean Corpuscular Hemoglobin 32.3 pg (25.0-34.0); Mean Corpuscular Hgb Conc 33.3 g/dL (32.0-36.0); Monocytes # (auto) 1.31 K/uL (0.11-0.59); Monocytes % (auto) 11.9 %; Neutrophils # (auto) 7.95 K/uL (1.40-6.50); Platelet Count 165 K/uL (130-400); RDW Coefficient of Variation 12.8 % (11.5-14.5); RDW Standard Deviation 45.7 fL (36.4-46.3); Red Blood Count 4.02 M/uL (4.20-5.40); White Blood Count 11.04 K/ul (4.8-10.8)
--- NOTE | 2023-02-19 07:38 | XRay Report ---
XR chest 1V portable HISTORY: weakness COMPARISON: None. FINDINGS: No pneumothorax. No pleural effusions. The heart is normal degenerative changes within the shoulders. No acute fractures. In size. There are low lung volumes. There are patchy left basilar den sities. No evidence for pulmonary edema. IMPRESSION: Low lung volumes with patchy left basilar densities. This favor subsegmental atelectasis. A pneumonia could also have a similar appearance. ACT 112: Negative or not required by law. Electronically signed by: Mulugeta Mejia M.D. 02/19/2023 7:37 AM
[2023-02-19 07:41] LABS: Albumin Globulin Ratio 1.4 (0.9-2); Albumin Level 3.8 gm/dl (3.4-5.0); BUN Creatinine Ratio 27.1 (10-20); Bilirubin,Total 0.4 mg/dl (0.2-1.0); Calcium 9.3 mg/dl (8.6-10.3); Creatinine Clr Calc Pharmacy 40.5 ml/min; Est GFR (African American) 54.8 ml/min; Est GFR (Non-African American) 47.3 ml/min; Globulin 2.8 gm/dl (2.5-4.0); Potassium 3.5 mmol/L (3.5-5.1); Total Protein 6.6 gm/dl (6.0-8.3)
[2023-02-19 07:46] LABS: Troponin I High Sensitivity 6.1 pg/ml (0-14)
[2023-02-19 07:56] LABS: Thyroid Stimulating Hormone 1.426 uIu/ml (0.300-4.500)
--- NOTE | 2023-02-19 08:15 | CT Scan Report ---
HEAD CT NONCONTRAST CT DOSE: HISTORY: fall TECHNIQUE: Multiaxial CT images of the head were performed without the use of intravenous contrast. A utomated exposure control was utilized for this study. A dose lowering technique was utilized adheri ng to the principles of ALARA. Comparison: None. Findings: Mild mucosal thickening within the paranasal sinuses. The mastoid air cells are clear. Mild motion artifact. Left periorbital soft tissue swelling. The calvarium and skull base are intact. The re is no mass, hematoma, midline shift, acute infarct. White matter hypodensity is nonspecific but price ggestive of microvascular ischemic change. The ventricles and sulci demonstrate mild age-related invo lutional changes. Right posterior craniotomy and right occipital lobe encephalomalacia is again noted . This is similar to the prior study. Impression: 1. No acute infarct or intracranial hemorrhage. 2. Left periorbital soft tissue swelling. 3. Chronic and postoperative changes as described above. ACT 112: Negative or not required by law. Electronically signed by: Mulugeta Mejia M.D. 02/19/2023 8:13 AM
--- NOTE | 2023-02-19 08:22 | CT Scan Report ---
CERVICAL SPINE CT CT DOSE: 1249.68 mGy.cm HISTORY: fall TECHNIQUE: Multiaxial CT images of the cervical spine were performed and reformatted in the sagittal and coronal plane without the use of contrast. A dose lowering technique was utilized adhering to th e principles of ALARA. COMPARISON: Cervical spine CT 03/12/2021. FINDINGS: No fractures. 2 mm of anterolisthesis of C4 on C5 with mild disc space narrowing. This is l ikely due to the long-standing degenerative change. Straightening of the cervical spine. Prevertebral soft tissues and the C1-C2 interval are intact. No pneumothorax. IMPRESSION: No fractures within the cervical spine. ACT 112: Negative or not required by law. Electronically signed by: Mulugeta Mejia M.D. 02/19/2023 8:20 AM
--- NOTE | 2023-02-19 08:40 | CT Scan Report ---
MAXILLOFACIAL CT CT DOSE: HISTORY: fall TECHNIQUE: Multiaxial CT images of the maxillofacial region were performed and reformatted in the cor onal plane without the use of contrast. A dose lowering technique was utilized adhering to the princ iplkarmen of [place]. COMPARISON: None. FINDINGS: The visualized cervical spine, skull base, pterygoid plates, nasal bones, lamina papyracea, orbital floors, mandible, and zygomatic arches are intact. No fractures. Mild mucosal thickening wit hin the maxillary sinuses. There is left periorbital soft tissue swelling. The globes and retrobulbar fat are intact. Prior bilateral lens replacement is noted. IMPRESSION: No fractures within the maxillofacial region. Left periorbital soft tissue swelling. ACT 112: Negative or not required by law. Electronically signed by: Mulugeta Mejia M.D. 02/19/2023 8:37 AM
--- OUTSIDE RECORDS SUMMARY | 2023-02-19 09:58 | External Medical Summary | Summary of Care ---
Author Name Unknown Organization [facility] Address [address] [place] [address] Phone [phone] Care Team Providers Care Sort Line Worker Name Role Phone Peter Lu MD Primary Care Provide r Reason for Visit * Reason Comments Adult Annual Wellness Visit, Subsequent Visit Encounter Details Date Type Department Care Team Description 11/30/2022 Nurse Only Ancillary [address] [place] [address] [place], Nurse Annual Wellness [address] [place] [address] [place] [id number] Adult Annual Wellness Visit, Subsequent Visit Allergies Active Allergy Reactions Severity Noted Date Comments Amoxicillin-Pot Clavulanate Hives 04/06/2015 Dexamethasone Other (Please comment) Low 06/04/2008 Make her anxious Phenytoin Sodium Rash High 09/04/2002 documented as of this encounter (statuses as of 11/30/2022) Medications Medication Sig Dispensed Refills Start Date End Date Status polyvinyl alcohol-povidone PF (REFRESH) 1.4-0.6 % ophthalmic solution Instill 1 Drop into both eyes 4 times a day. 5 Each 0 01/02/2019 Active atorvaSTATin (LIPITOR) 20 MG TabletIndications: Mixed dyslipidemia Take 1 Tab by mouth daily. 90 Tab 0 01/02/2019 Active aspirin enteric coated 81 MG TBEC Take 1 Tab by mouth daily. 100 Tab 3 01/02/2019 Active albuterol-ipratrop ium (DUONEB) 2.5-0.5 MG/3ML nebulizer solution 3 mL. 0 10/24/2018 Active traZODone (DESYREL) 100 MG TabletIndications: Persistent insomnia Take 1 Tab by mouth at bedtime. 30 Tab 5 05/21/2019 Active oxygen GAS 3LPM with all sleep 1 Each 0 05/23/2019 Active Magnesium Hydroxide 400 MG/5ML Oral Suspension Take by mouth daily as needed for Constipation. 0 Active Senna 8.6 MG Oral Capsule Take 8.6 mg by mouth 2 times a day. 0 Active Furosemide 40 MG Oral Tablet (Lasix) Take 1 Tablet by mouth in the morning. 0 05/11/2020 Active Breo Ellipta 200-25 MCG/INH Inhalation Aerosol Powder Breath Activated (fluticasone furoate-vilanterol ) Inhale 1 Puff by mouth daily. 3 Each 1 05/14/2020 Active Montelukast Sodium 10 MG Oral Tablet (Singulair) Take 1 Tab by mouth at bedtime. 90 Tab 1 05/14/2020 Active Spiriva Respimat 2.5 MCG/ACT Inhalation Aerosol Solution (Tiotropium [place] Monohydrate) Inhale 2 Puffs by mouth daily. 12 g 1 05/14/2020 Active Bisacodyl 10 MG Rectal Suppository (Dulcolax) Administer 1 Suppository into the rectum in the morning. As needed . 0 Active Famotidine 20 MG Oral Tablet (Pepcid) Take 1 Tablet by mouth in the morning. 0 Active Acetaminophen Extra Strength 500 MG Oral Tablet (Acetaminophen) TAKE 2 CAPLETS BY MOUTH NEEDED FOR MILD- MODERATE PAIN. *DO NOT EXCEED 3000MG/24 HOURS* 60 Tablet 4 10/15/2021 Active Zoster Vac Recomb Adjuvanted 50 MCG/0.5ML Intramuscular Suspension Reconstituted (Shingrix)Indicati ons:Need for vaccination for zoster Inject 0.5 mL into a large muscle now and repeat dose in 60 to 180 days 1 Each 1 11/30/2021 Active Additional Information Patient not taking.Reported on 08/05/2022 Vitamin D 25 MCG (1000 UT) Oral Tablet Take 1 Tablet by mouth in the morning. 30 Tablet 0 11/30/2021 Active Ondansetron HCl 4 MG Oral Tablet (Zofran) Take 1 Tablet by mouth every 8 hours as needed for Nausea. 0 Active Oyster Shell 500 MG Oral Tablet Take 1 Tablet by mouth every evening. 0 Active Docusate Sodium 100 MG Oral Capsule (Colace) Take 1 Capsule by mouth in the morning and 1 Capsule before bedtime. 0 08/03/2022 Active Gabapentin 100 MG Oral Capsule (Neurontin) Take 1 Capsule by mouth in the morning and 1 Capsule at noon and 1 Capsule before bedtime. 90 Capsule 5 08/03/2022 Active Ciprofloxacin HCl 0.3 % Ophthalmic Solution (Ciloxan) 0 05/20/2022 Active traMADol HCl 50 MG Oral Tablet (Ultram)Indication s:Degenerative disc disease, cervical,Lumbar degenerative disc disease Take 1 Tablet by mouth every 6 hours as needed for Pain, Moderate. 90 Tablet 4 10/10/2022 Active Escitalopram Oxalate 10 MG Oral Tablet (Lexapro) Take 1.5 Tablets by mouth in the morning. 0 11/10/2022 Active Diclofenac Sodium (VOLTAREN) 1 % gelIndications:Chr onic right shoulder pain Place 2 g topically on the skin 2 times a day. To affected area as directed. 100 g 5 10/06/2019 3 Discontinue d(Medicatio n/Dose Changed) Acetaminophen ER 650 MG Oral Tablet Extended Release Take 1 Tablet by mouth in the morning. 0 3 Discontinue d(Medicatio n List Clean Up) Diclofenac Sodium 1 % External Gel (Voltaren) 0 05/11/2022 3 Discontinue d(Medicatio n/Dose Changed) Senna-Plus 8.6-50 MG Oral Tablet 0 08/01/2022 3 Discontinue d(Medicatio n List Clean Up) documented as of this encounter (statuses as of 11/30/2022) Active Problems Problem Noted Date Dyslipidemia, goal LDL below 100 022 SUZAN (obstructive sleep apnea) 05/14/2020 Hypertensive heart and kidne y disease with chronic diastolic congestive heart failure and stage 3b chronic kidney disease 02/10/2020 Overview: Per CKD protocol Severe persistent asthma without complic ation 11/20/2019 Major depression, recurrent, chronic Mild aortic stenosis 02/13/2019 Nocturnal hypoxemia 09/12/2018 Bronchiectasis without complication 12/2018 Grade I diastolic dysfunction 07/10/2018 LAL (dyspnea on exertion) 05/30/2018 Primary osteoarthritis of right knee 07/2017 S/P total knee replacement, left 017 Essential hypertension with goal blood p ressure less than 140/90 01/21/2016 Gastroesophageal reflux disease without esophagitis 07/23/2015 Pulmonary scarring 07/23/2015 Prediabetes 07/21/2015 Lumbar degenerative disc disease 015 Primary osteoarthritis of left knee 12/02 Pulmonary nodules 02/11/2014 Senile osteoporosis 03/14/2013 History of breast cancer 02/21/2013 Overview: Right breast Persistent insomnia 02/21/2013 Vertigo 02/21/2013 History of meningioma 02/21/2013 IBS (irritable bowel syndrome) 3 History of compression fracture of spine 02/21/2013 Degenerative disc disease, cervical Multinodular goiter documented as of this encounter (statuses as of 11/30/2022) Resolved Problems Problem Noted Date Resolved Date Chronic kidney disease, stage 3b 08/11/2020 06/28/2022 Overview: Per CKD protocol Closed nondisplaced fracture of distal pole of navicular bone of left wrist 02/28/2020 06/02/2021 Closed trochanteric fracture of left femur with routine healing 02/28/2020 06/02/2021 Stage 3b chronic kidney disease 02/10/2020 05/14/2020 Overview: Per CKD protocol - Per CKD protocol Kidney disease, chronic, stage III (GFR 30-59 ml /min) 06/10/2019 02/13/2020 Overview: Per CKD protocol Hypertensive heart and kidne y disease with chronic diastolic congestive heart failure and stage 3 chronic kidney disease 04/10/2019 02/13/2020 Overview: Per CKD protocol Radius and ulna distal fract ure, left, open type I or II, with routine healing, subsequent encounter 12/19/2018 05/21/2019 Hypertensive kidney disease with chronic kidney disease stage III 09/24/2018 05/21/2019 Severe persistent asthma with acute exacerbation 09/12/2018 01/14/2019 Body mass index (BMI) of 40.0 to 44.9 in adult 0 08/13/2018 01/14/2019 Overview: Per Obesity protocol #1 Heart failure, diastolic, due to HTN 03/06/2018 06/25/2021 Hypertensive heart and chron ic kidney disease with heart failure and stage 1 through stage 4 chronic kidney disease, or chronic kidney disease 01/04/2018 01/04/2018 Hypertensive heart disease, benign w/chronic kidney disease stage 1-4 01/04/2018 07/10/2018 Acute shoulder bursitis, right 01/27/2017 1 MEDICATION USE AGREEMENT 01/16/2017 018 Pulmonary fibrosis, unspecified 12/13/2016 05/26/2017 Benign neoplasm of cerebral meninges 11/29/2016 01/04/2018 Diastolic dysfunction, left ventricle 09/10/2015 01/04/2018 Depression with anxiety 09/10/2015 05/21/19 20 Lumbar facet arthropathy 12/18/2014 018 HTN, goal below 140/90 07/03/2014 7 Hypertension goal BP (blood pressure) < 140/80 1 07/03/2014 Osteopenia 03/01/2013 03/14/2013 Overview: 10/21/11 Coronary atherosclerosis of [place] coronary gia ry 02/21/2013 07/23/2015 GERD (gastroesophageal reflux disease) 3 02/22/2017 Major depressive disorder 02/21/20132013 Overview: ICD-10 update of inactive term Kidney disease, chronic, stage III (GFR 30-59 ml /min) 02/21/2013 10/11/2018 HTN, goal below 130/80 02/21/2013 4 EXAMINATION OF PARTICIPANT IN CLINICAL TRIAL-gen omics 06/19/2009 07/17/2009 Overview: Renamed Per Clinical Trials Billing Project. Study Titile: Genomic Markers for Patients with Cardiovascular Disease Project #[id number] PI: Keily Mazariegos MD Please call [phone] with study related questions GENOMICS CARDIO RESEARCH OTHER*[id number] 200905/10/2016 Overview: Renamed Per Clinical Trials Billing Project. Study Titile: Genomic Markers for Patients with Cardiovascular Disease Project #[id number] PI: Keily Mazariegos MD Please call [phone] with study related questions Unstable angina 06/18/2009 02/21/2013 HTN, goal below 140/90 06/18/2009 3 Osteoporosis 06/18/2009 03/01/2013 Dyslipidemia, goal LDL below 100 06/18/2009 01/21/2016 documented as of this encounter (statuses as of 11/30/2022) Immunizations Name Administration Dates Next Due COVID-19 mRNA, LNP-s, No Pre serve, 2-Dose Series (Anam Mobile) 05/31/2020,05/10/2020 COVID-19, LNP-s, No Preserve , Jonah-sucrose, Ages 12+ (Pfizer) 09/16/2021,01/27/2021 Pneumococcal Conjugate Vacc, 13 Valent (Prevnar) 12/18/2014 Pneumococcal Polysaccharide PPV23 (Pneumovax) Seasonal Influenza, Quadrivalent Hd (Fluzone Hd) 01/26/2022 Seasonal Influenza, Quadrivalent Hd, 65+ Yrs 03/2020 TD, Preservative Free 12/14/2018 TDAP (age 10 and older)(Boostrix) 12/14/2018 documented as of this encounter Social History Tobacco Use Types Packs/Day Years Used Date Smoking Tobacco: Never Smokeless Tobacco: Never Alcohol Use Standard Drinks/Week Comments No 0 (1 standard drink = 0.6 oz pur e alcohol) Food Insecurity Answer Date Recorded Within the past 12 months, y ou worried that your food would run out before you got money to buy more. Never true 11/30/2022 Within the past 12 months, t he food you bought just didn't last and you didn't have money to get more. Never true 11/30/2022 Sex Assigned at Date Recorded Female 11/26/2020 10:22 AM EDT Job Start Date Occupation Industry Not on file Not on file Not on file documented as of this encounter Last Filed Vital Signs Vital Sign Reading Time Taken Comments Blood Pressure 120/70 11/30/2022 10:12 AM EDT Pulse 93 11/30/2022 10:12 AM EDT Temperature 36.3 C (97.4 F) 11/30/2022 10:12 AM E DT Respiratory Rate - - Oxygen Saturation 95% 11/30/2022 10:12 AM EDT Inhaled Oxygen Concentration - - Weight 89.4 kg (197 lb) 11/30/2022 10:12 AM EDT Height 157.5 cm (5' 2") 11/30/2022 10:12 AM EDT Body Mass Index 36.03 11/30/2022 10:12 AM EDT documented in this encounter Patient Instructions * Patient Instructions* Belkis Davis RN - 11/30/2022 10:10 AM EDT Patient Instructions - Fall Prevention (This education is for all patients over 65 regardless of symptoms) Remember to take your current medications as prescribed. In order to prevent falls, you are encouraged to: Exercise Utilize assistive/adaptive devices Avoid multifocal lenses when walking Avoid hazards in home Maintain a regular toileting schedule Any questions please contact our office. Preventing Falls in the Home (This education is for all patients over 65 regardless of symptoms) As you get older, falls are more likely. Thats because your reaction time slows. Your muscles and joints may also get stiffer, making them less flexible. Illness, medications, and vision changes can also affect your balance. A fall could leave you unable to live on your own. To make your home safer, follow these tips: Floors Put nonskid pads under area rugs Remove throw rugs Replace worn floor coverings Tack carpets firmly to each step on carpeted stairs. Put nonskid strips on the edges of uncarpeted stairs Keep floors and stairs free of clutter and cords Arrange furniture so there are clear pathways Clean up any spills right away Bathrooms Install grab bars in the tub or shower Apply nonskid strips or put a nonskid rubber mat in the tub or shower Sit on a bath chair to bathe Use bathmats with nonskid backing Lighting Keep a flashlight in each room Put a nightlight along the pathway between the bedroom and the bathroom [employer] Patient Education Copyright 2008 - 2010 Paul except where otherwise noted Preventing Falls: Exercises to Improve Balance, Flexibility, Strength, and Staying Power (This education is for all patients over 65 regardless of symptoms) Certain types of exercises may help make you less likely to fall. Try the ones below. Or do other exercises that your healthcare provider suggests. Depending on your health, you may need to start slowly. Dont let that stop you. Even small amounts of exercise can help you. Be sure to talk to yourhealthcare provider before starting any exercise program. Improve Balance Many types of exercise can help improve balance. Andry chi and yoga are good examples. Heres another one to try. You can do it anytime and almost anywhere. Stand next to a counter or solid support. Push yourself up onto your tiptoes. Hold for 5 seconds. If you start to lose your balance, hold on to the counter. Rest and repeat 5 times. Work up to holding for 20 to 30 seconds, if you can. Increase Flexibility Being more flexible makes it easier for you to move around safely. Try exercises like the seated hamstring stretch. Sit in a chair and put one foot on a stool. Straighten your leg and reach with both hands down either side of your leg. Reach as far down your leg as you can. Hold for about 20 seconds. Go back to the starting position. Then repeat 5 times. Switch legs. Build Strength Resistance exercises help build strength. You can do them without equipment. Or you can use weights, elastic bands, or special machines. One such exercise is called the biceps curl. You can hold a 1 pound weight or even a can of soup. Do this exercise at least 3 times a week. Strive for everyday. Sit up straight in a chair. Keep your elbow close to your body and your wrist straight. Bend your arm, moving your hand up to your shoulder. Then slowly lower your arm. Repeat 5 times. Switch to the other arm. Build Your Staying Power Aerobic exercises make your heart and lungs stronger so you can keep moving longer. Walking and swimming are two of the best types of exercises you can do. Using a stationary bike is great, too. Find an aerobic exercise that you enjoy. Start slowly and build up. Even 5 minutes is helpful. Aimfor a goal of 30 minutes, at least 3 times a week. You dont have to do 30 minutes in one session. Break it up and walk a little throughout the day. More Helpful Tips Start easy. Slowly work up to doing more. Talk with your healthcare provider about the best exercises for you. Call senior centers or health clubs about exercise programs. If needed, have a family member watch you walk every so often to check your stability. Exercise with a friend. Choose an activity you both enjoy. Try exercises that you can do anytime, anywhere. Here are two examples. Have someone with you when you first try these: Practice walking by placing one foot right in front of the other. Stand up and sit down 10 times. Repeat this throughout the day. [employer] Patient Education Copyright 2008 [employer] except where otherwise noted. Preventing Falls: Moving Safely Using a Cane or Walker (This education is for all patients over 65 regardless of symptoms) Keep the cane away from your feet so you dont trip. A walking aid, such as a cane or walker, can help you stay more independent and avoid falls. Remember to keep your walking aid within easy reach when youre in a chair or in bed. And learn how to use it safely so you dont injure yourself. Using a Cane If you have a stronger side, hold the cane on that side. Get your balance. Move the cane and your weaker leg forward. Support your weight on both the cane and your weaker side. Step with your stronger leg. Start again from step 1. If youre using a folding walker, be sure you know how to lock it open. Check that its locked open before each use. Using a Walker Roll the walker (or lift it, if youre using one without wheels) forward about 12 inches. Step forward with your weaker leg first. Use the walker to help keep your balance. Bring your other foot forward to the center of the walker. Start again from step 1. Helpful Tips Check with your healthcare provider about the right walking aid to use. Ask about a walker with a seat attached. Check the tips of your cane or walker to make sure they have nonskid covers. Move slowly from room to room. Dont mendiola. Sit down to get dressed. Use a ramy pack or backpack to keep your hands free. Get help for jobs that mean climbing, even on a stepstool. [employer] Patient Education Copyright 2008 [employer] except where otherwise noted. [place], As your primary care physician, I know that regular visits with my patients who have several chronic conditions can go a long way in helping you stay healthy. Many times, the clinic team and I are in touch with you and/or other care team members between office visits to adjust medications, discuss any changes in your health, and review our care plan to make sure it is still meeting your needs. I am dedicated to helping you take a more active role in your overall care. It is important that there are resources available to you, so I created a personalized plan of care with a Health Calendar for you, which is included on the next page of this letter. Below is a list that summarizes your electronic health record: Health Maintenance Due: Health Maintenance Due Topic Date Due Zoster Vaccines (1 of 2) Never done COVID-19 Vaccine (5 - Pfizer series) 11/11/2021 *BISPHONATE OR OTHER ACCEPTABLE MEDICATION NEEDED FOR OSTEOPOROSIS (REFER TO SMARTSET #1146) Never done Depression Screening, Annual for Pts 12 and Over 11/29/2022 Current Medication List: (as of Visit date not found (in office), Visit date not found (telemedicine) ) Current Outpatient Medications Medication Sig Dispense Refill polyvinyl alcohol-povidone PF (REFRESH) 1.4-0.6 % ophthalmic solution Instill 1 Drop into both eyes 4 times a day. 5 Each 0 atorvaSTATin (LIPITOR) 20 MG Tablet Take 1 Tab by mouth daily. 90 Tab 0 aspirin enteric coated 81 MG TBEC Take 1 Tab by mouth daily. 100 Tab 3 albuterol-ipratropium (DUONEB) 2.5-0.5 MG/3ML nebulizer solution 3 mL. traZODone (DESYREL) 100 MG Tablet Take 1 Tab by mouth at bedtime. 30 Tab 5 oxygen GAS 3LPM with all sleep 1 Each 0 Magnesium Hydroxide 400 MG/5ML Oral Suspension Take by mouth daily as needed for Constipation. Senna 8.6 MG Oral Capsule Take 8.6 mg by mouth 2 times a day. Furosemide 40 MG Oral Tablet (Lasix) Take 1 Tablet by mouth in the morning. Breo Ellipta 200-25 MCG/INH Inhalation Aerosol Powder Breath Activated (fluticasone furoate-vilanterol) Inhale 1 Puff by mouth daily. 3 Each 1 Montelukast Sodium 10 MG Oral Tablet (Singulair) Take 1 Tab by mouth at bedtime. 90 Tab 1 Spiriva Respimat 2.5 MCG/ACT Inhalation Aerosol Solution (Tiotropium [place] Monohydrate) Inhale 2 Puffs by mouth daily. 12 g 1 Famotidine 20 MG Oral Tablet (Pepcid) Take 1 Tablet by mouth in the morning. Acetaminophen Extra Strength 500 MG Oral Tablet (Acetaminophen) TAKE 2 CAPLETS BY MOUTH NEEDED FOR MILD- MODERATE PAIN. *DO NOT EXCEED 3000MG/24 HOURS* 60 Tablet 4 Vitamin D 25 MCG (1000 UT) Oral Tablet Take 1 Tablet by mouth in the morning. 30 Tablet 0 Ondansetron HCl 4 MG Oral Tablet (Zofran) Take 1 Tablet by mouth every 8 hours as needed for Nausea. Oyster Shell 500 MG Oral Tablet Take 1 Tablet by mouth every evening. Docusate Sodium 100 MG Oral Capsule (Colace) Take 1 Capsule by mouth in the morning and 1 Capsule before bedtime. Gabapentin 100 MG Oral Capsule (Neurontin) Take 1 Capsule by mouth in the morning and 1 Capsuleat noon and 1 Capsule before bedtime. 90 Capsule 5 Ciprofloxacin HCl 0.3 % Ophthalmic Solution (Ciloxan) Escitalopram Oxalate 10 MG Oral Tablet (Lexapro) Take 1.5 Tablets by mouth in the morning. Diclofenac Sodium (VOLTAREN) 1 % gel Place 2 g topically on the skin 2 times a day. To affectedarea as directed. (Patient not taking: Reported on 11/30/2022) 100 g 5 Bisacodyl 10 MG Rectal Suppository (Dulcolax) Administer 1 Suppository into the rectum in the morning. As needed . Zoster Vac Recomb Adjuvanted 50 MCG/0.5ML Intramuscular Suspension Reconstituted (Shingrix) Inject 0.5 mL into a large muscle now and repeat dose in 60 to 180 days (Patient not taking: Reported on 08/05/2022) 1 Each 1 Diclofenac Sodium 1 % External Gel (Voltaren) traMADol HCl 50 MG Oral Tablet (Ultram) Take 1 Tablet by mouth every 6 hours as needed for Pain, Moderate. 90 Tablet 4 No current facility-administered medications for this visit. Current List of Allergies: (as of Visit date not found (in office), Visit date not found (telemedicine) ) Review of patient's allergies indicates: Allergen Reactions Phenytoin Sodium Rash Augmentin [Amoxicillin-Pot Clavulanate] Hives Decadron [Dexamethasone] Other (Please comment) Make her anxious Most Recent Lab Results: Results for orders placed or performed in visit on 09/29/22 BASIC METABOLIC PANEL Result Value Ref Range BUN 18 6 - 20 mg/dL Creatinine 1.1 (H) 0.5 - 1.0 mg/dL Estimated Glomerular Filtration Rate 49 (L) >=60 mL/min Sodium 142 135 - 146 mmol/L Potassium 4.3 3.5 - 5.1 mmol/L Chloride 101 98 - 107 mmol/L CO2 28 22 - 32 mmol/L Anion Gap 13 7 - 15 mmol/L Glucose 89 70 - 120 mg/dL Calcium 9.6 8.4 - 10.2 mg/dL HEMOGLOBIN A1C Result Value Ref Range Hemoglobin A1C 6.1 (H) 4.0 - 5.6 % Estimated Average Glucose 128 (H) <126 mg/dL Sincerely, Peter Lu MD 11/30/2022 [facility] Calendar (as of Visit date not found (in office), Visit date not found (telemedicine) ) Care needs Care needs Last completed Due next Zoster (Shingles) Vaccine (1 of 2) --- Never done COVID-19 Vaccine (5 - Pfizer series) 09/16/2021 11/11/2021 Discuss medication for ostoporosis --- Never done Flu vaccine (recommended) (1) 01/26/2022 12/02/2022 Urine albumin/creatinine test 06/28/2022 06/29/2023 A1C blood sugar test 09/29/2022 09/30/2023 Diphtheria, tetanus & pertussis vaccines (2 - Td or Tdap) 12/14/2018 12/14/2028 As you look over the recommended services, be sure to check with your insurance company to determine what's covered. [employer] is a great tool that helps you review your medical record online, including test results, doctor notes and your health summary. You can also schedule appointments with me and other members of your care team, request prescription refills and ask for advice related to your medical conditions at [email or web address]. documented in this encounter Progress Notes * Belkis Davis RN - 11/30/2022 10:10 AM EDT Fall Risk Plan of Care Documentation: - Current medications reconciled Patient encouraged to: - Exercise - Provide education materials for Core strengthening - Utilize assistive/adaptive devices - Provide education materials - Avoid multifocal lenses when walking - Avoid hazards in home - Provide education materials - Maintain a regular toileting schedule Belkis Davis RN 11/30/2022 AD8 Dementia Screening Interview Person answering questions: patient Remember, "Yes, a change" indicates that there has been a change in the last several years caused by cognitive (thinking and memory) problems 1. Problems with judgement (eg: problems making decisions, bad financial decisions, problems with thinking). No (0) 2. Less interest in hobbies/activities. No (0) 3. Repeats the same things over and over (questions, stories, or statements). No (0) 4. Trouble learning how to use a tool, appliance, or gadget (eg: VCR, computer, microwave, remote control). No (0) 5. Forgets correct month or year. No (0) 6. Trouble handling complicated financial affairs (eg: balancing checkbook, income taxes, paying bills). No (0) 7. Trouble remembering appointments. No (0) 8. Daily problems with thinking and/or memory. No (0) TOTAL AD8: 0 - AD8 Dementia Screening Score The final score is a sum of the number items marked "Yes, A Change". 0 - 1: Normal cognition; 2 or greater: Cognitive impairments is likely to be present - further testing required Adult Annual Wellness Visit: Fernanda Montoya is a 87 year old female who presents for an Adult Annual Wellness Visit. Depression Screening: Did the patient complete the screening questionnaire for Depression? Yes Is the patient's total score for Depression 15 or greater? No, no further intervention needed, unless requested by patient. Did the patient answer positively to the suicide question? No, no further intervention needed, unless requested by patient. In general, compared to other people your age, what would you say that your health is? Good Ht Readings from Last 1 Encounters: 11/30/22 1.575 m (5' 2") Wt Readings from Last 1 Encounters: 11/30/22 89.4 kg (197 lb) Body Mass Index: BMI Greater than 30 Body mass index is 36.03 kg/m. 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 Breast cancer ([facility]) 2006 Right breast cancer and MASTECTOMY Chronic kidney disease, stage 3b ([facility]) 08/11/2020 Per CKD protocol Compression fracture of spine ([facility]) 02/21/2013 T8,9, 10 Degenerative disc disease, cervical Depression with anxiety 09/10/2015 Depressive disorder, not elsewhere classified 02/21/2013 Depressive disorder, not elsewhere classified 02/21/2013 Diastolic dysfunction, left ventricle 09/10/2015 Dyslipidemia, goal LDL below 100 Essential hypertension with goal blood pressure less than 140/90 01/21/2016 Fracture of distal radius and ulna 08/17/11 right wrist Gastroesophageal reflux disease without esophagitis 07/23/2015 History of breast cancer 02/21/2013 Right breast History of meningioma 02/21/2013 History of radiation therapy 2005 HTN, goal below 140/90 07/03/2014 IBS (irritable bowel syndrome) 02/21/2013 Kidney disease, chronic, stage III (GFR 30-59 ml/min) ([facility]) 02/21/2013 Lumbar degenerative disc disease 12/18/2014 Lumbar facet arthropathy 12/18/2014 Lung nodule 02/11/2014 Maintenance chemotherapy 2006 Malignant neoplasm of other specified sites of female breast R breast cancer. treated. stage IIA, T1N2,M0 - 5 of 11 lymph nodes positive- adenocarcinoma- ER positive and CA negative and HER-2-janis positive Multinodular goiter Osteopenia 03/01/2013 10/21/11 Persistent insomnia 02/21/2013 Prediabetes 07/21/2015 Primary osteoarthritis of left knee 12/18/2014 Pulmonary scarring 07/23/2015 Radius and ulna distal fracture, left, open type I or II, with routine healing, subsequent encounter 12/19/2018 Senile osteoporosis 03/14/2013 Vertigo 02/21/2013 Past Surgical History: Procedure Laterality Date APPENDECTOMY W/OTHER PROCEDURE 1989 Dr. Lucio Fuller ARTHROPLASTY KNEE TOTAL Left 02/17/2017 Dr. Best. [facility] BREAST LESION,OTHER,EXCISION Right 2005 Malignant CATHETERIZE LEFT HEART THRU SKIN 06/19/09 LEFT HEART CATH, PERCUTANEOUS performed by MAURO JIMENEZ at [facility] [place] COLONOSCOPY 06/25/15 normal - Dr. El COLONOSCOPY, DIAGNOSTIC (RECTUM) 2006 normal EGD, FLEXIBLE, DIAGNOSTIC 2010 gastritis- Dr. El EGD, FLEXIBLE, DIAGNOSTIC 06/25/15 normal EKG 01/17/2017 NSR. no acute changes. [facility] INJECT DX/THER SUBSTANCE INTERLAMINAR LUMBAR/SACRAL W IMAGE GUIDE 08/17/2017 INJECTION SPINE LUMBAR OR SACRAL performed by Cosmo Dumont Cousins, DO at [facility] INSERTION OF LENS PROSTHESIS MASTECTOMY,RADICAL 2005 right breast- Dr. El RADIUS AND ULNA FX W/FIXATION Left 12/14/2018 ORIF distal open radius/ulna fractures Dr. Steven Hansen REMOVAL OF BRAIN LINING TUMOR 2000 [facility] [place] REMOVAL OF OVARY/OVIDUCT(S) bilateral REMOVE GALLBLADDER TOTAL ABD HYSTERECTOMY W/WO REMOVAL OF TUBE(S) 1989 HEAD AND NECK 08/19/2019 multinodular diffuse goiter. right lobe: 4.6 cm by 2.3 cm by 2.1 cm. left lobe: 4.6 cm by 2.5cm by 2.3 cm. PERFORMED BY [employer] Family History Problem Relation Age of Onset Thyroid cancer Daughter Breast Cancer Grandmother (Maternal) Breast Cancer Aunt (Unspecified) Has patient ever had cancer? History of cancer, type: breast ca right 2005 Social History Tobacco Use Smoking status: Never Smokeless tobacco: Never Substance Use Topics Alcohol use: No Vaping/E-Cigarette Use Vaping/E-Cigarette Use Never User Vaping/E-Cigarette Substances Vaping/E-Cigarette Devices Tobacco/Alcohol screening completed today? Yes Hospital Care: Admissions (within the last year): Not Applicable ER within 30 days: No Does the patient have an Advance Directives/Living Will? Yes Last Physical Exam: Last physical exam: Does patient see primary provider regularly? Yes Does patient see other providers? Yes, Specialist Patient Care Team updated? Yes Review of patient's allergies indicates: Allergen Reactions Phenytoin Sodium Rash Augmentin [Amoxicillin-Pot Clavulanate] Hives Decadron [Dexamethasone] Other (Please comment) Make her anxious Immunization History Administered Date(s) Administered COVID-19 mRNA, LNP-s, No Preserve, 2-Dose Series ([employer]) 05/10/2020, 05/31/2020 COVID-19, LNP-s, No Preserve, Jonah-sucrose, Ages 12+ (Pfizer) 01/27/2021, 09/16/2021 Pneumococcal Conjugate Vacc, 13 Valent (Prevnar) 12/18/2014 Pneumococcal Polysaccharide PPV23 (Pneumovax) 01/21/2016 Seasonal Influenza, Quadrivalent Hd (Fluzone Hd) 01/26/2022 Seasonal Influenza, Quadrivalent Hd, 65+ Yrs 01/13/2020 TD, Preservative Free 12/14/2018 TDAP (age 10 and older)(Boostrix) 12/14/2018 Current Outpatient Medications Medication Sig Dispense Refill polyvinyl alcohol-povidone PF (REFRESH) 1.4-0.6 % ophthalmic solution Instill 1 Drop into both eyes4 times a day. 5 Each 0 atorvaSTATin (LIPITOR) 20 MG Tablet Take 1 Tab by mouth daily. 90 Tab 0 aspirin enteric coated 81 MG TBEC Take 1 Tab by mouth daily. 100 Tab 3 albuterol-ipratropium (DUONEB) 2.5-0.5 MG/3ML nebulizer solution 3 mL. traZODone (DESYREL) 100 MG Tablet Take 1 Tab by mouth at bedtime. 30 Tab 5 oxygen GAS 3LPM with all sleep 1 Each 0 Magnesium Hydroxide 400 MG/5ML Oral Suspension Take by mouth daily as needed for Constipation. Senna 8.6 MG Oral Capsule Take 8.6 mg by mouth 2 times a day. Furosemide 40 MG Oral Tablet (Lasix) Take 1 Tablet by mouth in the morning. Breo Ellipta 200-25 MCG/INH Inhalation Aerosol Powder Breath Activated (fluticasone furoate-vilanterol) Inhale 1 Puff by mouth daily. 3 Each 1 Montelukast Sodium 10 MG Oral Tablet (Singulair) Take 1 Tab by mouth at bedtime. 90 Tab 1 Spiriva Respimat 2.5 MCG/ACT Inhalation Aerosol Solution (Tiotropium [place] Monohydrate) Inhale 2 Puffs by mouth daily. 12 g 1 Famotidine 20 MG Oral Tablet (Pepcid) Take 1 Tablet by mouth in the morning. Acetaminophen Extra Strength 500 MG Oral Tablet (Acetaminophen) TAKE 2 CAPLETS BY MOUTH NEEDED FOR MILD- MODERATE PAIN. *DO NOT EXCEED 3000MG/24 HOURS* 60 Tablet 4 Vitamin D 25 MCG (1000 UT) Oral Tablet Take 1 Tablet by mouth in the morning. 30 Tablet 0 Ondansetron HCl 4 MG Oral Tablet (Zofran) Take 1 Tablet by mouth every 8 hours as needed for Nausea. Oyster Shell 500 MG Oral Tablet Take 1 Tablet by mouth every evening. Docusate Sodium 100 MG Oral Capsule (Colace) Take 1 Capsule by mouth in the morning and 1 Capsule before bedtime. Gabapentin 100 MG Oral Capsule (Neurontin) Take 1 Capsule by mouth in the morning and 1 Capsule at noon and 1 Capsule before bedtime. 90 Capsule 5 Ciprofloxacin HCl 0.3 % Ophthalmic Solution (Ciloxan) Escitalopram Oxalate 10 MG Oral Tablet (Lexapro) Take 1.5 Tablets by mouth in the morning. Bisacodyl 10 MG Rectal Suppository (Dulcolax) Administer 1 Suppository into the rectum in the morning. As needed . Zoster Vac Recomb Adjuvanted 50 MCG/0.5ML Intramuscular Suspension Reconstituted (Shingrix) Inject 0.5 mL into a large muscle now and repeat dose in 60 to 180 days (Patient not taking: Reported on 08/05/2022) 1 Each 1 traMADol HCl 50 MG Oral Tablet (Ultram) Take 1 Tablet by mouth every 6 hours as needed for Pain, Moderate. 90 Tablet 4 Diclofenac Sodium 1 % External Gel (Voltaren) Apply 4 g topically to affected area in the morning and 4 g at noon and 4 g in the evening and 4 g before bedtime. 100 g 1 No current facility-administered medications for this visit. Patient Active Problem List Diagnosis Code History of breast cancer Z85.3 Persistent insomnia G47.00 Vertigo R42 History of meningioma Z86.018 IBS (irritable bowel syndrome) K58.9 History of compression fracture of spine Z87.81 Degenerative disc disease, cervical M50.30 Senile osteoporosis M81.0 Pulmonary nodules R91.8 Lumbar degenerative disc disease M51.36 Primary osteoarthritis of left knee M17.12 Prediabetes R73.03 Gastroesophageal reflux disease without esophagitis K21.9 Pulmonary scarring J98.4 Essential hypertension with goal blood pressure less than 140/90 I10 S/P total knee replacement, left Z96.652 Primary osteoarthritis of right knee M17.11 LAL (dyspnea on exertion) R06.09 Bronchiectasis without complication (HCC) J47.9 Grade I diastolic dysfunction I51.89 Nocturnal hypoxemia G47.34 Mild aortic stenosis I35.0 Major depression, recurrent, chronic (HCC) F33.9 Multinodular goiter E04.2 Severe persistent asthma without complication J45.50 Hypertensive heart and kidney disease with chronic diastolic congestive heart failure and stage 3b chronic kidney disease (HCC) I13.0, I50.32, N18.32 SUZAN (obstructive sleep apnea) G47.33 Dyslipidemia, goal LDL below 100 E78.5 Medication Compliance: Patient is able to obtain all of her medications? Yes Patient takes medications as prescribed? Yes Patient manages own medications: No Patient uses a pill box? No, pt lives in the assisted living. Dental Exam: Yes: Every 6 Months Eye Screening: Yes: Every year Are you having trouble with hearing? No Do you use an assistive device to help your hearing? No Exercise Screening: does not exercise regularly Nutrition Assessment: Eats three meals a day Pain Screening: Are you having any pain? Yes. Pain Scale: 5 out of 10; for right shoulder, pt states arthritis, pt did fall and hit walker this am . I will speak to Dr. Jimenes Sleep Screening Tool 'STOP': Do you snore? Yes Do you feel fatigued during the day? Yes Do you wake up feeling like you haven't slept? No Have you been told you stop breathing at night? Yes Do you gasp for air or choke while sleeping? No Have you been told you have Sleep Apnea? Yes Do you have high blood pressure or are on medication(s) to control high blood pressure? Yes SCORE: If you check YES to two or more questions, make a referral for Obstructive Sleep Apnea Pt does use 3L at night Patient and Caregiver Support System: Patient lives alone Means of Transportation: [facility] Patient lives in assisted living Community Resources: Not Applicable Functional Status and ADL Skills: Has patient ever had an amputation? No Functional Assessment: 80- Normal activity with effort: some symptoms of disease Ambulation: Patient ambulates with assistive device. Walker Dressing: Gets clothes and dresses without any assistance: Independent Able to move freely in chair or bed including turning over: Independent Repositioning (bed or chair): Not applicable Transfers: Independent Toileting: Goes to bathroom, uses toilet, arranges clothes and returns without any assistance: Independent Toileting: continent of bladder and continent of bowel Feeding: Self Bathing: Self; Shower Chair, and walk in shower Requires minimal assistance with ADLs. Instrumental ADL's: Shopping: Minimal Assistance Housekeeping: Minimal Assistance Handling Finances: Minimal Assistance DME Vendor Name: Not Applicable Fall Risk Assessment: Can the patient demonstrate that she can stand from a sitting position? Yes Has the patient had a fall within the last 6 months? Yes Does the patient have a problem with her gait or balance? No Does the patient take 4 or more prescription medicines? Yes Does the patient use sedatives or narcotics? No Fall Risk Factors Present: History of falls within the past 6 months Yes Cause of fall: Patient lost balance. Pain since the fall: New pain associated with the fall: 1-2 pain location rib pain Uses more than 4 medications Uses assistive devices Balance or gait disturbances Lower extremity weakness Visually impaired Older than age 70 Jpu-Qq-vea-Go Test: Time began at 1000. Patient stood from sitting position and walked approximately 10 feet, returned and sat down. Total time for ije-wo-zdh-go test was 12 seconds. Cfe-Iw-saz-Go Test completed? Yes Gender Specific Preventative Plan: Health Maintenance Topic Date Due Zoster Vaccines (1 of 2) Never done COVID-19 Vaccine (5 - Pfizer series) 11/11/2021 *BISPHONATE OR OTHER ACCEPTABLE MEDICATION NEEDED FOR OSTEOPOROSIS (REFER TO SMARTSET #1146) Never done Depression Screening, Annual for Pts 12 and Over 11/29/2022 Influenza Vaccine (FLU shot) (1) 12/02/2022 Albumin/Creatinine Ratio 06/29/2023 CKD HGB USE SMARTSET 65271 06/29/2023 CKD PHOS USE SMARTSET 29855 06/29/2023 HbA1c 09/30/2023 DTaP,Tdap,and Td Vaccines (2 - Td or Tdap) 12/14/2028 Pneumococcal Vaccine: 65+ Years Completed Hepatitis B Aged Out MENINGOCOCCAL (MENACTRA/MENVEO) Aged Out GARDASIL-HPV IMMUNIZATION SERIES Aged Out Follow Up/ Referrals/Handouts: Depression screening - completed Functional assessment - doing well, has noticed she was falling more in the last 6mths, pt states balance is an issue Falls Risk screening - discussed and pt will see amarilis today for eval Exercise screening - encourage walking and chair exercises. Nutrition assessment -. Education Provided and Handouts Provided Pain screening - discussed Incontinence screening - no new complaints Patient has been verbally educated on the need or importance of Cholesterol, GFR, Hemoglobin A1c, and Immunizations: flu,shingles,covid Pt has completed the covid vaccines: No, declined bivalent Pt will think about shingles Risk and functional assessment (Primary) Routine general medical examination at a health care facility Bronchiectasis without complication (HCC) - Med reconciliation completed and compliance discussed. - pt to continue present medications. LAL (dyspnea on exertion) - Med reconciliation completed and compliance discussed. - pt to continue present medications. Pt also uses 3L of oxgen at night Dyslipidemia, goal LDL below 100 - Med reconciliation completed and compliance discussed. - pt to continue present medications. Lab Results Component Value Date/Time LDL CHOLESTEROL (CALCULATED) - [facility] 61 12/07/2017 09:57 AM LDL CHOLESTEROL (DIRECT MEASURE) - [facility] 65 06/28/2022 02:19 PM LDL CHOLESTEROL (DIRECT MEASURE) - [facility] 71 06/13/2019 12:18 PM Essential hypertension with goal blood pressure less than 140/90 - Med reconciliation completed and compliance discussed. - pt to continue present medications. BP Readings from Last 3 Encounters: 11/30/22 120/70 11/30/22 120/70 06/28/22 98/58 Gastroesophageal reflux disease without esophagitis - Med reconciliation completed and compliance discussed. - pt to continue present medications. Hypertensive heart and kidney disease with chronic diastolic congestive heart failure and stage 3b chronic kidney disease (HCC) Component Latest Ref Rng 09/29/2022 BUN 6 - 20 mg/dL 18 Creatinine 0.5 - 1.0 mg/dL 1.1 (H) Estimated Glomerular Filtration Rate >=60 mL/min 49 (L) (H) High (L) Low Major depression, recurrent, chronic (HCC) - Med reconciliation completed and compliance discussed. - pt to continue present medications. SUZAN (obstructive sleep apnea) Pt does wear 3L O2 at night Senile osteoporosis - Med reconciliation completed and compliance discussed. - pt to continue present medications. See other OV, pt did fall getting ready for todays appointment and was seen by Amarilis. Follow Up: Return in 1 year (on 12/01/2023) for 12 month Subsequent Adult Wellness Visit. | For: 12 month Subsequent Adult Wellness Visit | Check-out note: 12 month Subsequent Adult Wellness Visit Would patient like to schedule next AWV visit? Yes Belkis Davis RN documented in this encounter Miscellaneous Notes * Pt Handout (on AVS) - Belkis Davis RN - 11/30/2022 10:48 AM EDT [id number] Fall Because of Dizziness, Weakness, or Loss of Balance The symptoms that led to your fall have been evaluated. Your healthcare provider feels it's safe for you to return home. Many things can cause you to become dizzy. Everyone means a little something different by the word dizzy. People may describe their symptoms using these words: It doesn?t feel right in my head It feels like spinning in my head It seems like the room is spinning My balance feels off I feel lightheaded, like I am going to pass out All these descriptions can have real causes. Your main balance mechanism is in your inner ear. Anything disturbing it can make you feel dizzy, whether it's from a cold, an injury, or many other things. Anything that causes your blood pressure to drop suddenly can make you feel lightheaded, or like you are going to faint. This is because at that moment there might not be enough blood flowing to your brain. Causes include: Medicines Dehydration Standing up or bending over too quickly Becoming overheated Taking a hot shower or bath Straining hard while lifting something or using the toilet Strokes, heart attack, heart valve disease, very slow or very fast heart rate Low blood sugar Ear infection Hyperventilation Anemia (low red blood cell levels) Injury Infection Panic attack You may be at risk of repeat falls. Take precautions described below to prevent another fall. Home care If you become lightheaded or dizzy, lie down immediately or sit and lean forward with your head down. It's better to do this than fall and seriously hurt or injure yourself. Rest today. When changing position, take a moment to be sure any dizziness goes away before standing and walking. If you have been prescribed a walker, be sure to use it whenever you walk, even if it's a short distance. If you were injured during the fall, follow the advice from your healthcare provider regarding care of your injury. Tell your healthcare provider about all the medicines, herbs, vitamins, and supplements you take. Some medicines can cause dizziness. Cut back on alcohol use. Don't drive until your healthcare provider says it's OK. You don't want to have a dizzy spell when you' re driving. Follow-up care Unless you're given other advice, call your primary healthcare provider on the next office day to advise of your fall and to schedule a follow-up appointment. You may need further treatment for the underlying condition that caused today?s fall. If X-ray or a CT scan were done, you'll be told of the results, especially if it affects treatment. Call 911 Call 911 if any of these occur: Trouble breathing Confused or trouble arousing Fainting or loss of consciousness Rapid or very slow heart rate Seizure Trouble with speech or vision, weakness of an arm or leg Trouble walking or talking, loss of balance Numbness or weakness in 1 side of your body, facial droop When to get medical advice Call your healthcare provider right away if any of these occur: Another fall More dizzy spells Severe headache Blood in vomit or stools (black or red color) Last Reviewed Date: 04/03/202119998482-2792 [employer]. All rights reserved. This information is not intended as a substitute for professional medical care. Always follow your healthcare professional's instructions. * Pt Handout (on AVS) - Belkis Davis RN - 11/30/2022 10:48 AM EDT [id number] Fall Prevention Falls often take place due to slipping, tripping, or losing your balance. Millions of people fall every year and injure themselves. Among older adults in the [place] falls are the most common cause of traumatic brain injuries. Every 20 minutes, an older adult dies from a fall. Here are ways to reduceyour risk of falling again: Think about your fall. Was there anything that caused your fall that can be fixed, removed, or replaced? Make your home safe by keeping walkways clear of objects you may trip over, such as electrical cords. Use nonslip pads under rugs. Don't use area rugs or small throw rugs. Use nonslip mats in bathtubs and showers. Hang grab rails by the toilet and inside and outside the shower. Install handrails and lights on staircases. The handrails should be on both sides of the stairs. Use night lights. Don't walk in poorly lit areas. Don't stand on chairs or wobbly ladders. Use care when reaching overhead or looking up. This position can cause a loss of balance. Be sure your shoes fit well, are in good condition, and have nonslip bottoms. Wear shoes both inside and outside of your home. Don't go barefoot or wear slippers. Be cautious when going up and down stairs, curbs, and when walking on uneven sidewalks. If your balance is poor, consider using a cane or walker. Talk with your healthcare provider about having a balance assessment. If your fall was related to alcohol use, stop or limit alcohol intake. Ask your provider for help if you think you may overuse alcohol and can't stop. If your fall was related to use of sleeping medicines, talk with your provider about this. You may need to reduce your dosage at bedtime if you wake up during the night to go to the bathroom. To reduce the need for nighttime bathroom trips: o Don't drink fluids for several hours before going to bed o Empty your bladder before going to bed o Men can keep a urinal at the bedside Stay as active as you can. Balance, flexibility, strength, and endurance all come from exercise.They all play a role in preventing falls. Ask your provider which types of activity are right for you. Try to do some type of exercise every day. Get your eyes checked once a year or more often if your vision changes If you have pets, know where they are before you stand up or walk so you don't trip over them. Go over all your medicines with a pharmacist or other provider. This is to see if any of them could make you more likely to fall. Have this type of medicine review at least once every year. If your provider advises a new medicine, ask if the side effects will affect your balance. Don't move quickly from one position to another. For instance, don't stand up fast from sitting.This can cause dizziness and may lead to a fall. Sit down when putting on pants, socks, and shoes. This will make you less likely to lose your balance and fall. Always let your provider know if you have fallen since your last visit. Contact your provider right away if you're having balance problems or falling more often. Last Reviewed Date: 04/03/202119997999-8184 [employer]. All rights reserved. This information is not intended as a substitute for professional medical care. Always follow your healthcare professional's instructions. documented in this encounter Plan of Treatment Upcoming Encounters Date Type Specialty Care Team Description 12/29/2022 Office Visit Family Medicine Makeda Álvarez PA-C [address] [place] [address] [place] [address] 03/03/2023 Nurse Only Rheumatology [place], Nurse Rheum Mo [address] [place] [address] [place] [phone] 04/20/2023 Office Visit Cardiology Harpreet Paniagua, DO [address] [place] [address] 07/04/2023 Office Visit Family Medicine Peter Lu MD [address] [place] [address] [place] [address] 12/05/2023 Nurse Only Ancillary Hanny, Nurse Annual Wellness [address] [place] [address] [place] [address] Health Maintenance Due Date Last Done Comments Zoster Vaccines (1 of 2) 1987 COVID-19 Vaccine (5 - Pfizer series) 11/11/2021 09/16/2021, 01/27/2021, 05/31/2020, Additional history exists *BISPHONATE OR OTHER ACCEPTABLE MEDICATION NEEDED FOR OSTEOPOROSIS (REFER TO SMARTSET #1146) 01/25/2022 Depression Screening, Annual for Pts 12 and Over 11/29/2022 11/30/2022 Influenza Vaccine (FLU shot) (#1) 2022 01/26/2022, 01/13/2020 Albumin/Creatinine Ratio 06/29/2023 023, 06/03/2021, 11/14/2019, Additional history exists CKD HGB USE SMARTSET 40045 06/29/202306/28, 06/28/2022, 10/07/2021, Additional history exists CKD PHOS USE SMARTSET 68238 06/29/202306/02, 06/02/2021, 06/13/2019, Additional history exists HbA1c 09/30/2023 09/29/2022, 06/02, 10/07/2021, Additional history exists DTaP,Tdap,and Td Vaccines (2 - Td or Tdap) 12/14/2028 12/14/2018, 12/14/2018 Pneumococcal Vaccine: 65+ Years Completed 01/21/2016, 12/18/2014 GARDASIL-HPV IMMUNIZATION SERIES Aged Out No longer eligible based on patient's age to complete this topic Hepatitis B Aged Out No longer eligi ble based on patient's age to complete this topic MENINGOCOCCAL (MENACTRA/MENVEO) Aged Out No longer eligible based on patient's age to complete this topic documented as of this encounter Medical Devices Not on filedocumented as of this encounter Visit Diagnoses Diagnosis Risk and functional assessment- Primary Screening for unspecified condition Routine general medical examination at a health care facility Bronchiectasis without complication (HCC) Bronchiectasis without acute exacerbation LAL (dyspnea on exertion) Other dyspnea and respiratory abnormality Dyslipidemia, goal LDL below 100 Other and unspecified hyperlipidemia Essential hypertension with goal blood pressure less than 140/90 Gastroesophageal reflux disease without esophagitis Esophageal reflux Hypertensive heart and kidney disease with chronic diastolic congestive heart failure and stage 3b chronic kidney disease (HCC) Major depression, recurrent, chronic (HCC) Major depressive disorder, recurrent episode, unspecified SUZAN (obstructive sleep apnea) Obstructive sleep apnea (adult) (pediatric) Senile osteoporosis documented in this encounter Advance Directives Documents on File Type Date Recorded Patient Passenger Service Agent Expl anation Power of Electrician Refinery 11/28/2012 POWER OF A TTORNEY Latest Code Status on File Code Status Date Activated Date Inactivated Comments Full Code 06/18/2009 5:27 PM 06/19/2009 8:11 PM This order reflects the patients wishes and were consensually agreed upon. Question Answer Comments Discussion of Advance Directives occurred with: Patient Does the patient have a Living Will? Yes, not currently available Does the patient have Health Care Power of Electrician Refinery? Yes, not currently available Code Status History Code Status Date Activated Date Inactivated Comments Full Code 06/18/2009 5:02 PM 06/18/2009 5:27 PM This order reflects the patients wishes and were consensually agreed upon. Question Answer Comments Discussion of Advance Directives occurred with: Patient Does the patient have a Living Will? No Does the patient have Health Care Power of Electrician Refinery? No Care Teams Sort Line Worker Relationship Specialty Start Date End Date Peter Lu MD [address] [place] [address] [place] [address] PCP - General Family Medicine 11/28/16 documented as of this encounter
--- OUTSIDE RECORDS SUMMARY | 2023-02-19 09:58 | External Medical Summary | Summary of Care ---
Author Name Unknown Organization [facility] Address [address] [place] [address] Phone [phone] Care Team Providers Care Health Education Director Name Role Phone Peter Lu MD Primary Care Provide r Reason for Visit * Reason Onset Date Comments Medication Refill 01/10/2023 Encounter Details Date Type Department Care Team Description 01/10/2023 Refill [facility] [address] [facility] [place] [address] Denisha Nation PA-C [address] [place] [address] Degenerative disc disease, cervical; Lumbar degenerative disc disease Allergies Active Allergy Reactions Severity Noted Date Comments Amoxicillin-Pot Clavulanate Hives 04/06/2015 Dexamethasone Other (Please comment) Low 06/04/2008 Make her anxious Phenytoin Sodium Rash High 09/04/2002 documented as of this encounter (statuses as of 01/10/2023) Medications Medication Sig Dispensed Refills Start Date [...] Respimat 2.5 MCG/ACT Inhalation Aerosol Solution (Tiotropium [place] Monohydrate) Inhale 2 Puffs by mouth daily. [...] % Ophthalmic Solution (Ciloxan) 0 05/20/2022 Active Escitalopram Oxalate 10 MG Oral Tablet (Lexapro) Take 1.5 Tablets by mouth in the morning. 0 11/10/2022 Active Diclofenac Sodium 1 % External Gel (Voltaren)Indicati ons:Chronic right shoulder pain Apply 4 g topically to affected area in the morning and 4 g at noon and 4 g in the evening and 4 g before bedtime. 100 g 1 11/30/2022 Active traMADol HCl 50 MG Oral Tablet (Ultram)Indication s:Degenerative disc disease, cervical,Lumbar degenerative disc disease Take 1 Tablet by mouth every 6 hours as needed for Pain, Moderate or Pain, Severe. 120 Tablet 4 01/10/2023 Active traMADol HCl 50 MG Oral Tablet (Ultram)Indication s:Degenerative disc disease, cervical,Lumbar degenerative disc disease Take 1 Tablet by mouth every 6 hours as needed for Pain, Moderate. 90 Tablet 4 10/10/2022 3 Discontinue d(Refill) documented as of this encounter (statuses as of 01/10/2023) Active Problems Problem Noted Date Dyslipidemia, goal [...] as of this encounter (statuses as of 01/10/2023) Resolved Problems Problem Noted Date Resolved Date [...] 03/01/2013 03/14/2013 Overview: 10/21/11 Coronary atherosclerosis of [place] coronary gia ry 02/21/2013 07/23/2015 GERD (gastroesophageal [...] Markers for Patients with Cardiovascular Disease Project #[id number] PI: Keily Mazariegos MD Please call [phone] with study related questions GENOMICS CARDIO RESEARCH OTHER*[id number] 200905/10/2016 Overview: Renamed Per Clinical Trials Billing Project. Study Titile: Genomic Markers for Patients with Cardiovascular Disease Project #[id number] PI: Keily Mazariegos MD Please call [phone] with study related questions Unstable angina 06/18/2009 02/21/2013 HTN, goal below 140/90 06/18/2009 3 Osteoporosis 06/18/2009 03/01/2013 Dyslipidemia, goal LDL below 100 06/18/2009 01/21/2016 documented as of this encounter (statuses as of 01/10/2023) Immunizations Name Administration Dates Next Due COVID-19 mRNA, LNP-s, No Pre serve, 2-Dose Series (Pfizer) 05/31/2020,05/10/2020 COVID-19, LNP-s, No Preserve , Jonah-sucrose, Ages 12+ (Pfizer) 09/16/2021,01/27/2021 Pneumococcal Conjugate Vacc, 13 Valent (Prevnar) 12/18/2014 Pneumococcal Polysaccharide PPV23 (Pneumovax) Seasonal Influenza, Quadrivalent Hd (Fluzone Hd) 12/29/2022,01/26/2022 Seasonal Influenza, Quadrivalent Hd, 65+ Yrs 03/2020 [...] on file documented as of this encounter Miscellaneous Notes * Telephone Encounter - Denisha Nation PA-C - 01/10/2023 1:44 PM EDT REFILL TRAMADOL 50MG Q 6 HOURS PRN MOD TO SEVERE PAIN #120 R4 SENT ELECTRONICALLY TO [facility] documented in this encounter Plan of Treatment Upcoming Encounters Date Type Specialty Care Team Description 03/03/2023 Nurse Only Rheumatology [place], Nurse Rheum Mo [address] [place] [address] [place] [address] 04/20/2023 Office Visit Cardiology Harpreet Paniagua, [address] [place] [address] 07/04/2023 Office Visit Family Medicine Peter Lu MD [address] [place] [address] [place] [address] 12/05/2023 Nurse Only Ancillary [place], Nurse Annual [address] [place] [address] Health Maintenance Due Date Last Done Comments Zoster Vaccines (1 of 2) 1987 *BISPHONATE OR OTHER ACCEPTABLE MEDICATION NEEDED FOR OSTEOPOROSIS (REFER TO SMARTSET #1146) 01/25/2022 COVID-19 Vaccine ( season) 2022 09/16/2021, 01/27/2021, 05/31/2020, Additional history exists Albumin/Creatinine Ratio 06/29/2023 023, 06/03/2021, 11/14/2019, Additional history exists CKD HGB USE SMARTSET 86662 06/29/202306/28, 06/28/2022, 10/07/2021, Additional history exists CKD PHOS USE SMARTSET 43055 06/29/202306/02, 06/02/2021, 06/13/2019, Additional history exists HbA1c 09/30/2023 09/29/2022, 06/02, 10/07/2021, Additional history exists Depression Screening 12/01/2023 11/30/2022 DTaP,Tdap,and Td Vaccines (2 - Td or Tdap) 12/14/2028 12/14/2018, 12/14/2018 Pneumococcal Vaccine: 65+ Years Completed 01/21/2016, 12/18/2014 Influenza Vaccine (FLU shot) Completed , 01/26/2022, 01/13/2020 GARDASIL-HPV IMMUNIZATION SERIES Aged Out No longer [...] as of this encounter Visit Diagnoses Diagnosis Degenerative disc disease, cervical Degeneration of cervical intervertebral disc Lumbar degenerative disc disease Degeneration of lumbar or lumbosacral intervertebral disc documented in this encounter Advance Directives Documents on File Type Date Recorded Patient Gem Cutter Expl anation Power of Vc++ Developer 11/28/2012 POWER OF A TTORNEY Latest Code [...] the patient have Health Care Power of Vc++ Developer? Yes, not currently available Code Status History Code Status Date Activated Date Inactivated Comments Full Code 06/18/2009 5:02 PM 06/18/2009 5:27 PM This order reflects the patients wishes and were consensually agreed upon. Question Answer Comments Discussion of Advance Directives occurred with: Patient Does the patient have a Living Will? No Does the patient have Health Care Power of Vc++ Developer? No Care Teams Health Education Director Relationship Specialty Start Date End Date Peter Lu MD [address] [place] [address] [place] [id number] PCP - General Family Medicine 11/28/16 documented as of this encounter
--- OUTSIDE RECORDS SUMMARY | 2023-02-19 09:58 | External Medical Summary | Summary of Care ---
Author Name Unknown Organization [facility] Address [address] [place] [address] Phone [phone] Care Team Providers Care Unscrambler Name Role Phone Peter Lu MD Primary Care Provide r Reason for Visit * Reason Onset Date Comments Precert Approved 07/29/2022 Prolia- Encounter Details Date Type Department Care Team (Late st Contact Info) Description 07/29/2022 Telephone Rheumatology [place] [id number] [facility] [address] Adriana Hector PA-C Precert Approved (Prolia-) Allergies Active Allergy Reactions Criticality Noted Date Comments Amoxicillin-Pot Clavulanate Hives 04/06/2015 Dexamethasone Other (Please comment) Low 06/04/2008 Make her anxious Phenytoin Sodium Rash High 09/04/2002 documented as of this encounter (statuses as of 02/09/2023) Medications Medication Sig Dispensed Refills Start Date End Date Status polyvinyl alcohol-povidone PF (REFRESH) 1.4-0.6 % ophthalmic solution Instill 1 Drop into both eyes 4 times a day. 5 Each 0 01/02/2019 Active atorvaSTATin (LIPITOR) 20 MG TabletIndications:M ixed dyslipidemia Take 1 Tab by mouth daily. 90 Tab 0 01/02/2019 Active aspirin enteric coated 81 MG TBEC Take 1 Tab by mouth daily. 100 Tab 3 01/02/2019 Active albuterol-ipratropi um (DUONEB) 2.5-0.5 MG/3ML nebulizer solution 3 mL. 0 10/24/2018 Active traZODone (DESYREL) 100 MG TabletIndications:P ersistent insomnia Take 1 Tab by mouth at [...] Respimat 2.5 MCG/ACT Inhalation Aerosol Solution (Tiotropium [place] Monohydrate) Inhale 2 Puffs by mouth daily. [...] Recomb Adjuvanted 50 MCG/0.5ML Intramuscular Suspension Reconstituted (Shingrix)Indicatio ns:Need for vaccination for zoster Inject 0.5 mL [...] Tablet by mouth every evening. 0 Active Diclofenac Sodium (VOLTAREN) 1 % gelIndications:Med Spec ishmael right shoulder pain Place 2 g topically on the skin 2 times a day. To affected area as directed. 100 g 5 10/06/2019 3 Discontinue d(Medicatio n/Dose Changed) Acetaminophen ER 650 MG Oral Tablet Extended Release Take 1 Tablet by mouth in the morning. 0 3 Discontinue d(Medicatio n List Clean Up) traMADol HCl 50 MG Oral Tablet (Ultram)Indications :Degenerative disc disease, cervical,Lumbar degenerative disc disease Take 1 Tablet by mouth every 6 hours as needed for Pain, Moderate. 90 Tablet 4 05/11/2022 3 Discontinue d(Refill) documented as of this encounter (statuses as of 02/09/2023) Active Problems Problem Noted Date Diagnosed Date Dyslipidemia, goal LDL below 100 06/02/2021 SUZAN (obstructive sleep apnea) 05/14/2020 Hypertensive heart and kidne y disease with chronic diastolic congestive heart failure and stage 3b chronic kidney disease 02/10/2020 Overview: Per CKD protocol Severe persistent asthma without complication Major depression, recurrent, chronic 05/21/2019 Mild aortic stenosis 02/13/2019 Nocturnal hypoxemia 09/12/2018 Bronchiectasis without complication 07/10/2018 Grade I diastolic dysfunction 07/10/2018 LAL (dyspnea on exertion) 05/30/2018 Primary osteoarthritis of right knee 01/04/2018 S/P total knee replacement, left 02/22/2017 Essential hypertension with goal blood pressure less than 140/90 01/21/2016 Gastroesophageal reflux disease without esophagi tis 07/23/2015 Pulmonary scarring 07/23/2015 Prediabetes 07/21/2015 Lumbar degenerative disc disease 12/18/2014 Primary osteoarthritis of left knee 12/18/2014 Pulmonary nodules 02/11/2014 Senile osteoporosis 03/14/2013 History of breast cancer 02/21/2013 Overview: Right breast Persistent insomnia 02/21/2013 Vertigo 02/21/2013 History of meningioma 02/21/2013 IBS (irritable bowel syndrome) 02/21/2013 History of compression fracture of spine 013 Degenerative disc disease, cervical Multinodular goiter documented as of this encounter (statuses as of 02/09/2023) Resolved Problems Problem Noted Date Diagnosed Date Resolved Date Chronic kidney disease, stage 3b 08/11/2020 06/28/2022 Overview: Per CKD protocol Closed nondisplaced fracture of distal pole of navicular bone of left wrist 02/28/2020 06/03/19 Closed trochanteric fracture of left femur with routine healing 02/28/2020 06/02/2021 Stage 3b chronic kidney disease 02/10/2020 05/14/2020 Overview: Per CKD protocol - Per CKD protocol Kidney disease, chronic, sta ge III (GFR 30-59 ml/min) 06/10/2019 02/13/2020 Overview: Per CKD protocol Hypertensive heart and kidne y disease with chronic diastolic congestive heart failure and stage 3 chronic kidney disease 04/10/201902/12 Overview: Per CKD protocol Radius and ulna distal fract ure, left, open type I or II, with routine healing, subsequent encounter 12/19/2018 05/21/2019 Hypertensive kidney disease with chronic kidney disease stage III 09/24/2018 05/21/2019 Severe persistent asthma wit h acute exacerbation 09/12/2018 01/14/2019 Body mass index (BMI) of 40. 0 to 44.9 in adult 08/13/2018 01/14/2019 Overview: Per Obesity protocol #1 Heart failure, diastolic, due to HTN 03/06/2018 06/25/2021 Hypertensive heart and chron ic kidney disease with heart failure and stage 1 through stage 4 chronic kidney disease, or chronic kidney disease 01/04/2018 01/04/2018 Hypertensive heart disease, benign w/chronic kidney disease stage 1-4 01/04/2018 07/10/2018 Acute shoulder bursitis, right 01/27/2017 01/04/2018 MEDICATION USE AGREEMENT 01/16/201707/2017 Pulmonary fibrosis, unspecified 12/13/2016 05/26/2017 Benign neoplasm of cerebral meninges 11/29/2016 01/04/2018 Diastolic dysfunction, left ventricle 09/10/2015 01/04/2018 Depression with anxiety 09/10/201505/04 Lumbar facet arthropathy 12/18/201407/2017 HTN, goal below 140/90 07/03/201402/22 Hypertension goal BP (blood pressure) < 140/80 01/29/2014 07/03/2014 Osteopenia 03/01/2013 03/14/2013 Overview: 10/21/11 Coronary atherosclerosis of [place] coronary artery 02/21/2013 07/23/2015 GERD (gastroesophageal reflux disease) 02/21/2013 02/22/2017 Major depressive disorder 02/21/2013 Overview: ICD-10 update of inactive term Kidney disease, chronic, sta ge III (GFR 30-59 ml/min) 02/21/2013 10/11/2018 HTN, goal below 130/80 02/21/201301/29 EXAMINATION OF PARTICIPANT I N CLINICAL TRIAL-genomics 06/19/2009 07/17/2009 Overview: Renamed Per Clinical Trials Billing Project. Study Titile: Genomic Markers for Patients with Cardiovascular Disease Project #[id number] PI: Keily Mazariegos MD Please call [phone] with study related questions GENOMICS CARDIO RESEARCH OTHER*[id number] 06/19/2009 05/10/2016 Overview: Renamed Per Clinical Trials Billing Project. Study Titile: Genomic Markers for Patients with Cardiovascular Disease Project #[id number] PI: Keily Mazariegos MD Please call [phone] with study related questions Unstable angina 06/18/2009 02/21/2013 HTN, goal below 140/90 06/18/200902/21 Osteoporosis 06/18/2009 03/01/2013 Dyslipidemia, goal LDL below 100 06/18/2009 01/21/2016 documented as of this encounter (statuses as of 02/09/2023) Immunizations Name Administration Dates Next Due COVID-19 mRNA, LNP-s, No Pre serve, 2-Dose Series (Shopping [employer]) 05/31/2020,05/10/2020 COVID-19, LNP-s, No Preserve , Jonah-sucrose, Ages 12+ (Shopping Buddy) 09/16/2021,01/27/2021 Pneumococcal Conjugate Vacc, 13 Valent (Prevnar) [...] drink = 0.6 oz pur e alcohol) PHQ-2 Answer Date Recorded PHQ Adult Total Score 0 11/30/2022 Hunger Vital Sign Answer Date Recorded Within the past 12 months, y ou worried that your food would run out before you got the money to buy more. Never true 12/01/19 23 Within the past 12 months, t he food you bought just didn't last and you didn't have money to get more. Never true 11/30/2022 Sex and Gender Information Value Date Recorded Sex Assigned at Female 11/26/2020 10:22 AM EDT Gender Identity Female 11/26/2020 10:22 AM EDT Sexual Orientation Straight 11/26/2020 10 :22 AM EDT Job Start Date Occupation Industry Not on file Not on file Not on file documented as of this encounter Miscellaneous Notes * Telephone Encounter - Luly Lam LPN - 02/09/2023 10:01 AM EST Spoke with Juliane at [facility], form for Prolia assistance refaxed, to be completed by pt and mailed to address on form * Telephone Encounter - Luly Lam LPN - 11/29/2022 10:19 AM EDT Form received 11/24 to [facility], spoke with utility mechanic supervisor "will see to it that Pt gets form" * Telephone Encounter - Rehana Camara OSA - 11/24/2022 7:06 AM EDT Fax sent this morning. Rehana Murrell * Telephone Encounter - Luly Lam LPN - 11/23/2022 2:23 PM EDT Spoke with pt, says she may have thrown it out, can a form be faxed to [phone] * Telephone Encounter - Rehana Camara OSA - 09/29/2022 3:27 PM EDT Sent again. * Telephone Encounter - Luly Lam LPN - 09/29/2022 2:28 PM EDT spoke with pt states she didn't get mani., please send another * Telephone Encounter - Rehana Camara OSA - 08/04/2022 1:24 PM EDT Date of Services: 08.05.22 Facility: [facility] Estimate of Services for the following CPT(s): J0897 PROLIA Estimated Out of Pocket: $257.01 Called & explained OOP. Pt's Financial mani 12/08/21, pt is going to re- apply. Sent mani out today. * Telephone Encounter - Luly Lam LPN - 08/04/2022 12:12 PM EDT Pt has an apt. Tomorrow for Prolia, can you call pt regarding OOP * Telephone Encounter - Kelsea Jo LPN - 07/29/2022 2:10 PM EDT Pt has an upcoming appointment to received Prolia. Please check for current authorization, notify pt of any out of pocket costs. Thank you! documented in this encounter Plan of Treatment Upcoming Encounters Date Type Department Care Team (Late st Contact Info) Description 03/03/2023 11:00 AM EST Nurse Only Rheumatology [address] [place] [address] [place], Nurse [address] [place] [address] 04/20/2023 10:30 AM EST Office Visit Cardiology [address] [place] [address] Harpreet Paniagua, DO [address] [place] [address] 07/04/2023 1:40 PM EDT Office Visit Family Medicine [address] [place] [address] Peter Lu MD [address] [place] [address] [place] [address] 12/05/2023 10:30 AM EDT Nurse Only Ancillary [address] [place] [address] Nurse Hanny [address] [place] [address] Health Maintenance Due Date Last Done Comments Zoster Vaccines (1 of 2) 1987 Hepatitis B (1 of 3 - Risk 3-dose series) 1997 *BISPHONATE OR OTHER ACCEPTABLE MEDICATION NEEDED FOR OSTEOPOROSIS (REFER TO SMARTSET #1146) 01/25/2022 COVID-19 Vaccine ( season) 2022 09/16/2021, 01/27/2021, 05/31/2020, Additional history exists Albumin/Creatinine Ratio 06/29/2023 023, 06/03/2021, 11/14/2019, Additional history exists CKD HGB USE SMARTSET 43298 06/29/202306/28, 06/28/2022, 10/07/2021, Additional history exists CKD PHOS USE SMARTSET 20432 06/29/202306/02, 06/02/2021, 06/13/2019, Additional history exists HbA1c [...] Not on filedocumented as of this encounter Advance Directives Documents on File Type Date Recorded Patient Public Health Officer Expl anation Power of Full Service Vending Driver 11/28/2012 POWER OF A TTORNEY Latest Code [...] the patient have Health Care Power of Full Service Vending Driver? Yes, not currently available Code Status History Code Status Date Activated Date Inactivated Comments Full Code 06/18/2009 5:02 PM 06/18/2009 5:27 PM This order reflects the patients wishes and were consensually agreed upon. Question Answer Comments Discussion of Advance Directives occurred with: Patient Does the patient have a Living Will? No Does the patient have Health Care Power of Full Service Vending Driver? No Care Teams Unscrambler Relationship Specialty Start Date End Date Peter Lu MD [address] [place] [address] [place] [id number] PCP - General Family Medicine 11/28/16 documented as of this encounter
--- OUTSIDE RECORDS SUMMARY | 2023-02-19 09:58 | External Medical Summary | Summary of Care ---
Author Name Unknown Organization [facility] Address [address] [place] [address] Phone [phone] Care Team Providers Care Passenger Service Agent Name Role Phone Peter Lu MD Primary Care Provide r Reason for Visit * Reason Onset Date Comments Medication Refill 01/24/2023 Encounter Details Date Type Department Care Team (Late st Contact Info) Description 01/24/2023 Refill [facility] [address] [place] [address] Denisha Nation PA-C [address] [place] [address] Degenerative disc disease, cervical; Lumbar degenerative disc disease Allergies Active Allergy Reactions Criticality Noted Date Comments Amoxicillin-Pot Clavulanate Hives 04/06/2015 Dexamethasone Other (Please comment) Low 06/04/2008 Make her anxious Phenytoin Sodium Rash High 09/04/2002 documented as of this encounter (statuses as of 01/24/2023) Medications Medication Sig Dispensed Refills Start Date [...] Respimat 2.5 MCG/ACT Inhalation Aerosol Solution (Tiotropium [place] Monohydrate) Inhale 2 Puffs by mouth daily. [...] Moderate or Pain, Severe. 120 Tablet 4 01/24/2023 Active traMADol HCl 50 MG Oral Tablet (Ultram)Indication s:Degenerative disc disease, cervical,Lumbar degenerative disc disease Take 1 Tablet by mouth every 6 hours as needed for Pain, Moderate or Pain, Severe. 120 Tablet 4 01/10/2023 3 Discontinue d(Refill) documented as of this encounter (statuses as of 01/24/2023) Active Problems Problem Noted Date Diagnosed Date [...] as of this encounter (statuses as of 01/24/2023) Resolved Problems Problem Noted Date Diagnosed Date Resolved Date Chronic kidney disease, stage 3b 08/11/2020 06/28/2022 Overview: Per CKD protocol Closed nondisplaced fracture of distal pole of navicular bone of left wrist 02/28/2020 06/03/19 22 Closed trochanteric fracture of left femur with [...] 03/01/2013 03/14/2013 Overview: 10/21/11 Coronary atherosclerosis of [place] coronary artery 02/21/2013 07/23/2015 GERD (gastroesophageal reflux disease) 02/21/2013 02/22/2017 Major depressive disorder 02/21/2013 Overview: ICD-10 update of inactive term Kidney disease, chronic, sta ge III (GFR 30-59 ml/min) 02/21/2013 10/11/2018 HTN, goal below 130/80 02/21/201301/29 EXAMINATION OF PARTICIPANT I N CLINICAL TRIAL-genomics 06/19/2009 07/17/2009 Overview: Renamed Per Clinical Trials Billing Project. Study Titile: Genomic Markers for Patients with Cardiovascular Disease Project #[id number] PI: Keily Mazariegos MD Please call [phone] with study related questions GENOMICS CARDIO RESEARCH OTHER*[id number] 06/19/2009 05/10/2016 Overview: Renamed Per Clinical Trials Billing Project. Study Titile: Genomic Markers for Patients with Cardiovascular Disease Project #[id number] PI: Keily Mazariegos MD Please call [phone] with study related questions Unstable angina 06/18/2009 02/21/2013 HTN, goal below 140/90 06/18/200902/21 Osteoporosis 06/18/2009 03/01/2013 Dyslipidemia, goal LDL below 100 06/18/2009 01/21/2016 documented as of this encounter (statuses as of 01/24/2023) Immunizations Name Administration Dates Next Due COVID-19 [...] Telephone Encounter - Denisha Nation PA-C - 01/24/2023 2:05 PM EDT REFILL TRAMADOL 50MG Q 6 HOURS PRN MOD TO SEVERE PAIN #120 R4 SENT ELECTRONICALLY TO [facility] documented in this encounter Plan of Treatment Upcoming Encounters Date Type Department Care Team (Late st Contact Info) Description 03/03/2023 11:00 AM EST Nurse Only Rheumatology [address] [place] [phone] [place], Nurse Rheum [address] [place] [address] 04/20/2023 10:30 AM EST Office Visit Cardiology [address] [place] [address] Harpreet Paniagua, DO [address] [place] [address] 07/04/2023 1:40 PM EDT Office Visit Family Medicine [address] [place] Peter Lu MD [address] [place] [address] [place] [address] 12/05/2023 10:30 AM EDT Nurse Only Ancillary [address] [place] [address] [place], Nurse Annual Wellness [address] [place] [address] [place] [address] Health Maintenance Due Date Last Done Comments Zoster Vaccines (1 of 2) 1987 Hepatitis B (1 of 3 - Risk 3-dose series) 1997 *BISPHONATE OR OTHER ACCEPTABLE MEDICATION NEEDED FOR OSTEOPOROSIS (REFER TO SMARTSET #1146) 01/25/2022 COVID-19 Vaccine ( season) 2022 09/16/2021, 01/27/2021, 05/31/2020, Additional history exists Albumin/Creatinine Ratio 06/29/2023 023, 06/03/2021, 11/14/2019, Additional history exists CKD HGB USE SMARTSET 12469 06/29/202306/28, 06/28/2022, 10/07/2021, Additional history exists CKD PHOS USE SMARTSET 88458 06/29/202306/02, 06/02/2021, 06/13/2019, Additional history exists HbA1c [...] Documents on File Type Date Recorded Patient All Source Intelligence Technician Expl anation Power of Facilities Clerk 11/28/2012 POWER OF A TTORNEY Latest Code [...] the patient have Health Care Power of Facilities Clerk? Yes, not currently available Code Status History Code Status Date Activated Date Inactivated Comments Full Code 06/18/2009 5:02 PM 06/18/2009 5:27 PM This order reflects the patients wishes and were consensually agreed upon. Question Answer Comments Discussion of Advance Directives occurred with: Patient Does the patient have a Living Will? No Does the patient have Health Care Power of Facilities Clerk? No Care Teams Passenger Service Agent Relationship Specialty Start Date End Date Peter Lu MD [address] [place] [address] [place] [id number] PCP - General Family Medicine 11/28/16 documented as of this encounter
--- OUTSIDE RECORDS SUMMARY | 2023-02-19 09:58 | External Medical Summary | Summary of Care ---
Author Name Unknown Organization [facility] Address [address] [place] [address] Phone [phone] Care Team Providers Care Legislative Advocate Name Role Phone Peter Lu MD Primary Care Provide r Reason for Visit * Reason Onset Date Comments Precert Approved 07/29/2022 Prolia- Encounter Details Date Type Department Care Team Description 07/29/2022 Telephone Rheumatology [facility] [address] [facility] [place] [address] Adriana Hector PA-C Precert Approved (Prolia-) Allergies Active Allergy Reactions Severity Noted Date Comments Amoxicillin-Pot Clavulanate Hives 04/06/2015 Dexamethasone Other (Please comment) Low 06/04/2008 Make her anxious Phenytoin Sodium Rash High 09/04/2002 documented as of this encounter (statuses as of 11/29/2022) Medications Medication Sig Dispensed Refills Start Date [...] all sleep 1 Each 0 05/23/2019 Active Diclofenac Sodium (VOLTAREN) 1 % gelIndications:Chief Of Safety And Protection ishmael right shoulder pain Place 2 g topically on the skin 2 times a day. To affected area as directed. 100 g 5 10/06/2019 Active Magnesium Hydroxide 400 MG/5ML Oral Suspension [...] Respimat 2.5 MCG/ACT Inhalation Aerosol Solution (Tiotropium [place] Monohydrate) Inhale 2 Puffs by mouth daily. 12 g 1 05/14/2020 Active Acetaminophen ER 650 MG Oral Tablet Extended Release Take 1 Tablet by mouth in the morning. 0 Active Bisacodyl 10 MG Rectal Suppository (Dulcolax) [...] Tablet by mouth every evening. 0 Active traMADol HCl 50 MG Oral Tablet (Ultram)Indications :Degenerative disc disease, cervical,Lumbar degenerative disc disease Take 1 Tablet by mouth every 6 hours as needed for Pain, Moderate. 90 Tablet 4 05/11/2022 3 Discontinue d(Refill) documented as of this encounter (statuses as of 11/29/2022) Active Problems Problem Noted Date Dyslipidemia, goal [...] as of this encounter (statuses as of 11/29/2022) Resolved Problems Problem Noted Date Resolved Date [...] 03/01/2013 03/14/2013 Overview: 10/21/11 Coronary atherosclerosis of [place] coronary gia ry 02/21/2013 07/23/2015 GERD (gastroesophageal [...] Markers for Patients with Cardiovascular Disease Project #[id number] PI: Keily Mazariegos MD Please call [phone] with study related questions GENOMICS CARDIO RESEARCH OTHER*[id number] 200905/10/2016 Overview: Renamed Per Clinical Trials Billing Project. Study Titile: Genomic Markers for Patients with Cardiovascular Disease Project #[id number] PI: Keily Mazariegos MD Please call [phone] with study related questions Unstable angina 06/18/2009 02/21/2013 HTN, goal below 140/90 06/18/2009 3 Osteoporosis 06/18/2009 03/01/2013 Dyslipidemia, goal LDL below 100 06/18/2009 01/21/2016 documented as of this encounter (statuses as of 11/29/2022) Immunizations Name Administration Dates Next Due COVID-19 mRNA, LNP-s, No Pre serve, 2-Dose Series ([employer] 05/31/2020,05/10/2020 COVID-19, LNP-s, No Preserve , Jonah-sucrose, [...] got money to buy more. Never true 11/29/2021 Within the past 12 months, t he food you bought just didn't last and you didn't have money to get more. Never true 11/29/2021 Sex Assigned at Date Recorded Female 11/26/2020 10:22 AM EDT Job Start Date Occupation Industry Not on file Not on file Not on file documented as of this encounter Miscellaneous Notes * Telephone Encounter - Luly Lam LPN - 11/29/2022 10:19 AM EDT Form received 11/24 to [facility], spoke with shuttle preparation supervisor "will see to it that Pt gets form" * Telephone Encounter - SUZAN Paul - 11/24/2022 7:06 AM EDT Fax sent this morning. Rehana Murrell * Telephone Encounter - Luly Lam LPN - 11/23/2022 2:23 PM EDT Spoke with pt, says she may have thrown it out, can a form be faxed to [phone] * Telephone Encounter - SUZAN Paul - 09/29/2022 3:27 PM EDT Sent again. * Telephone Encounter - Luly Lam LPN - 09/29/2022 2:28 PM EDT spoke with pt states she didn't get mani., please send another * Telephone Encounter - SUZAN Paul - 08/04/2022 1:24 PM EDT Date of Services: 08.05.22 Facility: [facility] Estimate of Services for the following CPT(s): [...] Encounters Date Type Specialty Care Team Description 11/30/2022 Nurse Only Ancillary [place] Nurse Annual [address] [place] [address] 12/29/2022 Office Visit Family Medicine Makeda Álvarez PA-C [address] [place] [address] [place] [address] 03/03/2023 Nurse Only Rheumatology [place], Nurse Rheum Mo [address] [place] [address] [place] [phone] 04/20/2023 Office Visit Cardiology Harpreet Paniagua, DO [address] [place] [address] 07/04/2023 Office Visit Family Medicine Peter Lu MD [address] [place] [address] [place] [address] Health Maintenance Due Date Last Done Comments Zoster Vaccines (1 of 2) 1987 COVID-19 Vaccine (5 - Pfizer series) 11/11/2021 09/16/2021, 01/27/2021, 05/31/2020, Additional history exists *BISPHONATE OR OTHER ACCEPTABLE MEDICATION NEEDED FOR OSTEOPOROSIS (REFER TO SMARTSET #1146) 01/25/2022 Depression Screening, Annual for Pts 12 and Over 11/29/2022 11/29/2021 Influenza Vaccine (FLU shot) (#1) 2022 01/26/2022, 01/13/2020 Albumin/Creatinine Ratio 06/29/2023 023, 06/03/2021, 11/14/2019, Additional history exists CKD HGB USE SMARTSET 14221 06/29/202306/28, 06/28/2022, 10/07/2021, Additional history exists CKD PHOS USE SMARTSET 88968 06/29/202306/02, 06/02/2021, 06/13/2019, Additional history exists HbA1c [...] Documents on File Type Date Recorded Patient [employer] Cord Expl anation Power of Crusher Screen Repairer 11/28/2012 POWER OF A TTORNEY Latest Code [...] the patient have Health Care Power of Crusher Screen Repairer? Yes, not currently available Code Status History Code Status Date Activated Date Inactivated Comments Full Code 06/18/2009 5:02 PM 06/18/2009 5:27 PM This order reflects the patients wishes and were consensually agreed upon. Question Answer Comments Discussion of Advance Directives occurred with: Patient Does the patient have a Living Will? No Does the patient have Health Care Power of Crusher Screen Repairer? No Care Teams Legislative Advocate Relationship Specialty Start Date End Date Peter Lu MD [address] [place] [address] [place] [phone] PCP - General Family Medicine 11/28/16 documented as of this encounter
--- OUTSIDE RECORDS SUMMARY | 2023-02-19 09:58 | External Medical Summary | Summary of Care ---
Author Name Unknown Organization [facility] Address [address] [place] [address] Phone [phone] Care Team Providers Care Utilities Service Investigator Name Role Phone Peter Lu MD Primary Care Provide r Reason for Visit * Reason Comments Home Visit Encounter Details Date Type Department Care Team (Late st Contact Info) Description 02/15/2023 3:00 PM EST [facility] [address] [place] [address] Denisha Nation PA-C [address] [facility] [place] [address] Viral URI with cough*; Arthritis of right shoulder region; Bronchiectasis without complication (HCC); Hypertensive heart and kidney disease with chronic diastolic congestive heart failure and stage 3b chronic kidney disease (HCC) Allergies Active Allergy Reactions Criticality Noted Date Comments Amoxicillin-Pot Clavulanate Hives 04/06/2015 Dexamethasone Other (Please comment) Low 06/04/2008 Make her anxious Phenytoin Sodium Rash High 09/04/2002 documented as of this encounter (statuses as of 02/15/2023) Medications Medication Sig Dispensed Refills Start Date End Date Status polyvinyl alcohol-povidone PF (REFRESH) 1.4-0.6 % ophthalmic solution Instill 1 Drop into both eyes 4 times a day. 5 Each 0 01/02/2019 Active atorvaSTATin (LIPITOR) 20 MG TabletIndications:Mi xed dyslipidemia Take 1 Tab by mouth daily. 90 Tab 0 01/02/2019 Active aspirin enteric coated 81 MG TBEC Take 1 Tab by mouth daily. 100 Tab 3 01/02/2019 Active albuterol-ipratropiu m (DUONEB) 2.5-0.5 MG/3ML nebulizer solution 3 mL. 0 10/24/2018 Active traZODone (DESYREL) 100 MG TabletIndications:Pe rsistent insomnia Take 1 Tab by mouth at [...] Respimat 2.5 MCG/ACT Inhalation Aerosol Solution (Tiotropium [place] Monohydrate) Inhale 2 Puffs by mouth daily. [...] Recomb Adjuvanted 50 MCG/0.5ML Intramuscular Suspension Reconstituted (Shingrix)Indication s:Need for vaccination for zoster Inject 0.5 mL [...] Active Diclofenac Sodium 1 % External Gel (Voltaren)Indication s:Chronic right shoulder pain Apply 4 g topically to affected area in the morning and 4 g at noon and 4 g in the evening and 4 g before bedtime. 100 g 1 11/30/2022 Active traMADol HCl 50 MG Oral Tablet (Ultram)Indications: Degenerative disc disease, cervical,Lumbar degenerative disc disease Take 1 Tablet by mouth every 6 hours as needed for Pain, Moderate or Pain, Severe. 120 Tablet 4 01/24/2023 Active Hospital, Clinic, or Other Facility Administered Medication Ordered Dose Route Frequency Start Date End Date Status Triamcinolone Acetonide (Kenalog) 10 MG/ML inj 10 mgIndications:Arthritis of right shoulder region 10 mg IX ONCE 02/15/2023 02/16/2023 Act evelia lidocaine 1 % inj 10 mgIndications:Arthritis of right shoulder region 10 mg IX ONCE 02/15/2023 02/16/2023 Act evelia documented as of this encounter (statuses as of 02/15/2023) Active Problems Problem Noted Date Diagnosed Date [...] complication 07/10/2018 Grade I diastolic dysfunction 07/10/2018 ALL (dyspnea on exertion) 05/30/2018 Primary osteoarthritis of [...] as of this encounter (statuses as of 02/15/2023) Resolved Problems Problem Noted Date Diagnosed Date [...] 03/01/2013 03/14/2013 Overview: 10/21/11 Coronary atherosclerosis of [place] coronary artery 02/21/2013 07/23/2015 GERD (gastroesophageal reflux disease) 02/21/2013 02/22/2017 Major depressive disorder 02/21/2013 Overview: ICD-10 update of inactive term Kidney disease, chronic, sta ge III (GFR 30-59 ml/min) 02/21/2013 10/11/2018 HTN, goal below 130/80 02/21/201301/29 EXAMINATION OF PARTICIPANT I N CLINICAL TRIAL-genomics 06/19/2009 07/17/2009 Overview: Renamed Per Clinical Trials Billing Project. Study Titile: Genomic Markers for Patients with Cardiovascular Disease Project #[id number] PI: Keily Mazariegos MD Please call [phone] with study related questions GENOMICS CARDIO RESEARCH OTHER*[id number] 06/19/2009 05/10/2016 Overview: Renamed Per Clinical Trials Billing Project. Study Titile: Genomic Markers for Patients with Cardiovascular Disease Project #[id number] PI: Keily Mazariegos MD Please call [phone] with study related questions Unstable angina 06/18/2009 02/21/2013 HTN, goal below 140/90 06/18/200902/21 Osteoporosis 06/18/2009 03/01/2013 Dyslipidemia, goal LDL below 100 06/18/2009 01/21/2016 documented as of this encounter (statuses as of 02/15/2023) Immunizations Name Administration Dates Next Due COVID-19 mRNA, LNP-s, No Pre serve, 2-Dose Series ([place]) 05/31/2020,05/10/2020 COVID-19, LNP-s, No Preserve , Jonah-sucrose, [...] on file documented as of this encounter Progress Notes * Denisha Nation PA-C - 02/15/2023 1:09 PM EST ,Subjective: Fernanda Montoya is a 87 year old female. Chief Complaint Patient presents with Home Visit HPI: I was asked to assess pt at Assisted Living facility for two issues. Pt c/o "head cold" with cough which began last week. Started with some stuffy nose and progressed to nonproductive cough. No chlls, fever, wheezing, hemoptysis, body aches, diarrhea, taste or smell disturbance. No known exposure to Covid or Influenza. Pt does have bronchectasis and CHF and SUZAN and states these have not worsened or have been exacerbated by her cold. Pt states she is feeling almostcompletely back to normal now. Eating, drinking and sleeping well Vital signs stable. Pt with known hx of DJD right shoulder complains of flare of right shoulder pain and stiffness. Grinding with ROM. Affecting her ADLs. And sleep. Had temporary relief with shoulder injection in the past. Last injection September 2022. Pt request injection. CBC Results: Results for orders placed or performed in visit on 10/07/21 CBC Result Value Ref Range WBC 8.99 4.00 - 10.80 K/uL RBC 3.93 3.85 - 5.15 M/uL HGB 12.4 12.0 - 15.3 g/dL HCT 38.9 36.0 - 45.2 % MCV 99.0 81.5 - 97.5 fL MCH 31.6 27.0 - 34.0 pg MCHC 31.9 32.0 - 36.0 g/dL RDW 13.3 11.5 - 15.5 % MPV 12.9 6.6 - 11.1 fL nRBCs 0 <=0 /100 WBCs PLT 166 140 - 400 K/uL Hemoglobin Results: Lab Results Component Value Date/Time HGB - [facility] 13.2 06/28/2022 02:19 PM HGB - [facility] 12.4 10/07/2021 10:45 AM HGB - [facility] 12.7 06/02/2021 10:21 AM HGB - [facility] 10.7 (L) 02/21/2020 06:25 AM HGB - [facility] 11.2 (L) 01/30/2019 01:38 PM HGB - [facility] 10.4 (L) 12/28/2018 05:40 AM Basic Panel Results: Results for orders placed or performed [...] mg/dL Calcium 9.6 8.4 - 10.2 mg/dL Creatinine Results: Lab Results Component Value Date/Time CREATININE - [facility] 1.1 (H) 09/29/2022 05:00 AM CREATININE - [facility] 1.4 (H) 06/28/2022 02:19 PM CREATININE - [facility] 1.0 11/11/2021 01:18 PM CREATININE - [facility] 1.2 (H) 02/21/2020 06:25 AM CREATININE - [facility] 1.3 (H) 01/27/2020 10:18 AM CREATININE - [facility] 1.3 (H) 08/12/2019 06:20 AM CREATININE, RANDOM URINE - [facility] 284 06/28/2022 02:19 PM CREATININE, RANDOM URINE - [facility] 178 06/03/2021 09:55 AM CREATININE, RANDOM URINE - [facility] 117 11/14/2019 07:24 AM CREATININE, RANDOM URINE - [facility] 35 01/30/2019 01:39 PM CREATININE, RANDOM URINE - [facility] 124 07/10/2018 12:23 PM CREATININE-[facility] 1.04 03/20/2017 12:00 AM CREATININE-[facility] 0.95 01/17/2017 12:00 AM CREATININE-[facility] 1.2 06/10/2015 12:00 AM Potassium Results: Lab Results Component Value Date/Time POTASSIUM - [facility] 4.3 09/29/2022 05:00 AM POTASSIUM - [facility] 4.1 06/28/2022 02:19 PM POTASSIUM - [facility] 4.3 10/07/2021 10:45 AM POTASSIUM - [facility] 4.1 02/21/2020 06:25 AM POTASSIUM - [facility] 4.0 08/12/2019 06:20 AM POTASSIUM - [facility] 4.8 06/20/2019 06:50 AM POTASSIUM-[facility] 4.2 01/17/2017 12:00 AM POTASSIUM-[facility] 3.7 06/10/2015 12:00 AM Sodium Results: Lab Results Component Value Date/Time SODIUM - [facility] 142 09/29/2022 05:00 AM SODIUM - [facility] 142 06/28/2022 02:19 PM SODIUM - [facility] 143 10/07/2021 10:45 AM SODIUM - [facility] 142 02/21/2020 06:25 AM SODIUM - [facility] 142 08/12/2019 06:20 AM SODIUM - [facility] 144 06/20/2019 06:50 AM PMH: Patient Active Problem List Diagnosis Code History [...] G47.33 Dyslipidemia, goal LDL below 100 E78.5 Current Outpatient Medications Medication Sig Dispense Refill [...] Respimat 2.5 MCG/ACT Inhalation Aerosol Solution (Tiotropium [place] Monohydrate) Inhale 2 Puffs by mouth daily. 12 g 1 Bisacodyl 10 MG Rectal Suppository (Dulcolax) Administer 1 Suppository into the rectum in the morning. As needed . Famotidine 20 MG Oral Tablet (Pepcid) Take 1 Tablet by mouth in the morning. Acetaminophen Extra Strength 500 MG Oral Tablet (Acetaminophen) TAKE 2 CAPLETS BY MOUTH NEEDED FOR MILD- MODERATE PAIN. *DO NOT EXCEED 3000MG/24 HOURS* 60 Tablet 4 Zoster Vac Recomb Adjuvanted 50 MCG/0.5ML Intramuscular Suspension Reconstituted (Shingrix) Inject 0.5 mL into a large muscle now and repeat dose in 60 to 180 days (Patient not taking: Reported on 08/05/2022) 1 Each 1 Vitamin D 25 MCG (1000 UT) Oral [...] by mouth in the morning. Diclofenac Sodium 1 % External Gel (Voltaren) Apply 4 g topically to affected area in the morning and 4 g at noon and 4 g in the evening and 4 g before bedtime. 100 g 1 traMADol HCl 50 MG Oral Tablet (Ultram) Take 1 Tablet by mouth every 6 hours as needed for Pain, Moderate or Pain, Severe. 120 Tablet 4 No current facility-administered medications for this visit. 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 Breast cancer ([facility]) 2005 Right breast cancer and MASTECTOMY Chronic kidney disease, stage 3b ([facility]) 08/11/2020 Per CKD protocol Compression fracture of spine ([facility]) 02/21/2013 T8,9, 10 Degenerative disc disease, cervical [...] disease, chronic, stage III (GFR 30-59 ml/min) ([facility]) 02/21/2013 Lumbar degenerative disc disease 12/18/2014 Lumbar facet arthropathy 12/18/2014 Lung nodule 02/11/2014 Maintenance chemotherapy 2006 Malignant neoplasm of other specified sites of female breast R breast cancer. treated. stage IIA, T1N2,M0 - 5 of 11 lymph nodes positive- adenocarcinoma- ER positive and MD negative and HER-2-janis positive Multinodular goiter Osteopenia [...] ARTHROPLASTY KNEE TOTAL Left 02/17/2017 Dr. Best. [facility] BREAST LESION,OTHER,EXCISION Right 2006 Malignant CATHETERIZE LEFT HEART THRU SKIN 06/19/09 LEFT HEART CATH, PERCUTANEOUS performed by MAURO JIMENEZ at [facility] COLONOSCOPY 06/25/15 normal - Dr. El COLONOSCOPY, DIAGNOSTIC (RECTUM) 2006 normal EGD, FLEXIBLE, DIAGNOSTIC 2010 gastritis- Dr. El EGD, FLEXIBLE, DIAGNOSTIC 06/25/15 normal EKG 01/17/2017 NSR. no acute changes. [facility] INJECT DX/THER SUBSTANCE INTERLAMINAR LUMBAR/SACRAL W IMAGE GUIDE 08/17/2017 INJECTION SPINE LUMBAR OR SACRAL performed by Cosmo Carolina, DO at [facility] INSERTION OF LENS PROSTHESIS MASTECTOMY,RADICAL 2005 right breast- Dr. El RADIUS AND ULNA FX W/FIXATION Left 12/14/2018 ORIF distal open radius/ulna fractures Dr. Steven Hansen REMOVAL OF BRAIN LINING TUMOR 2000 [facility] REMOVAL OF OVARY/OVIDUCT(S) bilateral REMOVE GALLBLADDER TOTAL ABD HYSTERECTOMY W/WO REMOVAL OF TUBE(S) 1989 US HEAD AND NECK 08/19/2019 multinodular diffuse goiter. right lobe: 4.6 cm by 2.3 cm by 2.1 cm. left lobe: 4.6 cm by 2.5cm by 2.3 cm. [facility] Review of patient's allergies indicates: Allergen Reactions Phenytoin Sodium Rash Augmentin [Amoxicillin-Pot Clavulanate] Hives Decadron [Dexamethasone] Other (Please comment) Make her anxious Family History Problem Relation Age of Onset Thyroid cancer Daughter Breast Cancer Grandmother (Maternal) Breast Cancer Aunt (Unspecified) Family Status Relation Status Mo at age 53 cancer- liver Fa at age 67 [place] Bro Alive Fito thyroid cancer MGMA breast cancer AUNT maternal aunt - breast cancer AUNT maternal aunt - breast cancer Social History Tobacco Use Smoking status: Never Smokeless tobacco: Never Substance Use Topics Alcohol use: No Vaping/E-Cigarette Use Vaping/E-Cigarette Use Never User Vaping/E-Cigarette Substances Vaping/E-Cigarette Devices Review of Systems: General: No change in weight, No weakness, No fatigue, and No fevers, sweats, or chills Ears: No recent change in hearing, No tinnitus or vertigo, No ear pain, and No ear discharge Nose: No h/o frequent colds or sinusitis, No nasal stuffiness, No h/o hay fever, and No significantepistaxis Throat/Oropharynx: No teeth or gum problems, No bleeding gums, No tongue complaints, No sore throat, and No recent change in voice or hoarseness Respiratory: see HPI Cardiac: No chest pain, No shortness of breath, No dyspnea on exertion, No orthopnea, No paroxysmalnocturnal dyspnea, No edema, No palpitations, and No syncope Gastrointestinal: No dysphagia, No significant heartburn, No significant change in appetite, No nausea, vomiting, diarrhea, or constipation, No hematemesis, No blood in stools or black tarry stools, No abdominal bloating or early satiety, and No abdominal pain Urinary: No urinary frequency, No dysuria, No hematuria, No urinary urgency, No polyuria, No nocturia, No incontinence, No hesitancy, and No sensation of incomplete voiding Musculoskeletal: + arthritis see HPI Extremities: see HPI Objective: Vital signs reviewed Physical Exam: General: alert, healthy, and no distress Ears: External ears normal, Canals clear, TM's Normal Nose: no mucosal erythema, no mucosal edema, no purulent discharge Oropharynx: no exudate, no erythema, lips, buccal mucosa, and tongue normal, and mucous membranes are moist Neck: supple, no adenopathy, thyroid normal size, non-tender, without nodularity Heart: regular rate & rhythm, no murmur, and no gallops Lungs: chest symmetric with normal AP diameter, no chest deformities noted, no chest wall tenderness, lungs few scattered rhonchi Abdomen: abdomen soft, non-tender, normal bowel sounds, and no masses or organomegaly Extremities: tender right GH and AC joint. 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 Allergies) - Yes Denisha Nation PA-C After reviewing the risks with the patient (including bleeding, infection and skin atrophy) - understerile conditions and preparing the site with isospropyl alcohol, the right shoulder joint was injected with lidocaine 1% and triamcinalone 40 mg. The patient tolerated the procedure well without com plications and was instructed on subsequent follow-up care (local care and any necessary restrictions). Risks, benefits, and alternatives to the procedures were discussed with the patient and all questions were answered. Patient specific risk factors were reviewed and considered. Denisha Nation PA-C documented in this encounter Plan of Treatment Upcoming Encounters Date Type Department Care Team (Late st Contact Info) Description 03/03/2023 11:00 AM EST Nurse Only Rheumatology [address] [place] [phone] Jelm, Nurse Rheum [address] [place] [phone] 04/20/2023 10:30 AM EST Office Visit Cardiology [address] [place] [address] Harpreet Paniagua, DO [address] [place] [address] 07/04/2023 1:40 PM EDT Office Visit Family Medicine [address] [place] [phone] Peter Lu MD [address] [place] [address] [place] [address] 12/05/2023 10:30 AM EDT Nurse Only Ancillary [address] [place] [address] Hanny, Nurse Annual [address] [place] [address] Scheduled Orders Name Type Priority Associated Diagnoses Orde r Schedule ARTHROCENT ASP &/OR INJ MAJOR JX/BURSA W/O US Procedures Routine Arthritis of right shoulder region Ordered: 02/15/2023 Health Maintenance Due Date Last Done Comments Zoster Vaccines (1 of 2) 1987 Hepatitis B (1 of 3 - Risk 3-dose series) 1997 *BISPHONATE OR OTHER ACCEPTABLE MEDICATION NEEDED FOR OSTEOPOROSIS (REFER TO SMARTSET #1146) 01/25/2022 COVID-19 Vaccine ( season) 2022 09/16/2021, 01/27/2021, 05/31/2020, Additional history exists Albumin/Creatinine Ratio 06/29/2023 023, 06/03/2021, 11/14/2019, Additional history exists CKD HGB USE SMARTSET 40639 06/29/202306/28, 06/28/2022, 10/07/2021, Additional history exists CKD PHOS USE SMARTSET 64476 06/29/202306/02, 06/02/2021, 06/13/2019, Additional history exists HbA1c [...] as of this encounter Visit Diagnoses Diagnosis Viral URI with cough- Primary Acute upper respiratory infections of unspecified site Arthritis of right shoulder region Unspecified arthropathy, shoulder region Bronchiectasis without complication (HCC) Bronchiectasis without acute exacerbation Hypertensive heart and kidney disease with chronic diastolic congestive heart failure and stage 3b chronic kidney disease (HCC) documented in this encounter Advance Directives Documents on File Type Date Recorded 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 Yes, not currently available Code Status History Code Status Date Activated Date Inactivated Comments Full Code 06/18/2009 5:02 PM 06/18/2009 5:27 PM This order reflects the patients wishes and were consensually agreed upon. Question Answer Comments Discussion of Advance Directives occurred with: Patient Does the patient have a Living Will? No Does the patient have Health Care Power of Sales Assistant Displays? No Care Teams Utilities Service Investigator Relationship Specialty Start Date End Date Peter Lu MD [address] [place] [address] [place] [address] PCP - General Family Medicine 11/28/16 documented as of this encounter
--- OUTSIDE RECORDS SUMMARY | 2023-02-19 09:58 | External Medical Summary | Summary of Care ---
Author Name Unknown Organization [facility] Address [address] [place] [address] Phone [phone] Care Team Providers Care Dermatologist Name Role Phone Peter Lu MD Primary Care Provide r Reason for Visit * Reason Onset Date Comments Precert Approved 07/29/2022 Prolia- Encounter Details Date Type Department Care Team Description 07/29/2022 Telephone Rheumatology [facility] [address] [facility] [place] [address] Adriana Hector PA-C Precert Approved (Prolia-) Allergies Active Allergy Reactions Severity Noted Date Comments Amoxicillin-Pot Clavulanate Hives 04/06/2015 Dexamethasone Other (Please comment) Low 06/04/2008 Make her anxious Phenytoin Sodium Rash High 09/04/2002 documented as of this encounter (statuses as of 12/08/2022) Medications Medication Sig Dispensed Refills Start Date [...] Respimat 2.5 MCG/ACT Inhalation Aerosol Solution (Tiotropium [place] Monohydrate) Inhale 2 Puffs by mouth daily. [...] 0 Active Diclofenac Sodium (VOLTAREN) 1 % gelIndications:Divorce Lawyer ishmael right shoulder pain Place 2 g [...] as of this encounter (statuses as of 12/08/2022) Active Problems Problem Noted Date Dyslipidemia, goal [...] as of this encounter (statuses as of 12/08/2022) Resolved Problems Problem Noted Date Resolved Date [...] 03/01/2013 03/14/2013 Overview: 10/21/11 Coronary atherosclerosis of [place] coronary gia ry 02/21/2013 07/23/2015 GERD (gastroesophageal [...] Markers for Patients with Cardiovascular Disease Project #[id number] PI: Keily Mazariegos MD Please call [phone] with study related questions GENOMICS CARDIO RESEARCH OTHER*[id number] 200905/10/2016 Overview: Renamed Per Clinical Trials Billing Project. Study Titile: Genomic Markers for Patients with Cardiovascular Disease Project #[id number] PI: Keily Mazariegos MD Please call [phone] with study related questions Unstable angina 06/18/2009 02/21/2013 HTN, goal below 140/90 06/18/2009 3 Osteoporosis 06/18/2009 03/01/2013 Dyslipidemia, goal LDL below 100 06/18/2009 01/21/2016 documented as of this encounter (statuses as of 12/08/2022) Immunizations Name Administration Dates Next Due COVID-19 mRNA, LNP-s, No Pre serve, 2-Dose Series (EATON) 05/31/2020,05/10/2020 COVID-19, LNP-s, No Preserve , Jonah-sucrose, [...] 10:19 AM EDT Form received 11/24 to [facility], spoke with boat cleaning supervisor "will see to it that Pt gets form" * Telephone Encounter - SUZAN Paul - 11/24/2022 7:06 AM EDT Fax sent this morning. Rehana Murrell * Telephone Encounter - Luly Lam LPN - 11/23/2022 2:23 PM EDT Spoke with pt, says she may have thrown it out, can a form be faxed to [phone] * Telephone Encounter - SUZAN Paul - 09/29/2022 3:27 PM EDT Sent again. * Telephone Encounter - Luly Lam LPN - 09/29/2022 2:28 PM EDT spoke with pt states she didn't get mani., please send another * Telephone Encounter - SUZAN Paul - 08/04/2022 1:24 PM EDT Date of Services: 08.05.22 Facility: [facility] Estimate of Services for the following CPT(s): J0897 PROLZAC Estimated Out of Pocket: $257.01 Called & [...] Office Visit Family Medicine Makeda Álvarez PA-C [address] [place] [address] [place] [address] 03/03/2023 Nurse Only Rheumatology [place], Nurse Rheum [place] [address] [place] [address] [place] [phone] 04/20/2023 Office Visit Cardiology Harpreet Paniagua, DO [address] [place] [address] 07/04/2023 Office Visit Family Medicine Peter Lu MD [address] [place] [address] [place] [address] 12/05/2023 Nurse Only Ancillary [place], Nurse Annual Wellness [address] [place] [address] [place] [address] Health Maintenance Due Date Last Done Comments Zoster Vaccines (1 of 2) 1987 COVID-19 Vaccine (5 - Pfizer series) 11/11/2021 09/16/2021, 01/27/2021, 05/31/2020, Additional history exists *BISPHONATE OR OTHER ACCEPTABLE MEDICATION NEEDED FOR OSTEOPOROSIS (REFER TO SMARTSET #1146) 01/25/2022 Influenza Vaccine (FLU shot) (#1) 2022 01/26/2022, 01/13/2020 Albumin/Creatinine Ratio 06/29/2023 023, 06/03/2021, 11/14/2019, Additional history exists CKD HGB USE SMARTSET 49321 06/29/202306/28, 06/28/2022, 10/07/2021, Additional history exists CKD PHOS USE SMARTSET 29473 06/29/202306/02, 06/02/2021, 06/13/2019, Additional history exists HbA1c [...] Documents on File Type Date Recorded Patient Supervisor Tank Cleaning Expl anation Power of Executive Chef Assistant 11/28/2012 POWER OF A TTORNEY Latest Code [...] the patient have Health Care Power of Executive Chef Assistant? Yes, not currently available Code Status History Code Status Date Activated Date Inactivated Comments Full Code 06/18/2009 5:02 PM 06/18/2009 5:27 PM This order reflects the patients wishes and were consensually agreed upon. Question Answer Comments Discussion of Advance Directives occurred with: Patient Does the patient have a Living Will? No Does the patient have Health Care Power of Executive Chef Assistant? No Care Teams Dermatologist Relationship Specialty Start Date End Date Peter Lu MD [address] [place] [address] [place] [address] PCP - General Family Medicine 11/28/16 documented as of this encounter
--- OUTSIDE RECORDS SUMMARY | 2023-02-19 09:58 | External Medical Summary | Summary of Care ---
Author Name Unknown Organization [facility] Address [address] [place] [address] Phone [phone] Care Team Providers Care Chronometer Adjuster Name Role Phone Peter Lu MD Primary Care Provide r Reason for Visit * Reason Comments Home Visit Encounter Details Date Type Department Care Team Description 12/06/2022 Office Visit Tonya Hennessy [facility], [address] [place] [phone] Denisha Nation PA-C [address] [facility] [place] [address] Chest wall pain*; Status post right mastectomy; Hypertensive heart and kidney disease with chronic diastolic congestive heart failure and stage 3b chronic kidney disease (HCC); Bronchiectasis without complication (HCC) Allergies Active Allergy Reactions Severity Noted Date Comments Amoxicillin-Pot Clavulanate Hives 04/06/2015 Dexamethasone Other (Please comment) Low 06/04/2008 Make her anxious Phenytoin Sodium Rash High 09/04/2002 documented as of this encounter (statuses as of 12/06/2022) Medications Medication Sig Dispensed Refills Start Date [...] Respimat 2.5 MCG/ACT Inhalation Aerosol Solution (Tiotropium [place] Monohydrate) Inhale 2 Puffs by mouth daily. [...] before bedtime. 100 g 1 11/30/2022 Active documented as of this encounter (statuses as of 12/06/2022) Active Problems Problem Noted Date Dyslipidemia, goal [...] as of this encounter (statuses as of 12/06/2022) Resolved Problems Problem Noted Date Resolved Date [...] 03/01/2013 03/14/2013 Overview: 10/21/11 Coronary atherosclerosis of [place] coronary gia ry 02/21/2013 07/23/2015 GERD (gastroesophageal [...] Markers for Patients with Cardiovascular Disease Project #[id number] PI: Keily Mazariegos MD Please call [phone] with study related questions GENOMICS CARDIO RESEARCH OTHER*[id number] 200905/10/2016 Overview: Renamed Per Clinical Trials Billing Project. Study Titile: Genomic Markers for Patients with Cardiovascular Disease Project #[id number] PI: Keily Mazariegos MD Please call [phone] with study related questions Unstable angina 06/18/2009 02/21/2013 HTN, goal below 140/90 06/18/2009 3 Osteoporosis 06/18/2009 03/01/2013 Dyslipidemia, goal LDL below 100 06/18/2009 01/21/2016 documented as of this encounter (statuses as of 12/06/2022) Immunizations Name Administration Dates Next Due COVID-19 [...] on file documented as of this encounter Plan of Treatment Upcoming Encounters Date Type Specialty Care Team Description 12/29/2022 Office Visit Family Medicine Makeda Álvarez PA-C [address] [place] [address] [place] [phone] 03/03/2023 Nurse Only Rheumatology [place], Nurse Rheum Mo [address] [place] [address] [place] [phone] 04/20/2023 Office Visit Cardiology Harpreet Paniagua, DO [address] [place] [address] 07/04/2023 Office Visit Family Medicine Peter Lu MD [address] [place] [address] [place] [address] 12/05/2023 Nurse Only Ancillary Hanny, Nurse Annual Wellness [address] [place] [address] [place] [address] Health Maintenance Due Date Last Done Comments Zoster Vaccines (1 of 2) 1987 COVID-19 Vaccine (5 - Pfizer series) 11/11/2021 09/16/2021, 01/27/2021, 05/31/2020, Additional history exists *BISPHONATE OR OTHER ACCEPTABLE MEDICATION NEEDED FOR OSTEOPOROSIS (REFER TO SMARTSET #1146) 01/25/2022 Influenza Vaccine (FLU shot) (#1) 2022 01/26/2022, 01/13/2020 Albumin/Creatinine Ratio 06/29/2023 023, 06/03/2021, 11/14/2019, Additional history exists CKD HGB USE SMARTSET 52499 06/29/202306/28, 06/28/2022, 10/07/2021, Additional history exists CKD PHOS USE SMARTSET 39767 06/29/202306/02, 06/02/2021, 06/13/2019, Additional history exists HbA1c 09/30/2023 09/29/2022, 06/02, 10/07/2021, Additional history exists Depression Screening, Annual for Pts 12 and Over 12/01/2023 11/30/2022 DTaP,Tdap,and Td Vaccines (2 - [...] as of this encounter Visit Diagnoses Diagnosis Chest wall pain- Primary Painful respiration Status post right mastectomy 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 Yes, not currently available Code Status History Code Status Date Activated Date Inactivated Comments Full Code 06/18/2009 5:02 PM 06/18/2009 5:27 PM This order reflects the patients wishes and were consensually agreed upon. Question Answer Comments Discussion of Advance Directives occurred with: Patient Does the patient have a Living Will? No Does the patient have Health Care Power of College Basketball Coach? No Care Teams Chronometer Adjuster Relationship Specialty Start Date End Date Peter Lu MD [address] [place] [address] [place] [phone] PCP - General Family Medicine 11/28/16 documented as of this encounter
--- OUTSIDE RECORDS SUMMARY | 2023-02-19 09:58 | External Medical Summary | Summary of Care ---
Author Name Unknown Organization [facility] Address [address] [place] [address] Phone [phone] Care Team Providers Care Electric Car Operator Name Role Phone Peter Lu MD Primary Care Provide r Reason for Visit * Reason Onset Date Comments Follow Up 6 mo f/u Medication Administration 12/29/2022 Flu an d/or Pneumo Inj Encounter Details Date Type Department Care Team Description 12/29/2022 Office Visit Family Medicine [address] [place] [phone] Makeda Álvarez PA-C [address] [place] [address] [place] [address] Need for prophylactic vaccination and inoculation against influenza*; History of breast cancer; Irritable bowel syndrome with both constipation and diarrhea; Senile osteoporosis; Degenerative disc disease, cervical; Prediabetes; Essential hypertension with goal blood pressure less than 140/90; Major depression, recurrent, chronic (HCC); Severe persistent asthma without complication; Hypertensive heart and kidney disease with chronic diastolic congestive heart failure and stage 3b chronic kidney disease (HCC); SUZAN (obstructive sleep apnea); Dyslipidemia, goal LDL below 100 Allergies Active Allergy Reactions Severity Noted Date Comments Amoxicillin-Pot Clavulanate Hives 04/06/2015 Dexamethasone Other (Please comment) Low 06/04/2008 Make her anxious Phenytoin Sodium Rash High 09/04/2002 documented as of this encounter (statuses as of 12/29/2022) Medications Medication Sig Dispensed Refills Start Date [...] Respimat 2.5 MCG/ACT Inhalation Aerosol Solution (Tiotropium [place] Monohydrate) Inhale 2 Puffs by mouth daily. [...] as of this encounter (statuses as of 12/29/2022) Active Problems Problem Noted Date Dyslipidemia, goal [...] as of this encounter (statuses as of 12/29/2022) Resolved Problems Problem Noted Date Resolved Date [...] 03/01/2013 03/14/2013 Overview: 10/21/11 Coronary atherosclerosis of [place] coronary gia ry 02/21/2013 07/23/2015 GERD (gastroesophageal [...] Markers for Patients with Cardiovascular Disease Project #[id number] PI: Keily Mazariegos MD Please call [phone] with study related questions GENOMICS CARDIO RESEARCH OTHER*[id number] 200905/10/2016 Overview: Renamed Per Clinical Trials Billing Project. Study Titile: Genomic Markers for Patients with Cardiovascular Disease Project #[id number] PI: Keily Mazariegos MD Please call [phone] with study related questions Unstable angina 06/18/2009 02/21/2013 HTN, goal below 140/90 06/18/2009 3 Osteoporosis 06/18/2009 03/01/2013 Dyslipidemia, goal LDL below 100 06/18/2009 01/21/2016 documented as of this encounter (statuses as of 12/29/2022) Immunizations Name Administration Dates Next Due COVID-19 mRNA, LNP-s, No Pre serve, 2-Dose Series ([employer] 05/31/2020,05/10/2020 COVID-19, LNP-s, No Preserve , [...] Date Smoking Tobacco: Never Smokeless Tobacco: Never Tobacco Cessation:Counseling Given: Not Answered Alcohol Use Standard Drinks/Week Comments No 0 [...] Sign Reading Time Taken Comments Blood Pressure 122/68 12/29/2022 10:00 AM EDT Pulse 80 12/29/2022 10:00 AM EDT Temperature 35.7 C (96.2 F) 12/29/2022 1 0:00 AM EDT Respiratory Rate - - Oxygen Saturation 96% 12/29/2022 10: 00 AM EDT Inhaled Oxygen Concentration - - Weight 91.1 kg (200 lb 14.4 oz) 023 10:00 AM EDT Height - - Body Mass Index 36.75 11/30/2022 11:00 AM EDT documented in this encounter Progress Notes * Makeda Álvarez PA-C - 12/29/2022 10:08 AM EDT Nursing Notes: Mitchell Engel LPN 12/29/22 1005 Signed Chief Complaint Patient presents with Follow Up 6 mo f/u No issues today The patient has been properly identified by confirmation of name and date of . Pt here today for CPE. Pt has no issues os complaints at this time. Currently living at [facility] - assisted living. Pt with PMH of dyslipidemia, hx of breast ca, depression, IBS, HTN, reflux, CHF, osteoporosis, OA, SUZAN, asthma. Review of patient's allergies indicates: Allergen Reactions Phenytoin Sodium Rash Augmentin [Amoxicillin-Pot Clavulanate] Hives Decadron [Dexamethasone] Other (Please comment) Make her anxious Current Outpatient Medications Medication Sig Dispense Refill [...] Respimat 2.5 MCG/ACT Inhalation Aerosol Solution (Tiotropium [place] Monohydrate) Inhale 2 Puffs by mouth daily. [...] Ciprofloxacin HCl 0.3 % Ophthalmic Solution (Ciloxan) traMADol HCl 50 MG Oral Tablet (Ultram) Take 1 Tablet by mouth every 6 hours as needed for Pain, Moderate. 90 Tablet 4 Escitalopram Oxalate 10 MG Oral Tablet (Lexapro) Take 1.5 Tablets by mouth in the morning. Diclofenac Sodium 1 % External Gel (Voltaren) Apply 4 g topically to affected area in the morning and 4 g at noon and 4 g in the evening and 4 g before bedtime. 100 g 1 Zoster Vac Recomb Adjuvanted 50 MCG/0.5ML Intramuscular Suspension Reconstituted (Shingrix) Inject 0.5 mL into a large muscle now and repeat dose in 60 to 180 days (Patient not taking: Reported on 08/05/2022) 1 Each 1 No current facility-administered medications for this visit. 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 treated. 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 Radius and ulna distal fracture, left, open type I or II, with routine healing, subsequent encounter 12/19/2018 Senile osteoporosis 03/14/2013 Vertigo 02/21/2013 Social History Socioeconomic History Marital status: Spouse name: Not on file Number of children: 1 Years of education: Not on file Highest education level: Not on file Occupational History 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 Employer: [employer] [address] Tobacco Use Smoking status: Never Smokeless tobacco: Never Vaping Use Vaping Use: Never used Substance and Sexual Activity Alcohol use: No Drug use: No Sexual activity: Not Currently Partners: Male Other Topics Concern Service No Blood Transfusions No Caffeine Concern No Occupational Exposure No Hobby Hazards No Sleep Concern Yes Stress Concern Yes Weight Concern Yes Special Diet Not Asked Back Care Yes Exercise Not Asked Bike Helmet Not Asked Seat Belt No Self-Exams Not Asked Social History Narrative Not on file Social Determinants of Health Financial Resource Strain: Not on file Food Insecurity: No Food Insecurity Worried About Running Out of Food in the Last Year: Never true Ran Out of Food in the Last Year: Never true Transportation Needs: Not on file Physical Activity: Not on file Stress: Not on file Social Connections: Not on file Intimate Partner Violence: Not on file Housing Stability: Not on file O:Blood pressure 122/68, pulse 80, temperature 35.7 C (96.2 F), temperature source Tympanic, weight 91.1 kg (200 lb 14.4 oz), SpO2 96 %. GENERAL: alert, healthy, and no distress NECK: supple, no adenopathy, no bruits, thyroid normal size, non-tender, without nodularity EYES: PERRLA, conjunctiva are pink and non-injected, sclera clear EARS: External ears normal, Canals clear, TM's Normal NOSE: no mucosal erythema, no mucosal edema, no purulent discharge OROPHARYNX: no exudate, no erythema, lips, buccal mucosa, and tongue normal, and mucous membranes are moist HEART: regular rate & rhythm, no murmur, and no gallops LUNGS: chest symmetric with normal AP diameter, no chest deformities noted, no chest wall tenderness, lungs clear to auscultation A:Need for prophylactic vaccination and inoculation against influenza (Primary) - INFLUENZA VACC, QUAD, HIGH DOSE (FLUZONE HD) History of breast cancer Irritable bowel syndrome with both constipation and diarrhea Senile osteoporosis Degenerative disc disease, cervical Prediabetes Essential hypertension with goal blood pressure less than 140/90 Major depression, recurrent, chronic (HCC) Severe persistent asthma without complication Hypertensive heart and kidney disease with chronic diastolic congestive heart failure and stage 3b chronic kidney disease (HCC) SUZAN (obstructive sleep apnea) Dyslipidemia, goal LDL below 100 Continue current meds. Any questions/problems, please call. If anything changes, worsens, develops new sx, please call [place]. Follow Up: Return if symptoms worsen or fail to improve. Makeda Álvarez PA-C documented in this encounter Nursing Notes * Mitchell Engel LPN - 12/29/2022 9:59 AM EDT Chief Complaint Patient presents with Follow Up 6 mo f/u No issues today The patient has been properly identified by confirmation of name and date of . documented in this encounter Plan of Treatment Upcoming Encounters Date Type Specialty Care Team Description 03/03/2023 Nurse Only Rheumatology [place], Nurse Rheum [address] [place] [phone] 04/20/2023 Office Visit Cardiology Harpreet Paniagua, DO [address] [place] [address] 07/04/2023 Office Visit Family Medicine Peter Lu MD [address] [place] [address] [place] [address] 12/05/2023 Nurse Only Ancillary Mov[place]sey, Nurse Annual Wellness [address] [place] [address] [place] [address] Health Maintenance Due Date Last Done Comments Zoster Vaccines (1 of 2) 1987 COVID-19 Vaccine (5 - Pfizer series) 11/11/2021 09/16/2021, 01/27/2021, 05/31/2020, Additional history exists *BISPHONATE OR OTHER ACCEPTABLE MEDICATION NEEDED FOR OSTEOPOROSIS (REFER TO SMARTSET #1146) 01/25/2022 Albumin/Creatinine Ratio 06/29/2023 023, 06/03/2021, 11/14/2019, Additional history exists CKD HGB USE SMARTSET 57419 06/29/202306/28, 06/28/2022, 10/07/2021, Additional history exists CKD PHOS USE SMARTSET 47942 06/29/202306/02, 06/02/2021, 06/13/2019, Additional history exists HbA1c [...] as of this encounter Visit Diagnoses Diagnosis Need for prophylactic vaccination and inoculation against influenza- Primary History of breast cancer Personal history of malignant neoplasm of breast Irritable bowel syndrome with both constipation and diarrhea Senile osteoporosis Degenerative disc disease, cervical Degeneration of cervical intervertebral disc Prediabetes Other abnormal glucose Essential hypertension with goal blood pressure less than 140/90 Major depression, recurrent, chronic (HCC) Major depressive disorder, recurrent episode, unspecified Severe persistent asthma without complication Hypertensive heart and kidney disease with chronic diastolic congestive heart failure and stage 3b chronic kidney disease (HCC) SUZAN (obstructive sleep apnea) Obstructive sleep apnea (adult) (pediatric) Dyslipidemia, goal LDL below 100 Other and unspecified hyperlipidemia documented in this encounter Advance Directives Documents on File Type Date Recorded Patient Lace Burn Out Tender Expl anation Power of Home Mortgage Disclosure Act Specialist 11/28/2012 POWER OF A TTORNEY Latest Code [...] the patient have Health Care Power of Home Mortgage Disclosure Act Specialist? Yes, not currently available Code Status History Code Status Date Activated Date Inactivated Comments Full Code 06/18/2009 5:02 PM 06/18/2009 5:27 PM This order reflects the patients wishes and were consensually agreed upon. Question Answer Comments Discussion of Advance Directives occurred with: Patient Does the patient have a Living Will? No Does the patient have Health Care Power of Home Mortgage Disclosure Act Specialist? No Care Teams Electric Car Operator Relationship Specialty Start Date End Date Peter Lu MD [address] [place] [address] [place] [phone] PCP - General Family Medicine 11/28/16 documented as of this encounter
--- OUTSIDE RECORDS SUMMARY | 2023-02-19 09:58 | External Medical Summary | Summary of Care ---
Author Name Unknown Organization [facility] Address [address] [place] [address] Phone [phone] Care Team Providers Care Special Forces Specialist Name Role Phone Peter Lu MD Primary Care Provide r Reason for Visit * Reason Onset Date Comments Precert Approved 07/29/2022 Prolia- Encounter Details Date Type Department Care Team Description 07/29/2022 Telephone Rheumatology [facility] [address] [facility] [place] [address] Adriana Hector PA-C Precert Approved (Prolia-) Allergies Active Allergy Reactions Severity Noted Date Comments Amoxicillin-Pot Clavulanate Hives 04/06/2015 Dexamethasone Other (Please comment) Low 06/04/2008 Make her anxious Phenytoin Sodium Rash High 09/04/2002 documented as of this encounter (statuses as of 12/09/2022) Medications Medication Sig Dispensed Refills Start Date [...] Respimat 2.5 MCG/ACT Inhalation Aerosol Solution (Tiotropium [place] Monohydrate) Inhale 2 Puffs by mouth daily. [...] 0 Active Diclofenac Sodium (VOLTAREN) 1 % gelIndications:Manager Business ishmael right shoulder pain Place 2 g [...] as of this encounter (statuses as of 12/09/2022) Active Problems Problem Noted Date Dyslipidemia, goal [...] as of this encounter (statuses as of 12/09/2022) Resolved Problems Problem Noted Date Resolved Date [...] 03/01/2013 03/14/2013 Overview: 10/21/11 Coronary atherosclerosis of [place] coronary gia ry 02/21/2013 07/23/2015 GERD (gastroesophageal [...] Markers for Patients with Cardiovascular Disease Project #[id number] PI: Keily Mazariegos MD Please call [phone] with study related questions GENOMICS CARDIO RESEARCH OTHER*[id number] 200905/10/2016 Overview: Renamed Per Clinical Trials Billing Project. Study Titile: Genomic Markers for Patients with Cardiovascular Disease Project #[id number] PI: Keily Mazariegos MD Please call [phone] with study related questions Unstable angina 06/18/2009 02/21/2013 HTN, goal below 140/90 06/18/2009 3 Osteoporosis 06/18/2009 03/01/2013 Dyslipidemia, goal LDL below 100 06/18/2009 01/21/2016 documented as of this encounter (statuses as of 12/09/2022) Immunizations Name Administration Dates Next Due COVID-19 mRNA, LNP-s, No Pre serve, 2-Dose Series ([employer]) 05/31/2020,05/10/2020 COVID-19, LNP-s, No Preserve , Jonah-sucrose, [...] 10:19 AM EDT Form received 11/24 to [facility], spoke with cooperage shop supervisor "will see to it that Pt gets form" * Telephone Encounter - SUZAN Paul - 11/24/2022 7:06 AM EDT Fax sent this morning. Rehana Murrell * Telephone Encounter - Luly Lam LPN - 11/23/2022 2:23 PM EDT Spoke with pt, says she may have thrown it out, can a form be faxed to [phone] * Telephone Encounter - SUZAN Paul - 09/29/2022 3:27 PM EDT Sent again. * Telephone Encounter - Luly Lam LPN - 09/29/2022 2:28 PM EDT spoke with pt states she didn't get mani., please send another * Telephone Encounter - SUZAN Paul - 08/04/2022 1:24 PM EDT Date of Services: 08.05.22 Facility: [facility] Estimate of Services for the following [...] Office Visit Family Medicine Makeda Álvarez PA-C [address] [place] [address] [place] [address] 03/03/2023 Nurse Only Rheumatology [place], Nurse Rheum Mo [address] [place] [address] [place] [phone] 04/20/2023 Office Visit Cardiology Harpreet Paniagua, DO [address] [place] [address] 07/04/2023 Office Visit Family Medicine Pteer Lu MD [address] [place] [address] [place] [address] 12/05/2023 Nurse Only Ancillary [place], Nurse Annual Wellness [address] [place] [address] [place] [address] Health Maintenance Due Date Last Done Comments Zoster Vaccines (1 of 2) 1987 COVID-19 Vaccine (5 - Pfizer series) 11/11/2021 09/16/2021, 01/27/2021, 05/31/2020, Additional history exists *BISPHONATE OR OTHER ACCEPTABLE MEDICATION NEEDED FOR OSTEOPOROSIS (REFER TO SMARTSET #1146) 01/25/2022 Influenza Vaccine (FLU shot) (#1) 2022 01/26/2022, 01/13/2020 Albumin/Creatinine Ratio 06/29/2023 023, 06/03/2021, 11/14/2019, Additional history exists CKD HGB USE SMARTSET 75558 06/29/202306/28, 06/28/2022, 10/07/2021, Additional history exists CKD PHOS USE SMARTSET 39884 06/29/202306/02, 06/02/2021, 06/13/2019, Additional history exists HbA1c [...] Documents on File Type Date Recorded Patient Dumbwaiter Operator Expl anation Power of Telegraphic Instrument Supervisor 11/28/2012 POWER OF A TTORNEY Latest Code [...] the patient have Health Care Power of Telegraphic Instrument Supervisor? Yes, not currently available Code Status History Code Status Date Activated Date Inactivated Comments Full Code 06/18/2009 5:02 PM 06/18/2009 5:27 PM This order reflects the patients wishes and were consensually agreed upon. Question Answer Comments Discussion of Advance Directives occurred with: Patient Does the patient have a Living Will? No Does the patient have Health Care Power of Telegraphic Instrument Supervisor? No Care Teams Special Forces Specialist Relationship Specialty Start Date End Date Peter Lu MD [address] [place] [address] [place] [address] PCP - General Family Medicine 11/28/16 documented as of this encounter
--- OUTSIDE RECORDS SUMMARY | 2023-02-19 09:58 | External Medical Summary | Summary of Care ---
Author Name Unknown Organization [facility] Address [address] [place] [address] Phone [phone] Care Team Providers Care Associate Program Manager Name Role Phone Peter Lu MD Primary Care Provide r Reason for Visit * Reason Comments Acute fell Encounter Details Date Type Department Care Team Description 11/30/2022 Office Visit Family Medicine [address] [place] [phone] Amarilis Gotti PA-C [address] [place] [address] [place] [id number] Fall, initial encounter*; Rib pain on right side; Chronic right shoulder pain Allergies Active Allergy Reactions Severity Noted Date [...] Respimat 2.5 MCG/ACT Inhalation Aerosol Solution (Tiotropium [place] Monohydrate) Inhale 2 Puffs by mouth daily. [...] before bedtime. 100 g 1 11/30/2022 Active Diclofenac Sodium (VOLTAREN) 1 % gelIndications:Chr onic right shoulder pain Place 2 g topically on the skin 2 times a day. To affected area as directed. 100 g 5 10/06/2019 3 Discontinue d(Medicatio n/Dose Changed) Diclofenac Sodium 1 % External Gel (Voltaren) 0 05/11/2022 3 Discontinue d(Medicatio n/Dose Changed) documented as of this encounter (statuses as [...] 02/13/2019 Nocturnal hypoxemia 09/12/2018 Bronchiectasis without complication 0 12/201819 Grade I diastolic dysfunction 07/10/2018 LAL (dyspnea [...] 03/01/2013 03/14/2013 Overview: 10/21/11 Coronary atherosclerosis of [place] coronary gia ry 02/21/2013 07/23/2015 GERD (gastroesophageal [...] Markers for Patients with Cardiovascular Disease Project #[id number] PI: Keily Mazariegos MD Please call [phone] with study related questions GENOMICS CARDIO RESEARCH OTHER*[id number] 200905/10/2016 Overview: Renamed Per Clinical Trials Billing Project. Study [place]ela: Genomic Markers for Patients with Cardiovascular Disease Project #[id number] PI: Keily Mazariegos MD Please call [phone] with study related questions Unstable angina 06/18/2009 02/21/2013 HTN, goal below 140/90 06/18/2009 3 Osteoporosis 06/18/2009 03/01/2013 Dyslipidemia, goal LDL below 100 06/18/2009 01/21/2016 documented as of this encounter (statuses as of 11/30/2022) Immunizations Name Administration Dates Next Due COVID-19 mRNA, LNP-s, No Pre serve, 2-Dose Series ([employer] [place]) 05/31/2020,05/10/2020 COVID-19, LNP-s, No Preserve , Jonah-sucrose, [...] Time Taken Comments Blood Pressure 120/70 11/30/2022 11:00 AM EDT Pulse 93 11/30/2022 11:00 AM EDT Temperature 36.3 C (97.4 F) 11/30/2022 11:00 AM E DT Respiratory Rate - - Oxygen Saturation 95% 11/30/2022 11:00 AM EDT Inhaled Oxygen Concentration - - Weight 89.4 kg (197 lb) 11/30/2022 11:00 AM EDT Height 157.5 cm (5' 2") 11/30/2022 11:00 AM EDT Body Mass Index 36.03 11/30/2022 11:00 AM EDT documented in this encounter Progress Notes * Amarilis Gotti PA-C - 11/30/2022 11:04 AM EDT Images from the original note were not included. History of Present Illness Fernanda Montoya is a 87 year old female that presents for Acute (fell) Nursing Notes: Joy Perez CMA 11/30/22 1103 Sign at exiting of workspace She fell this morning injuring her ribs on the right side. She doesn't have pain anywhere else. Shesays the pain is getting better. HPI: Fernanda Montoya is a 87 year old female presenting to the office today for fall. She fell into her night stand this morning when she was trying to get up to her walker and hit the ribs on her stand. She didn't fall on the ground. No trouble breathing. She thinks it's starting to feel better. She has chronic problems with her right shoulder. She had some injections that worked in the past, but then most recent one didn't work- hasn't had any in a couple years. She doesn't want to see Ortho at this time but would consider in the future. She just completed PT to help with gait dysfunction. Current Outpatient Medications Medication Instructions Acetaminophen Extra Strength 500 MG Oral Tablet (Acetaminophen) TAKE 2 CAPLETS BY MOUTH NEEDED FOR MILD- MODERATE PAIN. *DO NOT EXCEED 3000MG/24 HOURS* albuterol-ipratropium (DUONEB) 2.5-0.5 MG/3ML nebulizer solution 3 mL aspirin enteric coated 81 mg, Oral, Daily(AM) atorvaSTATin (LIPITOR) 20 mg, Oral, Daily(AM) Bisacodyl (DULCOLAX) 10 mg, Rectal, Daily(AM), As needed Breo Ellipta 200-25 MCG/INH Inhalation Aerosol Powder Breath Activated (fluticasone furoate-vilanterol) 1 Puff, Inhalation, Daily(AM) Ciprofloxacin HCl 0.3 % Ophthalmic Solution (Ciloxan) No dose, route, or frequency recorded. Diclofenac Sodium (VOLTAREN) 2 g, Transdermal, BID(AM/PM), To affected area as directed. Diclofenac Sodium 1 % External Gel (Voltaren) No dose, route, or frequency recorded. Docusate Sodium (COLACE) 100 mg, Oral, BID(AM/PM) escitalopram (LEXAPRO) 15 mg, Oral, Daily(AM) Famotidine (PEPCID) 20 mg, Oral, Daily(AM) Furosemide 40 MG Oral Tablet (Lasix) 1 Tablet, Oral, Daily(AM) Gabapentin (NEURONTIN) 100 mg, Oral, TID(AM/NOON/HS) Magnesium Hydroxide 400 MG/5ML Oral Suspension Oral, DAILY PRN montelukast (SINGULAIR) 10 mg, Oral, HS ondansetron (ZOFRAN) 4 mg, Oral, Q8H PRN oxygen GAS 3LPM with all sleep Oyster Shell 500 MG Oral Tablet 1 Tablet, Oral, DAILY(1900) polyvinyl alcohol-povidone PF (REFRESH) 1.4-0.6 % ophthalmic solution 1 Drop, Both eyes, QID(AM/NOON/PM/HS) Senna 8.6 mg, Oral, BID(AM/PM) Spiriva Respimat 2.5 MCG/ACT Inhalation Aerosol Solution (Tiotropium [place] Monohydrate) 2 Puffs, Inhalation, Daily(AM) traMADol (ULTRAM) 50 mg, Oral, Q6H PRN traZODone (DESYREL) 100 mg, Oral, HS Vitamin D 1,000 Units, Oral, Daily(AM) Zoster Vac Recomb Adjuvanted 50 MCG/0.5ML Intramuscular Suspension Reconstituted (Shingrix) Inject 0.5 mL into a large muscle now and repeat dose in 60 to 180 days Med list reviewed by me today. Physical Exam Vitals: 11/30/22 1100 Temp: 36.3 C (97.4 F) Pulse: 93 SpO2: 95% BP: 120/70 BMI: 36.02 Physical exam: General: Well-Developed. Well appearing. No acute distress. HENT: Normocephalic. Atraumatic. Hearing normal. Cardiovascular: RRR. Normal S1/S2 noted. No murmur, rub or gallop appreciated. Pulmonary: No respiratory distress. No accessory muscle use. No adventitious sounds appreciated. Normal breath sounds. Musculoskeletal: ROM intact and appears normal. No gait disturbance. No edema or cyanosis. No calf tenderness. Right lateral ribs slightly tender without crepitus. No ecchymosis on exam. Neurologic: Alert. Oriented x 3. Appears stated age. CN 2-12 grossly intact. Skin: Warm and dry. No apparent rashes or ecchymoses. No jaundice or pallor noted. I have reviewed the following results: BMP Assessment and Plan Fall, initial encounter Rib pain on right side Feel that she likely has superficial injury from the fall and no rib fx or underlying issue. Recommended that she monitor symptoms and call with any changes/worsening. No need for XRay today. Rest, ice, topicals and Tylenol as needed. Chronic right shoulder pain - Diclofenac Sodium 1 % External Gel (Voltaren); Apply 4 g topically to affected area in the morning and 4 g at noon and 4 g in the evening and 4 g before bedtime. Consider Ortho in the future. Wrap-Up F/U as scheduled or sooner PRN documented in this encounter Nursing Notes * Joy Perez CMA - 11/30/2022 10:59 AM EDT She fell this morning injuring her ribs on the right side. She doesn't have pain anywhere else. Shesays the pain is getting better. documented in this encounter Plan of Treatment Upcoming Encounters Date Type Specialty Care Team Description 12/29/2022 Office Visit Family Medicine Makeda Álvarez PA-C [address] [place] [address] [place] [address] 03/03/2023 Nurse Only Rheumatology [place], Nurse Rheum [address] [place] [address] [place] [phone] 04/20/2023 Office Visit Cardiology Harpreet Paniagua, DO [address] [place] [address] 07/04/2023 Office Visit Family Medicine Peter Lu MD [address] [place] [address] [place] [address] 12/05/2023 Nurse Only Ancillary [place], Nurse Annual Wellness [address] [place] [address] [place] [address] Health Maintenance Due Date Last Done Comments [...] Additional history exists CKD HGB USE SMARTSET 78803 06/29/202306/28, 06/28/2022, 10/07/2021, Additional history exists CKD PHOS USE SMARTSET 93872 06/29/202306/02, 06/02/2021, 06/13/2019, Additional history exists HbA1c [...] as of this encounter Visit Diagnoses Diagnosis Fall, initial encounter- Primary Rib pain on right side Chest pain, unspecified Chronic right shoulder pain Pain in joint, shoulder region documented in this encounter Advance Directives Documents on File Type Date Recorded Patient Party Plan Dealer Expl anation Power of Payroll Auditor 11/28/2012 POWER OF A TTORNEY Latest Code [...] the patient have Health Care Power of Payroll Auditor? Yes, not currently available Code Status History Code Status Date Activated Date Inactivated Comments Full Code 06/18/2009 5:02 PM 06/18/2009 5:27 PM This order reflects the patients wishes and were consensually agreed upon. Question Answer Comments Discussion of Advance Directives occurred with: Patient Does the patient have a Living Will? No Does the patient have Health Care Power of Payroll Auditor? No Care Teams Associate Program Manager Relationship Specialty Start Date End Date Peter Lu MD [address] [place] [address] [place] [address] PCP - General Family Medicine 11/28/16 documented as of this encounter
--- OUTSIDE RECORDS SUMMARY | 2023-02-19 09:58 | External Medical Summary | Summary of Care ---
Author Name Unknown Organization [facility] Address [address] [place] [address] Phone [phone] Care Team Providers Care Vending Machine Attendant Name Role Phone Peter Lu MD Primary Care Provide r Reason for Visit * Reason Onset Date Comments Precert Approved 07/29/2022 Prolia- Encounter Details Date Type Department Care Team Description 07/29/2022 Telephone Rheumatology [facility] [address] [facility] [place] [address] Adriana Hector PA-C Precert Approved (Prolia-) Allergies Active Allergy Reactions Severity Noted Date Comments Amoxicillin-Pot Clavulanate Hives 04/06/2015 Dexamethasone Other (Please comment) Low 06/04/2008 Make her anxious Phenytoin Sodium Rash High 09/04/2002 documented as of this encounter (statuses as of 01/12/2023) Medications Medication Sig Dispensed Refills Start Date [...] Respimat 2.5 MCG/ACT Inhalation Aerosol Solution (Tiotropium [place] Monohydrate) Inhale 2 Puffs by mouth daily. 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 right shoulder pain Place 2 g [...] as of this encounter (statuses as of 01/12/2023) Active Problems Problem Noted Date Dyslipidemia, goal [...] as of this encounter (statuses as of 01/12/2023) Resolved Problems Problem Noted Date Resolved Date [...] 03/01/2013 03/14/2013 Overview: 10/21/11 Coronary atherosclerosis of [place] coronary gia ry 02/21/2013 07/23/2015 GERD (gastroesophageal [...] Markers for Patients with Cardiovascular Disease Project #[id number] PI: Keily Mazariegos MD Please call [phone] with study related questions GENOMICS CARDIO RESEARCH OTHER*[id number] 200905/10/2016 Overview: Renamed Per Clinical Trials Billing Project. Study Titile: Genomic Markers for Patients with Cardiovascular Disease Project #[id number] PI: Keily Mazariegos MD Please call [phone] with study related questions Unstable angina 06/18/2009 02/21/2013 HTN, goal below 140/90 06/18/2009 3 Osteoporosis 06/18/2009 03/01/2013 Dyslipidemia, goal LDL below 100 06/18/2009 01/21/2016 documented as of this encounter (statuses as of 01/12/2023) Immunizations Name Administration Dates Next Due COVID-19 mRNA, LNP-s, No Pre serve, 2-Dose Series ([employer]) 05/31/2020,05/10/2020 COVID-19, LNP-s, No Preserve , Jonah-sucrose, [...] 10:19 AM EDT Form received 11/24 to [facility], spoke with poleyard supervisor "will see to it that Pt gets form" * Telephone Encounter - SUZAN Paul - 11/24/2022 7:06 AM EDT Fax sent this morning. Rehana Murrell * Telephone Encounter - Luly Lam LPN - 11/23/2022 2:23 PM EDT Spoke with pt, says she may have thrown it out, can a form be faxed to [phone] * Telephone Encounter - SUZAN Paul - 09/29/2022 3:27 PM EDT Sent again. * Telephone Encounter - Luly Lam LPN - 09/29/2022 2:28 PM EDT spoke with pt states she didn't get mani., please send another * Telephone Encounter - SUZAN Paul - 08/04/2022 1:24 PM EDT Date of Services: 08.05.22 Facility: [facility] Estimate of Services for the following CPT(s): [...] Care Team Description 03/03/2023 Nurse Only Rheumatology [place], Nurse Rheum [address] [place] [phone] 04/20/2023 Office Visit Cardiology Harpreet Paniagua, DO [address] [place] [address] 07/04/2023 Office Visit Family Medicine Peter Lu MD [address] [place] [address] [place] [address] 12/05/2023 Nurse Only Ancillary [place], Nurse Annual [address] [place] [address] Health Maintenance Due Date Last Done Comments Zoster Vaccines (1 of 2) 1987 *BISPHONATE OR OTHER ACCEPTABLE MEDICATION NEEDED FOR OSTEOPOROSIS (REFER TO SMARTSET #1146) 01/25/2022 COVID-19 Vaccine ( season) 2022 09/16/2021, 01/27/2021, 05/31/2020, Additional history exists Albumin/Creatinine Ratio 06/29/2023 023, 06/03/2021, 11/14/2019, Additional history exists CKD HGB USE SMARTSET 53055 06/29/202306/28, 06/28/2022, 10/07/2021, Additional history exists CKD PHOS USE SMARTSET 12066 06/29/202306/02, 06/02/2021, 06/13/2019, Additional history exists HbA1c [...] Documents on File Type Date Recorded Patient Leather Belt Maker Expl anation Power of Mortgage Coordinator 11/28/2012 POWER OF A TTORNEY Latest Code [...] the patient have Health Care Power of Mortgage Coordinator? Yes, not currently available Code Status History Code Status Date Activated Date Inactivated Comments Full Code 06/18/2009 5:02 PM 06/18/2009 5:27 PM This order reflects the patients wishes and were consensually agreed upon. Question Answer Comments Discussion of Advance Directives occurred with: Patient Does the patient have a Living Will? No Does the patient have Health Care Power of Mortgage Coordinator? No Care Teams Vending Machine Attendant Relationship Specialty Start Date End Date Peter Lu MD [address] [place] [address] [place] [address] PCP - General Family Medicine 11/28/16 documented as of this encounter
--- OUTSIDE RECORDS SUMMARY | 2023-02-19 09:58 | External Medical Summary | Summary of Care ---
Author Name Unknown Organization [facility] Address [address] [place] [address] Phone [phone] Care Team Providers Care Hadoop Developer Name Role Phone Peter Lu MD Primary Care Provide r Reason for Visit * Reason Onset Date Comments Precert Approved 07/29/2022 Prolia- Encounter Details Date Type Department Care Team Description 07/29/2022 Telephone Rheumatology [facility] [address] [facility] [place] [address] Adriana Hector PA-C Precert Approved (Prolia-) Allergies Active Allergy Reactions Severity Noted Date Comments Amoxicillin-Pot Clavulanate Hives 04/06/2015 Dexamethasone Other (Please comment) Low 06/04/2008 Make her anxious Phenytoin Sodium Rash High 09/04/2002 documented as of this encounter (statuses as of 12/23/2022) Medications Medication Sig Dispensed Refills Start Date [...] Respimat 2.5 MCG/ACT Inhalation Aerosol Solution (Tiotropium [place] Monohydrate) Inhale 2 Puffs by mouth daily. 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 right shoulder pain Place 2 g [...] as of this encounter (statuses as of 12/23/2022) Active Problems Problem Noted Date Dyslipidemia, goal [...] as of this encounter (statuses as of 12/23/2022) Resolved Problems Problem Noted Date Resolved Date [...] 03/01/2013 03/14/2013 Overview: 10/21/11 Coronary atherosclerosis of [place] coronary gia ry 02/21/2013 07/23/2015 GERD (gastroesophageal [...] Markers for Patients with Cardiovascular Disease Project #[id number] PI: Keily Mazariegos MD Please call [phone] with study related questions GENOMICS CARDIO RESEARCH OTHER*[id number] 200905/10/2016 Overview: Renamed Per Clinical Trials Billing Project. Study Titile: Genomic Markers for Patients with Cardiovascular Disease Project #[id number] PI: Keily Mazariegos MD Please call [phone] with study related questions Unstable angina 06/18/2009 02/21/2013 HTN, goal below 140/90 06/18/2009 3 Osteoporosis 06/18/2009 03/01/2013 Dyslipidemia, goal LDL below 100 06/18/2009 01/21/2016 documented as of this encounter (statuses as of 12/23/2022) Immunizations Name Administration Dates Next Due COVID-19 mRNA, LNP-s, No Pre serve, 2-Dose Series ([employer]) 05/31/2020,05/10/2020 COVID-19, LNP-s, No Preserve , Jonah-sucrose, [...] 10:19 AM EDT Form received 11/24 to [facility], spoke with oil field equipment mechanic supervisor "will see to it that Pt gets form" * Telephone Encounter - SUZAN Paul - 11/24/2022 7:06 AM EDT Fax sent this morning. Rehana Murrell * Telephone Encounter - Luly Lam LPN - 11/23/2022 2:23 PM EDT Spoke with pt, says she may have thrown it out, can a form be faxed to [phone] * Telephone Encounter - SUZAN Paul - 09/29/2022 3:27 PM EDT Sent again. * Telephone Encounter - Luly Lam LPN - 09/29/2022 2:28 PM EDT spoke with pt states she didn't get mani., please send another * Telephone Encounter - SUZAN Paul - 08/04/2022 1:24 PM EDT Date of Services: 08.05.22 Facility: [facility] Estimate of Services for the [...] Office Visit Family Medicine Makeda Álvarez PA-C [address] [place] [address] [place] [address] 03/03/2023 Nurse Only Rheumatology [place], Nurse Rheum [place] [address] [place] [address] [place] [phone] 04/20/2023 Office Visit Cardiology Harpreet Paniagua, DO [address] [place] [address] 07/04/2023 Office Visit Family Medicine Peter Lu MD [address] [place] [address] [place] [address] 12/05/2023 Nurse Only Ancillary [place], Nurse Annual Wellness [address] [place] [address] [place] [address] Health Maintenance Due Date Last Done Comments Zoster Vaccines (1 of 2) 1987 COVID-19 Vaccine (5 - Pfizer series) 11/11/2021 09/16/2021, 01/27/2021, 05/31/2020, Additional history exists *BISPHONATE OR OTHER ACCEPTABLE MEDICATION NEEDED FOR OSTEOPOROSIS (REFER TO SMARTSET #1146) 01/25/2022 Influenza Vaccine (FLU shot) (#1) 2022 01/26/2022, 01/13/2020 Albumin/Creatinine Ratio 06/29/2023 023, 06/03/2021, 11/14/2019, Additional history exists CKD HGB USE SMARTSET 74549 06/29/202306/28, 06/28/2022, 10/07/2021, Additional history exists CKD PHOS USE SMARTSET 09516 06/29/202306/02, 06/02/2021, 06/13/2019, Additional history exists HbA1c [...] Documents on File Type Date Recorded Patient Flow Specialist Expl anation Power of Carpet Measurer 11/28/2012 POWER OF A TTORNEY Latest Code [...] the patient have Health Care Power of Carpet Measurer? Yes, not currently available Code Status History Code Status Date Activated Date Inactivated Comments Full Code 06/18/2009 5:02 PM 06/18/2009 5:27 PM This order reflects the patients wishes and were consensually agreed upon. Question Answer Comments Discussion of Advance Directives occurred with: Patient Does the patient have a Living Will? No Does the patient have Health Care Power of Carpet Measurer? No Care Teams Hadoop Developer Relationship Specialty Start Date End Date Peter Lu MD [address] [place] [address] [place] [address] PCP - General Family Medicine 11/28/16 documented as of this encounter
--- OUTSIDE RECORDS SUMMARY | 2023-02-19 09:59 | External Medical Summary | Summary of Care ---
Author Name Unknown Organization [facility] Address [address] [place] [address] Phone [phone] Care Team Providers Care Site Surveyor Name Role Phone Peter Lu MD Primary Care Provide r Encounter Details Date Type Department Care Team Description 09/29/2022 Orders Only Lab Mobile Phlebotomy [facility] [address] [place] [address] Peter Lu MD [address] [place] [address] [place] [address] DM type 2 causing complication ([facility]; Kidney disease, chronic, stage III (GFR 30-59 ml/min) ([facility]) Allergies Active Allergy Reactions Severity Noted Date Comments Amoxicillin-Pot Clavulanate Hives 04/06/2015 Dexamethasone Other (Please comment) Low 06/04/2008 Make her anxious Phenytoin Sodium Rash High 09/04/2002 documented as of this encounter (statuses as of 09/29/2022) Medications Medication Sig Dispensed Refills Start Date [...] 05/23/2019 Active Diclofenac Sodium (VOLTAREN) 1 % gelIndications:Chron ic right shoulder pain Place 2 g topically [...] Respimat 2.5 MCG/ACT Inhalation Aerosol Solution (Tiotropium [place] Monohydrate) Inhale 2 Puffs by mouth daily. [...] before bedtime. 90 Capsule 5 08/03/2022 Active DULoxetine HCl 30 MG Oral Capsule Delayed Release Particles Take 1 Capsule by mouth in the morning. Do not cut, crush or chew. 30 Capsule 5 08/03/2022 Active Ciprofloxacin HCl 0.3 % Ophthalmic Solution (Ciloxan) 0 05/20/2022 Active Citalopram Hydrobromide 10 MG Oral Tablet (CeleXA) 0 08/03/2022 Acti ve Diclofenac Sodium 1 % External Gel (Voltaren) 0 05/11/2022 Active Escitalopram Oxalate 10 MG Oral Tablet (Lexapro) 0 08/03/2022 Active Senna-Plus 8.6-50 MG Oral Tablet 0 08/01/2022 Active traMADol HCl 50 MG Oral Tablet (Ultram)Indications: Degenerative disc disease, cervical,Lumbar degenerative disc disease Take 1 Tablet by mouth every 6 hours as needed for Pain, Moderate. 90 Tablet 4 09/14/2022 Active documented as of this encounter (statuses as of 09/29/2022) Active Problems Problem Noted Date Dyslipidemia, goal [...] as of this encounter (statuses as of 09/29/2022) Resolved Problems Problem Noted Date Resolved Date [...] 03/01/2013 03/14/2013 Overview: 10/21/11 Coronary atherosclerosis of [place] coronary gia ry 02/21/2013 07/23/2015 GERD (gastroesophageal [...] Markers for Patients with Cardiovascular Disease Project #[id number] PI: Keily Mazariegos MD Please call [phone] with study related questions GENOMICS CARDIO RESEARCH OTHER*[id number] 200905/10/2016 Overview: Renamed Per Clinical Trials Billing Project. Study Titile: Genomic Markers for Patients with Cardiovascular Disease Project #[id number] PI: Keily Mazariegos MD Please call [phone] with study related questions Unstable angina 06/18/2009 02/21/2013 HTN, goal below 140/90 06/18/2009 3 Osteoporosis 06/18/2009 03/01/2013 Dyslipidemia, goal LDL below 100 06/18/2009 01/21/2016 documented as of this encounter (statuses as of 09/29/2022) Immunizations Name Administration Dates Next Due COVID-19 mRNA, LNP-s, No Pre serve, 2-Dose Series (SPO) 05/31/2020,05/10/2020 COVID-19, LNP-s, No Preserve , Jonah-sucrose, [...] 11/30/2022 Nurse Only Ancillary Hanny Nurse Annual [address] [place] [address] 12/29/2022 Office Visit Family Medicine Makeda Álvarez PA-C [address] [place] [address] [place] [address] 03/03/2023 Nurse Only Rheumatology [place], Nurse Rheum Mo [address] [place] [address] [place] [phone] 04/20/2023 Office Visit Cardiology Harpreet Paniagua, [address] [place] [address] 07/04/2023 Office Visit Family Medicine Peter Lu MD [address] [place] [address] [place] [address] Pending Results Name Type Priority Associated Diagnoses Date /Time BASIC METABOLIC PANEL Lab Routine DM type 2 causing complication (HCC) Kidney disease, chronic, stage III (GFR 30-59 ml/min) ([facility]) 09/29/2022 5:00 AM EDT HEMOGLOBIN A1C Lab Routine DM type 2 causing complication (HCC) Kidney disease, chronic, stage III (GFR 30-59 ml/min) ([facility]) 09/29/2022 5:00 AM EDT Scheduled Orders Name Type Priority Associated Diagnoses Orde r Schedule BASIC METABOLIC PANEL Lab Routine DM type 2 causing complication (HCC) Kidney disease, chronic, stage III (GFR 30-59 ml/min) ([facility]) Expected: 09/29/2022, Expires: 09/30/2023 HEMOGLOBIN A1C Lab Routine DM type 2 causing complication (HCC) Kidney disease, chronic, stage III (GFR 30-59 ml/min) ([facility]) Expected: 09/29/2022, Expires: 09/30/2023 Health Maintenance Due Date Last Done Comments Zoster Vaccines (1 of 2) 1987 COVID-19 Vaccine (5 - Pfizer series) 11/11/2021 09/16/2021, 01/27/2021, 05/31/2020, Additional history exists *BISPHONATE OR OTHER ACCEPTABLE MEDICATION NEEDED FOR OSTEOPOROSIS (REFER TO SMARTSET #1146) 01/25/2022 Depression Screening, Annual for Pts 12 and Over 11/29/2022 11/29/2021 Albumin/Creatinine Ratio 06/29/2023 023, 06/03/2021, 11/14/2019, Additional history exists CKD HGB USE SMARTSET 58771 06/29/202306/28, 06/28/2022, 10/07/2021, Additional history exists CKD PHOS USE SMARTSET 35959 06/29/202306/02, 06/02/2021, 06/13/2019, Additional history exists HbA1c 06/29/2023 06/28/2022, 07/0 10/2021, 06/02/2021, Additional history exists DTaP,Tdap,and Td Vaccines (2 - Td or Tdap) 12/14/2028 12/14/2018, 12/14/2018 Pneumococcal Vaccine: 65+ Years Completed 01/21/2016, 12/18/2014 Influenza Vaccine (FLU shot) Completed 01/26/2022, 01/13/2020 GARDASIL-HPV IMMUNIZATION SERIES Aged Out [...] as of this encounter Visit Diagnoses Diagnosis DM type 2 causing complication (HCC)- Primary Type II or unspecified type diabetes mellitus with unspecified complication, not stated as uncontrolled Kidney disease, chronic, stage III (GFR 30-59 ml/min) (HCC) Chronic kidney disease, Stage III (moderate) documented in this encounter Advance Directives Documents on File Type Date Recorded Patient Orchid Worker Expl anation Power of Javascript Application Developer 11/28/2012 POWER OF A TTORNEY Latest [...] the patient have Health Care Power of Javascript Application Developer? Yes, not currently available Code Status History Code Status Date Activated Date Inactivated Comments Full Code 06/18/2009 5:02 PM 06/18/2009 5:27 PM This order reflects the patients wishes and were consensually agreed upon. Question Answer Comments Discussion of Advance Directives occurred with: Patient Does the patient have a Living Will? No Does the patient have Health Care Power of Javascript Application Developer? No Care Teams Site Surveyor Relationship Specialty Start Date End Date Peter Lu MD [address] [place] [address] [place] [address] PCP - General Family Medicine 11/28/16 documented as of this encounter
--- OUTSIDE RECORDS SUMMARY | 2023-02-19 09:59 | External Medical Summary | Summary of Care ---
Author Name Unknown Organization [facility] Address [address] [place] [address] Phone [phone] Care Team Providers Care Cash Surrender Calculator Name Role Phone Peter Lu MD Primary Care Provide r Reason for Visit * Reason Onset Date Comments Precert Approved 07/29/2022 Prolia- Encounter Details Date Type Department Care Team Description 07/29/2022 Telephone Rheumatology [facility] [address] [facility] [place] [address] Adriana Hector PA-C Precert Approved (Prolia-) Allergies Active Allergy Reactions Severity Noted Date Comments Amoxicillin-Pot Clavulanate Hives 04/06/2015 Dexamethasone Other (Please comment) Low 06/04/2008 Make her anxious Phenytoin Sodium Rash High 09/04/2002 documented as of this encounter (statuses as of 11/24/2022) Medications Medication Sig Dispensed Refills Start Date [...] 05/23/2019 Active Diclofenac Sodium (VOLTAREN) 1 % gelIndications:Sample Taker Operator ishmael right shoulder pain Place 2 g [...] Respimat 2.5 MCG/ACT Inhalation Aerosol Solution (Tiotropium [place] Monohydrate) Inhale 2 Puffs by mouth daily. [...] as of this encounter (statuses as of 11/24/2022) Active Problems Problem Noted Date Dyslipidemia, goal [...] as of this encounter (statuses as of 11/24/2022) Resolved Problems Problem Noted Date Resolved Date [...] 03/01/2013 03/14/2013 Overview: 10/21/11 Coronary atherosclerosis of [place] coronary gia ry 02/21/2013 07/23/2015 GERD (gastroesophageal [...] Markers for Patients with Cardiovascular Disease Project #[id number] PI: Keily Mazariegos MD Please call [phone] with study related questions GENOMICS CARDIO RESEARCH OTHER*[id number] 200905/10/2016 Overview: Renamed Per Clinical Trials Billing Project. Study Titile: Genomic Markers for Patients with Cardiovascular Disease Project #[id number] PI: Keily Mazariegos MD Please call [phone] with study related questions Unstable angina 06/18/2009 02/21/2013 HTN, goal below 140/90 06/18/2009 3 Osteoporosis 06/18/2009 03/01/2013 Dyslipidemia, goal LDL below 100 06/18/2009 01/21/2016 documented as of this encounter (statuses as of 11/24/2022) Immunizations Name Administration Dates Next Due COVID-19 mRNA, LNP-s, No Pre serve, 2-Dose Series (Pivotshare) 05/31/2020,05/10/2020 COVID-19, LNP-s, No Preserve , Jonah-sucrose, [...] encounter Miscellaneous Notes * Telephone Encounter - SUZAN Paul - 11/24/2022 7:06 AM EDT Fax sent this morning. ThanksRehana * Telephone Encounter - Luly Lam LPN - 11/23/2022 2:23 PM EDT Spoke with pt, says she may have thrown it out, can a form be faxed to [phone] * Telephone Encounter - SUZAN Paul - 09/29/2022 3:27 PM EDT Sent again. * Telephone Encounter - Luly Lam LPN - 09/29/2022 2:28 PM EDT spoke with pt states she didn't get mani., please send another * Telephone Encounter - SUZAN Paul - 08/04/2022 1:24 PM EDT Date of Services: 08.05.22 Facility: [facility] Estimate of Services for the following [...] Care Team Description 11/30/2022 Nurse Only Ancillary Nurse Hanny Annual [address] [place] [address] 12/29/2022 Office Visit Family Medicine Makeda Álvarez PA-C [address] [place] [address] [place] [address] 03/03/2023 Nurse Only Rheumatology [place], Nurse Rheum [address] [place] [phone] 04/20/2023 Office Visit Cardiology Harpreet Paniagua, DO [address] [place] [address] 07/04/2023 Office Visit Family Medicine Peter Lu MD [address] [place] [address] [place] [address] Health Maintenance Due Date Last Done Comments [...] Additional history exists CKD HGB USE SMARTSET 67773 06/29/202306/28, 06/28/2022, 10/07/2021, Additional history exists CKD PHOS USE SMARTSET 44143 06/29/202306/02, 06/02/2021, 06/13/2019, Additional history exists HbA1c [...] Documents on File Type Date Recorded Patient Staff Attorney Expl anation Power of Moose Hunter 11/28/2012 POWER OF A TTORNEY Latest Code [...] the patient have Health Care Power of Moose Hunter? Yes, not currently available Code Status History Code Status Date Activated Date Inactivated Comments Full Code 06/18/2009 5:02 PM 06/18/2009 5:27 PM This order reflects the patients wishes and were consensually agreed upon. Question Answer Comments Discussion of Advance Directives occurred with: Patient Does the patient have a Living Will? No Does the patient have Health Care Power of Moose Hunter? No Care Teams Cash Surrender Calculator Relationship Specialty Start Date End Date Peter Lu MD [address] [place] [address] [place] [address] PCP - General Family Medicine 11/28/16 documented as of this encounter
--- OUTSIDE RECORDS SUMMARY | 2023-02-19 09:59 | External Medical Summary ---
Author Name Unknown Address Unknown Organization K01:LABORATORY [facility] [place] - [address] [place] [address] Laboratory Report Ordering Provider Test Date Status DIONTE GARCIA 09/29/2022 05:00:00 Final Observation Date Value Abnormality Reference (Units ) Status BUN 09/29/2022 05:00:00 18 6-20 (mg/dL) Final Creatinine 09/29/2022 05:00:00 1.1 Above high normal 0.5-1.0 (mg/dL) Final Glomerular filtration rate/1.73 sq M.predicted [Volume Rate/Area] in Serum, Plasma or Blood by Creatinine-based formula (CKD-EPI) 09/29/2022 05:00:00 49 Below low normal >=60 (mL/min) Final eGFR is calculated based on the CKD-EPI 2020 equation SODIUM 09/29/2022 05:00:00 142 135-146 (m mol/L) Final Potassium 09/29/2022 05:00:00 4.3 3.5-5.1 (m mol/L) Final Cl 09/29/2022 05:00:00 101 98-107 (mm ol/L) Final CO2 09/29/2022 05:00:00 28 22-32 (mmo l/L) Final Anion gap 09/29/2022 05:00:00 13 7-15 (mmol /L) Final Glucose 09/29/2022 05:00:00 89 70-120 (mg /dL) Final Calcium 09/29/2022 05:00:00 9.6 8.4-10.2 ( mg/dL) Final Performing Location LABORATORY [facility] [place] - [address] [place] [address]
--- OUTSIDE RECORDS SUMMARY | 2023-02-19 09:59 | External Medical Summary ---
Author Name Unknown Address Unknown Organization K01[place] [place] [address] [facility] [address] Laboratory Report Ordering Provider Test Date Status DIONTE GARCIA 09/29/2022 05:00:00 Final Observation Date Value Abnormality Reference (Units ) Status HbA1C 09/29/2022 05:00:00 6.1 Above high normal 4. 0-5.6 (%) Final The use of HbA1c to monitor glycemic status is based on normal hemoglobin and HbA composition. This test should not be used in patients with abnormal hemoglobin that affects the half life of the red blood cell or the in vivo glycation rates. Glucose, estimated average 09/29/2022 05:00:00 128 Above high normal <126 (mg/dL) Jonathon hammer Performing Location [facility] [place] [address] [facility] [address]
--- OUTSIDE RECORDS SUMMARY | 2023-02-19 09:59 | External Medical Summary | Summary of Care ---
Author Name Unknown Organization [facility] Address [address] [place] [address] Phone [phone] Care Team Providers Care Floor Worker Well Service Name Role Phone Peter Lu MD Primary Care Provide r Reason for Visit * Reason Onset Date Comments Home Visit Encounter Created in Error 10/31/2022 Encounter Details Date Type Department Care Team Description 10/26/[address] [place] [id number] Denisha Nation PA-C [address] [facility] [place] [address] Encounter created in error Allergies Active Allergy Reactions Severity Noted Date Comments Amoxicillin-Pot Clavulanate Hives 04/06/2015 Dexamethasone Other (Please comment) Low 06/04/2008 Make her anxious Phenytoin Sodium Rash High 09/04/2002 documented as of this encounter (statuses as of 10/31/2022) Medications Medication Sig Dispensed Refills Start Date [...] 05/23/2019 Active Diclofenac Sodium (VOLTAREN) 1 % gelIndications:Chr [...] Respimat 2.5 MCG/ACT Inhalation Aerosol Solution (Tiotropium [place] Monohydrate) Inhale 2 Puffs by mouth daily. [...] % Ophthalmic Solution (Ciloxan) 0 05/20/2022 Active Diclofenac Sodium 1 % External Gel (Voltaren) 0 05/11/2022 Active Escitalopram Oxalate 10 MG Oral Tablet (Lexapro) 0 08/03/2022 Active Senna-Plus 8.6-50 MG Oral Tablet 0 08/01/2022 Active traMADol HCl 50 MG Oral Tablet (Ultram)Indication s:Degenerative disc disease, cervical,Lumbar degenerative disc disease Take 1 Tablet by mouth every 6 hours as needed for Pain, Moderate. 90 Tablet 4 10/10/2022 Active Citalopram Hydrobromide 10 MG Oral Tablet (CeleXA) 0 08/03/2022 3 Discontinue d(Medicatio n List Clean Up) documented as of this encounter (statuses as of 10/31/2022) Active Problems Problem Noted Date Dyslipidemia, goal [...] as of this encounter (statuses as of 10/31/2022) Resolved Problems Problem Noted Date Resolved Date [...] 03/01/2013 03/14/2013 Overview: 10/21/11 Coronary atherosclerosis of [place] coronary gia ry 02/21/2013 07/23/2015 GERD (gastroesophageal [...] Markers for Patients with Cardiovascular Disease Project #[id number] PI: Keily Mazariegos MD Please call [phone] with study related questions GENOMICS CARDIO RESEARCH OTHER*[id number] 200905/10/2016 Overview: Renamed Per Clinical Trials Billing Project. Study Titile: Genomic Markers for Patients with Cardiovascular Disease Project #[id number] PI: Keily Mazariegos MD Please call [phone] with study related questions Unstable angina 06/18/2009 02/21/2013 HTN, goal below 140/90 06/18/2009 3 Osteoporosis 06/18/2009 03/01/2013 Dyslipidemia, goal LDL below 100 06/18/2009 01/21/2016 documented as of this encounter (statuses as of 10/31/2022) Immunizations Name Administration Dates Next Due COVID-19 mRNA, LNP-s, No Pre serve, 2-Dose Series (Formarum) 05/31/2020,05/10/2020 COVID-19, LNP-s, No Preserve , Jonah-sucrose, [...] Progress Notes * Denisha Nation PA-C - 10/26/2022 10:50 AM EDT This encounter was created in error. 10/31/2022, 8:32 AM, Denisha Nation PA-C documented in this encounter Plan of Treatment Upcoming Encounters Date Type Specialty Care Team Description 11/30/2022 Nurse Only Ancillary Hanny, Nurse [address] [place] [address] 12/29/2022 Office Visit Family Medicine Makeda Álvarez PA-C [address] [place] [address] [place] [address] 03/03/2023 Nurse Only Rheumatology [place], Nurse [address] [place] [phone] 04/20/2023 Office Visit Cardiology Harpreet Paniagua, DO [address] [place] [address] 07/04/2023 Office Visit Family Medicine Peter Lu MD [address] [place] [address] [place] [address] Health Maintenance Due Date Last Done Comments Zoster Vaccines (1 of 2) 1985 COVID-19 Vaccine (5 - Pfizer series) 11/11/2021 09/16/2021, 01/27/2021, 05/31/2020, Additional history exists *BISPHONATE OR OTHER ACCEPTABLE MEDICATION NEEDED FOR OSTEOPOROSIS (REFER TO SMARTSET #1146) 01/25/2022 Depression Screening, Annual for Pts 12 and Over 11/29/2022 11/29/2021 Influenza Vaccine (FLU shot) (#1) 2022 01/26/2022, 01/13/2020 Albumin/Creatinine Ratio 06/29/202306/28/ 023, 06/03/2021, 11/14/2019, Additional history exists CKD HGB USE SMARTSET 20678 06/29/202306/28, 06/28/2022, 10/07/2021, Additional history exists CKD PHOS USE SMARTSET 66222 06/29/202306/02, 06/02/2021, 06/13/2019, Additional history exists HbA1c [...] as of this encounter Visit Diagnoses Diagnosis Encounter Created In Error- Primary documented in this encounter Advance Directives Documents on File Type Date Recorded Patient Warranty Coordinator Expl anation Power of Etl Programmer 11/28/2012 POWER OF A TTORNEY Latest Code [...] the patient have Health Care Power of Etl Programmer? Yes, not currently available Code Status History Code Status Date Activated Date Inactivated Comments Full Code 06/18/2009 5:02 PM 06/18/2009 5:27 PM This order reflects the patients wishes and were consensually agreed upon. Question Answer Comments Discussion of Advance Directives occurred with: Patient Does the patient have a Living Will? No Does the patient have Health Care Power of Etl Programmer? No Care Teams Floor Worker Well Service Relationship Specialty Start Date End Date Peter Lu MD [address] [place] [address] [place] [address] PCP - General Family Medicine 11/28/16 documented as of this encounter
--- OUTSIDE RECORDS SUMMARY | 2023-02-19 09:59 | External Medical Summary | Summary of Care ---
Author Name Unknown Organization [facility] Address [address] [place] [address] Phone [phone] Care Team Providers Care Mailing Machine Operator Name Role Phone Peter Lu MD Primary Care Provide r Reason for Visit * Reason Onset Date Comments Precert Approved 07/29/2022 Prolia- Encounter Details Date Type Department Care Team Description 07/29/2022 Telephone Rheumatology [facility] [address] [place] [id number] Adriana Hector PA-C Precert Approved (Prolia-) Allergies [...] 05/23/2019 Active Diclofenac Sodium (VOLTAREN) 1 % gelIndications:Bottle Filler ishmael right shoulder pain Place 2 g [...] Respimat 2.5 MCG/ACT Inhalation Aerosol Solution (Tiotropium [place] Monohydrate) Inhale 2 Puffs by mouth daily. [...] 03/01/2013 03/14/2013 Overview: 10/21/11 Coronary atherosclerosis of [place] coronary gia ry 02/21/2013 07/23/2015 GERD (gastroesophageal [...] Markers for Patients with Cardiovascular Disease Project #[id number] PI: Keily Mazariegos MD Please call [phone] with study related questions GENOMICS CARDIO RESEARCH OTHER*[id number] 200905/10/2016 Overview: Renamed Per Clinical Trials Billing Project. Study Titile: Genomic Markers for Patients with Cardiovascular Disease Project #[id number] PI: Keily Mazariegos MD Please call [phone] with study related questions Unstable angina 06/18/2009 02/21/2013 HTN, goal below 140/90 06/18/2009 3 Osteoporosis 06/18/2009 03/01/2013 Dyslipidemia, goal LDL below 100 06/18/2009 01/21/2016 documented as of this encounter (statuses as of 09/29/2022) Immunizations Name Administration Dates Next Due COVID-19 mRNA, LNP-s, No Pre serve, 2-Dose Series (Jumblets) 05/31/2020,05/10/2020 COVID-19, LNP-s, No Preserve , Jonah-sucrose, [...] PM EDT Date of Services: 08.05.22 Facility: [facility] Estimate of Services for the following CPT(s): J0897 AME Estimated Out of Pocket: $257.01 Called & [...] 11/30/2022 Nurse Only Ancillary Nurse Hanny Annual [address] [place] [address] 12/29/2022 Office Visit Family Medicine Makeda Álvarez PA-Na [address] [place] [address] [place] [address] 03/03/2023 Nurse Only Rheumatology [place], Nurse Rheum Mo [address] [place] [address] [place] [phone] 04/20/2023 Office Visit Cardiology Harpreet Paniagua, DO [address] [place] [address] 07/04/2023 Office Visit Family Medicine Petre Lu MD [address] [place] [address] [place] [address] Health Maintenance Due Date Last Done Comments Zoster Vaccines (1 of 2) 1987 COVID-19 Vaccine (5 - Pfizer series) 11/11/2021 09/16/2021, 01/27/2021, 05/31/2020, Additional history exists *BISPHONATE OR OTHER ACCEPTABLE MEDICATION NEEDED FOR OSTEOPOROSIS (REFER TO SMARTSET #1146) 01/25/2022 Depression Screening, Annual for Pts 12 and Over 11/29/2022 11/29/2021 Albumin/Creatinine Ratio 06/29/2023 023, 06/03/2021, 11/14/2019, Additional history exists CKD HGB USE SMARTSET 51277 06/29/202306/28, 06/28/2022, 10/07/2021, Additional history exists CKD PHOS USE SMARTSET 57073 06/29/2023 03/2 11/2022, 06/02/2021, 06/13/2019, Additional history exists HbA1c 06/29/2023 [...] Documents on File Type Date Recorded Patient Vaccine Key Customer Leader Expl anation Power of Electric Motor Repairer 11/28/2012 POWER OF A TTORNEY Latest [...] the patient have Health Care Power of Electric Motor Repairer? Yes, not currently available Code Status History Code Status Date Activated Date Inactivated Comments Full Code 06/18/2009 5:02 PM 06/18/2009 5:27 PM This order reflects the patients wishes and were consensually agreed upon. Question Answer Comments Discussion of Advance Directives occurred with: Patient Does the patient have a Living Will? No Does the patient have Health Care Power of Electric Motor Repairer? No Care Teams Mailing Machine Operator Relationship Specialty Start Date End Date Peter Lu MD [address] [place] [address] [place] [address] PCP - General Family Medicine 11/28/16 documented as of this encounter
--- OUTSIDE RECORDS SUMMARY | 2023-02-19 09:59 | External Medical Summary | Summary of Care ---
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 [...] 03/01/2013 03/14/2013 Overview: 10/21/11 Coronary atherosclerosis of [place] coronary gia ry 02/21/2013 07/23/2015 GERD (gastroesophageal [...] Markers for Patients with Cardiovascular Disease Project #[id number] PI: Keily Mazariegos MD Please call [phone] with study related questions GENOMICS CARDIO RESEARCH OTHER*[id number] 200905/10/2016 Overview: Renamed Per Clinical Trials Billing Project. Study Titile: Genomic Markers for Patients with Cardiovascular Disease Project #[id number] PI: Keily Mazariegos MD Please call [phone] with study related questions Unstable angina 06/18/2009 02/21/2013 HTN, goal below 140/90 06/18/2009 3 Osteoporosis 06/18/2009 03/01/2013 Dyslipidemia, goal LDL below 100 06/18/2009 01/21/2016 documented as of this encounter (statuses as of 11/24/2022) Immunizations Name Administration Dates Next Due COVID-19 mRNA, LNP-s, No Pre serve, 2-Dose Series ([employer]) 05/31/2020,05/10/2020 COVID-19, LNP-s, No Preserve , Jonah-sucrose, [...] out, can a form be faxed to [phone] * Telephone Encounter - SUZAN Paul - 09/29/2022 3:27 PM EDT Sent again. * Telephone Encounter - Luly Lam LPN - 09/29/2022 2:28 PM EDT spoke with pt states she didn't get mani., please send another * Telephone Encounter - SUZAN Paul - 08/04/2022 1:24 PM EDT Date of Services: 08.05.22 Facility: [facility] Estimate of Services for the following [...] 11/30/2022 Nurse Only Ancillary Nurse Hanny Annual [address] [place] [address] 12/29/2022 Office Visit Family Medicine Makeda Álvarez PA-C [address] [place] [address] [place] [address] 03/03/2023 Nurse Only Rheumatology Han, Nurse Rheum [address] [place] [phone] 04/20/2023 Office Visit Cardiology Harpreet Paniagua, DO [address] [place] [address] 07/04/2023 Office Visit Family Medicine Peter Lu MD [address] [place] [address] [place] [address] Health Maintenance Due Date Last Done Comments [...] Additional history exists CKD HGB USE SMARTSET 83675 06/29/202306/28, 06/28/2022, 10/07/2021, Additional history exists CKD PHOS USE SMARTSET 25243 06/29/202306/02, 06/02/2021, 06/13/2019, Additional history exists HbA1c [...] Documents on File Type Date Recorded Patient Classifications Officer Cc/Cm Expl anation Power of Sas Architect 11/28/2012 POWER OF A TTORNEY Latest Code [...] the patient have Health Care Power of Sas Architect? Yes, not currently available Code Status History Code Status Date Activated Date Inactivated Comments Full Code 06/18/2009 5:02 PM 06/18/2009 5:27 PM This order reflects the patients wishes and were consensually agreed upon. Question Answer Comments Discussion of Advance Directives occurred with: Patient Does the patient have a Living Will? No Does the patient have Health Care Power of Sas Architect? No Care Teams Underwriting Operations Manager Relationship Specialty Start Date End Date Peter Lu MD [address] [place] [address] [place] [address] PCP - General Family Medicine 11/28/16 documented as of this encounter
--- OUTSIDE RECORDS SUMMARY | 2023-02-19 09:59 | External Medical Summary | Summary of Care ---
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 [...] 03/14/2013 Overview: 10/21/11 Coronary atherosclerosis of [place] coronary gia ry 02/21/2013 07/23/2015 GERD (gastroesophageal [...] Markers for Patients with Cardiovascular Disease Project #[id number] PI: Keily Mazariegos MD Please call [phone] with study related questions GENOMICS CARDIO RESEARCH OTHER*[id number] 200905/10/2016 Overview: Renamed Per Clinical Trials Billing Project. Study Titile: Genomic Markers for Patients with Cardiovascular Disease Project #[id number] PI: Keily Mazariegos MD Please call [phone] with study related questions Unstable angina 06/18/2009 02/21/2013 HTN, goal below 140/90 06/18/2009 3 Osteoporosis 06/18/2009 03/01/2013 Dyslipidemia, goal LDL below 100 06/18/2009 01/21/2016 documented as of this encounter (statuses as of 09/29/2022) Immunizations Name Administration Dates Next Due COVID-19 mRNA, LNP-s, No Pre serve, 2-Dose Series ([employer]) 05/31/2020,05/10/2020 COVID-19, LNP-s, No Preserve , Jonah-sucrose, [...] EDT Date of Services: 08.05.22 Facility: [facility] Estimate of Services for the following CPT(s): [...] Nurse Only Ancillary Nurse Hanny Annual [address] [place] [address] 12/29/2022 Office Visit Family Medicine Makeda Álvarez PA-C [address] [place] [address] [place] [address] 03/03/2023 Nurse Only Rheumatology Han, Nurse Rheum Mo [address] [place] [address] [place] [phone] 04/20/2023 Office Visit Cardiology Harpreet Paniagua, DO [address] [place] [address] 07/04/2023 Office Visit Family Medicine Peter Lu MD [address] [place] [address] [place] [address] Health Maintenance Due Date Last Done Comments Zoster Vaccines (1 of 2) 1987 COVID-19 Vaccine (5 - Pfizer series) 11/11/2021 09/16/2021, 01/27/2021, 05/31/2020, Additional history exists *BISPHONATE OR OTHER ACCEPTABLE MEDICATION NEEDED FOR OSTEOPOROSIS (REFER TO SMARTSET #1146) 01/25/2022 Depression Screening, Annual for Pts 12 and Over 11/29/2022 11/29/2021 Albumin/Creatinine Ratio 06/29/2023 023, 06/03/2021, 11/14/2019, Additional history exists CKD HGB USE SMARTSET 31315 06/29/202306/28, 06/28/2022, 10/07/2021, Additional history exists CKD PHOS USE SMARTSET 95930 06/29/202306/02, 06/02/2021, 06/13/2019, Additional history exists HbA1c [...] Documents on File Type Date Recorded Patient Political Worker Expl anation Power of Seed Cleaning Machine Operator 11/28/2012 POWER OF A TTORNEY Latest Code [...] the patient have Health Care Power of Seed Cleaning Machine Operator? Yes, not currently available Code Status History Code Status Date Activated Date Inactivated Comments Full Code 06/18/2009 5:02 PM 06/18/2009 5:27 PM This order reflects the patients wishes and were consensually agreed upon. Question Answer Comments Discussion of Advance Directives occurred with: Patient Does the patient have a Living Will? No Does the patient have Health Care Power of Seed Cleaning Machine Operator? No Care Teams Public Relations Associate Relationship Specialty Start Date End Date Peter Lu MD [address] [place] [address] [place] [phone] PCP - General Family Medicine 11/28/16 documented as of this encounter
--- OUTSIDE RECORDS SUMMARY | 2023-02-19 09:59 | External Medical Summary | Summary of Care ---
Author Name Unknown Organization [facility] Address [address] [place] [address] Phone [phone] Care Team Providers Care Quilting Supervisor Name Role Phone Peter Lu MD Primary Care Provide r Reason for Visit * Reason Onset Date Comments Medication Refill 10/10/2022 Encounter Details Date Type Department Care Team Description 10/10/2022 Refill [facility] [address] [facility] [place] [address] Denisha Nation PA-C [address] [place] [address] Degenerative disc disease, cervical; Lumbar degenerative disc disease Allergies Active Allergy Reactions Severity Noted Date Comments Amoxicillin-Pot Clavulanate Hives 04/06/2015 Dexamethasone Other (Please comment) Low 06/04/2008 Make her anxious Phenytoin Sodium Rash High 09/04/2002 documented as of this encounter (statuses as of 10/10/2022) Medications Medication Sig Dispensed Refills Start Date [...] Respimat 2.5 MCG/ACT Inhalation Aerosol Solution (Tiotropium [place] Monohydrate) Inhale 2 Puffs by mouth daily. [...] 10 MG Oral Tablet (CeleXA) 0 08/03/2022 Active Diclofenac Sodium 1 % External Gel (Voltaren) 0 05/11/2022 Active Escitalopram Oxalate 10 MG Oral Tablet (Lexapro) 0 08/03/2022 Active Senna-Plus 8.6-50 MG Oral Tablet 0 08/01/2022 Active traMADol HCl 50 MG Oral Tablet (Ultram)Indication s:Degenerative disc disease, cervical,Lumbar degenerative disc disease Take 1 Tablet by mouth every 6 hours as needed for Pain, Moderate. 90 Tablet 4 10/10/2022 Active traMADol HCl 50 MG Oral Tablet (Ultram)Indication s:Degenerative disc disease, cervical,Lumbar degenerative disc disease Take 1 Tablet by mouth every 6 hours as needed for Pain, Moderate. 90 Tablet 4 09/14/2022 3 Discontinue d(Refill) documented as of this encounter (statuses as of 10/10/2022) Active Problems Problem Noted Date Dyslipidemia, goal [...] as of this encounter (statuses as of 10/10/2022) Resolved Problems Problem Noted Date Resolved Date [...] 03/01/2013 03/14/2013 Overview: 10/21/11 Coronary atherosclerosis of [place] coronary gia ry 02/21/2013 07/23/2015 GERD [...] Markers for Patients with Cardiovascular Disease Project #[id number] PI: Keily Mazariegos MD Please call [phone] with study related questions GENOMICS CARDIO RESEARCH OTHER*[id number] 200905/10/2016 Overview: Renamed Per Clinical Trials Billing Project. Study Titile: Genomic Markers for Patients with Cardiovascular Disease Project #[id number] PI: Keily Mazariegos MD Please call [phone] with study related questions Unstable angina 06/18/2009 02/21/2013 HTN, goal below 140/90 06/18/2009 3 Osteoporosis 06/18/2009 03/01/2013 Dyslipidemia, goal LDL below 100 06/18/2009 01/21/2016 documented as of this encounter (statuses as of 10/10/2022) Immunizations Name Administration Dates Next Due COVID-19 [...] Telephone Encounter - Denisha Nation PA-C - 10/10/2022 2:01 PM EDT REFILL TRAMADOL 50MG Q 6 HOURS PRN MOD TO SEVERE PAIN #90 R4 SENT ELECTRONICALLY TO [facility] documented in this encounter Plan of Treatment Upcoming Encounters Date Type Specialty Care Team Description 11/30/2022 Nurse Only Ancillary Hanny Nurse Annual [address] [place] [address] 12/29/2022 Office Visit Family Medicine Makeda Álvarez PA-C [address] [place] [address] [place] [address] 03/03/2023 Nurse Only Rheumatology Han, Nurse Rheum Mo [address] [place] [address] [place] [phone] 04/20/2023 Office Visit Cardiology Harpreet Paniagua, DO [address] [place] [address] 07/04/2023 Office Visit Family Medicine Peter Lu MD [address] [place] [address] [place] [address] Health Maintenance Due Date Last Done Comments Zoster Vaccines (1 of 2) 1987 COVID-19 Vaccine (5 - Pfizer series) 11/11/2021 09/16/2021, 01/27/2021, 05/31/2020, Additional history exists *BISPHONATE OR OTHER ACCEPTABLE MEDICATION NEEDED FOR OSTEOPOROSIS (REFER TO SMARTSET #1146) 01/25/2022 Depression Screening, Annual for Pts 12 and Over 11/29/2022 11/29/2021 Influenza Vaccine (FLU shot) (#1) 2022 01/26/2022, 01/13/2020 Albumin/Creatinine Ratio 06/29/2023 03/28/2 023, 06/03/2021, 11/14/2019, Additional history exists CKD HGB USE SMARTSET 41632 06/29/202306/28, 06/28/2022, 10/07/2021, Additional history exists CKD PHOS USE SMARTSET 75716 06/29/202306/02, 06/02/2021, 06/13/2019, Additional history exists HbA1c [...] Documents on File Type Date Recorded Patient Airport Guide Expl anation Power of Burial Needs Salesperson 11/28/2012 POWER OF A TTORNEY Latest Code [...] the patient have Health Care Power of Burial Needs Salesperson? Yes, not currently available Code Status History Code Status Date Activated Date Inactivated Comments Full Code 06/18/2009 5:02 PM 06/18/2009 5:27 PM This order reflects the patients wishes and were consensually agreed upon. Question Answer Comments Discussion of Advance Directives occurred with: Patient Does the patient have a Living Will? No Does the patient have Health Care Power of Burial Needs Salesperson? No Care Teams Quilting Supervisor Relationship Specialty Start Date End Date Peter Lu MD [address] [place] [address] [place] [address] PCP - General Family Medicine 11/28/16 documented as of this encounter
--- OUTSIDE RECORDS SUMMARY | 2023-02-19 09:59 | External Medical Summary | Summary of Care ---
Author Name Unknown Organization [facility] Address [address] [place] [address] Phone [phone] Care Team Providers Care Bmx Rider Name Role Phone Peter Lu MD Primary Care Provide r Reason for Visit * Reason Comments Home Visit Encounter Details Date Type Department Care Team Description 11/10/2022 Office Visit Tonya Henness[facility], [address] [place] [phone] Denisha Nation PA-C [address] [place] [address] Major depression, recurrent, chronic (HCC)*; Hypertensive heart and kidney disease with chronic diastolic congestive heart failure and stage 3b chronic kidney disease (HCC); Bronchiectasis without complication (HCC); Severe persistent asthma without complication Allergies Active Allergy Reactions Severity Noted Date Comments Amoxicillin-Pot Clavulanate Hives 04/06/2015 Dexamethasone Other (Please comment) Low 06/04/2008 Make her anxious Phenytoin Sodium Rash High 09/04/2002 documented as of this encounter (statuses as of 11/10/2022) Medications Medication Sig Dispensed Refills Start Date End Date Status polyvinyl alcohol-povidone PF (REFRESH) 1.4-0.6 % ophthalmic solution Instill 1 Drop into both eyes 4 times a day. 5 Each 0 9 Active atorvaSTATin (LIPITOR) 20 MG TabletIndications :Mixed dyslipidemia Take 1 Tab by mouth daily. 90 Tab 0 9 Active aspirin enteric coated 81 MG TBEC Take 1 Tab by mouth daily. 100 Tab 3 9 Active albuterol-ipratro pium (DUONEB) 2.5-0.5 MG/3ML nebulizer solution 3 mL. 0 9 Active traZODone (DESYREL) 100 MG TabletIndications :Persistent insomnia Take 1 Tab by mouth at bedtime. 30 Tab 5 0 Active oxygen GAS 3LPM with all sleep 1 Each 0 0 Active Diclofenac Sodium (VOLTAREN) 1 % gelIndications:Ch ronic right shoulder pain Place 2 g topically on the skin 2 times a day. To affected area as directed. 100 g 5 0 Active Magnesium Hydroxide 400 MG/5ML Oral Suspension Take by mouth daily as needed for Constipation. 0 Active Senna 8.6 MG Oral Capsule Take 8.6 mg by mouth 2 times a day. 0 Active Furosemide 40 MG Oral Tablet (Lasix) Take 1 Tablet by mouth in the morning. 0 1 Active Breo Ellipta 200-25 MCG/INH Inhalation Aerosol Powder Breath Activated (fluticasone furoate-vilantero l) Inhale 1 Puff by mouth daily. 3 Each 1 1 Active Montelukast Sodium 10 MG Oral Tablet (Singulair) Take 1 Tab by mouth at bedtime. 90 Tab 1 1 Active Spiriva Respimat 2.5 MCG/ACT Inhalation Aerosol Solution (Tiotropium [place] Monohydrate) Inhale 2 Puffs by mouth daily. 12 g 1 1 Active Acetaminophen ER 650 MG Oral Tablet [...] NOT EXCEED 3000MG/24 HOURS* 60 Tablet 4 2 Active Zoster Vac Recomb Adjuvanted 50 MCG/0.5ML Intramuscular Suspension Reconstituted (Shingrix)Indicat ions:Need for vaccination for zoster Inject 0.5 mL into a large muscle now and repeat dose in 60 to 180 days 1 Each 1 2 Active Additional Information Patient not taking.Reported on 08/05/2022 Vitamin D 25 MCG (1000 UT) Oral Tablet Take 1 Tablet by mouth in the morning. 30 Tablet 0 2 Active Ondansetron HCl 4 MG Oral Tablet (Zofran) Take 1 Tablet by mouth every 8 hours as needed for Nausea. 0 Active Oyster Shell 500 MG Oral Tablet Take 1 Tablet by mouth every evening. 0 Active Docusate Sodium 100 MG Oral Capsule (Colace) Take 1 Capsule by mouth in the morning and 1 Capsule before bedtime. 0 3 Active Gabapentin 100 MG Oral Capsule (Neurontin) Take 1 Capsule by mouth in the morning and 1 Capsule at noon and 1 Capsule before bedtime. 90 Capsule 5 3 Active Ciprofloxacin HCl 0.3 % Ophthalmic Solution (Ciloxan) 0 3 Active Diclofenac Sodium 1 % External Gel (Voltaren) 0 3 Active Senna-Plus 8.6-50 MG Oral Tablet 0 3 Active traMADol HCl 50 MG Oral Tablet (Ultram)Indicatio ns:Degenerative disc disease, cervical,Lumbar degenerative disc disease Take 1 Tablet by mouth every 6 hours as needed for Pain, Moderate. 90 Tablet 4 3 Active Escitalopram Oxalate 10 MG Oral Tablet (Lexapro) Take 1.5 Tablets by mouth in the morning. 0 3 Active DULoxetine HCl 30 MG Oral Capsule Delayed Release Particles Take 1 Capsule by mouth in the morning. Do not cut, crush or chew. 30 Capsule 5 3 11/11/19 23 Discontinued(Me dication/Dose Changed) Escitalopram Oxalate 10 MG Oral Tablet (Lexapro) 0 3 11/11/19 23 Discontinued documented as of this encounter (statuses as of 11/10/2022) Active Problems Problem Noted Date Dyslipidemia, goal [...] as of this encounter (statuses as of 11/10/2022) Resolved Problems Problem Noted Date Resolved Date [...] 03/01/2013 03/14/2013 Overview: 10/21/11 Coronary atherosclerosis of [place]' coronary gia ry 02/21/2013 07/23/2015 GERD (gastroesophageal [...] Markers for Patients with Cardiovascular Disease Project #[id number] PI: Keily Mazariegos MD Please call [phone] with study related questions GENOMICS CARDIO RESEARCH OTHER*[id number] 200905/10/2016 Overview: Renamed Per Clinical Trials Billing Project. Study Titile: Genomic Markers for Patients with Cardiovascular Disease Project #[id number] PI: Keily Mazariegos MD Please call [phone] with study related questions Unstable angina 06/18/2009 02/21/2013 HTN, goal below 140/90 06/18/2009 3 Osteoporosis 06/18/2009 03/01/2013 Dyslipidemia, goal LDL below 100 06/18/2009 01/21/2016 documented as of this encounter (statuses as of 11/10/2022) Immunizations Name Administration Dates Next Due COVID-19 mRNA, LNP-s, No Pre serve, 2-Dose Series ([employer]) 05/31/2020,05/10/2020 COVID-19, LNP-s, No Preserve , Jonah-sucrose, [...] Progress Notes * Denisha Nation PA-C - 11/10/2022 3:26 PM EDT Subjective: Fernanda Montoya is a 87 year old female. Chief Complaint Patient presents with Home Visit HPI: I was asked to assess pt for depressed mood admitted by patient to staff. Pt has history of chronic major depression and is currently on Lexapro 10mg daily. She is also on Duloxetine 30mg daily for chronic pain issues and Trazodone 100mg HS. . I spoke to patient about depression and her symptoms on 10/26/22 but pt did not want to discuss this very much and refused any medication adjustment atthat time. Today, pt stated "I think I'm depressed. I don't have my anymore, my daughter is gone". Pt is planning on attending her granddaughter's wedding this weekend and she is happy to attend but states she feels sad because her daughter who is won't be attending the wedding. The wedding is in [place] and pt thinks this will be a far car drive. Pt states she is more lethargic lately. Not interested in her usual activities and hobbies. Sleeping more. Still eating and drinking ok but states not enjoying it much. Vital signs stable. No suicidal thoughts or plans. CBC Results: Results for orders placed or [...] SODIUM - [facility] 144 06/20/2019 06:50 AM TSH Results: Lab Results Component Value Date/Time TSH - [facility] 2.76 10/07/2021 10:45 AM TSH - [facility] 4.38 (H) 08/22/2019 06:20 AM TSH - [facility] 3.24 01/30/2019 01:38 PM TSH - [facility] 1.65 06/16/2017 10:12 AM PMH: Patient Active Problem List Diagnosis [...] aortic stenosis I35.0 Major depression, recurrent, chronic ([facility]) F33.9 Multinodular goiter E04.2 Severe persistent asthma without complication J45.50 Hypertensive heart and kidney disease with chronic diastolic congestive heart failure and usuyt4r chronic kidney disease ([facility]) I13.0, I50.32, N18.32 SUZAN (obstructive sleep apnea) [...] 3LPM with all sleep 1 Each 0 Diclofenac Sodium (VOLTAREN) 1 % gel Place 2 g topically on the skin 2 times a day. To affectedarea as directed. 100 g 5 Magnesium Hydroxide 400 MG/5ML Oral Suspension Take [...] Respimat 2.5 MCG/ACT Inhalation Aerosol Solution (Tiotropium [place] Monohydrate) Inhale 2 Puffs by mouth daily. 12 g 1 Acetaminophen ER 650 MG Oral Tablet Extended Release Take 1 Tablet by mouth in the morning. Bisacodyl 10 [...] 1 Capsule before bedtime. 90 Capsule 5 DULoxetine HCl 30 MG Oral Capsule Delayed Release Particles Take 1 Capsule by mouth in the morning. Do not cut, crush or chew. 30 Capsule 5 Ciprofloxacin HCl 0.3 % Ophthalmic Solution (Ciloxan) Diclofenac Sodium 1 % External Gel (Voltaren) Escitalopram Oxalate 10 MG Oral Tablet (Lexapro) Senna-Plus 8.6-50 MG Oral Tablet traMADol HCl 50 MG Oral Tablet (Ultram) Take 1 Tablet by mouth every 6 hours as needed for Pain, Moderate. 90 Tablet 4 No current facility-administered medications for this visit. 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 treated. stage IIA, T1N2,M0 - 5 of 11 lymph nodes positive- adenocarcinoma- ER positive and [place] negative and HER-2-janis positive Multinodular goiter Osteopenia [...] ARTHROPLASTY KNEE TOTAL Left 02/17/2017 Dr. Best. [facility] BREAST LESION,OTHER,EXCISION Right 2006 Malignant CATHETERIZE LEFT HEART THRU SKIN 06/19/09 LEFT HEART CATH, PERCUTANEOUS performed by MAURO JIMENEZ at [facility] COLONOSCOPY 06/25/15 normal - Dr. El COLONOSCOPY, DIAGNOSTIC (RECTUM) 2006 normal EGD, FLEXIBLE, DIAGNOSTIC 2010 gastritis- Dr. El EGD, FLEXIBLE, DIAGNOSTIC 06/25/15 normal EKG 01/17/2017 NSR. no acute changes. [facility] INJECT DX/THER SUBSTANCE INTERLAMINAR LUMBAR/SACRAL W IMAGE GUIDE 08/17/2017 INJECTION SPINE LUMBAR OR SACRAL performed by Cosmo Carolina, at [facility] INSERTION OF LENS PROSTHESIS MASTECTOMY,RADICAL 2005 right breast- Dr. El RADIUS AND ULNA FX W/FIXATION Left 12/14/2018 ORIF distal open radius/ulna fractures Dr. Steven Hansen REMOVAL OF BRAIN LINING TUMOR 2000 [facility] REMOVAL OF OVARY/OVIDUCT(S) bilateral REMOVE GALLBLADDER TOTAL ABD HYSTERECTOMY W/WO REMOVAL OF TUBE(S) 1989 US HEAD AND NECK 08/19/2019 multinodular diffuse goiter. right lobe: 4.6 cm by 2.3 cm by 2.1 cm. left lobe: 4.6 cm by 2.5cm by 2.3 cm. PERFORMED BY [employer] Review of patient's allergies indicates: Allergen Reactions Phenytoin Sodium Rash Augmentin [Amoxicillin-Pot Clavulanate] Hives Decadron [Dexamethasone] Other (Please comment) Make her anxious Family History Problem Relation Age of Onset Thyroid cancer Daughter Breast Cancer Grandmother (Maternal) Breast Cancer Aunt (Unspecified) Family Status Relation Status Mo at age 53 cancer- liver Fa at age 67 [place] Bro Alive Fito thyroid cancer MGMA breast cancer AUNT maternal aunt - breast cancer AUNT maternal aunt - breast cancer Social History Tobacco Use Smoking status: Never Smokeless tobacco: Never Substance Use Topics Alcohol use: No Vaping/E-Cigarette Use Vaping/E-Cigarette Use Never User Vaping/E-Cigarette Substances Vaping/E-Cigarette Devices Review of Systems: General: No change in weight, + weakness, + fatigue and No fevers, sweats, or chills Ears: No recent change in hearing, No tinnitus or vertigo, No ear pain and No ear discharge Nose: No h/o frequent colds or sinusitis, No nasal stuffiness, No h/o hay fever and No significant epistaxis Throat/Oropharynx: No teeth or gum problems, No bleeding gums, No tongue complaints, No sore throatand No recent change in voice or hoarseness Respiratory: No recent change in breathing, + wheezing, + shortness of breath and asthma controlledand stable Cardiac: No chest pain, No shortness of breath, No dyspnea on exertion, No orthopnea, No paroxysmalnocturnal dyspnea, No edema, No palpitations and No syncope Gastrointestinal: No dysphagia, No significant heartburn, No significant change in appetite, No nausea, vomiting, diarrhea, or constipation, No hematemesis, No blood in stools or black tarry stools, No abdominal bloating or early satiety and No abdominal pain Urinary: No urinary frequency, No dysuria, No hematuria, No urinary urgency, No polyuria, No nocturia, No incontinence, No hesitancy and No sensation of incomplete voiding Musculoskeletal: + arthritis and + backache Psychiatric: see HPI Objective: Vital signs reviewed Physical Exam: General: alert, healthy and no distress Nose: no mucosal erythema, no mucosal edema, no purulent discharge Oropharynx: no exudate, no erythema, lips, buccal mucosa, and tongue normal and mucous membranes are moist Neck: supple, no adenopathy, no JVD, thyroid normal size, non-tender, without nodularity, no stridor, non-tender Heart: regular rate & rhythm, no murmur and no gallops Lungs: chest symmetric with normal AP diameter, no chest deformities noted, no chest wall tenderness, lungs clear to auscultation Abdomen: abdomen soft, non-tender, normal bowel sounds and no masses or organomegaly Extremities: no edema, no skin discoloration, no clubbing, no cyanosis Psych: depressed mood but good eye contact. Expressed thoughts/ideas well. ASSESSMENT/PLAN: Major depression, recurrent, chronic (HCC) (Primary) Discussed depression with pt at length (approxminately 30 minutes) Discussed signs and symptoms. At first, pt didn't want to consider increasing dose of SSRI but thenafter discussion accepted this Will increase Lexapro to 15mg daily as trial. Will follow closely Duloxetine doesn't seem to be making any difference in pt's mood and pain. Will discontinue Duloxetine since increasing Lexapro dose. Hypertensive heart and kidney disease with chronic diastolic congestive heart failure and stage 3b chronic kidney disease (HCC) Stable BP and no active CHF. Continue with Lasix 40mg daily Bronchiectasis without complication (HCC) Stable breathing Continue Duoneb Q four hours prn, Spiriva two puffs daily , Singulair 10mg daily and breo elllipta 200/25mg dailiy Severe persistent asthma without complication Stable breathing Continue Duoneb Q four hours prn, Spiriva two puffs daily , Singulair 10mg daily and breo elllipta 200/25mg dailiy Total time spent with patient 50 minutes with over half time spent reviewing medications, labs and plans of care Denisha Nation PA-C documented in this encounter Plan of Treatment Upcoming Encounters Date Type Specialty Care Team Description 11/30/2022 Nurse Only Ancillary Nurse Hanny Annual [address] [place] [address] 12/29/2022 Office Visit Family Medicine Makeda Álvarez PA-C [address] [place] [address] [place] [address] 03/03/2023 Nurse Only Rheumatology [place], Nurse Rheum Mo [address] [place] [address] [place] [phone] 04/20/2023 Office Visit Cardiology Harpreet Paniagua, DO [address] [place] [address] 07/04/2023 Office Visit Family Medicine Peter Lu MD [address] [place] [address] [place] [address] Health Maintenance Due Date Last Done Comments [...] Additional history exists CKD HGB USE SMARTSET 06400 06/29/202306/28, 06/28/2022, 10/07/2021, Additional history exists CKD PHOS USE SMARTSET 15965 06/29/202306/02, 06/02/2021, 06/13/2019, Additional history exists HbA1c [...] as of this encounter Visit Diagnoses Diagnosis Major depression, recurrent, chronic (HCC)- Primary Major depressive disorder, recurrent episode, unspecified Hypertensive heart and kidney disease with chronic diastolic congestive heart failure and stage 3b chronic kidney disease (HCC) Bronchiectasis without complication (HCC) Bronchiectasis without acute exacerbation Severe persistent asthma without complication documented in this encounter Advance Directives Documents on File Type Date Recorded Patient 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 Yes, not currently available Code Status History Code Status Date Activated Date Inactivated Comments Full Code 06/18/2009 5:02 PM 06/18/2009 5:27 PM This order reflects the patients wishes and were consensually agreed upon. Question Answer Comments Discussion of Advance Directives occurred with: Patient Does the patient have a Living Will? No Does the patient have Health Care Power of Packaging Inspector? No Care Teams Bmx Rider Relationship Specialty Start Date End Date Peter Lu MD [address] [place] [address] [place] [phone] PCP - General Family Medicine 11/28/16 documented as of this encounter
--- OUTSIDE RECORDS SUMMARY | 2023-02-19 09:59 | External Medical Summary | Summary of Care ---
Author Name Unknown Organization [facility] Address [address] [place] [address] Phone [phone] Care Team Providers Care Wireless Engineer Name Role Phone Peter Lu MD Primary Care Provide r Reason for Visit * Reason Onset Date Comments Precert Approved 07/29/2022 Prolia- Encounter Details Date Type Department Care Team Description 07/29/2022 Telephone Rheumatology [facility] [address] [place] [address] Adriana Hector PA-C Precert Approved (Prolia-) Allergies Active Allergy Reactions Severity Noted Date Comments Amoxicillin-Pot Clavulanate Hives 04/06/2015 Dexamethasone Other (Please comment) Low 06/04/2008 Make her anxious Phenytoin Sodium Rash High 09/04/2002 documented as of this encounter (statuses as of 09/28/2022) Medications Medication Sig Dispensed Refills Start Date [...] 05/23/2019 Active Diclofenac Sodium (VOLTAREN) 1 % gelIndications:Television Cabinet Finisher ishmael right shoulder pain Place 2 g [...] Respimat 2.5 MCG/ACT Inhalation Aerosol Solution (Tiotropium [place] Monohydrate) Inhale 2 Puffs by mouth daily. [...] as of this encounter (statuses as of 09/28/2022) Active Problems Problem Noted Date Dyslipidemia, goal [...] as of this encounter (statuses as of 09/28/2022) Resolved Problems Problem Noted Date Resolved Date [...] 03/01/2013 03/14/2013 Overview: 10/21/11 Coronary atherosclerosis of [place] coronary gia ry 02/21/2013 07/23/2015 GERD (gastroesophageal [...] Markers for Patients with Cardiovascular Disease Project #[id number] PI: Keily Mazariegos MD Please call [phone] with study related questions GENOMICS CARDIO RESEARCH OTHER*[id number] 200905/10/2016 Overview: Renamed Per Clinical Trials Billing Project. Study Titile: Genomic Markers for Patients with Cardiovascular Disease Project #[id number] PI: Keily Mazariegos MD Please call [phone] with study related questions Unstable angina 06/18/2009 02/21/2013 HTN, goal below 140/90 06/18/2009 3 Osteoporosis 06/18/2009 03/01/2013 Dyslipidemia, goal LDL below 100 06/18/2009 01/21/2016 documented as of this encounter (statuses as of 09/28/2022) Immunizations Name Administration Dates Next Due COVID-19 mRNA, LNP-s, No Pre serve, 2-Dose Series ([employer]) 05/31/2020,05/10/2020 COVID-19, LNP-s, No Preserve , Jonah-sucrose, [...] PM EDT Date of Services: 08.05.22 Facility: [facility] Estimate of Services for the [...] 11/30/2022 Nurse Only Ancillary Nurse Hanny Annual [address] [place] [address] 12/29/2022 Office Visit Family Medicine Makeda Álvarez PA-C [address] [place] [address] [place] [address] 03/03/2023 Nurse Only Rheumatology [place], Nurse Rheum Mo [address] [place] [address] [place] [phone] 04/20/2023 Office Visit Cardiology Harpreet Paniagua, DO [address] [place] [address] 07/04/2023 Office Visit Family Medicine Peter Lu MD [address] [place] [address] [place] [address] Health Maintenance Due Date Last Done Comments Zoster Vaccines (1 of 2) 1987 COVID-19 Vaccine (5 - Pfizer series) 11/11/2021 09/16/2021, 01/27/2021, 05/31/2020, Additional history exists *BISPHONATE OR OTHER ACCEPTABLE MEDICATION NEEDED FOR OSTEOPOROSIS (REFER TO SMARTSET #1146) 01/25/2022 Depression Screening, Annual for Pts 12 and Over 11/29/2022 11/29/2021 Albumin/Creatinine Ratio 06/29/2023 023, 06/03/2021, 11/14/2019, Additional history exists CKD HGB USE SMARTSET 82098 06/29/202306/28, 06/28/2022, 10/07/2021, Additional history exists CKD PHOS USE SMARTSET 42196 06/29/202306/02, 06/02/2021, 06/13/2019, Additional history exists HbA1c [...] Documents on File Type Date Recorded Patient Ship Mate Expl anation Power of Veneer Layer 11/28/2012 POWER OF A TTORNEY Latest Code [...] the patient have Health Care Power of Veneer Layer? Yes, not currently available Code Status History Code Status Date Activated Date Inactivated Comments Full Code 06/18/2009 5:02 PM 06/18/2009 5:27 PM This order reflects the patients wishes and were consensually agreed upon. Question Answer Comments Discussion of Advance Directives occurred with: Patient Does the patient have a Living Will? No Does the patient have Health Care Power of Veneer Layer? No Care Teams Wireless Engineer Relationship Specialty Start Date End Date Peter Lu MD [address] [place] [address] [place] [phone] PCP - General Family Medicine 11/28/16 documented as of this encounter
--- OUTSIDE RECORDS SUMMARY | 2023-02-19 09:59 | External Medical Summary | Summary of Care ---
Author Name Unknown Organization [facility] Address [address] [place] [address] Phone [phone] Care Team Providers Care Occupational Therapy Teacher Name Role Phone Peter Lu MD Primary Care Provide r Reason for Visit * Reason Onset Date Comments Precert Approved 07/29/2022 Prolia- Encounter Details Date Type Department Care Team Description 07/29/2022 Telephone Rheumatology [facility] [address] [facility] [place] [address] Adriana Hector PA-C Precert Approved (Prolia-) Allergies Active Allergy Reactions Severity Noted Date Comments Amoxicillin-Pot Clavulanate Hives 04/06/2015 Dexamethasone Other (Please comment) Low 06/04/2008 Make her anxious Phenytoin Sodium Rash High 09/04/2002 documented as of this encounter (statuses as of 11/23/2022) Medications Medication Sig Dispensed Refills Start Date [...] 05/23/2019 Active Diclofenac Sodium (VOLTAREN) 1 % gelIndications: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 [...] as of this encounter (statuses as of 11/23/2022) Active Problems Problem Noted Date Dyslipidemia, goal [...] as of this encounter (statuses as of 11/23/2022) Resolved Problems Problem Noted Date Resolved Date [...] 03/01/2013 03/14/2013 Overview: 10/21/11 Coronary atherosclerosis of [place] coronary gia ry 02/21/2013 07/23/2015 GERD (gastroesophageal [...] Markers for Patients with Cardiovascular Disease Project #[id number] PI: Keily Mazariegos MD Please call [phone] with study related questions GENOMICS CARDIO RESEARCH OTHER*[id number] 200905/10/2016 Overview: Renamed Per Clinical Trials Billing Project. Study Titile: Genomic Markers for Patients with Cardiovascular Disease Project #[id number] PI: Keily Mazariegos MD Please call [phone] with study related questions Unstable angina 06/18/2009 02/21/2013 HTN, goal below 140/90 06/18/2009 3 Osteoporosis 06/18/2009 03/01/2013 Dyslipidemia, goal LDL below 100 06/18/2009 01/21/2016 documented as of this encounter (statuses as of 11/23/2022) Immunizations Name Administration Dates Next Due COVID-19 mRNA, LNP-s, No Pre serve, 2-Dose Series (Stitch.es) 05/31/2020,05/10/2020 COVID-19, LNP-s, No Preserve , Jonah-sucrose, [...] out, can a form be faxed to [phone] * Telephone Encounter - SUZAN Paul - 09/29/2022 3:27 PM EDT Sent again. * Telephone Encounter - Luly Lam LPN - 09/29/2022 2:28 PM EDT spoke with pt states she didn't get mani., please send another * Telephone Encounter - SUZAN Paul - 08/04/2022 1:24 PM EDT Date of Services: 08.05.22 Facility: [facility] Estimate of Services for the following CPT(s): [...] 11/30/2022 Nurse Only Ancillary Nurse Hanny Annual [address] [place] [address] 12/29/2022 Office Visit Family Medicine Makeda Álvarez PA-C [address] [place] [address] [place] [address] 03/03/2023 Nurse Only Rheumatology [place], Nurse Rheum [address] [place] [phone] 04/20/2023 Office Visit Cardiology Harpreet Paniagua, [address] [place] [address] 07/04/2023 Office Visit Family Medicine Peter Lu MD [address] [place] [address] [place] [address] Health Maintenance Due Date Last Done Comments [...] Additional history exists CKD HGB USE SMARTSET 85127 06/29/202306/28, 06/28/2022, 10/07/2021, Additional history exists CKD PHOS USE SMARTSET 72765 06/29/202306/02, 06/02/2021, 06/13/2019, Additional history exists HbA1c [...] Documents on File Type Date Recorded Patient Compounder Expl anation Power of Commissioned Security Officer 11/28/2012 POWER OF A TTORNEY Latest Code [...] the patient have Health Care Power of Commissioned Security Officer? Yes, not currently available Code Status History Code Status Date Activated Date Inactivated Comments Full Code 06/18/2009 5:02 PM 06/18/2009 5:27 PM This order reflects the patients wishes and were consensually agreed upon. Question Answer Comments Discussion of Advance Directives occurred with: Patient Does the patient have a Living Will? No Does the patient have Health Care Power of Commissioned Security Officer? No Care Teams Occupational Therapy Teacher Relationship Specialty Start Date End Date Peter Lu MD [address] [place] [address] [place] [address] PCP - General Family Medicine 11/28/16 documented as of this encounter
--- OUTSIDE RECORDS SUMMARY | 2023-02-19 09:59 | External Medical Summary | Summary of Care ---
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 [...] 03/01/2013 03/14/2013 Overview: 10/21/11 Coronary atherosclerosis of [place] coronary gia ry 02/21/2013 07/23/2015 GERD (gastroesophageal [...] Markers for Patients with Cardiovascular Disease Project #[id number] PI: Keily Mazariegos MD Please call [phone] with study related questions GENOMICS CARDIO RESEARCH OTHER*[id number] 200905/10/2016 Overview: Renamed Per Clinical Trials Billing Project. Study Titile: Genomic Markers for Patients with Cardiovascular Disease Project #[id number] PI: Keily Mazariegos MD Please call [phone] with study related questions Unstable angina 06/18/2009 02/21/2013 HTN, goal below 140/90 06/18/2009 3 Osteoporosis 06/18/2009 03/01/2013 Dyslipidemia, goal LDL below 100 06/18/2009 01/21/2016 documented as of this encounter (statuses as of 09/29/2022) Immunizations Name Administration Dates Next Due COVID-19 mRNA, LNP-s, No Pre serve, 2-Dose Series (Zumobi) 05/31/2020,05/10/2020 COVID-19, LNP-s, No Preserve , Jonah-sucrose, [...] PM EDT Date of Services: 08.05.22 Facility: [facility] Estimate of Services for the following CPT(s): [...] Description 11/30/2022 Nurse Only Ancillary Hanny, Nurse Annual [address] [place] [address] 12/29/2022 Office Visit Family Medicine Makeda Álvarez PA-C [address] [place] [address] [place] [address] 03/03/2023 Nurse Only Rheumatology [place], Nurse Rheum [address] [place] [phone] 04/20/2023 Office Visit Cardiology Harpreet Paniagua, DO [address] [place] [address] 07/04/2023 Office Visit Family Medicine Peter Lu MD [address] [place] [address] [place] [address] Health Maintenance Due Date Last Done Comments Zoster Vaccines (1 of 2) 1987 COVID-19 Vaccine (5 - Pfizer series) 11/11/2021 09/16/2021, 01/27/2021, 05/31/2020, Additional history exists *BISPHONATE OR OTHER ACCEPTABLE MEDICATION NEEDED FOR OSTEOPOROSIS (REFER TO SMARTSET #1146) 01/25/2022 Depression Screening, Annual for Pts 12 and Over 11/29/2022 11/29/2021 Albumin/Creatinine Ratio 06/29/2023 023, 06/03/2021, 11/14/2019, Additional history exists CKD HGB USE SMARTSET 88619 06/29/202306/28, 06/28/2022, 10/07/2021, Additional history exists CKD PHOS USE SMARTSET 52665 06/29/202306/02, 06/02/2021, 06/13/2019, Additional history exists HbA1c 06/29/2023 06/28/2022, 07/10/2021, 06/02/2021, Additional history exists DTaP,Tdap,and Td Vaccines [...] Documents on File Type Date Recorded Patient Global Head Advertiser Solutions Expl anation Power of Poultry Scalder 11/28/2012 POWER OF A TTORNEY Latest Code [...] the patient have Health Care Power of Poultry Scalder? Yes, not currently available Code Status History Code Status Date Activated Date Inactivated Comments Full Code 06/18/2009 5:02 PM 06/18/2009 5:27 PM This order reflects the patients wishes and were consensually agreed upon. Question Answer Comments Discussion of Advance Directives occurred with: Patient Does the patient have a Living Will? No Does the patient have Health Care Power of Poultry Scalder? No Care Teams Public Area Supervisor Relationship Specialty Start Date End Date Peter Lu MD [address] [place] [address] [place] [phone] PCP - General Family Medicine 11/28/16 documented as of this encounter
--- OUTSIDE RECORDS SUMMARY | 2023-02-19 09:59 | External Medical Summary | Summary of Care ---
Author Name Unknown Organization [facility] Address [address] [place] [address] Phone [phone] Care Team Providers Care Manager Technical Training Name Role Phone Peter Lu MD Primary Care Provide r Reason for Visit * Reason Comments Home Visit Encounter Details Date Type Department Care Team Description 10/31/2022 Office Visit [facility], [address] [place] [phone] Denisha Nation PA-C [address] [place] [address] Frequent falls*; Hypertensive heart and kidney disease with chronic diastolic congestive heart failure and stage 3b chronic kidney disease (HCC); Degenerative disc disease, cervical; Lumbar degenerative disc disease; Primary osteoarthritis of left knee Allergies Active Allergy Reactions Severity Noted Date Comments Amoxicillin-Pot Clavulanate Hives 04/06/2015 Dexamethasone Other (Please comment) Low 06/04/2008 Make her anxious Phenytoin Sodium Rash High 09/04/2002 documented as of this encounter (statuses as of 11/01/2022) Medications Medication Sig Dispensed Refills Start Date [...] Respimat 2.5 MCG/ACT Inhalation Aerosol Solution (Tiotropium [place] Monohydrate) Inhale 2 Puffs by mouth daily. [...] Pain, Moderate. 90 Tablet 4 10/10/2022 Active documented as of this encounter (statuses as of 11/01/2022) Active Problems Problem Noted Date Dyslipidemia, goal [...] as of this encounter (statuses as of 11/01/2022) Resolved Problems Problem Noted Date Resolved Date [...] 03/01/2013 03/14/2013 Overview: 10/21/11 Coronary atherosclerosis of [place] coronary gia ry 02/21/2013 07/23/2015 GERD (gastroesophageal [...] Markers for Patients with Cardiovascular Disease Project #[id number] PI: Keily Mazariegos MD Please call [phone] with study related questions GENOMICS CARDIO RESEARCH OTHER*[id number] 200905/10/2016 Overview: Renamed Per Clinical Trials Billing Project. Study Gregorio: Genomic Markers for Patients with Cardiovascular Disease Project #[id number] PI: Keily Mazariegos MD Please call [phone] with study related questions Unstable angina 06/18/2009 02/21/2013 HTN, goal below 140/90 06/18/2009 3 Osteoporosis 06/18/2009 03/01/2013 Dyslipidemia, goal LDL below 100 06/18/2009 01/21/2016 documented as of this encounter (statuses as of 11/01/2022) Immunizations Name Administration Dates Next Due COVID-19 mRNA, LNP-s, No Pre serve, 2-Dose Series (SkyCache) 05/31/2020,05/10/2020 COVID-19, LNP-s, No Preserve , Jonah-sucrose, [...] 11/30/2022 Nurse Only Ancillary Hanny Nurse [facility] [address] [place] [address] [place] [address] 12/29/2022 Office Visit Family Medicine Makeda Álvarez PA-C [address] [place] [address] [place] [address] 03/03/2023 Nurse Only Rheumatology [place], Nurse Rheum [place] [address] [place] [address] [place] [phone] 04/20/2023 Office Visit Cardiology Harpreet Paniagua, DO [address] [place] [address] 07/04/2023 Office Visit Family Medicine Peter Lu MD [address] [place] [address] [place] [address] Health Maintenance Due Date Last Done Comments [...] Additional history exists CKD HGB USE SMARTSET 67244 06/29/202306/28, 06/28/2022, 10/07/2021, Additional history exists CKD PHOS USE SMARTSET 48481 06/29/202306/02, 06/02/2021, 06/13/2019, Additional history exists HbA1c [...] as of this encounter Visit Diagnoses Diagnosis Frequent falls- Primary Personal history of fall Hypertensive heart and kidney disease with chronic diastolic congestive heart failure and stage 3b chronic kidney disease (HCC) Degenerative disc disease, cervical Degeneration of cervical intervertebral disc Lumbar degenerative disc disease Degeneration of lumbar or lumbosacral intervertebral disc Primary osteoarthritis of left knee Primary localized osteoarthrosis, lower leg documented in this encounter Advance Directives Documents on File Type Date Recorded Patient Lifestyle Coordinator Expl anation Power of Mental Health Social Worker 11/28/2012 POWER OF A TTORNEY Latest Code [...] the patient have Health Care Power of Mental Health Social Worker? Yes, not currently available Code Status History Code Status Date Activated Date Inactivated Comments Full Code 06/18/2009 5:02 PM 06/18/2009 5:27 PM This order reflects the patients wishes and were consensually agreed upon. Question Answer Comments Discussion of Advance Directives occurred with: Patient Does the patient have a Living Will? No Does the patient have Health Care Power of Mental Health Social Worker? No Care Teams Manager Technical Training Relationship Specialty Start Date End Date Peter Lu MD [address] [place] [address] [place] [phone] PCP - General Family Medicine 11/28/16 documented as of this encounter
--- OUTSIDE RECORDS SUMMARY | 2023-02-19 09:59 | External Medical Summary | Summary of Care ---
Author Name Unknown Organization [facility] Address [address] [place] [address] Phone [phone] Care Team Providers Care Leather Parts Matcher Name Role Phone Peter Lu MD Primary Care Provide r Reason for Visit * Reason Comments Home Visit Encounter Details Date Type Department Care Team Description 10/26/2022 Office Visit [facility] 100 [facility] [place] [phone] Denisha Nation PA-C 100 [facility] [place] [address] Refusal of medication*; Hypertensive heart and kidney disease with chronic diastolic congestive heart failure and stage 3b chronic kidney disease (HCC); Major depression, recurrent, chronic (HCC); Arthritis, shoulder region Allergies Active Allergy Reactions Severity Noted Date Comments Amoxicillin-Pot Clavulanate Hives 04/06/2015 Dexamethasone Other (Please comment) Low 06/04/2008 Make her anxious Phenytoin Sodium Rash High 09/04/2002 documented as of this encounter (statuses as of 10/26/2022) Medications Medication Sig Dispensed Refills Start Date [...] Respimat 2.5 MCG/ACT Inhalation Aerosol Solution (Tiotropium [place] Monohydrate) Inhale 2 Puffs by mouth daily. [...] as of this encounter (statuses as of 10/26/2022) Active Problems Problem Noted Date Dyslipidemia, goal [...] as of this encounter (statuses as of 10/26/2022) Resolved Problems Problem Noted Date Resolved Date [...] 03/01/2013 03/14/2013 Overview: 10/21/11 Coronary atherosclerosis of [place] coronary gia ry 02/21/2013 07/23/2015 GERD (gastroesophageal [...] Markers for Patients with Cardiovascular Disease Project #[id number] PI: Keily Mazariegos MD Please call [phone] with study related questions GENOMICS CARDIO RESEARCH OTHER*[id number] 200905/10/2016 Overview: Renamed Per Clinical Trials Billing Project. Study Titile: Genomic Markers for Patients with Cardiovascular Disease Project #[id number] PI: Keily Mazariegos MD Please call [phone] with study related questions Unstable angina 06/18/2009 02/21/2013 HTN, goal below 140/90 06/18/2009 3 Osteoporosis 06/18/2009 03/01/2013 Dyslipidemia, goal LDL below 100 06/18/2009 01/21/2016 documented as of this encounter (statuses as of 10/26/2022) Immunizations Name Administration Dates Next Due COVID-19 [...] Notes * Denisha Nation PA-C - 10/26/2022 11:15 AM EDT Subjective: Fernanda Montoya is a 87 year old female. Chief Complaint Patient presents with Home Visit HPI: I was asked to assess pt at [facility] due to one episode of pt refusing to take her routine medication. Staff state pt has been more ledesma lately. Doesn't want to come out of her room much. She is still eating and drinking ok. Pt does have hx of depression. Pt is sleeping ok. When I questioned her she states her mood is fine. She stated "I just didn't feel like taking my medications one day". She has been taking her medications since without any issue. Pt denies feeling sad or depressed. Vital signs stable. Pt's shoulder pain is much improved with shoulder injection last month. Pt has no suicidal ideations or plans. Pt is on Trazodone 100mg HS and Gabapentin 100mg TID and [id number] dally and Duloxetine 60mg daily. She states medications are helping greatly. CBC Results: Results for orders placed or [...] SODIUM - [facility] 144 06/20/2019 06:50 AM Chloride Results: Lab Results Component Value Date/Time CHLORIDE - [facility] 101 09/29/2022 05:00 AM CHLORIDE - [facility] 101 06/28/2022 02:19 PM CHLORIDE - [facility] 101 10/07/2021 10:45 AM CHLORIDE - [facility] 104 02/21/2020 06:25 AM CHLORIDE - [facility] 98 08/12/2019 06:20 AM CHLORIDE - [facility] 111 (H) 06/20/2019 06:50 AM TSH Results: Lab Results Component Value Date/Time TSH - [facility] 2.76 10/07/2021 10:45 AM TSH - [facility] 4.38 (H) 08/22/2019 06:20 AM TSH - [facility] 3.24 01/30/2019 01:38 PM TSH - [facility] 1.65 06/16/2017 10:12 AM Hemoglobin AIC Results: Lab Results Component Value Date/Time HEMOGLOBIN A1C - [facility] 6.1 (H) 09/29/2022 05:00 AM HEMOGLOBIN A1C - [facility] 6.4 (H) 06/28/2022 02:19 PM HEMOGLOBIN A1C - [facility] 5.9 (H) 10/07/2021 10:45 AM HEMOGLOBIN A1C - [facility] 6.4 (H) 11/14/2019 07:05 AM HEMOGLOBIN A1C - [facility] 6.9 (H) 06/13/2019 12:18 PM HEMOGLOBIN A1C - [facility] 6.3 (H) 07/10/2018 12:23 PM PMH: Patient Active Problem List Diagnosis Code [...] (dyspnea on exertion) R06.09 Bronchiectasis without complication ([facility]) J47.9 Grade I diastolic dysfunction I51.89 Nocturnal hypoxemia G47.34 Mild aortic stenosis I35.0 Major depression, recurrent, chronic ([facility]) F33.9 Multinodular goiter E04.2 Severe persistent asthma without complication J45.50 Hypertensive heart and kidney disease with chronic diastolic congestive heart failure and pixaa7s chronic kidney disease ([facility]) I13.0, I50.32, N18.32 SUZAN (obstructive sleep apnea) [...] Respimat 2.5 MCG/ACT Inhalation Aerosol Solution (Tiotropium [place] Monohydrate) Inhale 2 Puffs by mouth daily. [...] Ciprofloxacin HCl 0.3 % Ophthalmic Solution (Ciloxan) Citalopram Hydrobromide 10 MG Oral Tablet (CeleXA) Diclofenac Sodium 1 % External Gel (Voltaren) Escitalopram Oxalate 10 MG Oral Tablet (Lexapro) Senna-Plus 8.6-50 MG Oral Tablet traMADol HCl 50 MG Oral Tablet (Ultram) Take 1 Tablet by mouth every 6 hours as needed for Pain, Moderate. 90 Tablet 4 No current facility-administered medications for this visit. 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 Breast cancer ([facility]) 2006 Right breast cancer and MASTECTOMY Chronic kidney disease, stage 3b ([facility]) 08/11/2020 Per CKD protocol Compression fracture of spine ([facility]) 02/21/2013 T8,9, 10 Degenerative disc disease, [...] disease, chronic, stage III (GFR 30-59 ml/min) ([facility]) 02/21/2013 Lumbar degenerative disc disease 12/18/2014 Lumbar facet arthropathy 12/18/2014 Lung nodule 02/11/2014 Maintenance chemotherapy 2006 Malignant neoplasm of other specified sites of female breast R breast cancer. treated. stage IIA, T1N2,M0 - 5 of 11 lymph nodes positive- adenocarcinoma- ER positive and NM negative and HER-2-janis positive Multinodular goiter Osteopenia [...] ARTHROPLASTY KNEE TOTAL Left 02/17/2017 Dr. Best. [facility] BREAST LESION,OTHER,EXCISION Right 2005 Malignant CATHETERIZE LEFT HEART THRU SKIN 06/19/09 LEFT HEART CATH, PERCUTANEOUS performed by MAURO JIMENEZ at [facility] COLONOSCOPY 06/25/15 normal - Dr. El COLONOSCOPY, DIAGNOSTIC (RECTUM) 2006 normal EGD, FLEXIBLE, DIAGNOSTIC 2010 gastritis- Dr. El EGD, FLEXIBLE, DIAGNOSTIC 06/25/15 normal EKG 01/17/2017 NSR. no acute changes. [facility] INJECT DX/THER SUBSTANCE INTERLAMINAR LUMBAR/SACRAL W IMAGE GUIDE 08/17/2017 INJECTION SPINE LUMBAR OR SACRAL performed by Cosmo Carolina, DO at [facility] INSERTION OF LENS PROSTHESIS MASTECTOMY,RADICAL 2006 right breast- Dr. El RADIUS AND ULNA FX W/FIXATION Left 12/14/2018 ORIF distal open radius/ulna fractures Dr. Steven Hansen REMOVAL OF BRAIN LINING TUMOR 2000 [facility] REMOVAL OF OVARY/OVIDUCT(S) bilateral REMOVE GALLBLADDER TOTAL ABD HYSTERECTOMY W/WO REMOVAL OF TUBE(S) 1989 HEAD AND NECK 08/19/2019 multinodular diffuse goiter. right lobe: 4.6 cm by 2.3 cm by 2.1 cm. left lobe: 4.6 cm by 2.5cm by 2.3 cm. PERFORMED BY [facility] Review of patient's allergies indicates: Allergen Reactions Phenytoin Sodium Rash Augmentin [Amoxicillin-Pot Clavulanate] Hives Decadron [Dexamethasone] Other (Please comment) Make her anxious Family History Problem Relation Age of Onset Thyroid cancer Daughter Breast Cancer Grandmother (Maternal) Breast Cancer Aunt (Unspecified) Family Status Relation Status Mo at age 53 cancer- liver Fa at age 67 [place] Bro Alive Fito thyroid cancer MGMA breast cancer AUNT maternal aunt - breast cancer AUNT maternal aunt - breast cancer Social History Tobacco Use Smoking status: Never Smokeless tobacco: Never Substance Use Topics Alcohol use: No Vaping/E-Cigarette Use Vaping/E-Cigarette Use Never User Vaping/E-Cigarette Substances Vaping/E-Cigarette Devices Review of Systems: General: No change in weight, No weakness, No fatigue and No fevers, sweats, or chills [...] change in voice or hoarseness Respiratory: No cough, sputum, or hemoptysis, No wheezing, No shortness of breath and No recent change in breathing Cardiac: No chest pain, No shortness of [...] incomplete voiding Musculoskeletal: + arthritis see HPI Skin: No edema, No rash and No itching Psychiatric: No anxiety, No psychosis and + depression Objective: Vital signs reviewed Physical Exam: General: alert, healthy and no distress Oropharynx: no exudate, no erythema, lips, buccal mucosa, and tongue normal and mucous membranes are moist Neck: supple, no adenopathy, no bruits, thyroid normal size, non-tender, without nodularity Heart: regular rate & rhythm, no murmur and no gallops Lungs: chest symmetric with normal AP diameter, no chest deformities noted, no chest wall tenderness, lungs clear to auscultation Abdomen: abdomen soft, non-tender, normal bowel sounds and no masses or organomegaly Extremities: no edema, no skin discoloration, no clubbing, no cyanosis Skin: skin color, texture, turgor are normal, no rashes or significant lesions Psych: good eye contact. Normal expression of thoughts/ideas ASSESSMENT/PLAN: Refusal of medication (Primary) One episode Pt is now taking her medications Major depression, recurrent, chronic (HCC) Discussed depression with pt at length( approximately 35 minutes) She feels her depression is well controlled Continue Lexapro 10mg daily and Trazodone 100mg HS and Duloxetine 60mg daily Will follow closely Hypertensive heart and kidney disease with chronic diastolic congestive heart failure and stage 3b chronic kidney disease (HCC) Stable . No chest pains, dyspnea, orthopnea Continue Lasix 40mg daily Lipitor 20mg HS and ASA 81mg daily Arthritis of right shoulder region Pain controlled conitnue Tylenol and Tramadol prn as directed Total time spent with patient, 60 Minutes with over half time spent counseling pt, reviewing medicaitons, labs, and plans of care Denisha Nation PA-C documented in this encounter Plan of Treatment Upcoming Encounters Date Type Specialty Care Team Description 10/26/2022 Telemedicine Family Medicine Denisha Nation PA-C [address] [place] [address] Canceled (Mail Room Error) 11/30/2022 Nurse Only Ancillary [place], Nurse Annual [address] [place] [address] 12/29/2022 Office Visit Family Medicine Makeda Álvarez PA-C [address] [place] [address] [place] [address] 03/03/2023 Nurse Only Rheumatology Han, Nurse Rheum [address] [place] [phone] 04/20/2023 Office Visit Cardiology Harpreet Paniagua, DO [address] [place] [address] 07/04/2023 Office Visit Family Medicine Peter Lu MD [address] [place] [address] [place] [address] Health Maintenance Due Date Last Done Comments [...] Additional history exists CKD HGB USE SMARTSET 77164 06/29/202306/28, 06/28/2022, 10/07/2021, Additional history exists CKD PHOS USE SMARTSET 74317 06/29/202306/02, 06/02/2021, 06/13/2019, Additional history exists HbA1c [...] as of this encounter Visit Diagnoses Diagnosis Refusal of medication- Primary Personal history of noncompliance with medical treatment, presenting hazards to health Hypertensive heart and kidney disease with chronic diastolic congestive heart failure and stage 3b chronic kidney disease (HCC) Major depression, recurrent, chronic (HCC) Major depressive disorder, recurrent episode, unspecified Arthritis, shoulder region Unspecified arthropathy, shoulder region documented in this encounter Advance Directives Documents on File Type Date Recorded Patient Combat Systems Officer Expl anation Power of Crime Lab Technician 11/28/2012 POWER OF A TTORNEY Latest Code [...] the patient have Health Care Power of Crime Lab Technician? Yes, not currently available Code Status History Code Status Date Activated Date Inactivated Comments Full Code 06/18/2009 5:02 PM 06/18/2009 5:27 PM This order reflects the patients wishes and were consensually agreed upon. Question Answer Comments Discussion of Advance Directives occurred with: Patient Does the patient have a Living Will? No Does the patient have Health Care Power of Crime Lab Technician? No Care Teams Leather Parts Matcher Relationship Specialty Start Date End Date Peter Lu MD [address] [place] [address] [place] [id number] PCP - General Family Medicine 11/28/16 documented as of this encounter
--- OUTSIDE RECORDS SUMMARY | 2023-02-19 10:00 | External Medical Summary | Summary of Care ---
Author Name Unknown Organization [facility] Address [address] [place] [address] Phone [phone] Care Team Providers Care Granite Polisher Apprentice Name Role Phone Peter Lu MD Primary Care Provide r Reason for Visit * Reason Comments Home Visit Encounter Details Date Type Department Care Team Description 09/27/2022 Office Visit [facility] 100 [facility] [place] [id number] Denisha Nation PA-C 100 [facility] [place] [address] Arthritis of right shoulder region* Allergies Active Allergy Reactions Severity Noted Date Comments Amoxicillin-Pot Clavulanate Hives 04/06/2015 Dexamethasone Other (Please comment) Low 06/04/2008 Make her anxious Phenytoin Sodium Rash High 09/04/2002 documented as of this encounter (statuses as of 09/27/2022) Medications Medication Sig Dispensed Refills Start Date [...] Respimat 2.5 MCG/ACT Inhalation Aerosol Solution (Tiotropium [place] Monohydrate) Inhale 2 Puffs by mouth daily. [...] Pain, Moderate. 90 Tablet 4 09/14/2022 Active Hospital, Clinic, or Other Facility Administered Medication Ordered Dose Route Frequency Start Date End Date Status Triamcinolone Acetonide (Kenalog) 40 MG/ML inj 40 mgIndications:Arthritis of right shoulder region 40 mg IX ONCE 09/27/2022 09/28/2022 Act evelia Lidocaine 1 % (PF) inj 20 mgIndications:Arthritis of right shoulder region 20 mg IJ ONCE 09/27/2022 09/28/2022 Act evelia documented as of this encounter (statuses as of 09/27/2022) Active Problems Problem Noted Date Dyslipidemia, goal [...] as of this encounter (statuses as of 09/27/2022) Resolved Problems Problem Noted Date Resolved Date [...] 03/01/2013 03/14/2013 Overview: 10/21/11 Coronary atherosclerosis of [place] coronary gia ry 02/21/2013 07/23/2015 GERD (gastroesophageal [...] Markers for Patients with Cardiovascular Disease Project #[id number] PI: Keily Mazariegos MD Please call [phone] with study related questions GENOMICS CARDIO RESEARCH OTHER*[id number] 200905/10/2016 Overview: Renamed Per Clinical Trials Billing Project. Study Titile: Genomic Markers for Patients with Cardiovascular Disease Project #[id number] PI: Keily Mazariegos MD Please call [phone] with study related questions Unstable angina 06/18/2009 02/21/2013 HTN, goal below 140/90 06/18/2009 3 Osteoporosis 06/18/2009 03/01/2013 Dyslipidemia, goal LDL below 100 06/18/2009 01/21/2016 documented as of this encounter (statuses as of 09/27/2022) Immunizations Name Administration Dates Next Due COVID-19 [...] 11/30/2022 Nurse Only Ancillary Nurse Hanny Annual [address] [place] [address] 12/29/2022 Office Visit Family Medicine Makeda Álvarez PA-C [address] [place] [address] [place] [address] 03/03/2023 Nurse Only Rheumatology Han, Rheum [address] [place] [phone] 04/20/2023 Office Visit Cardiology Harpreet Paniagua, DO [address] [place] [address] 07/04/2023 Office Visit Family Medicine Peter Lu MD [address] [place] [address] [place] [address] Scheduled Orders Name Type Priority Associated Diagnoses Orde r Schedule ARTHROCENT ASP &/OR INJ MAJOR JX/BURSA W/O US Procedures Routine Arthritis of right shoulder region Ordered: 09/27/2022 Health Maintenance Due Date Last Done Comments Zoster Vaccines (1 of 2) 1987 COVID-19 Vaccine (5 - Pfizer series) 11/11/2021 09/16/2021, 01/27/2021, 05/31/2020, Additional history exists *BISPHONATE OR OTHER ACCEPTABLE MEDICATION NEEDED FOR OSTEOPOROSIS (REFER TO SMARTSET #1146) 01/25/2022 Depression Screening, Annual for Pts 12 and Over 11/29/2022 11/29/2021 Albumin/Creatinine Ratio 06/29/2023 023, 06/03/2021, 11/14/2019, Additional history exists CKD HGB USE SMARTSET 27247 06/29/202306/28, 06/28/2022, 10/07/2021, Additional history exists CKD PHOS USE SMARTSET 46516 06/29/202306/02, 06/02/2021, 06/13/2019, Additional history exists HbA1c [...] as of this encounter Visit Diagnoses Diagnosis Arthritis of right shoulder region- Primary Unspecified arthropathy, shoulder region documented in this encounter Advance Directives Documents on File Type Date Recorded Patient Medical Communication Specialist Expl anation Power of Barrel Bridge Assembler 11/28/2012 POWER OF A TTORNEY Latest Code [...] the patient have Health Care Power of Barrel Bridge Assembler? Yes, not currently available Code Status History Code Status Date Activated Date Inactivated Comments Full Code 06/18/2009 5:02 PM 06/18/2009 5:27 PM This order reflects the patients wishes and were consensually agreed upon. Question Answer Comments Discussion of Advance Directives occurred with: Patient Does the patient have a Living Will? No Does the patient have Health Care Power of Barrel Bridge Assembler? No Care Teams Granite Polisher Apprentice Relationship Specialty Start Date End Date Peter Lu MD [address] [place] [address] [place] [address] PCP - General Family Medicine 11/28/16 documented as of this encounter
--- OUTSIDE RECORDS SUMMARY | 2023-02-19 10:00 | External Medical Summary | Summary of Care ---
Author Name Unknown Organization [facility] Address [address] [place] [address] Phone [phone] Care Team Providers Care Lighthouse Keeper Name Role Phone Peter Lu MD Primary Care Provide r Reason for Visit * Reason Onset Date Comments Medication Refill 09/14/2022 Encounter Details Date Type Department Care Team Description 09/14/2022 Refill [facility] 100 [facility] [place] [address] Denisha Nation PA-C [address] [place] [address] Degenerative disc disease, cervical; Lumbar degenerative disc disease Allergies Active Allergy Reactions Severity Noted Date Comments Amoxicillin-Pot Clavulanate Hives 04/06/2015 Dexamethasone Other (Please comment) Low 06/04/2008 Make her anxious Phenytoin Sodium Rash High 09/04/2002 documented as of this encounter (statuses as of 09/14/2022) Medications Medication Sig Dispensed Refills Start Date [...] Respimat 2.5 MCG/ACT Inhalation Aerosol Solution (Tiotropium [place] Monohydrate) Inhale 2 Puffs by mouth [...] Pain, Moderate. 90 Tablet 4 09/14/2022 Active traMADol HCl 50 MG Oral Tablet (Ultram)Indication s:Degenerative disc disease, cervical,Lumbar degenerative disc disease Take 1 Tablet by mouth every 6 hours as needed for Pain, Moderate. 90 Tablet 4 05/11/2022 3 Discontinue d(Refill) documented as of this encounter (statuses as of 09/14/2022) Active Problems Problem Noted Date Dyslipidemia, goal [...] as of this encounter (statuses as of 09/14/2022) Resolved Problems Problem Noted Date Resolved Date [...] 03/01/2013 03/14/2013 Overview: 10/21/11 Coronary atherosclerosis of [place] coronary gia ry 02/21/2013 07/23/2015 GERD (gastroesophageal [...] Markers for Patients with Cardiovascular Disease Project #[id number] PI: Keily Mazariegos MD Please call [phone] with study related questions GENOMICS CARDIO RESEARCH OTHER*[id number] 200905/10/2016 Overview: Renamed Per Clinical Trials Billing Project. Study Titile: Genomic Markers for Patients with Cardiovascular Disease Project #[id number] PI: Keily Mazariegos MD Please call [phone] with study related questions Unstable angina 06/18/2009 02/21/2013 HTN, goal below 140/90 06/18/2009 3 Osteoporosis 06/18/2009 03/01/2013 Dyslipidemia, goal LDL below 100 06/18/2009 01/21/2016 documented as of this encounter (statuses as of 09/14/2022) Immunizations Name Administration Dates Next Due COVID-19 [...] Telephone Encounter - Denisha Nation PA-C - 09/14/2022 11:41 AM EDT REFILL TRAMADOL 50MG Q SIX HOURS PRN MOD TO SEVERE PAIN #90 R4 SENT ELECTRONICALLY TO [facility] documented in this encounter Plan of Treatment Upcoming Encounters Date Type Specialty Care Team Description 11/30/2022 Nurse Only Ancillary Hanny Nurse Annual [address] [place] [address] 12/29/2022 Office Visit Family Medicine Makeda Álvarez PA-C [address] [place] [address] [place] [address] 03/03/2023 Nurse Only Rheumatology Han, Nurse Rheum Mo [address] [place] [address] [place] [phone] 04/20/2023 Office Visit Cardiology Harpreet Paniagua, DO [address] [place] [address] 07/04/2023 Office Visit Family Medicine Peter Lu MD [address] [place] [address] [place] [address] Health Maintenance Due Date Last Done Comments Zoster Vaccines (1 of 2) 1987 COVID-19 Vaccine (5 - Pfizer series) 11/11/2021 09/16/2021, 01/27/2021, 05/31/2020, Additional history exists *BISPHONATE OR OTHER ACCEPTABLE MEDICATION NEEDED FOR OSTEOPOROSIS (REFER TO SMARTSET #1146) 01/25/2022 Depression Screening, Annual for Pts 12 and Over 11/29/2022 11/29/2021 Albumin/Creatinine Ratio 06/29/2023 023, 06/03/2021, 11/14/2019, Additional history exists CKD HGB USE SMARTSET 11056 06/29/202306/28, 06/28/2022, 10/07/2021, Additional history exists CKD PHOS USE SMARTSET 70650 06/29/2023 03/2 11/2022, 06/02/2021, 06/13/2019, Additional history [...] Documents on File Type Date Recorded Patient Corporate Operations Compliance Manager Expl anation Power of Oil Changer 11/28/2012 POWER OF A TTORNEY Latest Code [...] the patient have Health Care Power of Oil Changer? Yes, not currently available Code Status History Code Status Date Activated Date Inactivated Comments Full Code 06/18/2009 5:02 PM 06/18/2009 5:27 PM This order reflects the patients wishes and were consensually agreed upon. Question Answer Comments Discussion of Advance Directives occurred with: Patient Does the patient have a Living Will? No Does the patient have Health Care Power of Oil Changer? No Care Teams Lighthouse Keeper Relationship Specialty Start Date End Date Peter Lu MD [address] [place] [address] [place] [address] PCP - General Family Medicine 11/28/16 documented as of this encounter
--- NOTE | 2023-02-19 10:15 | History & Physical Report ---
Date of Service February 19, 2023 Assessment & Plan (1) Fall: Plan: Fall out of bed. Initial trauma workup in the ER is negative other than her periorbital ecchymosis around the right eye. She is not on blood thinners. (2) Syncope: Plan: possible syncopal episode this morning? Also, she may have been extra sedated because of the trazodone she takes. She was recently ill with what appears to be a viral URI. This may have also contributed. Orthostatics qshift. Encourage PO intake. Cut trazodone by 50% and recommend weaning off this completely over the next 2-4 weeks as outpatient. Echo. (3) Contusion of face: Plan: supportive care with cool packs, treat abrasion with neosporin ointment. Hold aspirin. (4) Chronic diastolic heart failure: Plan: chronic, stable. Compensated. Cont home lasix. (5) CKD (chronic kidney disease), stage III: Plan: chronic, at baseline. (6) Depression: Plan: chronic, stable. Cont lexapro per home regimen. (7) Osteoporosis: Plan: chronic, followed by Rheumatology. Cont prolia injections every 6 months. (8) S/P right mastectomy: Plan: per history (9) Morbid obesity: Plan: lifestyle changes recommended. I spent a total [id number] coordinating, documenting, and providing care for this patient excluding time spent in the performance of separately billed services [facility]imee Tyson DO [facility] Present Illness Primary Care Provider: Peter Lu MD 87-year-old female lives in [facility] assisted living in [place] presents after a fall with head trauma earlier this morning. The patient reports she rolled out of bed and hit the floor damaging her eye and woke up immediately. She reports being clear and grabbed her pillow and stayed on the floor she was not able to get up on her own. She was also not able to call for help. She was found by staff this morning. She denies any loss of bladder control or bowel control. Per record review she was seen by her PCP on 02/15 for cold symptoms. Patient reports a "head cold with cough which began last week. This was associated with stuffy nose and progressed to a nonproductive cough. She had no chills, fever, wheezing, hemoptysis, body aches, diarrhea, taste or smell disturbance. This was thought to be consistent with a viral URI and no medications were given. She was told to continue her DuoNebs as needed, Breo Ellipta, Singulair, Spiriva for bronchiectasis. No lab studies were ordered. Allergies Allergy/AdvReac Type Severity Reaction Status Date / Time phenytoin Allergy Intermediate RASH Verified 02/19/23 10:39 amoxicillin Allergy Mild Nausea Verified 02/19/23 10:39 clavulanic acid Allergy Mild Nausea Verified 02/19/23 10:39 dexamethasone AdvReac Intermediate SEVERE Verified 02/19/23 10:39 ANXIETY (TAKES PREDNISONE) Home Medications Medication Instructions Recorded Confirmed Type aspirin 81 mg tablet,delayed 81 mg PO QAM 10/24/18 02/19/23 History release atorvastatin 20 mg tablet 20 mg PO HS 10/24/18 02/19/23 History montelukast 10 mg tablet 10 mg PO HS 10/24/18 02/19/23 History furosemide 40 mg tablet 40 mg PO DAILY 02/05/19 02/19/23 History tramadol 50 mg tablet 50 mg PO Q6H PRN Pain 02/05/19 02/19/23 History bisacodyl 10 mg rectal suppository 10 mg MS DAILY PRN Constipation 02/07/20 02/19/23 History (Dulcolax (bisacodyl)) docusate sodium 100 mg capsule 100 mg PO BID 02/07/20 02/19/23 History gabapentin 100 mg capsule 100 mg PO TID@0700,1200,2100 02/07/20 02/19/23 History magnesium hydroxide 400 mg/5 mL 30 ml PO DAILY PRN Constipation 02/07/20 02/19/23 History oral suspension (Milk of Magnesia) ondansetron HCl 4 mg tablet 4 mg PO Q8H PRN Nausea 02/07/20 02/19/23 History trazodone 100 mg tablet 100 mg PO HS 02/07/20 02/19/23 History famotidine 20 mg tablet 20 mg PO QAM 08/22/20 02/19/23 History sennosides 8.6 mg-docusate sodium 2 tab-cap PO BID 08/22/20 02/19/23 History 50 mg capsule (Senna Plus) acetaminophen 500 mg tablet 1,000 mg PO Q8H PRN Pain 10/16/21 02/19/23 History (Tylenol Extra Strength) diclofenac sodium 1 % topical gel 4 g topical QID PRN Pain 10/16/21 02/19/23 History Oxygen Home 02/19/23 02/19/23 History calcium carbonate 500 mg calcium 500 mg PO HS 02/19/23 02/19/23 History (1,250 mg) tablet (Oyster Shell Calcium) cholecalciferol (vitamin D3) 25 25 mcg PO DAILY 02/19/23 02/19/23 History mcg (1,000 unit) tablet (Vitamin D3) escitalopram oxalate 10 mg tablet 15 mg PO DAILY 02/19/23 02/19/23 History fluticasone furoate 200 1 inh inhalation DAILY 02/19/23 02/19/23 History mcg-vilanterol 25 mcg/dose inhalation powder (Breo Ellipta) ipratropium 0.5 mg-albuterol 3 mg 3 ml inhalation QID PRN 02/19/23 02/19/23 History (2.5 mg base)/3 mL nebulization sob/wheezing soln polyvinyl alcohol-povidone (PF) 1 drp OPB QID 02/19/23 02/19/23 History 1.4 %-0.6 % eye drops in a dropperette (Refresh Classic (PF)) tiotropium bromide 2.5 2 puff inhalation DAILY 02/19/23 02/19/23 History mcg/actuation mist for inhalation (Spiriva Respimat) Past Med/Surg History Medical History (Updated 02/19/23 @ 16:10 by Jaimee Tyson DO) Chronic diastolic heart failure Bacteremia Bronchiectasis Scarring of lung following radiation Meningioma non cancerous, surgically removed Osteoarthritis Vertigo HLD (hyperlipidemia) Osteoporosis Anxiety Depression GERD (gastroesophageal reflux disease) Diastolic HF (heart failure) Lumbar degenerative disc disease CKD (chronic kidney disease), stage III Hypertension Surgical History H/O left wrist surgery S/P LUDA-BSO History of appendectomy History of total knee arthroplasty 2016 Dr. Dav Best S/P right mastectomy Family History Other Family history non-contributory Social History Smoking Status: Never smoker Second Hand Exposure: No; Do You Dip or Chew Tobacco: No; Hx Alcohol Use: No Hx Substance Use: No Preferred Language: Greek Communication Ability: Effective Visual Impairment: No Limitations Concrete Block Maker Required: No Beliefs That Will Affect Care: None marital status: / Current Living Situation: Personal Care Facility Current Living Situation Comment: [facility] Feels Safe at Home: Yes Assistive Devices: Glasses, Oxygen - at Night and Walker Physical Exam Physical Exam: CONSTITUTIONAL: obese, vitals as above, generally well-appearing, NAD EYES: EOMI bilaterally-no pain with eye movement, PERRL, normal conjunctivae, no scleral icterus, no funduscopic abnormality. ENT: external ear and nose normal, oropharynx clear, MMM NECK: trachea midline RESPIRATORY: clear to auscultation bilaterally, no crackles, rales or wheezes, normal respiratory effort CARDIOVASCULAR: regular rate and rhythm, S1 and 2 heard without murmurs, gallops or rubs, no JVD, no peripheral edema CHEST: inspection of chest was normal GASTROINTESTINAL: soft, nontender, ND, no guarding MUSCULOSKELETAL: strength 5/5 throughout, head is normocephalic with periorbital ecchymosis and swelling on the left. there is a slight superficial abrasion superior to the left eyebrow SKIN: warm and dry NEUROLOGIC: No facial palsy, no dysarthria. Touch, pain and proprioception normal. CN 2-12 grossly intact, no sensory deficit, normal cognition, normal speech, no tremor PSYCHIATRIC: alert cooperative and oriented to person, place and time. Euthymic mood, makes good eye contact, language grossly intact, recent and remote memory grossly intact. Results & Data Results & Data Vital Signs (Past 12 Hours) Vital Signs Temp Pulse Pulse Resp BP BP Pulse Ox 02/19/23 07:33 69 17 144/105 H 99 02/19/23 06:44 97 02/19/23 06:38 71 02/19/23 05:00 36.5 C 66 18 151/107 H 99 O2 Del Method O2 Flow Rate 02/19/23 07:33 Nasal Cannula 3 02/19/23 06:44 Room Air 02/19/23 06:38 02/19/23 05:00 Nasal Cannula 2 Laboratory Results Short CBC 02/19/23 Range/Units 06:40 WBC 11.04 H (4.8-10.8) K/ul Hgb 13.0 (12.0-16.0) g/dl Hct 39.0 (37.0-47.0) % Plt Count 165 (130-400) K/uL BMP 02/19/23 06:40 Sodium 141 Potassium 3.5 Chloride 102 Carbon Dioxide 31 BUN 29 H Creatinine 1.07 Glucose 105 H Calcium 9.3 Cardiac Enzymes 02/19/23 Range/Units 06:40 Total Creatine Kinase 19 L (26-192) U/L Liver Function 02/19/23 Range/Units 06:40 Total Bilirubin 0.4 (0.2-1.0) mg/dl AST 18 (13-39) U/L ALT 16 (7-52) U/L Alkaline Phosphatase 52 (34-104) U/L Albumin 3.8 (3.4-5.0) gm/dl Diagnostic Findings Cervical Spine CT 02/19/23 06:[address] DOSE: 1249.68 mGy.cm HISTORY: fall TECHNIQUE: Multiaxial CT images of the cervical spine were performed and reformatted in the sagittal and coronal plane without the use of contrast. A dose lowering technique was utilized adhering to the principles of ALARA. COMPARISON: Cervical spine CT 03/12/2021. FINDINGS: No fractures. 2 mm of anterolisthesis of C4 on C5 with mild disc space narrowing. This is likely due to the long-standing degenerative change. Straightening of the cervical spine. Prevertebral soft tissues and the C1-C2 interval are intact. No pneumothorax. IMPRESSION: No fractures within the cervical spine. ACT 112: Negative or not required by law. Electronically signed by: Mulugeta Mejia M.D. 02/19/2023 8:[address] 02/19/23 06:[address] DOSE: HISTORY: fall TECHNIQUE: Multiaxial CT images of the maxillofacial region were performed and reformatted in the coronal plane without the use of contrast. A dose lowering technique was utilized adhering to the principles of ALARA. COMPARISON: None. FINDINGS: The visualized cervical spine, skull base, pterygoid plates, nasal bones, lamina papyracea, orbital floors, mandible, and zygomatic arches are intact. No fractures. Mild mucosal thickening within the maxillary sinuses. There is left periorbital soft tissue swelling. The globes and retrobulbar fat are intact. Prior bilateral lens replacement is noted. IMPRESSION: No fractures within the maxillofacial region. Left periorbital soft tissue swelling. ACT 112: Negative or not required by law. Electronically signed by: Mulugeta Mejai M.D. 02/19/2023 8:[address] 02/19/23 06:[address] DOSE: HISTORY: fall TECHNIQUE: Multiaxial CT images of the head were performed without the use of intravenous contrast. Automated exposure control was utilized for this study. A dose lowering technique was utilized adhering to the principles of ALARA. Comparison: None. Findings: Mild mucosal thickening within the paranasal sinuses. The mastoid air cells are clear. Mild motion artifact. Left periorbital soft tissue swelling. The calvarium and skull base are intact. There is no mass, hematoma, midline shift, acute infarct. White matter hypodensity is nonspecific but suggestive of microvascular ischemic change. The ventricles and sulci demonstrate mild age- related involutional changes. Right posterior craniotomy and right occipital lobe encephalomalacia is again noted. This is similar to the prior study. Impression: 1. No acute infarct or intracranial hemorrhage. 2. Left periorbital soft tissue swelling. 3. Chronic and postoperative changes as described above. ACT 112: Negative or not required by law. Electronically signed by: Mulugeta Mejia M.D. 02/19/2023 8:13 AM Chest X-Ray 02/19/23 06:37 XR chest 1V portable HISTORY: weakness COMPARISON: None. FINDINGS: No pneumothorax. No pleural effusions. The heart is normal degenerative changes within the shoulders. No acute fractures. In size. There are low lung volumes. There are patchy left basilar densities. No evidence for pulmonary edema. IMPRESSION: Low lung volumes with patchy left basilar densities. This favor subsegmental atelectasis. A pneumonia could also have a similar appearance. ACT 112: Negative or not required by law. Electronically signed by: Mulugeta Mejia M.D. 02/19/2023 7:37 AM Code Status & VTE Plan VTE Prophylaxis Plan VTE Prophylaxis will be ordered: Yes (1) Fall Encounter type: initial encounter Qualified Code(s): W19.XXXA - Unspecified fall, initial encounter (2) Syncope Syncope type: unspecified Qualified Code(s): R55 - Syncope and collapse (3) Contusion of face Encounter type: initial encounter Qualified Code(s): S00.83XA - Contusion of other part of head, initial encounter
[2023-02-19] MEDS ORDERED: ACETAMINOPHEN 325 MG TAB PO PRN (10:40)
[2023-02-19] MEDS ORDERED: ONDANSETRON INJ 2 MG/ML 2 ML VIAL IV PRN (10:40)
[2023-02-19] MEDS ORDERED: POLYETHYLENE (MIRALAX) 17 GM PACK PO PRN (10:40)
[2023-02-19 11:12] LABS: Appearance Urine Clear (Clear); Bacteria Urine Automated Negative (Negative); Bilirubin Urine Negative (Negative); Blood Urine Negative (Negative); Color Urine Yellow; Epithelial Cell Urine Auto 20-30 /lpf (0-5); Glucose Urine UA Negative (Negative); Ketones Urine Negative (Negative); Leukocyte Esterase Urine 2+ (Negative); Nitrite Urine Negative (Negative); Protein Urine Negative (Negative); RBC Urine Automated 0-4 /hpf (0-4); Specific Gravity Urine 1.021 (1.000-1.030); Urobilinogen Urine Negative (Negative); WBC Urine Automated >30 /hpf (0-5); pH Urine 5.5 (4.5-7.5)
[2023-02-19] MEDS ORDERED: traMADol HCL 50 MG TABLET PO PRN (13:12)
[2023-02-19] MEDS ORDERED: DICLOFENAC SOD 1% GEL 100 GM TUBE EXT PRN (13:12)
[2023-02-19] MEDS ORDERED: bisacodyL 10 MG SUPP PR PRN (13:12)
[2023-02-19] MEDS ORDERED: ONDANSETRON 4 MG OD TAB PO PRN (13:12)
[2023-02-19] MEDS ORDERED: ALBUT/IPRATROP 3MG/0.5MG NEB 3 ML VIAL INH PRN (13:12)
[2023-02-19] MEDS: GABAPENTIN 100 MG CAP PO SCH ×2 (14:04→22:09)
[2023-02-19] MEDS: ESCITALOPRAM OXALATE 10 MG TAB PO SCH (14:05)
[2023-02-19] MEDS: FLUTICASONE/VILANTEROL 200/25MCG 14 PUFFS/INHALER INH SCH (14:05)
[2023-02-19 15:15] LABS: Influenza A virus by PCR Negative (Neg); Influenza B virus by PCR Negative (Neg); RSV by PCR Negative (Neg); SARS CoV2 RNA(COVID-19) Ceph NEGATIVE (Negative)
[2023-02-19] MEDS ORDERED: DOCUSATE SODIUM/SENNA 50/8.6MG TAB PO PRN (21:00)
[2023-02-19] MEDS: ARTIFICIAL TEARS OP SCH ×2 (21:57→22:14)
[2023-02-19] MEDS: MONTELUKAST SODIUM 10 MG TABLET PO SCH (22:09)
[2023-02-19] MEDS: DOCUSATE SODIUM 100 MG CAP PO SCH (22:09)
[2023-02-19] MEDS: traZODone HCL 50 MG TAB PO SCH (22:09)
[2023-02-19] MEDS: NEOMYCIN/POLYMYX/BACITR OINT 15 GM TUBE EXT SCH (22:09)
[2023-02-19] MEDS: ATORVASTATIN 20 MG TAB PO SCH (22:10)
[2023-02-20] MEDS: GABAPENTIN 100 MG CAP PO SCH ×3 (06:06→20:26)
[2023-02-20 06:29] LABS: Hematocrit (blood only) 40.5 % (37.0-47.0); Hemoglobin 13.2 g/dl (12.0-16.0); Mean Corpuscular Hemoglobin 32.5 pg (25.0-34.0); Mean Corpuscular Hgb Conc 32.6 g/dL (32.0-36.0); Mean Corpuscular Volume 99.8 fL (80.0-100.0); Mean Platelet Volume 11.9 fL (9.4-12.4); Platelet Count 155 K/uL (130-400); RDW Coefficient of Variation 12.4 % (11.5-14.5); RDW Standard Deviation 45.6 fL (36.4-46.3); Red Blood Count 4.06 M/uL (4.20-5.40); White Blood Count 9.24 K/ul (4.8-10.8)
[2023-02-20] MEDS: FUROSEMIDE 40 MG TAB PO SCH (08:54)
[2023-02-20] MEDS: FAMOTIDINE 20 MG TAB PO SCH (08:54)
[2023-02-20] MEDS: NEOMYCIN/POLYMYX/BACITR OINT 15 GM TUBE EXT SCH ×2 (08:54→20:27)
[2023-02-20] MEDS: CHOLECALCIFEROL 1,000 UNITS 25 MCG TAB PO SCH (08:55)
[2023-02-20] MEDS: ARTIFICIAL TEARS OP SCH ×4 (08:55→20:26)
[2023-02-20] MEDS: DOCUSATE SODIUM 100 MG CAP PO SCH ×2 (08:55→20:30)
[2023-02-20] MEDS: UMECLIDINIUM BROMIDE 62.5MCG/BLISTER 7 PUFFS/INHALER INH SCH (08:55)
[2023-02-20] MEDS: FLUTICASONE/VILANTEROL 200/25MCG 14 PUFFS/INHALER INH SCH (08:55)
[2023-02-20 09:37] LABS: BUN Creatinine Ratio 21.6 (10-20); Calcium 9.3 mg/dl (8.6-10.3); Creatinine Clr Calc Pharmacy 44.2 ml/min; Est GFR (African American) 61.7 ml/min; Est GFR (Non-African American) 53.3 ml/min; Magnesium 1.6 mg/dl (1.7-2.4); Potassium 3.8 mmol/L (3.5-5.1)
[2023-02-20] MEDS: ESCITALOPRAM OXALATE 10 MG TAB PO SCH (10:07)
--- NOTE | 2023-02-20 17:48 | Hospitalist Progress Note ---
Date of Service February 20, 2023 Assessment & Plan (1) Fall: Plan: 1) Fall: all out of bed. Initial trauma workup in the ER is negative other than her periorbital ecchymosis around the left eye. She is not on blood thinners. Did ok in pt/ot. (2) Syncope: Plan: possible syncopal episode. Seems recently had viral URI. This may have also contributed. Orthostatics qshift. Reduced trazodone by 50% and recommend weaning off this completely over the next 2-4 weeks as outpatient. Echo ok. (3) Contusion of face: supportive care with cool packs, treat abrasion with neosporin ointment. Holding aspirin. (4) Chronic diastolic heart failure: stable. On home lasix. (5) CKD (chronic kidney disease), stage III: cr 0.9 today. (6) Depression: on Lexapro. (7) Osteoporosis: Follows with Rheumatology. Cont prolia injections every 6 months. (8) S/P right mastectomy: (9) Morbid obesity: life style changes followup with pcp. Possible d/c in am Admission and Anticipated Discharge Date Admission Date: February 19, 2023 Subjective sitting on the chair comfortable. ambulated with walker short distance denies chest pain or sob afebrile no nausea says she fell down while getting up from bed and might have felt light dizziness before fall. Review of Systems Review of Systems: All systems reviewed & are unremarkable except as noted in HPI & below Physical Exam Physical Exam: General- Not in distress Head- bruise seen around left eye Neck- supple, no JVD. Lungs- clear to auscultation no wheezing or crackles. Heart- regular rhythm; no murmur, no gallop. Abdomen- normal bowel sounds, soft, nontender, no distension. Extremities- mild lower extremity edema seen. moves extremities Neuro- alert, oriented x 3; no facial palsy; no dysarthria; moves extremities. Skin- warm & dry Results & Data Results & Data Vital Signs (Past 12 Hours) Vital Signs Temp Pulse Pulse Pulse Resp BP Pulse Ox 02/20/23 16:05 87 02/20/23 15:39 36.7 C 79 16 111/86 92 02/20/23 11:47 37 C 76 15 133/77 93 02/20/23 11:05 02/20/23 07:53 36.9 C 71 16 142/68 H 98 02/20/23 07:17 85 O2 Del Method 02/20/23 16:05 02/20/23 15:39 Room Air 02/20/23 11:47 Room Air 02/20/23 11:05 Room Air 02/20/23 07:53 Nasal Cannula 02/20/23 07:17 Diagnostic Findings Laboratory Results WBC 9.24 K/ul (4.8-10.8) 02/20/23 05:59 RBC 4.06 M/uL (4.20-5.40) L 02/20/23 05:59 Hgb 13.2 g/dl (12.0-16.0) 02/20/23 05:59 Hct 40.5 % (37.0-47.0) 02/20/23 05:59 MCV 99.8 fL (80.0-100.0) 02/20/23 05:59 MCH 32.5 pg (25.0-34.0) 02/20/23 05:59 MCHC 32.6 g/dL (32.0-36.0) 02/20/23 05:59 RDW Std Deviation 45.6 fL (36.4-46.3) 02/20/23 05:59 RDW Coeff of Carol 12.4 % (11.5-14.5) 02/20/23 05:59 Plt Count 155 K/uL (130-400) 02/20/23 05:59 MPV 11.9 fL (9.4-12.4) 02/20/23 05:59 Immature Gran % (Auto) 0.6 % 02/19/23 06:40 Neut % (Auto) 72.0 % 02/19/23 06:40 Lymph % (Auto) 14.7 % 02/19/23 06:40 Walsh % (Auto) 11.9 % 02/19/23 06:40 Eos % (Auto) 0.6 % 02/19/23 06:40 Baso % (Auto) 0.2 % 02/19/23 06:40 Neut # (Auto) 7.95 K/uL (1.40-6.50) H 02/19/23 06:40 Lymph # (Auto) 1.62 K/uL (1.20-3.40) 02/19/23 06:40 Walsh # (Auto) 1.31 K/uL (0.11-0.59) H 02/19/23 06:40 Eos # (Auto) 0.07 K/uL (0.00-0.50) 02/19/23 06:40 Baso # (Auto) 0.02 K/uL (0.00-0.20) 02/19/23 06:40 Immature Gran # (Auto) 0.07 K/uL (0.01-0.20) 02/19/23 06:40 Sodium 142 mmol/L (136-145) 02/20/23 05:59 Potassium 3.8 mmol/L (3.5-5.1) 02/20/23 05:59 Chloride 103 mmol/L (98-107) 02/20/23 05:59 Carbon Dioxide 34 mmol/L (21-32) H 02/20/23 05:59 Anion Gap 5 (3-11) 02/20/23 05:59 BUN 21 mg/dl (6-23) 02/20/23 05:59 Creatinine 0.97 mg/dl (0.6-1.2) 02/20/23 05:59 Est Cr Clr Drug Dosing 44.2 ml/min 02/20/23 05:59 Est GFR ( Amer) 61.7 ml/min 02/20/23 05:59 Est GFR (Non-Af Amer) 53.3 ml/min 02/20/23 05:59 BUN/Creatinine Ratio 21.6 (10-20) H 02/20/23 05:59 Glucose 99 mg/dl (70-99(Fasting)) 02/20/23 05:59 Calcium 9.3 mg/dl (8.6-10.3) 02/20/23 05:59 Magnesium 1.6 mg/dl (1.7-2.4) L 02/20/23 05:59 Total Bilirubin 0.4 mg/dl (0.2-1.0) 02/19/23 06:40 AST 18 U/L (13-39) 02/19/23 06:40 ALT 16 U/L (7-52) 02/19/23 06:40 Alkaline Phosphatase 52 U/L (34-104) 02/19/23 06:40 Total Creatine Kinase 19 U/L (26-192) L 02/19/23 06:40 Troponin I High Sens 6.1 pg/ml (0-14) 02/19/23 06:40 Total Protein 6.6 gm/dl (6.0-8.3) 02/19/23 06:40 Albumin 3.8 gm/dl (3.4-5.0) 02/19/23 06:40 Globulin 2.8 gm/dl (2.5-4.0) 02/19/23 06:40 Albumin/Globulin Ratio 1.4 (0.9-2) 02/19/23 06:40 TSH 1.426 uIu/ml (0.300-4.500) 02/19/23 06:40 Urine Color Yellow 02/19/23 10:58 Urine Appearance Clear (Clear) 02/19/23 10:58 Urine pH 5.5 (4.5-7.5) 02/19/23 10:58 Ur Specific [place] 1.021 (1.000-1.030) 02/19/23 10:58 Urine Protein Negative (Negative) 02/19/23 10:58 Urine Glucose (UA) Negative (Negative) 02/19/23 10:58 Urine Ketones Negative (Negative) 02/19/23 10:58 Urine Blood Negative (Negative) 02/19/23 10:58 Urine Nitrite Negative (Negative) 02/19/23 10:58 Urine Bilirubin Negative (Negative) 02/19/23 10:58 Urine Urobilinogen Negative (Negative) 02/19/23 10:58 Ur Leukocyte Esterase 2+ (Negative) H 02/19/23 10:58 Urine WBC (Auto) >30 /hpf (0-5) H 02/19/23 10:58 Urine RBC (Auto) 0-4 /hpf (0-4) 02/19/23 10:58 U Hyaline Cast (Auto) 1-5 /lpf (0-5) 02/19/23 10:58 U Epithel Cells (Auto) 20-30 /lpf (0-5) H 02/19/23 10:58 Urine Bacteria (Auto) Negative (Negative) 02/19/23 10:58 SARS-CoV-2 (PCR) NEGATIVE (Negative) 02/19/23 14:27 Influenza Type A (PCR) Negative (Neg) 02/19/23 14:27 Influenza Type B (PCR) Negative (Neg) 02/19/23 14:27 RSV (RT-PCR) Negative (Neg) 02/19/23 14:[address] 02/19/23 06:[address] DOSE: 1249.68 mGy.cm HISTORY: fall TECHNIQUE: Multiaxial CT images of the cervical spine were performed and reformatted in the sagittal and coronal plane without the use of contrast. A dose lowering technique was utilized adhering to the principles of ALARA. COMPARISON: Cervical spine CT 03/12/2021. FINDINGS: No fractures. 2 mm of anterolisthesis of C4 on C5 with mild disc space narrowing. This is likely due to the long-standing degenerative change. Straightening of the cervical spine. Prevertebral soft tissues and the C1-C2 interval are intact. No pneumothorax. IMPRESSION: No fractures within the cervical spine. ACT 112: Negative or not required by law. Electronically signed by: Mulugeta Mejia M.D. 02/19/2023 8:[address] 02/19/23 06:[address] DOSE: HISTORY: fall TECHNIQUE: Multiaxial CT images of the maxillofacial region were performed and reformatted in the coronal plane without the use of contrast. A dose lowering technique was utilized adhering to the principles of ALARA. COMPARISON: None. FINDINGS: The visualized cervical spine, skull base, pterygoid plates, nasal bones, lamina papyracea, orbital floors, mandible, and zygomatic arches are intact. No fractures. Mild mucosal thickening within the maxillary sinuses. There is left periorbital soft tissue swelling. The globes and retrobulbar fat are intact. Prior bilateral lens replacement is noted. IMPRESSION: No fractures within the maxillofacial region. Left periorbital soft tissue swelling. ACT 112: Negative or not required by law. Electronically signed by: Mulugeta Mejia M.D. 02/19/2023 8:[address] 02/19/23 06:[address] DOSE: HISTORY: fall TECHNIQUE: Multiaxial CT images of the head were performed without the use of intravenous contrast. Automated exposure control was utilized for this study. A dose lowering technique was utilized adhering to the principles of ALARA. Comparison: None. Findings: Mild mucosal thickening within the paranasal sinuses. The mastoid air cells are clear. Mild motion artifact. Left periorbital soft tissue swelling. The calvarium and skull base are intact. There is no mass, hematoma, midline shift, acute infarct. White matter hypodensity is nonspecific but suggestive of microvascular ischemic change. The ventricles and sulci demonstrate mild age- related involutional changes. Right posterior craniotomy and right occipital lobe encephalomalacia is again noted. This is similar to the prior study. Impression: 1. No acute infarct or intracranial hemorrhage. 2. Left periorbital soft tissue swelling. 3. Chronic and postoperative changes as described above. ACT 112: Negative or not required by law. Electronically signed by: Mulugeta Mejia M.D. 02/19/2023 8:13 AM Chest X-Ray 02/19/23 06:37 XR chest 1V portable HISTORY: weakness COMPARISON: None. FINDINGS: No pneumothorax. No pleural effusions. The heart is normal degenerative changes within the shoulders. No acute fractures. In size. There are low lung volumes. There are patchy left basilar densities. No evidence for pulmonary edema. IMPRESSION: Low lung volumes with patchy left basilar densities. This favor subsegmental atelectasis. A pneumonia could also have a similar appearance. ACT 112: Negative or not required by law. Electronically signed by: Mulugeta Mejia M.D. 02/19/2023 7:37 AM (1) Fall Encounter type: initial encounter Qualified Code(s): W19.XXXA - Unspecified fall, initial encounter
[2023-02-20] MEDS: ATORVASTATIN 20 MG TAB PO SCH (20:27)
[2023-02-20] MEDS: MONTELUKAST SODIUM 10 MG TABLET PO SCH (20:27)
[2023-02-20] MEDS: traZODone HCL 50 MG TAB PO SCH (20:30)
[2023-02-21] MEDS: GABAPENTIN 100 MG CAP PO SCH ×2 (06:30→11:24)
[2023-02-21 07:45] LABS: BUN Creatinine Ratio 22.2 (10-20); Blood Urea Nitrogen 22 mg/dl (6-23); Calcium 9.1 mg/dl (8.6-10.3); Carbon Dioxide 32 mmol/L (21-32); Chloride 102 mmol/L (98-107); Creatinine Clr Calc Pharmacy 43.1 ml/min; Est GFR (African American) 60.2 ml/min; Glucose 112 mg/dl (70-99(Fasting))
[2023-02-21 08:49] LABS: Magnesium 1.6 mg/dl (1.7-2.4)
[2023-02-21] MEDS: ARTIFICIAL TEARS OP SCH ×3 (08:53→17:29)
[2023-02-21] MEDS: UMECLIDINIUM BROMIDE 62.5MCG/BLISTER 7 PUFFS/INHALER INH SCH (08:53)
[2023-02-21] MEDS: FLUTICASONE/VILANTEROL 200/25MCG 14 PUFFS/INHALER INH SCH (08:53)
[2023-02-21] MEDS: ESCITALOPRAM OXALATE 10 MG TAB PO SCH (08:53)
[2023-02-21] MEDS: CHOLECALCIFEROL 1,000 UNITS 25 MCG TAB PO SCH (08:54)
[2023-02-21] MEDS: NEOMYCIN/POLYMYX/BACITR OINT 15 GM TUBE EXT SCH (08:54)
[2023-02-21] MEDS: FUROSEMIDE 40 MG TAB PO SCH (08:54)
[2023-02-21] MEDS: FAMOTIDINE 20 MG TAB PO SCH (08:54)
[2023-02-21] MEDS: DOCUSATE SODIUM 100 MG CAP PO SCH (08:57)
[2023-02-21 09:46] LABS: Basophils # (auto) 0.03 K/uL (0.00-0.20); Basophils % (auto) 0.3 %; Eosinophils # (auto) 0.14 K/uL (0.00-0.50); Eosinophils % (auto) 1.4 %; Hematocrit (blood only) 41.4 % (37.0-47.0); Hemoglobin 13.7 g/dl (12.0-16.0); Immature Granulocytes # (auto) 0.05 K/uL (0.01-0.20); Immature Granulocytes % (auto) 0.5 %; Lymphocytes # (auto) 1.87 K/uL (1.20-3.40); Lymphocytes % (auto) 19.3 %; Mean Corpuscular Hemoglobin 32.5 pg (25.0-34.0); Mean Corpuscular Hgb Conc 33.1 g/dL (32.0-36.0); Mean Corpuscular Volume 98.3 fL (80.0-100.0); Mean Platelet Volume 12.3 fL (9.4-12.4); Monocytes # (auto) 0.71 K/uL (0.11-0.59); Monocytes % (auto) 7.3 %; Neutrophils # (auto) 6.89 K/uL (1.40-6.50); Neutrophils % (auto) 71.2 %; Platelet Count 175 K/uL (130-400); RDW Coefficient of Variation 12.4 % (11.5-14.5); Red Blood Count 4.21 M/uL (4.20-5.40); White Blood Count 9.69 K/ul (4.8-10.8)
--- NOTE | 2023-02-21 10:38 | Hospitalist Progress Note ---
Date of Service February 21, 2023 Assessment & Plan (1) Contusion of face: Plan: 1) Fall: all out of bed. Initial trauma workup in the ER is negative other than her periorbital ecchymosis around the left eye. She is not on blood thinners. Did ok in pt/ot.OT recommends increased assistance from staff with self care and mobility tasks (2) Syncope: Plan: possible syncopal episode. Seems recently had viral URI. This may have also contributed. Orthostatics qshift. Reduced trazodone by 50% and recommend weaning off this completely over the next 2-4 weeks as outpatient. Echo ok. (3) Contusion of face: supportive care with cool packs, treat abrasion with neosporin ointment. ordered a course of keflex. Followup with PCP. (4) Chronic diastolic heart failure: stable. On home lasix. (5) CKD (chronic kidney disease), stage III: cr 0.9 today. (6) Depression: on Lexapro. (7) Osteoporosis: Follows with Rheumatology. Cont prolia injections every 6 months. (8) S/P right mastectomy: (9) Morbid obesity: life style changes followup with pcp. Possible d/c in am Admission and Anticipated Discharge Date Admission Date: February 19, 2023 Subjective sitting on the chair comfortably denies dizziness no chest pain or sob ambulating in room moved bowels ok for discharge Review of Systems Review of Systems: All systems reviewed & are unremarkable except as noted in HPI & below Physical Exam Physical Exam: General- Not in distress Head- Bruise seen in left eye and left forehead region. mild swelling seen with some open areas Eyes- left eye orbit bruise seen Neck- supple, no JVD. Lungs- clear to auscultation , no wheezing or crackles Heart- regular rhythm; no murmur, no gallop. Abdomen- normal bowel sounds, soft, nontender, no distension Extremities- no pretibial edema, moves extremities Neuro- alert, oriented no facial palsy; no dysarthria; obeys commands moves ex tremities. Skin- warm & dry Results & Data Results & Data Vital Signs (Past 12 Hours) Vital Signs Temp Pulse Pulse Resp BP Pulse Ox O2 Del Method 02/21/23 07:58 36.6 C 68 20 134/69 98 Nasal Cannula 02/21/23 07:14 78 02/21/23 03:39 36.6 C 93 H 18 141/96 H 94 Room Air 02/20/23 23:21 36.6 C 69 18 117/77 94 Room Air O2 Flow Rate 02/21/23 07:58 2 02/21/23 07:14 02/21/23 03:39 02/20/23 23:21 Diagnostic Findings Laboratory Results WBC 9.69 K/ul (4.8-10.8) 02/21/23 09:29 RBC 4.21 M/uL (4.20-5.40) 02/21/23 09:29 Hgb 13.7 g/dl (12.0-16.0) 02/21/23 09:29 Hct 41.4 % (37.0-47.0) 02/21/23 09:29 MCV 98.3 fL (80.0-100.0) 02/21/23 09:29 MCH 32.5 pg (25.0-34.0) 02/21/23 09: MCHC 33.1 g/dL (32.0-36.0) 02/21/23 09:29 RDW Std Deviation 45.0 fL (36.4-46.3) 02/21/23 09:29 RDW Coeff of Carol 12.4 % (11.5-14.5) 02/21/23 09:29 Plt Count 175 K/uL (130-400) 02/21/23 09:29 MPV 12.3 fL (9.4-12.4) 02/21/23 09: Immature Gran % (Auto) 0.5 % 02/21/23 09:29 Neut % (Auto) 71.2 % 02/21/23 09:29 Lymph % (Auto) 19.3 % 02/21/23 09:29 [place] % (Auto) 7.3 % 02/21/23 09:29 Eos % (Auto) 1.4 % 02/21/23 09:29 Baso % (Auto) 0.3 % 02/21/23 09:29 Neut # (Auto) 6.89 K/uL (1.40-6.50) H 02/21/23 09:29 Lymph # (Auto) 1.87 K/uL (1.20-3.40) 02/21/23 09:29 [place] # (Auto) 0.71 K/uL (0.11-0.59) H 02/21/23 09:29 Eos # (Auto) 0.14 K/uL (0.00-0.50) 02/21/23 09:29 Baso # (Auto) 0.03 K/uL (0.00-0.20) 02/21/23 09:29 Immature Gran # (Auto) 0.05 K/uL (0.01-0.20) 02/21/23 09:29 Absolute Nucleated RBC Cancelled 02/21/23 06:22 Nucleated RBC % (auto) Cancelled 02/21/23 06:22 Neutrophils % (Manual) Cancelled 02/21/23 06:22 Band Neutrophils % Cancelled 02/21/23 06:22 Lymphocytes % (Manual) Cancelled 02/21/23 06:22 Prolymphocyte % Cancelled 02/21/23 06:22 Reactive Lymphs % (Man) Cancelled 02/21/23 06:22 Monocytes % (Manual) Cancelled 02/21/23 06:22 Eosinophils % (Manual) Cancelled 02/21/23 06:22 Basophils % (Manual) Cancelled 02/21/23 06:22 Metamyelocytes % (Man) Cancelled 02/21/23 06:22 Myelocytes % (Man) Cancelled 02/21/23 06:22 Promyelocytes % (Man) Cancelled 02/21/23 06:22 Blast Cells % (Manual) Cancelled 02/21/23 06:22 Plasma Cell % (Manual) Cancelled 02/21/23 06:22 Other Cells % Cancelled 02/21/23 06:22 Nucleated RBC % Cancelled 02/21/23 06:22 Neutrophils # (Manual) Cancelled 02/21/23 06:22 Band Neutrophils # Cancelled 02/21/23 06:22 Total Absolute Neuts Cancelled 02/21/23 06:22 Lymphocytes # (Manual) Cancelled 02/21/23 06:22 Prolymphocyte # Cancelled 02/21/23 06:22 Reactive Lymphs # Cancelled 02/21/23 06:22 Total Abs Lymphocytes Cancelled 02/21/23 06:22 Monocytes # (Manual) Cancelled 02/21/23 06:22 Eosinophils # (Manual) Cancelled 02/21/23 06:22 Basophils # (Manual) Cancelled 02/21/23 06:22 Metamyelocytes # (Man) Cancelled 02/21/23 06:22 Myelocytes # (Manual) Cancelled 02/21/23 06:22 Promyelocytes # (Man) Cancelled 02/21/23 06:22 Blast Cells # (Man) Cancelled 02/21/23 06:22 Plasma Cell # (Manual) Cancelled 02/21/23 06:22 Other Cells # Cancelled 02/21/23 06:22 Nucleated RBCs # (Man) Cancelled 02/21/23 06:22 Hypersegmented Neuts Cancelled 02/21/23 06:22 Hyposegmented Neuts Cancelled 02/21/23 06:22 Hypogranular Neuts Cancelled 02/21/23 06:22 Large Granular Lymphs Cancelled 02/21/23 06:22 # Lrg Granular Lymphs Cancelled 02/21/23 06:22 Hairy Cells Cancelled 02/21/23 06:22 Smudge Cells Cancelled 02/21/23 06:22 Toxic Granulation Cancelled 02/21/23 06:22 Toxic Vacuolation Cancelled 02/21/23 06:22 Dohle Bodies Cancelled 02/21/23 06:22 Chris Rods Cancelled 02/21/23 06:22 Platelet Estimate Cancelled 02/21/23 06:22 Hypogranular Platelets Cancelled 02/21/23 06:22 Giant Platelets Cancelled 02/21/23 06:22 Platelet Satelliting Cancelled 02/21/23 06:22 RBC Morphology Cancelled 02/21/23 06:22 Polychromasia Cancelled 02/21/23 06:22 Hypochromasia Cancelled 02/21/23 06:22 Poikilocytosis Cancelled 02/21/23 06:22 Basophilic Stippling Cancelled 02/21/23 06:22 Anisocytosis Cancelled 02/21/23 06:22 Microcytosis Cancelled 02/21/23 06:22 Macrocytosis Cancelled 02/21/23 06:22 Spherocytes Cancelled 02/21/23 06:22 Pappenheimer Bodies Cancelled 02/21/23 06:22 Sickle Cells Cancelled 02/21/23 06:22 Target Cells Cancelled 02/21/23 06:22 Tear Drop Cells Cancelled 02/21/23 06:22 Ovalocytes Cancelled 02/21/23 06:22 Stomatocytes Cancelled 02/21/23 06:22 [place] Bodies Cancelled 02/21/23 06:22 Echinocytes Cancelled 02/21/23 06:22 Acanthocytes (Spur) Cancelled 02/21/23 06:22 Rouleaux Cancelled 02/21/23 06:22 RBC Agglutinates Cancelled 02/21/23 06:22 Schistocytes Cancelled 02/21/23 06:22 Sezary Cell Cancelled 02/21/23 06:22 Sodium 141 mmol/L (136-145) 02/21/23 08:12 Potassium 4.0 mmol/L (3.5-5.1) 02/21/23 08:12 Chloride 102 mmol/L (98-107) 02/21/23 06:22 Carbon Dioxide 32 mmol/L (21-32) 02/21/23 06:22 Anion Gap TNP 02/21/23 06:22 BUN 22 mg/dl (6-23) 02/21/23 06:22 Creatinine 0.99 mg/dl (0.6-1.2) 02/21/23 06:22 Est Cr Clr Drug Dosing 43.1 ml/min 02/21/23 06:22 Est GFR ( Amer) 60.2 ml/min 02/21/23 06:22 Est GFR (Non-Af Amer) 52.0 ml/min 02/21/23 06:22 BUN/Creatinine Ratio 22.2 (10-20) H 02/21/23 06:22 Glucose 112 mg/dl (70-99(Fasting)) H 02/21/23 06:22 Calcium 9.1 mg/dl (8.6-10.3) 02/21/23 06:22 Magnesium 1.6 mg/dl (1.7-2.4) L 02/21/23 08:12 Total Bilirubin 0.4 mg/dl (0.2-1.0) 02/19/23 06:40 AST 18 U/L (13-39) 02/19/23 06:40 ALT 16 U/L (7-52) 02/19/23 06:40 Alkaline Phosphatase 52 U/L (34-104) 02/19/23 06:40 Total Creatine Kinase 19 U/L (26-192) L 02/19/23 06:40 Troponin I High Sens 6.1 pg/ml (0-14) 02/19/23 06:40 Total Protein 6.6 gm/dl (6.0-8.3) 02/19/23 06:40 Albumin 3.8 gm/dl (3.4-5.0) 02/19/23 06:40 Globulin 2.8 gm/dl (2.5-4.0) 02/19/23 06:40 Albumin/Globulin Ratio 1.4 (0.9-2) 02/19/23 06:40 TSH 1.426 uIu/ml (0.300-4.500) 02/19/23 06:40 Urine Color Yellow 02/19/23 10:58 Urine Appearance Clear (Clear) 02/19/23 10:58 Urine pH 5.5 (4.5-7.5) 02/19/23 10:58 Ur Specific [place] 1.021 (1.000-1.030) 02/19/23 10:58 Urine Protein Negative (Negative) 02/19/23 10:58 Urine Glucose (UA) Negative (Negative) 02/19/23 10:58 Urine Ketones Negative (Negative) 02/19/23 10:58 Urine Blood Negative (Negative) 02/19/23 10:58 Urine Nitrite Negative (Negative) 02/19/23 10:58 Urine Bilirubin Negative (Negative) 02/19/23 10:58 Urine Urobilinogen Negative (Negative) 02/19/23 10:58 Ur Leukocyte Esterase 2+ (Negative) H 02/19/23 10:58 Urine WBC (Auto) >30 /hpf (0-5) H 02/19/23 10:58 Urine RBC (Auto) 0-4 /hpf (0-4) 02/19/23 10:58 U Hyaline Cast (Auto) 1-5 /lpf (0-5) 02/19/23 10:58 U Epithel Cells (Auto) 20-30 /lpf (0-5) H 02/19/23 10:58 Urine Bacteria (Auto) Negative (Negative) 02/19/23 10:58 SARS-CoV-2 (PCR) NEGATIVE (Negative) 02/19/23 14:27 Influenza Type A (PCR) Negative (Neg) 02/19/23 14:27 Influenza Type B (PCR) Negative (Neg) 02/19/23 14:27 RSV (RT-PCR) Negative (Neg) 02/19/23 14:27 Blood Parasites ID Cancelled 02/21/23 06:[address] 02/19/23 06:[address] DOSE: 1249.68 mGy.cm HISTORY: fall TECHNIQUE: Multiaxial CT images of the cervical spine were performed and reformatted in the sagittal and coronal plane without the use of contrast. A dose lowering technique was utilized adhering to the principles of ALARA. COMPARISON: Cervical spine CT 03/12/2021. FINDINGS: No fractures. 2 mm of anterolisthesis of C4 on C5 with mild disc space narrowing. This is likely due to the long-standing degenerative change. Straightening of the cervical spine. Prevertebral soft tissues and the C1-C2 interval are intact. No pneumothorax. IMPRESSION: No fractures within the cervical spine. ACT 112: Negative or not required by law. Electronically signed by: Mulugeta Mejia M.D. 02/19/2023 8:[address] 02/19/23 06:[address] DOSE: HISTORY: fall TECHNIQUE: Multiaxial CT images of the maxillofacial region were performed and reformatted in the coronal plane without the use of contrast. A dose lowering technique was utilized adhering to the principles of ALARA. COMPARISON: None. FINDINGS: The visualized cervical spine, skull base, pterygoid plates, nasal bones, lamina papyracea, orbital floors, mandible, and zygomatic arches are intact. No fractures. Mild mucosal thickening within the maxillary sinuses. There is left periorbital soft tissue swelling. The globes and retrobulbar fat are intact. Prior bilateral lens replacement is noted. IMPRESSION: No fractures within the maxillofacial region. Left periorbital soft tissue swelling. ACT 112: Negative or not required by law. Electronically signed by: Mulugeta Mejia M.D. 02/19/2023 8:[address] 02/19/23 06:[address] DOSE: HISTORY: fall TECHNIQUE: Multiaxial CT images of the head were performed without the use of intravenous contrast. Automated exposure control was utilized for this study. A dose lowering technique was utilized adhering to the principles of ALARA. Comparison: None. Findings: Mild mucosal thickening within the paranasal sinuses. The mastoid air cells are clear. Mild motion artifact. Left periorbital soft tissue swelling. The calvarium and skull base are intact. There is no mass, hematoma, midline shift, acute infarct. White matter hypodensity is nonspecific but suggestive of microvascular ischemic change. The ventricles and sulci demonstrate mild age- related involutional changes. Right posterior craniotomy and right occipital lobe encephalomalacia is again noted. This is similar to the prior study. Impression: 1. No acute infarct or intracranial hemorrhage. 2. Left periorbital soft tissue swelling. 3. Chronic and postoperative changes as described above. ACT 112: Negative or not required by law. Electronically signed by: Mulugeta Mejia M.D. 02/19/2023 8:13 AM Chest X-Ray 02/19/23 06:37 XR chest 1V portable HISTORY: weakness COMPARISON: None. FINDINGS: No pneumothorax. No pleural effusions. The heart is normal degenerative changes within the shoulders. No acute fractures. In size. There are low lung volumes. There are patchy left basilar densities. No evidence for pulmonary edema. IMPRESSION: Low lung volumes with patchy left basilar densities. This favor subsegmental atelectasis. A pneumonia could also have a similar appearance. ACT 112: Negative or not required by law. Electronically signed by: Mulugeta Mejia M.D. 02/19/2023 7:37 AM (1) Contusion of face Encounter type: initial encounter Qualified Code(s): S00.83XA - Contusion of other part of head, initial encounter
--- NOTE | 2023-02-21 10:47 | Discharge Summary ---
Date of Service February 21, 2023 Admission HPI Per Admitting Provider 87-year-old female lives in [facility] assisted living in [place] presents after a fall with head trauma earlier this morning. The patient reports she rolled out of bed and hit the floor damaging her eye and woke up immediately. She reports being clear and grabbed her pillow and stayed on the floor she was not able to get up on her own. She was also not able to call for help. She was found by staff this morning. She denies any loss of bladder control or bowel control. Per record review she was seen by her PCP on 02/15 for cold symptoms. Patient reports a "head cold with cough which began last week. This was associated with stuffy nose and progressed to a nonproductive cough. She had no chills, fever, wheezing, hemoptysis, body aches, diarrhea, taste or smell disturbance. This was thought to be consistent with a viral URI and no medications were given. She was told to continue her DuoNebs as needed, Breo Ellipta, Singulair, Spiriva for bronchiectasis. No lab studies were ordered. Admission Exam Per Admitting Provider CONSTITUTIONAL: obese, vitals as above, generally well-appearing, NAD EYES: EOMI bilaterally-no pain with eye movement, PERRL, normal conjunctivae, no scleral icterus, no funduscopic abnormality. ENT: external ear and nose normal, oropharynx clear, MMM NECK: trachea midline RESPIRATORY: clear to auscultation bilaterally, no crackles, rales or wheezes, normal respiratory effort CARDIOVASCULAR: regular rate and rhythm, S1 and 2 heard without murmurs, gallops or rubs, no JVD, no peripheral edema CHEST: inspection of chest was normal GASTROINTESTINAL: soft, nontender, ND, no guarding MUSCULOSKELETAL: strength 5/5 throughout, head is normocephalic with periorbital ecchymosis and swelling on the left. there is a slight superficial abrasion superior to the left eyebrow SKIN: warm and dry NEUROLOGIC: No facial palsy, no dysarthria. Touch, pain and proprioception normal. CN 2-12 grossly intact, no sensory deficit, normal cognition, normal speech, no tremor PSYCHIATRIC: alert cooperative and oriented to person, place and time. Euthymic mood, makes good eye contact, language grossly intact, recent and remote memory grossly intact. Principal Diagnosis Fall Contusion of the face Discharge Data Allergies Allergy/AdvReac Type Severity Reaction Status Date / Time phenytoin Allergy Intermediate RASH Verified 02/19/23 10:39 amoxicillin Allergy Mild Nausea Verified 02/19/23 10:39 clavulanic acid Allergy Mild Nausea Verified 02/19/23 10:39 dexamethasone AdvReac Intermediate SEVERE Verified 02/19/23 10:39 ANXIETY (TAKES PREDNISONE) Consultations 02/19/23 08:49 ED Decision to Admit Stat Ordered Studies 02/19/23 06:36 CT cervical spine wo con Stat CT facial bones wo con Stat CT head/brain wo con Stat Hospital Course (1) Contusion of face: 1) Contusion of face: Plan: 1) Fall: all out of bed. Initial trauma workup in the ER is negative other than her periorbital ecchymosis around the left eye. She is not on blood thinners. Did ok in pt/ot.OT recommends increased assistance from staff with self care and mobility tasks (2) Syncope: Plan: possible syncopal episode. Seems recently had viral URI. This may have also contributed. Orthostatics qshift. Reduced trazodone by 50% and recommend weaning off this completely over the next 2-4 weeks as outpatient. Echo ok. (3) Contusion of face: supportive care with cool packs, treat abrasion with neosporin ointment. ordered a course of keflex. Followup with PCP. (4) Chronic diastolic heart failure: stable. On home lasix. (5) CKD (chronic kidney disease), stage III: cr 0.9 today. (6) Depression: on Lexapro. (7) Osteoporosis: Follows with Rheumatology. Cont prolia injections every 6 months. (8) S/P right mastectomy: (9) Morbid obesity: life style changes followup with pcp. Total Time Total Time Spent Total Time Spent (In Minutes): 35 minutes Discharge Plan Discharge Items Patient Disposition: Personal [facility] Reason For Visit: FALL Discharge Diagnosis: Fall Activity: As commented below Activity Comment: As tolerateed. Need increased assitance Non-emergency contact: Primary Care Provider Call non-emergency contact if: you have any medication questions and your symptoms worsen Follow-up/Referrals: Peter Lu MD [Primary Care Provider] - Diet: Heart Healthy Diet Texture: Easy to Chew Addtl Attending Provider Instructions: Followup with PCP in 5-7 days. Needs More assistance with mobility Pending Studies at Discharge: No Stand-Alone Forms: My [employer], Smoking Cessation Skilled Items Patient informed of condition?: Yes DNR: Yes Discharge Level of Care: Other Communicable Disease: No Discharge Prognosis: Stable Lines: None Urinary Catheter: No Medications and DC Order Prescriptions: New Triple Antibiotic 3.5mg-400 unit- 5,000 unit/gram Ointment 1 applic EXT BID Qty: 14 0RF trazodone 50 mg Tablet 50 mg PO HS Qty: 20 0RF cephalexin 500 mg capsule 500 mg PO BID 7 Days Qty: 14 0RF Probiotic Acidophilus 250 million cell capsule 500 mmu cells PO DAILY Qty: 30 0RF Continued atorvastatin 20 mg tablet 20 mg PO HS aspirin 81 mg Tablet,Delayed Release (Dr/Ec) 81 mg PO QAM Rx Instructions: take with food montelukast 10 mg Tablet 10 mg PO HS furosemide 40 mg Tablet 40 mg PO DAILY tramadol 50 mg Tablet 50 mg PO Q6H PRN (Reason: Pain) bisacodyl [Dulcolax (bisacodyl)] 10 mg Suppository 10 mg FL DAILY PRN (Reason: Constipation) docusate sodium 100 mg Capsule 100 mg PO BID gabapentin 100 mg Capsule 100 mg PO TID@0700,1200,2100 diclofenac sodium [Voltaren] 1 % Gel 4 g TOPICAL QID PRN (Reason: Pain) Rx Instructions: apply to right shoulder famotidine 20 mg Tablet 20 mg PO QAM Senna Plus 8.6-50 mg Capsule 2 tab-cap PO BID Refresh Classic (PF) 1.4-0.6 % Dropperette 1 drp OPB QID cholecalciferol (vitamin D3) [Vitamin D3] 25 mcg (1,000 unit) Tablet 25 mcg PO DAILY Spiriva Respimat 2.5 mcg/actuation mist 2 puff INHALATION DAILY fluticasone furoate-vilanterol [Breo Ellipta] 200-25 mcg/dose blister with device 1 inh INHALATION DAILY escitalopram oxalate 10 mg Tablet 15 mg PO DAILY ipratropium-albuterol [DuoNeb] 0.5 mg-3 mg(2.5 mg base)/3 mL Solution For Nebulization 3 ml inhalation QID PRN (Reason: sob/wheezing) calcium carbonate [Oyster Shell Calcium] 500 mg calcium (1,250 mg) Tablet 500 mg PO HS (DME) Oxygen Home Liters Per Minute Rx Instructions: 3LPM with sleep Discontinued ondansetron HCl 4 mg Tablet 4 mg PO Q8H PRN (Reason: Nausea) magnesium hydroxide [Milk of Magnesia] 400 mg/5 mL Suspension 30 ml PO DAILY PRN (Reason: Constipation) trazodone 100 mg Tablet 100 mg PO HS acetaminophen [Tylenol Extra Strength] 500 mg Tablet 1,000 mg PO Q8H MDD 3 GRAMS/24 HOURS PRN (Reason: Pain) Admission Data Admit Date/Time: 02/19/23 08:55 Attending Provider: Kevon Carbone Admit Provider: Yohannes Simon Primary Care Provider: Peter Lu Other Providers: Yohannes Simon
[2023-02-21] MEDS: MAGNESIUM SULFATE / D5W 1 GM/100 ML BAG IV SCH ×2 (11:20→13:18)
--- OUTSIDE RECORDS SUMMARY | 2023-02-21 14:56 | External Medical Summary | Continuity Of Care Document ---
Author Name Unknown Address [address] [place] [address] Organization [facility] ( ) Care Team Providers Care Stockroom Associate Name Role Phone Peter Lu Primary Care Provider [phone] VITAL SIGNS Date Time Diastolic blood pressure Systolic blood pressure Body height Body weight Temperature SpO2 Blood Sugar Pulse Respirations 99446 111 27489 8 97.80 Ear 95.00 % Immunizations Vaccine Date Status COVID-19 05/10/2020 Completed COVID-19 05/31/2020 Completed COVID-19 01/27/2021 Completed COVID-19 09/16/2021 Completed COVID-19 01/13/2022 Completed Influenza 02/21/2017 Allergy Influenza 12/18/2018 Allergy Influenza 01/08/2020 Completed Influenza 01/14/2021 Completed Influenza 01/26/2022 Completed Influenza 12/29/2022 Completed (PCV13)Pneumococcal 12/18/2014 Completed (PPSV23)Pneumococcal 07/12/2007 Completed (PPSV23)Pneumococcal 01/21/2016 Completed
--- NOTE | 2023-02-22 05:53 | Electrocardiogram Report ---
Test Reason : Blood Pressure : / mmHG Vent. Rate : 071 BPM Atrial Rate : 071 BPM P-R Int : 142 ms QRS Dur : 084 ms QT Int : 424 ms P-R-T Axes : 055 011 054 degrees QTc Int : 460 ms Normal sinus rhythm Minimal voltage criteria for LVH, may be normal variant ( R in aVL ) Borderline ECG When compared with ECG of 07-FEB-2020 12:50, Nonspecific T wave abnormality, improved in Lateral leads Confirmed by Joseph Salomon ([id number]) on 02/22/2023 5:52:44 AM Referred By: REFERRED SELF Confirmed By:Joseph Salomon
== END 2023-02-21 18:27 | disposition home or self-care (01) ==
LOC: EDINP 04:58 → ED 04:58 → SUATTDRO 08:55 → 2N 10:39
DX: R55 Syncope and collapse; Z88.8 Allergy status to other drugs, medicaments and biological substances; M81.0 Age-related osteoporosis without current pathological fracture; Z85.3 Personal history of malignant neoplasm of breast; E66.01 Morbid (severe) obesity due to excess calories; Z79.51 Long term (current) use of inhaled steroids; N18.30 Chronic kidney disease, stage 3 unspecified; Z90.11 Acquired absence of right breast and nipple; S05.12XA Contusion of eyeball and orbital tissues, left eye, initial encounter; Z68.35 Body mass index [BMI] 35.0-35.9, adult; Z88.0 Allergy status to penicillin; Z11.52 Encounter for screening for COVID-19; W06.XXXA Fall from bed, initial encounter; Z79.82 Long term (current) use of aspirin; F32.A Depression, unspecified; I50.32 Chronic diastolic (congestive) heart failure; I35.0 Nonrheumatic aortic (valve) stenosis; Z79.899 Other long term (current) drug therapy

== ENCOUNTER 2024-09-22 14:03 | Inpatient (IN) ==
[2024-09-22 14:52] LABS: Basophils # (auto) 0.03 K/uL (0.00-0.20); Basophils % (auto) 0.3 %; Eosinophils # (auto) 0.02 K/uL (0.00-0.50); Eosinophils % (auto) 0.2 %; Hematocrit (blood only) 42.3 % (37.0-47.0); Hemoglobin 13.9 g/dl (12.0-16.0); Immature Granulocytes # (auto) 0.07 K/uL (0.01-0.20); Immature Granulocytes % (auto) 0.6 %; Lymphocytes # (auto) 1.11 K/uL (1.20-3.40); Lymphocytes % (auto) 9.3 %; Mean Corpuscular Hemoglobin 32.3 pg (25.0-34.0); Mean Corpuscular Hgb Conc 32.9 g/dL (32.0-36.0); Mean Corpuscular Volume 98.4 fL (80.0-100.0); Mean Platelet Volume 12.1 fL (9.4-12.4); Monocytes # (auto) 1.12 K/uL (0.11-0.59); Monocytes % (auto) 9.4 %; Neutrophils # (auto) 9.56 K/uL (1.40-6.50); Neutrophils % (auto) 80.2 %; Platelet Count 151 K/uL (130-400); RDW Coefficient of Variation 13.3 % (11.5-14.5); RDW Standard Deviation 47.3 fL (36.4-46.3); White Blood Count 11.91 K/ul (4.8-10.8)
[2024-09-22] MEDS: SODIUM CHLORIDE 0.9% 1,000 ML IV SCH (14:54)
--- NOTE | 2024-09-22 14:58 | Emergency Department Note ---
Impression & Plan Dyspnea, URI (upper respiratory infection), Confusion, Dehydration ED Provider Note ED Provider Note NAME: HOWARD GARZON AGE:89 SEX: Female : 1935 ARRIVES VIA: EMS INFORMANT: EMS, facility note ED PROVIDER(s): Hetal Fox DO CHIEF COMPLAINT: Increased shortness of breath HPI: This is an 89-year-old female who presents emergency department due to staff concern for increased shortness of breath and hypoxia. Patient states she has had a recent increased cough but does not know why. Patient does have confusion however staff reported she is at her cognitive baseline. Patient states she is having chest pain. She denies diarrhea but states she has been nauseated and several days ago did vomit. Is unclear whether or not this is true as it was not mentioned in the EMS report. Notes from the facility also mention patient typically wears oxygen at night only not typically during the day however because she was hypoxic she was placed on oxygen via nasal cannula additionally. EMS reported staff noted her oxygen was 80% and placed her on oxygen today via nasal cannula at 5 L/min with improvement. No prior respiratory history per their report. PAST MEDICAL HISTORY:See Below PAST SURGICAL HISTORY:See Below FAMILY HISTORY:See Below SOCIAL HISTORY:See Below HOME MEDICATIONS:See Below ALLERGIES:See Below VITALS:See Below PHYSICAL EXAMINATION: GENERAL: alert, well appearing, well nourished, no distress, non-toxic EYE EXAM: normal conjunctiva, PERRL and EOM's grossly intact OROPHARYNX: no exudate, no erythema, lips, buccal mucosa, and tongue normal and mucous membranes are dry NECK: supple, no nuchal rigidity, no adenopathy, non-tender LUNGS: Decreased bilaterally to auscultation. Normal chest wall mechanics, no w/r, coarse breath sounds bilaterally, coarse cough noted during exam HEART: no murmurs, S1 normal and S2 normal ABDOMEN: abdomen soft, non-tender, normo-active bowel sounds, no masses, no rebound or guarding. BACK: Back is symmetrical on inspection and there is no deformity, no midline tenderness, no CVA tenderness. SKIN: no rashes, petechiae, orbruising UPPER EXTREMITIES: upper extremities are grossly normal. FROM, nml pulses b/l. LOWER EXTREMITIES: No pitting edema. FROM, nml pulses b/l. NEURO EXAM: Normal sensorium, cranial nerves II-XII grossly intact, normal speech, no facial droop,nogross weakness of arms, no gross weakness of legs. Gross sensation intact. No ataxia. Vital Signs: reviewed and remarkable Differential Diagnosis: pneumonia, bronchitis, COPD/Asthma exacerbation, pneumothorax, pulmonary embolism, congestive heart failure, acute coronary syndrome, as well as others were considered MEDICAL DECISION MAKING: This is an 89-year-old female sent in from a local facility due to concern for hypoxia noted today as well as confusion. She was 80% on room air at the facility and was placed on oxygen via nasal cannula. Patient was hemodynamically stable on arrival here. Labs drawn and sent, IV established, EKG and chest ray performed at bedside interpreted by me and patient monitored on telemetry. Nasal swab obtained and sent additionally for possible viral syndrome. Patient started on gentle IV fluid hydration as she did appear clinically dehydrated however does have a history of CHF. Patient was able to be titrated down from 5 to 2 L/min via nasal cannula and was maintaining her saturations. It is unclear from prior outpatient office notes if patient does have underlying cognitive problems. Patient had no focal neurologic deficit to suggest occult ICH or CVA. Patient's nasal swab positive for enterovirus/rhinovirus. No documented prior history of asthma or COPD. Given concern for increased cough and work of breathing, hypoxia, confusion, and comorbid conditions, case discussed with the hospitalist team for additional evaluation and management. Consultation(s): 1645: Discussed with [facility] hospitalist team, Adriana, for additional evaluation and management. ER Treatment Provided: See below Diagnostics Interpreted By Me: -ECG: Normal sinus at 71, normal axis, normal intervals, no acute ST/T wave changes -Cardiac Monitoring: An order was placed for continuous cardiac monitoring. The monitor shows a rate of 76 with normal sinus rhythm. -Laboratory studies: As stated above and show below. -Imaging studies: X-ray Chest: A single view study of the chest was reviewed and was negative for cardiomegaly, focal infiltrate, effusion, pulmonary edema, or wide mediastinum. Increased markings along RLL, slightly worse compared to prior. Triage Nursing Note Reviewed Prior/Outside Records Reviewed - office note from 06/20/24 reviewed Past Med/Surg History Problem List CAP (community acquired pneumonia) Hypoxia Dehydration (Acute) Confusion (Acute) URI (upper respiratory infection) (Acute) Dyspnea (Acute) Daily urinary incontinence Incomplete bladder emptying Chronic diastolic heart failure Morbid obesity Fall (Acute) Contusion of face (Acute) Aortic stenosis (Acute) Syncope (Acute) Greater trochanter fracture (Acute) Fracture of scaphoid (Acute) History of total knee arthroplasty (Chronic) 2017 Dr. Dav Best Hypertension (Chronic) CKD (chronic kidney disease), stage III (Chronic) Lumbar degenerative disc disease (Chronic) Diastolic HF (heart failure) (Chronic) GERD (gastroesophageal reflux disease) (Chronic) Depression (Chronic) Anxiety (Chronic) Osteoporosis (Chronic) HLD (hyperlipidemia) (Chronic) Vertigo (Chronic) Osteoarthritis (Chronic) S/P right mastectomy (Chronic) Medical History (Updated 09/22/24 @ 19:44 by Sangita Dupree) Asthma Bacteremia Bronchiectasis Scarring of lung following radiation Meningioma non cancerous, surgically removed Surgical History H/O left wrist surgery S/P LUDA-BSO History of appendectomy Family History Other Family history non-contributory Social History Smoking Status: Never smoker Second Hand Exposure: No; Do You Dip or Chew Tobacco: No; Hx Alcohol Use: No Hx Substance Use: No Preferred Language: Armenian Communication Ability: Effective Visual Impairment: No Limitations Child Care Aide Required: No Beliefs That Will Affect Care: None marital status: / Current Living Situation: Personal Care Facility Current Living Situation Comment: [facility] Feels Safe at Home: Yes Assistive Devices: Glasses, Oxygen - at Night and Walker Allergies Allergies Allergy/AdvReac Type Severity Reaction Status Date / Time phenytoin Allergy Intermediate RASH Verified 05/28/24 11:43 amoxicillin Allergy Mild Nausea Verified 05/28/24 11:43 clavulanic acid Allergy Mild Nausea Verified 05/28/24 11:43 dexamethasone AdvReac Intermediate SEVERE Verified 05/28/24 11:43 ANXIETY (TAKES PREDNISONE) Home Meds Home Medications Medication Instructions Recorded Confirmed aspirin 81 mg tablet,delayed 81 mg PO QAM 10/24/18 09/22/24 release atorvastatin 20 mg tablet 20 mg PO HS 10/24/18 09/22/24 montelukast 10 mg tablet 10 mg PO HS 10/24/18 09/22/24 furosemide 40 mg tablet 40 mg PO DAILY 02/05/19 09/22/24 bisacodyl 10 mg rectal suppository 10 mg ND DAILY PRN Constipation 02/07/20 09/22/24 (Dulcolax (bisacodyl)) docusate sodium 100 mg capsule 200 mg PO DAILY 02/07/20 09/22/24 gabapentin 100 mg capsule 100 mg PO TID 02/07/20 09/22/24 famotidine 20 mg tablet 20 mg PO QAM 08/22/20 09/22/24 Oxygen Home 02/19/23 05/28/24 cholecalciferol (vitamin D3) 25 50 mcg PO DAILY 02/19/23 09/22/24 mcg (1,000 unit) tablet (Vitamin D3) fluticasone furoate 200 1 inh inhalation DAILY 02/19/23 09/22/24 mcg-vilanterol 25 mcg/dose inhalation powder (Breo Ellipta) ipratropium 0.5 mg-albuterol 3 mg 3 ml inhalation Q4 PRN sob/wheezing 02/19/23 09/22/24 (2.5 mg base)/3 mL nebulization soln polyvinyl alcohol-povidone (PF) 1 drp OPB BID 02/19/23 09/22/24 1.4 %-0.6 % eye drops in a dropperette (Refresh Classic (PF)) tiotropium bromide 2.5 2 puff inhalation DAILY 02/19/23 09/22/24 mcg/actuation mist for inhalation (Spiriva Respimat) acetaminophen 650 mg 650 mg PO HS 04/18/23 09/22/24 tablet,extended release bisacodyl 5 mg tablet,delayed 5 mg PO DAILY PRN contipation 04/18/23 09/22/24 release escitalopram oxalate 5 mg tablet 10 mg PO DAILY 04/18/23 09/22/24 ondansetron HCl 4 mg tablet 4 mg PO Q6 PRN Nausea / Vomiting 04/18/23 09/22/24 acetaminophen 325 mg tablet 650 mg PO Q4H PRN pain/fever 09/22/24 09/22/24 acetaminophen 650 mg 1,300 mg PO DAILY 09/22/24 09/22/24 tablet,extended release cetirizine 10 mg tablet 10 mg PO DAILY 09/22/24 09/22/24 magnesium hydroxide 400 mg/5 mL 400 mg PO DAILY 09/22/24 09/22/24 oral suspension polyethylene glycol 3350 17 17 g PO DAILY 09/22/24 09/22/24 gram/dose oral powder (Miralax) Previous Rx's Medication Instructions Recorded trazodone 50 mg tablet 50 mg PO HS #20 tabs 02/21/23 Results & Data (ED) Vital Signs Vital Signs - 24 hr 09/22/24 13:56 09/22/24 14:12 09/22/24 14:12 Temperature 37 C Temperature Source Oral Pulse Rate 76 Pulse Rate [Apical] Pulse Rate from SpO2 Sensor Respiratory Rate 24 Respiratory Effort / Characteristics Spontaneous Spontaneous Respiratory Depth Normal Normal Respiratory Pattern Regular Regular Blood Pressure 134/69 Blood Pressure [Left Arm] Blood Pressure Mean 90 Blood Pressure Mean [Left Arm] Pulse Oximetry 90 90 Oxygen Delivery Method Room Air Room Air Nasal Cannula Room Air Nasal Cannula Oxygen Flow Rate 0 Sepsis Recent Fever Within 48 Hours No Sepsis New/Unexplained Change in Mental Status N/A Sepsis Action Taken by Nursing No Action Required Oxygen Flow Rate - Titration 2 Pulse Oximetry Post Tiitration 94 09/22/24 14:21 09/22/24 14:36 09/22/24 14:42 Temperature Temperature Source Pulse Rate 73 72 Pulse Rate [Apical] 71 Pulse Rate from SpO2 Sensor 73 72 Respiratory Rate 16 24 20 Respiratory Effort / Characteristics Non-Labored Spontaneous Respiratory Depth Respiratory Pattern Blood Pressure Blood Pressure [Left Arm] 134/69 Blood Pressure Mean Blood Pressure Mean [Left Arm] 90 Pulse Oximetry 93 94 95 Oxygen Delivery Method Nasal Cannula Oxygen Flow Rate 2 Sepsis Recent Fever Within 48 Hours Sepsis New/Unexplained Change in Mental Status Sepsis Action Taken by Nursing Oxygen Flow Rate - Titration Pulse Oximetry Post Tiitration 09/22/24 15:00 09/22/24 15:00 09/22/24 15:00 Temperature Temperature Source Pulse Rate Pulse Rate [Apical] Pulse Rate from SpO2 Sensor Respiratory Rate Respiratory Effort / Characteristics Respiratory Depth Respiratory Pattern Blood Pressure 124/74 124/74 124/74 Blood Pressure [Left Arm] Blood Pressure Mean 84 84 84 Blood Pressure Mean [Left Arm] Pulse Oximetry Oxygen Delivery Method Oxygen Flow Rate Sepsis Recent Fever Within 48 Hours Sepsis New/Unexplained Change in Mental Status Sepsis Action Taken by Nursing Oxygen Flow Rate - Titration Pulse Oximetry Post Tiitration 09/22/24 15:00 09/22/24 15:21 09/22/24 15:30 Temperature Temperature Source Pulse Rate 71 73 74 Pulse Rate [Apical] Pulse Rate from SpO2 Sensor 71 73 74 Respiratory Rate 22 22 23 Respiratory Effort / Characteristics Respiratory Depth Respiratory Pattern Blood Pressure Blood Pressure [Left Arm] Blood Pressure Mean Blood Pressure Mean [Left Arm] Pulse Oximetry 95 94 92 Oxygen Delivery Method Oxygen Flow Rate Sepsis Recent Fever Within 48 Hours Sepsis New/Unexplained Change in Mental Status Sepsis Action Taken by Nursing Oxygen Flow Rate - Titration Pulse Oximetry Post Tiitration 09/22/24 15:57 09/22/24 16:00 09/22/24 16:00 Temperature Temperature Source Pulse Rate 71 Pulse Rate [Apical] Pulse Rate from SpO2 Sensor Respiratory Rate 22 Respiratory Effort / Characteristics Respiratory Depth Respiratory Pattern Blood Pressure 114/67 114/67 Blood Pressure [Left Arm] Blood Pressure Mean 79 79 Blood Pressure Mean [Left Arm] Pulse Oximetry Oxygen Delivery Method Oxygen Flow Rate Sepsis Recent Fever Within 48 Hours Sepsis New/Unexplained Change in Mental Status Sepsis Action Taken by Nursing Oxygen Flow Rate - Titration Pulse Oximetry Post Tiitration 09/22/24 16:00 09/22/24 16:00 09/22/24 16:01 Temperature Temperature Source Pulse Rate 70 Pulse Rate [Apical] Pulse Rate from SpO2 Sensor Respiratory Rate Respiratory Effort / Characteristics Respiratory Depth Respiratory Pattern Blood Pressure 114/67 114/67 Blood Pressure [Left Arm] Blood Pressure Mean 79 79 Blood Pressure Mean [Left Arm] Pulse Oximetry Oxygen Delivery Method Oxygen Flow Rate Sepsis Recent Fever Within 48 Hours Sepsis New/Unexplained Change in Mental Status Sepsis Action Taken by Nursing Oxygen Flow Rate - Titration Pulse Oximetry Post Tiitration 09/22/24 16:36 09/22/24 16:45 09/22/24 16:51 Temperature Temperature Source Pulse Rate 67 68 70 Pulse Rate [Apical] Pulse Rate from SpO2 Sensor Respiratory Rate 22 23 22 Respiratory Effort / Characteristics Respiratory Depth Respiratory Pattern Blood Pressure 114/67 Blood Pressure [Left Arm] Blood Pressure Mean 82 Blood Pressure Mean [Left Arm] Pulse Oximetry 92 Oxygen Delivery Method Oxygen Flow Rate Sepsis Recent Fever Within 48 Hours Sepsis New/Unexplained Change in Mental Status Sepsis Action Taken by Nursing Oxygen Flow Rate - Titration Pulse Oximetry Post Tiitration 09/22/24 17:00 09/22/24 17:18 09/22/24 17:27 Temperature Temperature Source Pulse Rate 80 75 82 Pulse Rate [Apical] Pulse Rate from SpO2 Sensor 82 74 82 Respiratory Rate 21 19 25 H Respiratory Effort / Characteristics Respiratory Depth Respiratory Pattern Blood Pressure Blood Pressure [Left Arm] Blood Pressure Mean Blood Pressure Mean [Left Arm] Pulse Oximetry 97 98 Oxygen Delivery Method Oxygen Flow Rate Sepsis Recent Fever Within 48 Hours Sepsis New/Unexplained Change in Mental Status Sepsis Action Taken by Nursing Oxygen Flow Rate - Titration Pulse Oximetry Post Tiitration 09/22/24 17:30 Temperature Temperature Source Pulse Rate 77 Pulse Rate [Apical] Pulse Rate from SpO2 Sensor 77 Respiratory Rate 21 Respiratory Effort / Characteristics Respiratory Depth Respiratory Pattern Blood Pressure Blood Pressure [Left Arm] Blood Pressure Mean Blood Pressure Mean [Left Arm] Pulse Oximetry 100 Oxygen Delivery Method Oxygen Flow Rate Sepsis Recent Fever Within 48 Hours Sepsis New/Unexplained Change in Mental Status Sepsis Action Taken by Nursing Oxygen Flow Rate - Titration Pulse Oximetry Post Tiitration Laboratory Data 09/22/24 14:32 09/22/24 14:32 Lab Results 09/22/24 09/22/24 09/22/24 Range/Units 14:23 14:32 17:23 WBC 11.91 H (4.8-10.8) K/ul RBC 4.30 (4.20-5.40) M/uL Hgb 13.9 (12.0-16.0) g/dl Hct 42.3 (37.0-47.0) % MCV 98.4 (80.0-100.0) fL MCH 32.3 (25.0-34.0) pg MCHC 32.9 (32.0-36.0) g/dL RDW Std Deviation 47.3 H (36.4-46.3) fL RDW Coeff of Carol 13.3 (11.5-14.5) % Plt Count 151 (130-400) K/uL MPV 12.1 (9.4-12.4) fL Immature Gran % (Auto) 0.6 % Neut % (Auto) 80.2 % Lymph % (Auto) 9.3 % [place] % (Auto) 9.4 % Eos % (Auto) 0.2 % Baso % (Auto) 0.3 % Neut # (Auto) 9.56 H (1.40-6.50) K/uL Lymph # (Auto) 1.11 L (1.20-3.40) K/uL [place] # (Auto) 1.12 H (0.11-0.59) K/uL Eos # (Auto) 0.02 (0.00-0.50) K/uL Baso # (Auto) 0.03 (0.00-0.20) K/uL Immature Gran # (Auto) 0.07 (0.01-0.20) K/uL PT 12.1 H (9.0-12.0) Seconds INR 1.1 (0.9-1.1) VBG pH 7.35 L (7.36-7.41) VBG pCO2 57 H (38-50) mmHg VBG pO2 25 mmHg VBG HCO3 32 mmol/L VBG O2 Saturation < 60.0 % VBG Base Excess 4.3 mEq/L Sodium 141 (136-145) mmol/L Potassium 3.8 (3.5-5.1) mmol/L Chloride 101 (98-107) mmol/L Carbon Dioxide 30 (21-32) mmol/L Anion Gap 10 (3-11) BUN 20 (6-23) mg/dl Creatinine 1.07 (0.6-1.2) mg/dl Est Cr Clr Drug Dosing 37.3 ml/min eGFR 50.27 BUN/Creatinine Ratio 18.7 (10-20) Glucose 117 H (70-99(Fasting)) mg/dl Calcium 9.9 (8.6-10.3) mg/dl Magnesium 1.6 L (1.7-2.4) mg/dl Total Bilirubin 0.5 (0.2-1.0) mg/dl AST 12 L (13-39) U/L ALT 6 L (7-52) U/L Alkaline Phosphatase 64 (34-104) U/L Troponin I High Sens 9.7 (0-14) pg/ml B-Natriuretic Peptide 99 (0-100) pg/ml Total Protein 7.6 (6.0-8.3) gm/dl Albumin 3.9 (3.4-5.0) gm/dl Globulin 3.7 (2.5-4.0) gm/dl Albumin/Globulin Ratio 1.1 (0.9-2) Procalcitonin 0.12 (0-0.5) ng/ml Adenovirus (PCR) Not Detected (NotDetected) B. pertussis DNA (PCR) Not Detected (NotDetected) B.parapertussis DNA PCR Not Detected (NotDetected) C. pneumoniae DNA (PCR) Not Detected (NotDetected) Coronavirus OC43 (PCR) Not Detected (NotDetected) Coronavirus HKU1 (PCR) Not Detected (NotDetected) Coronavirus 229E (PCR) Not Detected (NotDetected) SARS-CoV-2 (PCR) Not Detected (NotDetected) Coronavirus NL63 (PCR) Not Detected (NotDetected) Human Metapneumovir PCR Not Detected (NotDetected) Influenza Type A (PCR) Not Detected (NotDetected) Influenza Type B (PCR) Not Detected (NotDetected) M. pneumoniae (PCR) Not Detected (NotDetected) Parainfluenza 1 (PCR) Not Detected (NotDetected) Parainfluenza 2 (PCR) Not Detected (NotDetected) Parainfluenza 3 (PCR) Not Detected (NotDetected) Parainfluenza 4 (PCR) Not Detected (NotDetected) RSV (PCR) Not Detected (NotDetected) Entero/Rhino (PCR) DETECTED A (NotDetected) Administered Medications Discontinued Medications Albuterol (Albut/Ipratrop 3mg/0.5mg Neb 3 Ml Vial) 3 ml NEB NOW STA; Protocol Stop: 09/22/24 17:07 Last Admin: 09/22/24 17:12 Dose: 3 ml Documented By: ANGELITO Sodium Chloride (Nss) 1,000 mls @ 125 mls/hr IV .Q8H [facility] Stop: 09/25/24 14:44 Last Admin: 09/22/24 14:54 Dose: 125 mls/hr Documented By: ANGELITO Magnesium Sulfate/Dextrose (Magnesium Sulfate / D5w) 1 gm in 100 mls @ 100 mls/hr IV NOW STA Stop: 09/22/24 16:12 Last Infusion: 09/22/24 16:16 Dose: Infused Documented By: Admin: 09/22/24 15:22 Dose: 100 mls/hr Documented By: AYANNA Ceftriaxone Sodium (Rocephin) 2,000 mg in 50 mls @ 100 mls/hr IV NOW STA Stop: 09/22/24 18:13 Last Infusion: 09/22/24 19:17 Dose: Infused Documented By: Admin: 09/22/24 17:51 Dose: 100 mls/hr Documented By: AYANNA Imaging Data Radiologist's Impression: Chest X-Ray 09/22/24 14:40 EXAM: Radiograph of the Chest 1 View INDICATION: Shortness of breath TECHNIQUE: Frontal view of the chest. COMPARISON: 05/06/2023 FINDINGS: Lungs and pleural spaces: Shallow inspiration with stable mild basilar atelectasis or scarring. No consolidation or pulmonary edema. No pleural effusion or pneumothorax. Heart: Shape and configuration within normal limits allowing for technique. Mediastinum: Normal contour. Bones/joints: Degenerative changes noted in the spine and right shoulder. No acute osseous abnormality. Soft tissues: No abnormality noted. No radiopaque foreign body noted. Upper abdomen: No abnormality noted. IMPRESSION: Stable chronic changes. No acute disease. ACT 112: N/A Electronically signed by Zabrina Sanabria 09-22-2024 3:47 PM Discharge Plan Visit Data Chief Complaint: Shortness of Breath/Dyspnea Stated Complaint: SOB, CHEST PAIN ED Provider: Hetal Fox Discharge Problem: Dyspnea, URI (upper respiratory infection), Confusion, Dehydration Patient Disposition: Being Evaluated by Hospitalist Condition: Fair
[2024-09-22 15:11] LABS: Albumin Globulin Ratio 1.1 (0.9-2); Albumin Level 3.9 gm/dl (3.4-5.0); BUN Creatinine Ratio 18.7 (10-20); Bilirubin,Total 0.5 mg/dl (0.2-1.0); Calcium 9.9 mg/dl (8.6-10.3); Creatinine Clr Calc Pharmacy 37.3 ml/min; Globulin 3.7 gm/dl (2.5-4.0); Magnesium 1.6 mg/dl (1.7-2.4); Potassium 3.8 mmol/L (3.5-5.1); Total Protein 7.6 gm/dl (6.0-8.3)
[2024-09-22 15:18] LABS: Troponin I High Sensitivity 9.7 pg/ml (0-14)
[2024-09-22] MEDS: MAGNESIUM SULFATE / D5W 1 GM/100 ML BAG IV STA (15:22)
[2024-09-22 15:24] LABS: INR 1.1 (0.9-1.1); Prothrombin Time 12.1 Seconds (9.0-12.0)
[2024-09-22 15:47] LABS: Adenovirus PCR Not Detected (NotDetected); Bordetella parapertussis PCR Not Detected (NotDetected); Bordetella pertussis PCR Not Detected (NotDetected); Chlamydia pneumoniae PCR Not Detected (NotDetected); Coronavirus 229E PCR Not Detected (NotDetected); Coronavirus CoV-2 (COVID19)PCR Not Detected (NotDetected); Coronavirus HKU1 PCR Not Detected (NotDetected); Coronavirus NL63 PCR Not Detected (NotDetected); Coronavirus OC43PCR Not Detected (NotDetected); Human Metapneumovirus PCR Not Detected (NotDetected); Influenza A PCR Not Detected (NotDetected); Influenza B PCR Not Detected (NotDetected); Mycoplasma pneumoniae PCR Not Detected (NotDetected); Parainfluenza Virus 1 PCR Not Detected (NotDetected); Parainfluenza Virus 2 PCR Not Detected (NotDetected); Parainfluenza Virus 3 PCR Not Detected (NotDetected); Parainfluenza Virus 4 PCR Not Detected (NotDetected); Respiratory Syncytial VirusPCR Not Detected (NotDetected); Rhinovirus/Enterovirus PCR DETECTED (NotDetected)
--- NOTE | 2024-09-22 15:49 | XRay Report ---
EXAM: Radiograph of the Chest 1 View INDICATION: Shortness of breath TECHNIQUE: Frontal view of the chest. COMPARISON: 05/06/2023 FINDINGS: Lungs and pleural spaces: Shallow inspiration with stable mild basilar atelectasis or scarring. No consolidation or pulmonary edema. No pleural effusion or pneumothorax. Heart: Shape and configuration within normal limits allowing for technique. Mediastinum: Normal contour. Bones/joints: Degenerative changes noted in the spine and right shoulder. No acute osseous abnormality. Soft tissues: No abnormality noted. No radiopaque foreign body noted. Upper abdomen: No abnormality noted. IMPRESSION: Stable chronic changes. No acute disease. ACT 112: N/A Electronically signed by Zabrina Sanabria 09-22-2024 3:47 PM
--- NOTE | 2024-09-22 16:47 | History & Physical Report ---
Date of Service September 22, 2024 Assessment & Plan (1) Hypoxia: Plan: Patient is a 89 year old F with a past medical history of HTN, CKD Stg 3, PreDiabetes, Persistent Asthma, SUZAN, Dyslipidemia, GERD, presenting with hypoxia. Patient resides at [facility] and was hypoxic to 80's with a cough this morning. Patient only requires oxygen when sleeping for SUZAN, however, she required 5LPM O2 to maintain adequate sats for transport here. Per EMS, the patient is typically oriented and now confused. She arrived without documentation from [facility] and no staff was available to assist with history of current illness. BioFire positive for Rhinovirus. Hypoxia 2/2 URI with possible underlying CAP #Asthma * Admit to Med Surg Tele for further management of hypoxia * +Rhino with possible underlying CAP * Duonebs Q6 PRN for shortness of breath/wheezing * Supplemental O2 to maintain sats above 92% * Solumedrol 40 mg Daily-- holding home ICS * Start CAP treament with Ceftriax and Doxy * PT/OT when appropriate- will most likely need 6 minute walk test prior to discharge * CM for d/c plans- possible skilled facility #Diastolic HF * IV maintenance fluids stopped- keep pt clinically dry for now * Lasix 20 mg IV x 1 in ED * On home lasix 40 mg po daily- holding for now * Monitor I/O #HYpomagnesemia * Mag replaced in ED for Mag 1.6 * Trend with AM labs and replace as needed. #Hyperlipidemia * Continue home statin * Continue home aspirin #CKD Stag III * Renal functioning at baseline Cr 1.07, GFR 50 * Trend with AM labs DVT Ppx: SCD's Code status: DNR PCP: Dr. Peter Lu Dispo: Admit to Med Surg Tele Patient seen in collaboration with Dr. Reid. Please see addendum.I spent a total of 70 minutes coordinating, documenting and providing care for this patient excluding time spent in the performance of separately billed services or time spent by another provider/QHP. (2) CAP (community acquired pneumonia): (3) URI (upper respiratory infection): (4) CKD (chronic kidney disease), stage III: (5) Diastolic HF (heart failure): (6) HLD (hyperlipidemia): (7) Asthma: History of Present Illness Primary Care Provider: Peter Lu MD Patient is a 89 year old F with a past medical history of HTN, CKD Stg 3, PreDiabetes, Persistent Asthma, SUZAN, Dyslipidemia, GERD, presenting with hypoxia. Patient resides at [facility] and was hypoxic to 80's with a cough this morning. Patient only requires oxygen when sleeping for SUZAN, however, she required 5LPM O2 to maintain adequate sats for transport here. Per EMS, the patient is typically oriented and now confused. She arrived without documentation from [facility] and no staff was available to assist with history of current illness. Due to cognitive status at time of arrival, a review of systems was challenging. In the emergency department, patient was hemodynamically stable on oxygen with 5LPM upon arrival to the ED. Mildly elevated WBC 11 with no evidence of sepsis. Appeared clinically dry and was placed on maintenance IV fluids at 125 ml/hr. BioFire positive for Rhinovirus. Chest XRay negative for acute disease but showed shallow inspiration with stable mild basilar atelectasis or scarring; No consolidation or pulmonary edema; No pleural effusion or pneumothorax. EKG: NSR, vent rate 71 bpm, QTc 439. Mag bolus given for level of 1.6. Oxygen was weaned to 2LPM via NC, but the patient continued to desat to 87% requiring 4LPM to maintain sats above 92%. Patient was oriented x2 for the ED staff. Upon my arrival to the room, the patient was unable to answer any orientation questions. She appeared confused, staring at the ceiling shivering, and intermittently babbling incomprehensible words. VBG ordered and showed mild, compensated resp acidosis-> pH 7.35, pCO2 57, pO2 25, HC03 32, O2sat <60. Duoneb given. Lasix 20 mg IV given x 1 in the ED and IV fluids were stopped. Rocephin and Doxy initiated for CAP coverage. History obtained from hospitalization record. External chart review via [email or web address] provided current medications, past medical history, and primary care notes when visiting [facility]. Allergies Allergy/AdvReac Type Severity Reaction Status Date / Time phenytoin Allergy Intermediate RASH Verified 05/28/24 11:43 amoxicillin Allergy Mild Nausea Verified 05/28/24 11:43 clavulanic acid Allergy Mild Nausea Verified 05/28/24 11:43 dexamethasone AdvReac Intermediate SEVERE Verified 05/28/24 11:43 ANXIETY (TAKES PREDNISONE) Home Medications Medication Instructions Recorded Confirmed Type aspirin 81 mg tablet,delayed 81 mg PO QAM 10/24/18 09/22/24 History release atorvastatin 20 mg tablet 20 mg PO HS 10/24/18 09/22/24 History montelukast 10 mg tablet 10 mg PO HS 10/24/18 09/22/24 History furosemide 40 mg tablet 40 mg PO DAILY 02/05/19 09/22/24 History bisacodyl 10 mg rectal suppository 10 mg [place] DAILY PRN Constipation 02/07/20 09/22/24 History (Dulcolax (bisacodyl)) docusate sodium 100 mg capsule 200 mg PO DAILY 02/07/20 09/22/24 History gabapentin 100 mg capsule 100 mg PO TID 02/07/20 09/22/24 History famotidine 20 mg tablet 20 mg PO QAM 08/22/20 09/22/24 History Oxygen Home 02/19/23 05/28/24 History cholecalciferol (vitamin D3) 25 50 mcg PO DAILY 02/19/23 09/22/24 History mcg (1,000 unit) tablet (Vitamin D3) fluticasone furoate 200 1 inh inhalation DAILY 02/19/23 09/22/24 History mcg-vilanterol 25 mcg/dose inhalation powder (Breo Ellipta) ipratropium 0.5 mg-albuterol 3 mg 3 ml inhalation Q4 PRN sob/wheezing 02/19/23 09/22/24 History (2.5 mg base)/3 mL nebulization soln polyvinyl alcohol-povidone (PF) 1 drp OPB BID 02/19/23 09/22/24 History 1.4 %-0.6 % eye drops in a dropperette (Refresh Classic (PF)) tiotropium bromide 2.5 2 puff inhalation DAILY 02/19/23 09/22/24 History mcg/actuation mist for inhalation (Spiriva Respimat) trazodone 50 mg tablet 50 mg PO HS #20 tabs 02/21/23 09/22/24 Rx acetaminophen 650 mg 650 mg PO HS 04/18/23 09/22/24 History tablet,extended release bisacodyl 5 mg tablet,delayed 5 mg PO DAILY PRN contipation 04/18/23 09/22/24 History release escitalopram oxalate 5 mg tablet 10 mg PO DAILY 04/18/23 09/22/24 History ondansetron HCl 4 mg tablet 4 mg PO Q6 PRN Nausea / Vomiting 04/18/23 09/22/24 History acetaminophen 325 mg tablet 650 mg PO Q4H PRN pain/fever 09/22/24 09/22/24 History acetaminophen 650 mg 1,300 mg PO DAILY 09/22/24 09/22/24 History tablet,extended release cetirizine 10 mg tablet 10 mg PO DAILY 09/22/24 09/22/24 History magnesium hydroxide 400 mg/5 mL 400 mg PO DAILY 09/22/24 09/22/24 History oral suspension polyethylene glycol 3350 17 17 g PO DAILY 09/22/24 09/22/24 History gram/dose oral powder (Miralax) Past Med/Surg History Problem List CAP (community acquired pneumonia) Hypoxia Dehydration (Acute) Confusion (Acute) URI (upper respiratory infection) (Acute) Dyspnea (Acute) Daily urinary incontinence Incomplete bladder emptying Chronic diastolic heart failure Morbid obesity Fall (Acute) Contusion of face (Acute) Aortic stenosis (Acute) Syncope (Acute) Greater trochanter fracture (Acute) Fracture of scaphoid (Acute) History of total knee arthroplasty (Chronic) 2016 Dr. Dav Best Hypertension (Chronic) CKD (chronic kidney disease), stage III (Chronic) Lumbar degenerative disc disease (Chronic) Diastolic HF (heart failure) (Chronic) GERD (gastroesophageal reflux disease) (Chronic) Depression (Chronic) Anxiety (Chronic) Osteoporosis (Chronic) HLD (hyperlipidemia) (Chronic) Vertigo (Chronic) Osteoarthritis (Chronic) S/P right mastectomy (Chronic) Medical History (Updated 09/22/24 @ 18:20 by ROSALINDA Souza) Asthma Bacteremia Bronchiectasis Scarring of lung following radiation Meningioma non cancerous, surgically removed Surgical History H/O left wrist surgery S/P LUDA-BSO History of appendectomy Family History Other Family history non-contributory Social History Smoking Status: Never smoker Second Hand Exposure: No; Do You Dip or Chew Tobacco: No; Hx Alcohol Use: No Hx Substance Use: No Preferred Language: Swedish Communication Ability: Effective Visual Impairment: No Limitations Accounting Professional Required: No Beliefs That Will Affect Care: None marital status: / Current Living Situation: Personal Care Facility Current Living Situation Comment: [facility] Feels Safe at Home: Yes Assistive Devices: Glasses, Oxygen - at Night and Walker Review of Systems Review of Systems: Unobtainable due to mental health condition Physical Exam Physical Exam: VITALS: Reviewed. GEN: well-developed, In respiratory distress. PSYCH: Intermittently confused. HEENT -Head: NC/AT; -Eyes: PERRL, EOMI. No discharge or redn ess; -Ears: External ears are normal. -Nose: Normal nares. -Mouth and throat: Dry mucous membranes, cracked lips, swallowing ok NECK: Supple, with no masses. CV: S1, S2 present with no murmurs. No swelling. Pulses strong. LUNGS: Diminished. +wheezing. + rhonchi. 2-4 LPM oxygen ABD: Soft, NT/ND, NBS, no masses or organomegaly. : N/A SKIN: Warm, well perfused. No skin rashes or abnormal lesions. MSK: No deformities EXT: No clubbing, cyanosis, or edema. NEURO: Incomprehensible words. Occasional eye contact. IRENE. Disoriented. Results & Data Results & Data Vital Signs (Past 12 Hours) Vital Signs Temp Pulse Pulse Resp BP BP Pulse Ox 09/22/24 16:01 70 09/22/24 16:00 09/22/24 16:00 09/22/24 16:00 09/22/24 15:57 71 22 09/22/24 15:30 74 23 92 09/22/24 15:21 73 22 94 09/22/24 15:00 71 22 95 09/22/24 15:00 12409/22/24 15:00 12409/22/24 15:00 12409/22/24 14:42 72 20 95 09/22/24 14:36 73 24 94 09/22/24 14:21 71 16 134/69 93 09/22/24 14:12 90 09/22/24 14:12 09/22/24 13:56 37 C 76 24 134/69 90 O2 Del Method O2 Flow Rate 09/22/24 16:01 09/22/24 16:00 09/22/24 16:00 09/22/24 16:00 09/22/24 15:57 09/22/24 15:30 09/22/24 15:21 09/22/24 15:00 09/22/24 15:00 09/22/24 15:00 09/22/24 15:00 09/22/24 14:42 09/22/24 14:36 09/22/24 14:21 Nasal Cannula 2 09/22/24 14:12 Room Air, Nasal Cannula 0 09/22/24 14:12 Room Air, Nasal Cannula 09/22/24 13:56 Room Air Laboratory Results Short CBC 09/22/24 Range/Units 14:32 WBC 11.91 H (4.8-10.8) K/ul Hgb 13.9 (12.0-16.0) g/dl Hct 42.3 (37.0-47.0) % Plt Count 151 (130-400) K/uL BMP 09/22/24 14:32 Sodium 141 Potassium 3.8 Chloride 101 Carbon Dioxide 30 BUN 20 Creatinine 1.07 Glucose 117 H Calcium 9.9 Liver Function 09/22/24 Range/Units 14:32 Total Bilirubin 0.5 (0.2-1.0) mg/dl AST 12 L (13-39) U/L ALT 6 L (7-52) U/L Alkaline Phosphatase 64 (34-104) U/L Albumin 3.9 (3.4-5.0) gm/dl Diagnostic Findings Chest X-Ray 09/22/24 14:40 EXAM: Radiograph of the Chest 1 View INDICATION: Shortness of breath TECHNIQUE: Frontal view of the chest. COMPARISON: 05/06/2023 FINDINGS: Lungs and pleural spaces: Shallow inspiration with stable mild basilar atelectasis or scarring. No consolidation or pulmonary edema. No pleural effusion or pneumothorax. Heart: Shape and configuration within normal limits allowing for technique. Mediastinum: Normal contour. Bones/joints: Degenerative changes noted in the spine and right shoulder. No acute osseous abnormality. Soft tissues: No abnormality noted. No radiopaque foreign body noted. Upper abdomen: No abnormality noted. IMPRESSION: Stable chronic changes. No acute disease. ACT 112: N/A Electronically signed by Zabrina Sanabria 09-22-2024 3:47 PM Supervising Physician Co-Signing Physician Notes Attending addendum: The patient was seen and examined in the emergency room She was brought in [facility] [place] [facility] with desaturation Has been coughing a lot with productive phlegm and also shivering during examination Pleasantly confused but denies any significant distress On examination Afebrile and hemodynamically stable Chestcoarse crackles at the bases and also wheezing anteriorly HeartS1-S2, regular Abdomenbenign Extremitiestrace edema bilaterally CNSalert and awake. Pleasantly confused. Moves all extremities and generally weak Her admission labs, EKG and imaging studies reviewed Noted to have slightly elevated white count with rhinovirus on serology and chest x-ray suggestive of possible CAP Assessment and plan Likely has CAP on top of rhinovirus infectionwill start ceftriaxone and doxycycline and also small dose of Solu-Medrol and supportive care History of diastolic heart failurewill try small dose of intravenous Lasix times once on dose Continue with nebulized bronchodilator as needed and other medications History of sleep apnea and on 2 L oxygen at night Will need PT and OT evaluation prior to discharge Agree with assessment and plan as outlined above by ROSALINDA Novak and take the full responsibility of care in the hospital DR Joni Reid
[2024-09-22] MEDS: ALBUT/IPRATROP 3MG/0.5MG NEB 3 ML VIAL NEB STA (17:12)
[2024-09-22 17:45] LABS: Base Excess VBG 4.3 mEq/L; HCO3 VBG 32 mmol/L; Oxygen Saturation VBG < 60.0 %; PCO2 VBG 57 mmHg (38-50); PO2 VBG 25 mmHg; pH VBG 7.35 (7.36-7.41)
[2024-09-22] MEDS: cefTRIAXone SODIUM 2,000 MG/50 ML BAG IV STA (17:51)
[2024-09-22] MEDS ORDERED: ALBUT/IPRATROP 3MG/0.5MG NEB 3 ML VIAL NEB PRN (20:06)
[2024-09-22] MEDS ORDERED: ALUMINUM/MAGNESIUM SUSP 30 ML UDC PO PRN (20:06)
[2024-09-22] MEDS ORDERED: methylPREDNISolone 125 MG/2 ML VIAL IV SCH (20:06)
[2024-09-22] MEDS ORDERED: ACETAMINOPHEN 325 MG TAB PO PRN (20:06)
[2024-09-22] MEDS: FUROSEMIDE INJ 20 MG/2 ML VIAL IV ONE (21:21)
[2024-09-22] MEDS: methylPREDNISolone 40 MG in SYRINGE 0 ML IV SCH (21:21)
[2024-09-22] MEDS: ARTIFICIAL TEARS OP SCH (21:21)
[2024-09-22] MEDS: ATORVASTATIN 20 MG TAB PO SCH (21:22)
[2024-09-22] MEDS: DOXYCYCLINE HYCLATE 100 MG CAP PO SCH (21:22)
[2024-09-22] MEDS: GABAPENTIN 100 MG CAP PO SCH (21:22)
[2024-09-23] MEDS: CHOLECALCIFEROL 25 MCG (1000 UNITS) TAB PO SCH (08:44)
[2024-09-23] MEDS: ASPIRIN 81 MG ECTAB PO SCH (08:44)
[2024-09-23] MEDS: ESCITALOPRAM OXALATE 10 MG TAB PO SCH (08:44)
[2024-09-23] MEDS: FAMOTIDINE 20 MG TAB PO SCH (08:46)
[2024-09-23] MEDS: DOCUSATE SODIUM 100 MG CAP PO SCH (08:46)
--- NOTE | 2024-09-23 11:09 | Hospitalist Progress Note ---
Date of Service September 23, 2024 Assessment & Plan (1) Hypoxia: (2) CAP (community acquired pneumonia): (3) URI (upper respiratory infection): (4) CKD (chronic kidney disease), stage III: (5) Diastolic HF (heart failure): (6) HLD (hyperlipidemia): (7) Asthma: Plan Patient is a 89 year old F with a past medical history of HTN, CKD Stg 3, PreDiabetes, Persistent Asthma, SUZAN, Dyslipidemia, GERD, presenting with hypoxia. Patient resides at [facility] and was hypoxic to 80's with a cough this morning. Patient only requires oxygen when sleeping for SUZAN, however, she required 5LPM O2 to maintain adequate sats for transport here. P Acute hypoxic respiratory failure Asthma exacerbation Rhinovirus infection Community-acquired pneumonia Patient presents to the hospital with oxygen saturation of less than 88% and tachypnea with RR of 25 Rhinovirus positive Chest x-rayno acute findings Wean off oxygen as tolerated Continue antibiotics Continue DuoNebs Continue steroids X 5days PT OT eval #Acute on chronic Diastolic HF Given IV Lasix in the ED Continue home Lasix dose #HYpomagnesemia * Mag replaced in ED for Mag 1.6 * Trend with AM labs and replace as needed. #Hyperlipidemia * Continue home statin * Continue home aspirin #CKD Stag III * Renal functioning at baseline Cr 1.07, GFR 50 * Trend with AM labs DVT Ppx: heparin Code status: DNR PCP: Dr. Peter Lu Time spent evaluating patient, direct bedside care, chart review, placing orders, interpretation of diagnostic studies, discussion with consultants, patient, and family members, as well as other required patient management activities is 50 minutes Please note the above document was generated using voice recognition software. It may contain grammatical, syntax or spelling errors. Any formal questions or concerns about the content, text or information contained within the body of this dictation should be directly addressed to the provider for clarification Admission and Anticipated Discharge Date Admission Date: September 22, 2024 Subjective Patient seen and examined at bedside. She is sitting up on the chair; not in distress. She is eating breakfast. Review of Systems Review of Systems: All systems reviewed & are unremarkable except as noted in Subjective Physical Exam Physical Exam: Constitutional: Awake, oriented to self and place. Coughing intermittently. Respiratory: Bilateral occasional wheeze present. Cardiovascular: RRR, no murmur, no edema Vessels: no JVD or carotid bruit Chest: normal inspection of chest Abdomen: normal bowel sounds, soft, nontender, no hepatosplenomegaly Musculoskeletal: no cyanosis or clubbing, extremities motor strength 5/5 Skin: no rashes, warm and dry normal turgor Neurologic: PERRL, EOMI, accommodation nl, no face palsy, no dysarthria CN's II- XI intact bilaterally and moves all extremities Results & Data Results & Data Vital Signs (Past 12 Hours) Vital Signs Temp Pulse Pulse Resp BP Pulse Ox O2 Del Method 09/23/24 07:58 36.6 C 86 16 105/73 94 Oxymask 09/23/24 07:08 76 09/23/24 02:28 36.4 C L 86 18 144/86 H 94 Oxymask O2 Flow Rate 09/23/24 07:58 09/23/24 07:08 09/23/24 02:28 5
[2024-09-23] MEDS: FUROSEMIDE 40 MG TAB PO SCH (11:55)
[2024-09-23] MEDS: ALBUT/IPRATROP 3MG/0.5MG NEB 3 ML VIAL NEB SCH (12:39)
[2024-09-23] MEDS: HEPARIN SOD 5,000 UNIT/0.5 ML VIAL SQ SCH (13:07)
[2024-09-23] MEDS: cefTRIAXone SODIUM 2,000 MG/50 ML BAG IV SCH (17:20)
[2024-09-23] MEDS: BUDESONIDE 0.5 MG/2 ML VIAL (PULMICORT) NEB SCH (20:00)
[2024-09-23] MEDS: FORMOTEROL 20 MCG/2 ML VIAL NEB SCH (20:01)
--- NOTE | 2024-09-24 12:11 | Hospitalist Progress Note ---
Date of Service September 24, 2024 Assessment & Plan (1) Hypoxia: (2) CAP (community acquired pneumonia): (3) URI (upper respiratory infection): (4) CKD (chronic kidney disease), stage III: (5) Diastolic HF (heart failure): (6) HLD (hyperlipidemia): (7) Asthma: Plan Patient is a 89 year old F with a past medical history of HTN, CKD Stg 3, PreDiabetes, Persistent Asthma, SUZAN, Dyslipidemia, GERD, presenting with hypoxia. Patient resides at [facility] and was hypoxic to 80's with a cough this morning. Patient only requires oxygen when sleeping for SUZAN, however, she required 5LPM O2 to maintain adequate sats for transport here. P Acute hypoxic respiratory failure Asthma exacerbation Rhinovirus infection Community-acquired pneumonia Patient presents to the hospital with oxygen saturation of less than 88% and tachypnea with RR of 25 Rhinovirus positive Chest x-rayno acute findings Wean off oxygen as tolerated Continue antibiotics Continue DuoNebs budenoside and formoterol nebs Continue steroids X 5days PT OT eval #Acute on chronic Diastolic HF Given IV Lasix in the ED Continue home Lasix dose #HYpomagnesemia- repleted #Hyperlipidemia * Continue home statin * Continue home aspirin #CKD Stag III * Renal functioning at baseline Cr 1.07, GFR 50 DVT Ppx: heparin Code status: DNR PCP: Dr. Peter Lu Time spent evaluating patient, direct bedside care, chart review, placing orders, interpretation of diagnostic studies, discussion with consultants, patient, and family members, as well as other required patient management activities is 50 minutes Please note the above document was generated using voice recognition software. It may contain grammatical, syntax or spelling errors. Any formal questions or concerns about the content, text or information contained within the body of this dictation should be directly addressed to the provider for clarification Admission and Anticipated Discharge Date Admission Date: September 22, 2024 Subjective Patient seen and examined at bedside. Comfortable; not in distress. Denies fever, chills, chest pain, shortness of breath, abdominal pain or urinary symptoms. No significant overnight events Review of Systems Review of Systems: All systems reviewed & are unremarkable except as noted in Subjective Physical Exam Physical Exam: Constitutional: Awake, oriented to self and place. Coughing intermittently. Respiratory: Bilateral occasional wheeze present. Cardiovascular: RRR, no murmur, no edema Vessels: no JVD or carotid bruit Chest: normal inspection of chest Abdomen: normal bowel sounds, soft, nontender, no hepatosplenomegaly Musculoskeletal: no cyanosis or clubbing, extremities motor strength 5/5 Skin: no rashes, warm and dry normal turgor Neurologic: PERRL, EOMI, accommodation nl, no face palsy, no dysarthria CN's II- XI intact bilaterally and moves all extremities Results & Data Results & Data Vital Signs (Past 12 Hours) Vital Signs Temp Pulse Resp BP Pulse Ox O2 Del Method O2 Flow Rate 09/24/24 11:26 36.5 C 61 18 148/81 H 93 Room Air 09/24/24 07:10 55 L 16 92 Nasal Cannula 6 09/24/24 04:13 36.8 C 80 16 116/68 93 Nasal Cannula 5
[2024-09-24] MEDS: ONDANSETRON INJ 2 MG/ML 2 ML VIAL IV PRN (19:41)
[2024-09-25 06:16] LABS: Basophils # (auto) 0.03 K/uL (0.00-0.20); Basophils % (auto) 0.3 %; Hematocrit (blood only) 37.6 % (37.0-47.0); Hemoglobin 12.7 g/dl (12.0-16.0); Immature Granulocytes # (auto) 0.26 K/uL (0.01-0.20); Immature Granulocytes % (auto) 2.6 %; Lymphocytes # (auto) 1.23 K/uL (1.20-3.40); Lymphocytes % (auto) 12.3 %; Mean Corpuscular Hgb Conc 33.8 g/dL (32.0-36.0); Mean Corpuscular Volume 94.7 fL (80.0-100.0); Mean Platelet Volume 11.9 fL (9.4-12.4); Monocytes # (auto) 1.19 K/uL (0.11-0.59); Monocytes % (auto) 11.9 %; Neutrophils # (auto) 7.33 K/uL (1.40-6.50); Neutrophils % (auto) 72.9 %; Platelet Count 167 K/uL (130-400); RDW Coefficient of Variation 12.5 % (11.5-14.5); RDW Standard Deviation 43.6 fL (36.4-46.3); Red Blood Count 3.97 M/uL (4.20-5.40); White Blood Count 10.04 K/ul (4.8-10.8)
[2024-09-25 06:31] LABS: BUN Creatinine Ratio 31.4 (10-20); Calcium 9.5 mg/dl (8.6-10.3); Creatinine Clr Calc Pharmacy 44.1 ml/min; Potassium 3.6 mmol/L (3.5-5.1)
[2024-09-25] MEDS: MAGNESIUM CHLORIDE W/CALCIUM 64MG DELAYED REL TAB PO SCH (10:37)
--- NOTE | 2024-09-25 12:37 | Electrocardiogram Report ---
Test Reason : Blood Pressure : */* mmHG Vent. Rate : 71 BPM Atrial Rate : 71 BPM P-R Int : 144 ms QRS Dur : 80 ms QT Int : 404 ms P-R-T Axes : 56 -12 88 degrees QTcB Int : 439 ms Normal sinus rhythm Moderate voltage criteria for LVH, may be normal variant ( R in aVL , Cristóbal product ) Nonspecific T wave abnormality Abnormal ECG When compared with ECG of 06-May-2023 09:49, No significant change was found Confirmed by Tino Munoz ([id number]) on 09/25/2024 12:37:16 PM Referred By: REFERRED SELF Confirmed By: Tino Munoz
--- NOTE | 2024-09-25 14:05 | Hospitalist Progress Note ---
Date of Service September 25, 2024 Assessment & Plan (1) Hypoxia: (2) CAP (community acquired pneumonia): (3) URI (upper respiratory infection): (4) CKD (chronic kidney disease), stage III: (5) Diastolic HF (heart failure): (6) HLD (hyperlipidemia): (7) Asthma: Plan Patient is a 89 year old F with a past medical history of HTN, CKD Stg 3, PreDiabetes, Persistent Asthma, SUZAN, Dyslipidemia, GERD, presenting with hypoxia. Patient resides at [facility] and was hypoxic to 80's with a cough this morning. Patient only requires oxygen when sleeping for SUZAN, however, she required 5LPM O2 to maintain adequate sats for transport here. P Acute hypoxic respiratory failure Asthma exacerbation Rhinovirus infection Community-acquired pneumonia --Patient presents to the hospital with oxygen saturation of less than 88% and tachypnea with RR of 25 --CXR: Stable chronic changes. No acute disease. -- Respiratory panel: Positive for rhinovirus -- Continue nebs, Pulmicort, empiric antibiotics, Solu-Medrol --Wean off of supplemental oxygen as able --May need 2 step prior to discharge Acute metabolic encephalopathy--POA Likely secondary to above Obtain CT head Trazodone on hold Reorient frequently to minimize delirium Minimize sedative medications as able Acute on chronic Diastolic HF Given IV Lasix in the ED Continue home Lasix dose Monitor volume status Hypomagnesemia Replete as needed Hyperlipidemia Continue statin CKD Stage III Monitor renal function DVT Px: Heparin SQ Code status: DNI/DNR Admission and Anticipated Discharge Date Admission Date: September 22, 2024 Subjective Patient is seen and examined at bedside Pleasantly confused, poor historian Reports having minimal cough Denies any chest pain, dyspnea, nausea, vomiting, abdominal pain Saturating well on 2 L supplemental oxygen Review of Systems Review of Systems: All systems reviewed & are unremarkable except as noted in Subjective Physical Exam Physical Exam: Physical Exam: Vitals signs as noted above General Appearance:Moderately built and nourished, no apparent distress Head: normocephalic, Atraumatic Eyes: normal inspection, EOMI Neck: supple, Trachea midline Respiratory/Chest: Mild coarse breath sounds, CTA, No accessory muscle use Cardiovascular: S1, S2, No murmur Abdomen/GI:Soft, Non tender, Bowel sounds present Extremities/Musculoskeletal:normal inspection, no edema Neurologic/Psych: Alert, awake, oriented to person and place, grossly no focal neurological deficits, confused Skin: normal color, warm Results & Data Results & Data Vital Signs (Past 12 Hours) Vital Signs Temp Pulse Pulse Resp BP Pulse Ox O2 Del Method 09/25/24 13:16 86 18 91 Nasal Cannula 09/25/24 11:04 36.4 C L 87 16 122/75 92 Nasal Cannula 09/25/24 07:35 72 09/25/24 07:28 74 16 91 Nasal Cannula 09/25/24 07:19 36.8 C 74 17 122/73 90 Nasal Cannula 09/25/24 03:36 36.2 C L 63 16 130/68 91 Nasal Cannula O2 Flow Rate 09/25/24 13:16 2 09/25/24 11:04 2 09/25/24 07:35 09/25/24 07:28 2 09/25/24 07:19 2 09/25/24 03:36 2 Laboratory Results Short CBC 09/25/24 Range/Units 05:47 WBC 10.04 (4.8-10.8) K/ul Hgb 12.7 (12.0-16.0) g/dl Hct 37.6 (37.0-47.0) % Plt Count 167 (130-400) K/uL BMP 09/25/24 05:47 Sodium 136 Potassium 3.6 Chloride 99 Carbon Dioxide 30 BUN 27 H Creatinine 0.86 Glucose 99 Calcium 9.5
--- NOTE | 2024-09-25 15:30 | CT Scan Report ---
CT head/brain wo con CLINICAL HISTORY: 89 years-old Female with Confusion. Acutely altered mental status TECHNIQUE: Multiple axial CT images of the head were obtained without contrast. A dose lowering tech nique was utilized adhering to the principles of ALARA. CT DOSE: 625.8 mGy.cm COMPARISON: April 18, 2023, May 06, 2023. FINDINGS: No acute intracranial hemorrhage, midline shift, intracranial mass, hydrocephalus, territorial ischem ia or abnormal extra-axial collection. Involutional changes with chronic microvascular ischemic disea se. 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 No acute calvarial fracture. Mild to moderate mucosal thickening involves the left-sided paranasal s inuses. Small left maxillary air-fluid level. Mastoid air cells are clear. IMPRESSION: 1. No acute intracranial abnormality. 2. Paranasal sinus disease includes acute left maxillary sinusitis. 3. Chronic findings as above. ACT 112: Negative or not required by law. The above report was generated using voice recognition software. It may contain grammatical, syntax o r spelling errors. Electronically signed by: Justice Gómez M.D. 09/25/2024 3:29 PM
[2024-09-25] MEDS ORDERED: PHA DELIRIUM CONSULT PRN (22:45)
[2024-09-26] MEDS: MAGNESIUM HYDROXIDE SUSP 30 ML UDC PO PRN (06:08)
[2024-09-26 07:08] LABS: Base Excess VBG 5.2 mEq/L; HCO3 VBG 30 mmol/L; PCO2 VBG 43 mmHg (38-50); PO2 VBG 93 mmHg; pH VBG 7.45 (7.36-7.41)
[2024-09-26 07:14] LABS: Hematocrit (blood only) 36.1 % (37.0-47.0); Hemoglobin 12.5 g/dl (12.0-16.0); Mean Corpuscular Hemoglobin 33.1 pg (25.0-34.0); Mean Corpuscular Hgb Conc 34.6 g/dL (32.0-36.0); Mean Corpuscular Volume 95.5 fL (80.0-100.0); Mean Platelet Volume 11.8 fL (9.4-12.4); Platelet Count 170 K/uL (130-400); RDW Coefficient of Variation 12.5 % (11.5-14.5); RDW Standard Deviation 43.6 fL (36.4-46.3); Red Blood Count 3.78 M/uL (4.20-5.40); White Blood Count 11.79 K/ul (4.8-10.8)
[2024-09-26 07:38] LABS: BUN Creatinine Ratio 34.6 (10-20); Calcium 9.7 mg/dl (8.6-10.3); Creatinine Clr Calc Pharmacy 48.3 ml/min; Magnesium 1.6 mg/dl (1.7-2.4); Potassium 3.7 mmol/L (3.5-5.1)
[2024-09-26 07:53] LABS: Thyroid Stimulating Hormone 0.64 uIu/ml (0.300-4.500)
[2024-09-26] MEDS ORDERED: ALBUT/IPRATROP 3MG/0.5MG NEB 3 ML VIAL NEB PRN (08:10)
[2024-09-26] MEDS: MAGNESIUM SULFATE / D5W 1 GM/100 ML BAG IV ONE (10:13)
--- NOTE | 2024-09-26 10:58 | XRay Report ---
XR chest 1V portable CLINICAL HISTORY: hypoxia COMPARISON STUDY: 09/22/2024 FINDINGS: Stable cardiomegaly without pulmonary vascular congestion. Inspiration is shallow. There is stable stranding opacity at the left lower lung. No pneumothorax or pleural effusion seen. IMPRESSION: Stable exam. ACT 112: Negative or not required by law. Electronically signed by: Edward Baird M.D. 09/26/2024 10:56 AM
[2024-09-26] MEDS: POLYETHYLENE (MIRALAX) 17 GM PACK PO SCH (12:04)
--- NOTE | 2024-09-26 15:58 | Hospitalist Progress Note ---
Date of Service September 26, 2024 Assessment & Plan (1) Hypoxia: (2) CAP (community acquired pneumonia): (3) URI (upper respiratory infection): (4) CKD (chronic kidney disease), stage III: (5) Diastolic HF (heart failure): (6) HLD (hyperlipidemia): (7) Asthma: Plan Patient is a 89 year old F with a past medical history of HTN, CKD Stg 3, PreDiabetes, Persistent Asthma, SUZAN, Dyslipidemia, GERD, presenting with hypoxia. Patient resides at [facility] and was hypoxic to 80's with a cough this morning. Patient only requires oxygen when sleeping for SUZAN, however, she required 5LPM O2 to maintain adequate sats for transport here. P Acute hypoxic respiratory failure Asthma exacerbation Rhinovirus infection Community-acquired pneumonia --Patient presents to the hospital with oxygen saturation of less than 88% and tachypnea with RR of 25 --CXR: Stable chronic changes. No acute disease. -- Respiratory panel: Positive for rhinovirus -- Continue nebs, Pulmicort, empiric antibiotics -- Completed 5-day course of IV Solu-Medrol --Wean off of supplemental oxygen as able Leukocytosis likely due to IV steroids Respiratory status slowly improving Incentive spirometry Likely discharge in next 24 to 48 hours if remains stable Acute metabolic encephalopathy--POA Suspected underlying dementia Patient family states that her cognitive status has been slowly declining over months --CT head:No acute intracranial abnormality. Paranasal sinus disease includes acute left maxillary sinusitis. Chronic findings as above. Trazodone on hold Reorient frequently to minimize delirium Minimize sedative medications as able Acute on chronic Diastolic HF Given IV Lasix in the ED Continue home Lasix dose Monitor volume status Hypomagnesemia Replete as needed Hyperlipidemia Continue statin CKD Stage III Monitor renal function DVT Px: Heparin SQ Code status: DNI/DNR Disposition SNF as able Admission and Anticipated Discharge Date Admission Date: September 22, 2024 Subjective Patient is seen and examined at bedside Pleasantly confused, poor historian Updated patient's family over the phone States feeling well today Chest x-ray today showed no acute change Still has minimal cough Denies any chest pain, dyspnea, nausea, vomiting, abdominal pain Review of Systems Review of Systems: All systems reviewed & are unremarkable except as noted in Subjective Physical Exam Physical Exam: Physical Exam: Vitals signs as noted above General Appearance:Moderately built and nourished, no apparent distress Head: normocephalic, Atraumatic Eyes: normal inspection, EOMI Neck: supple, Trachea midline Respiratory/Chest: Decreased breath sounds, basal crackles , No accessory muscle use Cardiovascular: S1, S2, No murmur Abdomen/GI:Soft, Non tender, Bowel sounds present Extremities/Musculoskeletal:normal inspection, no edema Neurologic/Psych: Alert, awake, oriented to person and place, grossly no focal neurological deficits, confused Skin: normal color, warm Results & Data Results & Data Vital Signs (Past 12 Hours) Vital Signs Temp Pulse Pulse Resp BP Pulse Ox O2 Del Method 09/26/24 15:35 36.5 C 64 18 119/76 92 Room Air 09/26/24 14:28 63 09/26/24 11:59 36.5 C 61 18 119/61 91 Nasal Cannula 09/26/24 09:20 Nasal Cannula 09/26/24 07:52 36.5 C 70 18 135/78 96 Nasal Cannula 09/26/24 07:20 72 09/26/24 07:14 72 18 94 Nasal Cannula O2 Flow Rate 09/26/24 15:35 09/26/24 14:28 09/26/24 11:59 1 09/26/24 09:20 1 09/26/24 07:52 2 09/26/24 07:20 09/26/24 07:14 2 Laboratory Results Short CBC 09/26/24 Range/Units 06:58 WBC 11.79 H (4.8-10.8) K/ul Hgb 12.5 (12.0-16.0) g/dl Hct 36.1 L (37.0-47.0) % Plt Count 170 (130-400) K/uL BMP 09/26/24 06:58 Sodium 137 Potassium 3.7 Chloride 99 Carbon Dioxide 30 BUN 27 H Creatinine 0.78 Glucose 95 Calcium 9.7
[2024-09-26] MEDS ORDERED: PHA DELIRIUM CONSULT PRN (21:49)
[2024-09-27 07:36] VITALS: RESP 18
[2024-09-27 07:48] LABS: BUN Creatinine Ratio 34.8 (10-20); Calcium 9.7 mg/dl (8.6-10.3); Creatinine Clr Calc Pharmacy 41.5 ml/min; Potassium 3.6 mmol/L (3.5-5.1)
[2024-09-27] MEDS: predniSONE 20 MG TAB PO SCH (08:34)
[2024-09-27 11:08] VITALS: BP 111/63; TEMP 97.9; O2SAT 91
--- NOTE | 2024-09-27 11:30 | Hospitalist Progress Note ---
Date of Service September 27, 2024 Assessment & Plan (1) Hypoxia: (2) CAP (community acquired pneumonia): (3) URI (upper respiratory infection): (4) CKD (chronic kidney disease), stage III: (5) Diastolic HF (heart failure): (6) HLD (hyperlipidemia): (7) Asthma: Plan Patient is a 89 year old F with a past medical history of HTN, CKD Stg 3, PreDiabetes, Persistent Asthma, SUZAN, Dyslipidemia, GERD, presenting with hypoxia. Patient resides at [facility] and was hypoxic to 80's with a cough this morning. Patient only requires oxygen when sleeping for SUZAN, however, she required 5LPM O2 to maintain adequate sats for transport here. P Acute hypoxic respiratory failure Asthma exacerbation Rhinovirus infection Community-acquired pneumonia --Patient presents to the hospital with oxygen saturation of less than 88% and tachypnea with RR of 25 --CXR: Stable chronic changes. No acute disease. -- Respiratory panel: Positive for rhinovirus -- Continue nebs, Pulmicort, empiric antibiotics -- Completed 5-day course of IV Solu-Medrol>> transition to prednisone tapering course --Wean off of supplemental oxygen as able Leukocytosis likely due to IV steroids Saturating low 90s on room air Plan to be discharged to SNF today Acute metabolic encephalopathy--POA Suspected underlying dementia Patient family states that her cognitive status has been slowly declining over months --CT head:No acute intracranial abnormality. Paranasal sinus disease includes acute left maxillary sinusitis. Chronic findings as above. Trazodone on hold Reorient frequently to minimize delirium Minimize sedative medications as able Mental status seem to be improving back to baseline Acute on chronic Diastolic HF Given IV Lasix in the ED Continue home Lasix dose Monitor volume status Hypomagnesemia Replete as needed Hyperlipidemia Continue statin CKD Stage III Monitor renal function DVT Px: Heparin SQ Code status: DNI/DNR Disposition SNF Admission and Anticipated Discharge Date Admission Date: September 22, 2024 Subjective Patient is seen and examined at bedside States feeling well today Mental status seem to be back to baseline Still has some cough but otherwise no complaints Saturating low 90s on room air Denies any chest pain, dyspnea, nausea, vomiting, abdominal pain Plan to be discharged to SNF today Review of Systems Review of Systems: All systems reviewed & are unremarkable except as noted in Subjective Physical Exam Physical Exam: Physical Exam: Vitals signs as noted above General Appearance:Moderately built and nourished, no apparent distress Head: normocephalic, Atraumatic Eyes: normal inspection, EOMI Neck: supple, Trachea midline Respiratory/Chest: Decreased breath sounds, CTA , No accessory muscle use Cardiovascular: S1, S2, No murmur Abdomen/GI:Soft, Non tender, Bowel sounds present Extremities/Musculoskeletal:normal inspection, no edema Neurologic/Psych: Alert, awake, oriented to person and place, grossly no focal neurological deficits, confused Skin: normal color, warm Results & Data Results & Data Vital Signs (Past 12 Hours) Vital Signs Temp Pulse Pulse Resp BP Pulse Ox O2 Del Method 09/27/24 11:08 36.6 C 64 18 111/63 91 Room Air 09/27/24 10:03 Room Air 09/27/24 07:35 36.5 C 59 L 18 126/76 94 Nasal Cannula 09/27/24 07:33 59 L 09/27/24 07:19 79 14 94 Nasal Cannula 09/27/24 02:54 36.3 C L 71 18 137/73 93 Nasal Cannula O2 Flow Rate 09/27/24 11:08 09/27/24 10:03 09/27/24 07:35 2 09/27/24 07:33 09/27/24 07:19 2 09/27/24 02:54 2 Laboratory Results [facility] 09/27/24 06:53 Sodium 137 Potassium 3.6 Chloride 97 L Carbon Dioxide 32 BUN 32 H Creatinine 0.92 Glucose 92 Calcium 9.7
--- NOTE | 2024-09-27 11:38 | Discharge Summary ---
Date of Service September 27, 2024 Admission HPI Per Admitting Provider Patient is a 89 year old F with a past medical history of HTN, CKD Stg 3, PreDiabetes, Persistent Asthma, SUZAN, Dyslipidemia, GERD, presenting with hypoxia. Patient resides at [facility] and was hypoxic to 80's with a cough this morning. Patient only requires oxygen when sleeping for SUZAN, however, she required 5LPM O2 to maintain adequate sats for transport here. Per EMS, the patient is typically oriented and now confused. She arrived without documentation from [facility] and no staff was available to assist with history of current illness. Due to cognitive status at time of arrival, a review of systems was challenging. In the emergency department, patient was hemodynamically stable on oxygen with 5LPM upon arrival to the ED. Mildly elevated WBC 11 with no evidence of sepsis. Appeared clinically dry and was placed on maintenance IV fluids at 125 ml/hr. BioFire positive for Rhinovirus. Chest XRay negative for acute disease but showed shallow inspiration with stable mild basilar atelectasis or scarring; No consolidation or pulmonary edema; No pleural effusion or pneumothorax. EKG: NSR, vent rate 71 bpm, QTc 439. Mag bolus given for level of 1.6. Oxygen was weaned to 2LPM via NC, but the patient continued to desat to 87% requiring 4LPM to maintain sats above 92%. Patient was oriented x2 for the ED staff. Upon my arrival to the room, the patient was unable to answer any orientation questions. She appeared confused, staring at the ceiling shivering, and intermittently babbling incomprehensible words. VBG ordered and showed mild, compensated resp acidosis-> pH 7.35, pCO2 57, pO2 25, HC03 32, O2sat <60. Duoneb given. Lasix 20 mg IV given x 1 in the ED and IV fluids were stopped. Rocephin and Doxy initiated for CAP coverage. History obtained from hospitalization record. External chart review via [employer] provided current medications, past medical history, and primary care notes when visiting [facility]. Admission Exam Per Admitting Provider VITALS: Reviewed. GEN: well-developed, In respiratory distress. PSYCH: Intermittently confused. HEENT -Head: NC/AT; -Eyes: PERRL, EOMI. No discharge or redness; -Ears: External ears are normal. -Nose: Normal nares. -Mouth and throat: Dry mucous membranes, cracked lips, swallowing ok NECK: Supple, with no masses. CV: S1, S2 present with no murmurs. No swelling. Pulses strong. LUNGS: Diminished. +wheezing. + rhonchi. 2-4 LPM oxygen ABD: Soft, NT/ND, NBS, no masses or organomegaly. : N/A SKIN: Warm, well perfused. No skin rashes or abnormal lesions. MSK: No deformities EXT: No clubbing, cyanosis, or edema. NEURO: Incomprehensible words. Occasional eye contact. IRENE. Disoriented. Principal Diagnosis Acute hypoxic respiratory failure Asthma exacerbation Rhinovirus infection Community-acquired pneumonia Acute on chronic Diastolic heart failure Hypomagnesemia Acute metabolic encephalopathy Discharge Data Allergies Allergy/AdvReac Type Severity Reaction Status Date / Time phenytoin Allergy Intermediate RASH Verified 05/28/24 11:43 amoxicillin Allergy Mild Nausea Verified 05/28/24 11:43 clavulanic acid Allergy Mild Nausea Verified 05/28/24 11:43 dexamethasone AdvReac Intermediate SEVERE Verified 05/28/24 11:43 ANXIETY (TAKES PREDNISONE) Consultations 09/22/24 16:46 ED Decision to Admit Stat Procedures Performed Laboratory Results WBC 11.79 K/ul (4.8-10.8) H 09/26/24 06:58 RBC 3.78 M/uL (4.20-5.40) L 09/26/24 06:58 Hgb 12.5 g/dl (12.0-16.0) 09/26/24 06:58 Hct 36.1 % (37.0-47.0) L 09/26/24 06:58 MCV 95.5 fL (80.0-100.0) 09/26/24 06:58 MCH 33.1 pg (25.0-34.0) 09/26/24 06:58 MCHC 34.6 g/dL (32.0-36.0) 09/26/24 06:58 RDW Std Deviation 43.6 fL (36.4-46.3) 09/26/24 06:58 RDW Coeff of Carol 12.5 % (11.5-14.5) 09/26/24 06:58 Plt Count 170 K/uL (130-400) 09/26/24 06:58 MPV 11.8 fL (9.4-12.4) 09/26/24 06:58 Immature Gran % (Auto) 2.6 % 09/25/24 05:47 Neut % (Auto) 72.9 % 09/25/24 05:47 Lymph % (Auto) 12.3 % 09/25/24 05:47 [place] % (Auto) 11.9 % 09/25/24 05:47 Eos % (Auto) 0.0 % 09/25/24 05:47 Baso % (Auto) 0.3 % 09/25/24 05:47 Neut # (Auto) 7.33 K/uL (1.40-6.50) H 09/25/24 05:47 Lymph # (Auto) 1.23 K/uL (1.20-3.40) 09/25/24 05:47 [place] # (Auto) 1.19 K/uL (0.11-0.59) H 09/25/24 05:47 Eos # (Auto) 0.00 K/uL (0.00-0.50) 09/25/24 05:47 Baso # (Auto) 0.03 K/uL (0.00-0.20) 09/25/24 05:47 Immature Gran # (Auto) 0.26 K/uL (0.01-0.20) H 09/25/24 05:47 PT 12.1 Seconds (9.0-12.0) H 09/22/24 14:32 INR 1.1 (0.9-1.1) 09/22/24 14:32 VBG pH 7.45 (7.36-7.41) H 09/26/24 07:01 VBG pCO2 43 mmHg (38-50) 09/26/24 07:01 VBG pO2 93 mmHg 09/26/24 07:01 VBG HCO3 30 mmol/L 09/26/24 07:01 VBG O2 Saturation 99.0 % 09/26/24 07:01 VBG Base Excess 5.2 mEq/L 09/26/24 07:01 Sodium 137 mmol/L (136-145) 09/27/24 06:53 Potassium 3.6 mmol/L (3.5-5.1) 09/27/24 06:53 Chloride 97 mmol/L (98-107) L 09/27/24 06:53 Carbon Dioxide 32 mmol/L (21-32) 09/27/24 06:53 Anion Gap 8 (3-11) 09/27/24 06:53 BUN 32 mg/dl (6-23) H 09/27/24 06:53 Creatinine 0.92 mg/dl (0.6-1.2) 09/27/24 06:53 Est Cr Clr Drug Dosing 41.5 ml/min 09/27/24 06:53 eGFR 60.26 09/27/24 06:53 BUN/Creatinine Ratio 34.8 (10-20) H 09/27/24 06:53 Glucose 92 mg/dl (70-99(Fasting)) 09/27/24 06:53 POC Glucose 119 mg/dl (70-99) H 09/24/24 08:04 Calcium 9.7 mg/dl (8.6-10.3) 09/27/24 06:53 Magnesium 2.0 mg/dl (1.7-2.4) 09/27/24 06:53 Total Bilirubin 0.5 mg/dl (0.2-1.0) 09/22/24 14:32 AST 12 U/L (13-39) L 09/22/24 14:32 ALT 6 U/L (7-52) L 09/22/24 14:32 Alkaline Phosphatase 64 U/L (34-104) 09/22/24 14:32 Troponin I High Sens 9.7 pg/ml (0-14) 09/22/24 14:32 B-Natriuretic Peptide 99 pg/ml (0-100) 09/22/24 14:32 Total Protein 7.6 gm/dl (6.0-8.3) 09/22/24 14:32 Albumin 3.9 gm/dl (3.4-5.0) 09/22/24 14:32 Globulin 3.7 gm/dl (2.5-4.0) 09/22/24 14:32 Albumin/Globulin Ratio 1.1 (0.9-2) 09/22/24 14:32 Vitamin B12 286 pg/ml (180-914) 09/26/24 06:58 Procalcitonin 0.12 ng/ml (0-0.5) 09/22/24 14:32 TSH 0.640 uIu/ml (0.300-4.500) 09/26/24 06:58 Nasal Screen MRSA (PCR) Negative (Negative) 09/22/24 Unknown Adenovirus (PCR) Not Detected (NotDetected) 09/22/24 14:23 B. pertussis DNA (PCR) Not Detected (NotDetected) 09/22/24 14:23 B.parapertussis DNA PCR Not Detected (NotDetected) 09/22/24 14:23 C. pneumoniae DNA (PCR) Not Detected (NotDetected) 09/22/24 14:23 Coronavirus OC43 (PCR) Not Detected (NotDetected) 09/22/24 14:23 Coronavirus HKU1 (PCR) Not Detected (NotDetected) 09/22/24 14:23 Coronavirus 229E (PCR) Not Detected (NotDetected) 09/22/24 14:23 SARS-CoV-2 (PCR) Not Detected (NotDetected) 09/22/24 14:23 Coronavirus NL63 (PCR) Not Detected (NotDetected) 09/22/24 14:23 Human Metapneumovir PCR Not Detected (NotDetected) 09/22/24 14:23 Influenza Type A (PCR) Not Detected (NotDetected) 09/22/24 14:23 Influenza Type B (PCR) Not Detected (NotDetected) 09/22/24 14:23 M. pneumoniae (PCR) Not Detected (NotDetected) 09/22/24 14:23 Parainfluenza 1 (PCR) Not Detected (NotDetected) 09/22/24 14:23 Parainfluenza 2 (PCR) Not Detected (NotDetected) 09/22/24 14:23 Parainfluenza 3 (PCR) Not Detected (NotDetected) 09/22/24 14:23 Parainfluenza 4 (PCR) Not Detected (NotDetected) 09/22/24 14:23 RSV (PCR) Not Detected (NotDetected) 09/22/24 14:23 Entero/Rhino (PCR) DETECTED (NotDetected) A 09/22/24 14:[address] 09/25/24 14:01 CT head/brain wo con CLINICAL HISTORY: 89 years-old Female with Confusion. Acutely altered mental status TECHNIQUE: Multiple axial CT images of the head were obtained without contrast. A dose lowering technique was utilized adhering to the principles of ALARA. CT DOSE: 625.8 mGy.cm COMPARISON: April 18, 2023, May 06, 2023. FINDINGS: No acute intracranial hemorrhage, midline shift, intracranial mass, hydrocephalus, territorial ischemia or abnormal extra-axial collection. Involutional changes with chronic microvascular ischemic disease. 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 No acute calvarial fracture. Mild to moderate mucosal thickening involves the left-sided paranasal sinuses. Small left maxillary air-fluid level. Mastoid air cells are clear. IMPRESSION: 1. No acute intracranial abnormality. 2. Paranasal sinus disease includes acute left maxillary sinusitis. 3. Chronic findings as above. ACT 112: Negative or not required by law. The above report was generated using voice recognition software. It may contain grammatical, syntax or spelling errors. Electronically signed by: Justice Gómez M.D. 09/25/2024 3:29 PM Chest X-Ray 09/26/24 10:28 XR chest 1V portable CLINICAL HISTORY: hypoxia COMPARISON STUDY: 09/22/2024 FINDINGS: Stable cardiomegaly without pulmonary vascular congestion. Inspiration is shallow. There is stable stranding opacity at the left lower lung. No pneumothorax or pleural effusion seen. IMPRESSION: Stable exam. ACT 112: Negative or not required by law. Electronically signed by: Edward Baird M.D. 09/26/2024 10:56 AM Ordered Studies 09/25/24 14:01 CT head/brain wo con Urgent Hospital Course (1) Hypoxia: (2) CAP (community acquired pneumonia): (3) URI (upper respiratory infection): (4) CKD (chronic kidney disease), stage III: (5) Diastolic HF (heart failure): (6) HLD (hyperlipidemia): (7) Asthma: Plan Patient is a 89 year old F with a past medical history of HTN, CKD Stg 3, PreDiabetes, Persistent Asthma, SUZAN, Dyslipidemia, GERD, presenting with hypoxia. Patient resides at [facility] and was hypoxic to 80's with a cough this morning. Patient only requires oxygen when sleeping for SUZAN, however, she required 5LPM O2 to maintain adequate sats for transport here. P Acute hypoxic respiratory failure Asthma exacerbation Rhinovirus infection Community-acquired pneumonia --Patient presents to the hospital with oxygen saturation of less than 88% and tachypnea with RR of 25 --CXR: Stable chronic changes. No acute disease. -- Respiratory panel: Positive for rhinovirus -- Continue nebs, Pulmicort, empiric antibiotics -- Completed 5-day course of IV Solu-Medrol>> transition to prednisone tapering course --Wean off of supplemental oxygen as able Leukocytosis likely due to IV steroids Saturating low 90s on room air Plan to be discharged to SNF today Acute metabolic encephalopathy--POA Suspected underlying dementia Patient family states that her cognitive status has been slowly declining over months --CT head:No acute intracranial abnormality. Paranasal sinus disease includes acute left maxillary sinusitis. Chronic findings as above. Trazodone on hold Reorient frequently to minimize delirium Minimize sedative medications as able Mental status seem to be improving back to baseline Acute on chronic Diastolic HF Given IV Lasix in the ED Continue home Lasix dose Monitor volume status Hypomagnesemia Replete as needed Hyperlipidemia Continue statin CKD Stage III Monitor renal function DVT Px: Heparin SQ Code status: DNI/DNR Disposition SNF Total Time Total Time Spent Total Time Spent (In Minutes): 44 minutes Discharge Plan Discharge Items Patient Disposition: Transfer Custodial Fac Reason For Visit: HYPOXIA Discharge Diagnosis: Acute hypoxic respiratory failure Asthma exacerbation Rhinovirus infection Community-acquired pneumonia Acute on chronic Diastolic heart failure Hypomagnesemia Acute metabolic encephalopathy Condition on Discharge: Fair Activity: Per Instructions section Exercise/Sports: Gradually increase as tolerated Non-emergency contact: Primary Care Provider and Neurologist Call non-emergency contact if: you have any medication questions, your symptoms worsen, your pain is concerning for you and you have a fever Follow-up/Referrals: Peter Lu MD [Primary Care Provider] - Diet: Regular Diet Texture: Easy to Chew Addtl Attending Provider Instructions: Follow-up with your primary care physician Dr. Lu in 1 week Follow-up with your neurologist for further evaluation of suspected dementia as recommended --Complete the antibiotic (Doxycycline for 2 more days and Cefuroxime for 5 more days) and prednisone tapering course as prescribed Prednisone tapering course: Start taking prednisone 20 mg daily for 2 days, then take 10 mg daily for 2 days then stop Seek immediate medical attention if your symptoms reoccur or worsen Please review medication list provided on discharge for any medication changes as instructed. Please call if you have any questions or problems. You can reach a [facility] hospitalist on duty at [facility] 24 hours a day by calling [phone] [facility] [employer] Provider Instructions: Call your Primary Care doctor if any of the following symptoms or problems start or get worse: * Shortness of breath or difficulty breathing * Wake up at night short of breath * Chest pain * Cough * Swelling of your hands, feet, or legs * More fatigued or tired with your normal activity * Palpitations - sudden fast heart beats WEIGHT * Weigh yourself every morning after using the bathroom. * Use the same scale. * Wear the same amount of clothing. * Write your weight down on a chart. * Call your Primary Care doctor if you gain more than 2-3 pounds in 1-2 days. MEDICATIONS * Use this discharge instruction sheet for medication instructions. * Take your medications at the time your doctor ordered. * Do not skip a dose of your medicines. * If you miss a dose of medicine, take it as soon as possible, but DO NOT DOUBLE A DOSE. * Read your medicine information when you get home. * Know all of the side effects of your medicine. If in doubt, ask your pharmacist * Call your Primary Care doctor's office if you have any side effects. * Be sure all of your doctors know what medicine and herbs you take (including cold, flu, and herbal medicine). Take the following with you to your follow-up doctor appointments: * Weight Chart * Medication List * List of questions Do not drink excessive alcohol, beer or wine. Pending Studies at Discharge: No Stand-Alone Forms: My [facility] Skilled Items Patient informed of condition?: Yes DNR: Yes Discharge Level of Care: Skilled Communicable Disease: No Discharge Prognosis: Stable Lines: None Urinary Catheter: No Medications and DC Order Prescriptions: New doxycycline hyclate 100 mg Capsule 100 mg PO BID Qty: 4 0RF Advanced Probiotic 625 mg (10 billion cell) Capsule 1 cap PO DAILY Qty: 7 0RF prednisone 10 mg tablet 20 mg PO UD Qty: 6 0RF Rx Instructions: Start taking prednisone 20 mg daily for 2 days, then take 10 mg daily for 2 days then stop cefuroxime axetil 500 mg tablet 500 mg PO BID Qty: 10 0RF Continued atorvastatin 20 mg tablet 20 mg PO HS aspirin 81 mg Tablet,Delayed Release (Dr/Ec) 81 mg PO QAM Rx Instructions: take with food montelukast 10 mg Tablet 10 mg PO HS furosemide 40 mg Tablet 40 mg PO DAILY bisacodyl [Dulcolax (bisacodyl)] 10 mg Suppository 10 mg MA DAILY PRN (Reason: Constipation) docusate sodium 100 mg Capsule 200 mg PO DAILY gabapentin 100 mg Capsule 100 mg PO TID acetaminophen 650 mg tablet extended release 650 mg PO HS escitalopram oxalate 5 mg tablet 10 mg PO DAILY ondansetron HCl 4 mg tablet 4 mg PO Q6 PRN (Reason: Nausea / Vomiting) bisacodyl 5 mg tablet,delayed release (DR/EC) 5 mg PO DAILY PRN (Reason: contipation) famotidine 20 mg Tablet 20 mg PO QAM Refresh Classic (PF) 1.4-0.6 % Dropperette 1 drp OPB BID cholecalciferol (vitamin D3) [Vitamin D3] 25 mcg (1,000 unit) Tablet 50 mcg PO DAILY Spiriva Respimat 2.5 mcg/actuation mist 2 puff INHALATION DAILY fluticasone furoate-vilanterol [Breo Ellipta] 200-25 mcg/dose blister with device 1 inh INHALATION DAILY ipratropium-albuterol 0.5 mg-3 mg(2.5 mg base)/3 mL Solution For Nebulization 3 ml inhalation Q4 PRN (Reason: sob/wheezing) (DME) Oxygen Home Liters Per Minute Rx Instructions: 3LPM with sleep acetaminophen 325 mg Tablet 650 mg PO Q4H PRN (Reason: pain/fever) cetirizine 10 mg Tablet 10 mg PO DAILY polyethylene glycol 3350 [Miralax] 17 gram/dose Powder 17 g PO DAILY magnesium hydroxide 400 mg/5 mL Suspension 400 mg PO DAILY Discontinued trazodone 50 mg Tablet 50 mg PO HS Qty: 20 0RF acetaminophen 650 mg Tablet Extended Release 1,300 mg PO DAILY Discharge Orders: Discharge Order (Routine); Ordered 09/27/24 Ordered By: Yohannes Simon Admission Data Admit Date/Time: 09/22/24 17:33 Attending Provider: Yohannes Simon Admit Provider: Anthony Reid Primary Care Provider: Peter Lu Other Providers: Anthony Reid
[2024-09-27 11:40] LABS: Appearance Urine Clear (Clear); Bacteria Urine Automated None Seen (None Seen); Bilirubin Urine Negative (Negative); Blood Urine Negative (Negative); Cast Urine Automated 0-2 /lpf (0-2); Color Urine Yellow; Epithelial Cell Urine Auto 0-2 /hpf (0-2); Glucose Urine UA Negative (Negative); Ketones Urine Trace (Negative); Leukocyte Esterase Urine Trace (Negative); Nitrite Urine Negative (Negative); Protein Urine Negative (Negative); Specific Gravity Urine 1.019 (1.000-1.030); Urobilinogen Urine Negative (Negative); WBC Urine Automated 0-5 /hpf (0-5); pH Urine 5.5 (4.5-7.5)
[2024-09-27 12:05] VITALS: PULSE 82
[2024-09-27] MEDS: ADVANCED PROBIOTIC 625 MG CAPSULE PO SCH (12:54)
== END 2024-09-27 14:13 | DRG 189 ==
LOC: ED 14:03 → EDINP 17:33 → SUATTDRO 17:33 → 2W 20:29